=== PATIENT | female | born 1935 | race Caucasian/White ===

== ENCOUNTER 2016-06-08 06:16 | Inpatient (IN) | payer OTHER ==
[~2016-06-08] VITALS: Ht 160 cm; Wt 76.9 kg
[~2016-06-08 06:16] MED LIST: /ADVA50050; /ADVA50050 IN; /WARF25TA OR; ACET500C OR; ACET65TA OR; ADV250INH INH; ADVAIR; ADVAIR INH; ALBU17IN INH; ALBU83IN; ALBU83IN INH; ALBU83IN NEB; ALBUTERAL INH; ALBUTEROL INH; ALEVE; ALEVE PO; AMOX875T2 PO; ASTELIN INH; ASTELIN NASAL; ASTELIN NASAL SPRAY; ATRO1SOL13 NEB; AVELOX PO; BISA10SU2 RE; CALCARB WITH VIT D; CALCTAB93 PO; CARD120T6 OR; CARD180C4 PO; CARD240C5 PO; CARDIZEM CD; CARTIA XT PO; CEFD1CAP8 PO; CEFT500T PO; CELE100C OR; CETAPHIL; CICLOPIROX TOP; CLOB0.0548 TOP; CLOBETASOL; CLOBETASOL PROPIONAT; COLA100C2; DILT240C5 PO; DIOV80TA; DUONSOL IN; FERR324T5 OR; FLAG500T; GABA100C PO; HYDR10TA3; HYDR10TA3 OR; HYDR1TAB97 PO; INCR1INH IN; LASI40TA OR; LASI40TA PO; LETR2.5T PO; LEVA250T PO; LEVA500T; LEVA500T PO; METO50TA4; METO5TAB2 OR; METO5TAB2 PO; MULTTAB25 PO; NEBUMIS2 INH; OMEP20TA7 PO; OXYGEN; PANT40TA2 PO; PERC5TAB8 OR; PRAD150C PO; PRADAXA OR; PRED10TA PO; PRED10TA2 OR; PRED20TA OR; PREDPOW10 PO; PROV90AE; TIOT18INH INH; TRAM50TA2 OR; TRAM50TA2 PO; TYLE325T5 PO; VALS80CA; VIT D 2000 OR; VITA100037 PO; VITAMIN D50000 UNT OR; ZITH250T PO; [UNRECOGNIZED DRUG - CODE] OR; [UNRECOGNIZED DRUG - OTHER]; [UNRECOGNIZED DRUG - OTHER]; [UNRECOGNIZED DRUG - OTHER]; [UNRECOGNIZED DRUG - OTHER] TOP; albuterol neb INH; cartia xt PO; ipratropium bromide INH; ocean nasal spray; oxygen; vitamin D OR
[2016-06-08] MEDS ORDERED: IPRATROPIUM 0.5MG/ALBUTEROL 2.5MG INH SOL UD 3ML (DUONEB)(J7620) As Ordered ONE ×2 (06:30→07:02)
[2016-06-08] MEDS ORDERED: dexameTHASONE 4 MG/ML 1ML VIAL (J1100) As Ordered ONE (06:34)
[2016-06-08 06:42] LABS: BASO % 0.8 % (0.0-1.0); EOS # 0.3 K/mm3 (0.0-0.50); EOS % 4.5 % (0.0-3.0); LARGE UNSTAINED CELL # 0.3 K/mm3 (0.0-0.4); LARGE UNSTAINED CELL % 4.4 % (0.0-4.0); LYMPH # 0.9 K/mm3 (1.5-4.5); LYMPH % 13.6 % (24.0-44.0); MEAN CORPUSCULAR HEMOGLOBIN 24.1 pg (27.0-33.0); MEAN CORPUSCULAR HGB CONC 29.8 g/dl (32.0-36.5); MEAN CORPUSCULAR VOLUME 80.6 fl (80.0-96.0); MONO # 0.6 K/mm3 (0.0-0.8); MONO % 9.4 % (0.0-5.0); NEUTROPHILS # 4.6 K/mm3 (1.8-7.7); NEUTROPHILS % 67.3 % (36.0-66.0); PLATELET COUNT, AUTOMATED 230 k/mm3 (150-450); RED CELL DISTRIBUTION WIDTH 16.4 % (11.5-14.5); WHITE BLOOD COUNT 6.8 K/mm3 (4.0-10.0)
[2016-06-08 06:45] LABS: ADD MORPHOLOGY? YES
[2016-06-08 07:06] LABS: ANION GAP 8 MEQ/L (8-16); BLOOD UREA NITROGEN 14 MG/DL (7-18); CALCIUM LEVEL 8.9 MG/DL (8.8-10.2); CARBON DIOXIDE LEVEL 31 MEQ/L (21-32); CHLORIDE LEVEL 102 MEQ/L (98-107); CREATININE FOR GFR 0.73 MG/DL (0.55-1.02); GLOMERULAR FILTRATION RATE > 60.0 (>32); GLUCOSE, FASTING 118 MG/DL (83-110); POTASSIUM SERUM 4.3 MEQ/L (3.5-5.1); SODIUM LEVEL 141 MEQ/L (136-145)
[2016-06-08] MEDS ORDERED: FUROSEMIDE 40 MG/4 ML VIAL (J1940) As Ordered ONE (07:34)
[2016-06-08] MEDS ORDERED: METOPROLOL 5 MG/5 ML VIAL As Ordered ONE (08:14)
[2016-06-08] MEDS ORDERED: BISOPROLOL FUMARATE 5 MG TAB As Ordered ONE (08:14)
[2016-06-08 08:29] LABS: ABG BASE EXCESS 2.9 (-2.0-2.0); ABG DEVICE NASAL CANN; ABG HCO3 27.6 MEQ/L (22.0-26.0); ABG PARTIAL PRESSURE CO2 43.1 mmHg (35.0-45.0); ABG PARTIAL PRESSURE O2 63.2 mmHg (75.0-100.0); ABG STANDARD HCO3 26.9 MEQ/L (22.0-26.0); ABG pH (ARTERIAL) 7.425 UNITS (7.350-7.450)
[2016-06-08] MEDS ORDERED: DABIGATRAN ETEXILATE 75 MG CAP (PRADAXA) PO ONE (08:30)
--- NOTE | 2016-06-08 08:51 | REP ---
Portable chest x-ray: Single view. History: Shortness of breath. Comparison chest x-ray February 28, 2016. Findings: Moderate cardiomegaly is again observed. Oxygen delivery tubing and ECG monitoring electrodes are seen. No infiltrate is noted. No free pleural effusion seen. Pulmonary vasculature is not increased. Impression: Cardiomegaly. No infiltrate seen. Signed by Adair Longo MD 06/08/2016 09:17 A
[2016-06-08] MEDS ORDERED: BISO5TAB5 PO (09:00)
[2016-06-08] MEDS ORDERED: TRAZ50TA4 PO (09:00)
[2016-06-08] MEDS: ADVAIR DISKUS 250/50 INH PWD INH SCH ×2 (09:00→20:08)
[2016-06-08] MEDS: LETROZOLE 2.5 MG TAB PO SCH (09:00)
[2016-06-08] MEDS ORDERED: ACETAMINOPHEN TAB 650MG DOSE (2X325MG) PO PRN (09:45)
[2016-06-08] MEDS ORDERED: IPRATROPIUM 0.02% SOLN 0.5MG/2.5 ML NEB INH PRN (09:45)
[2016-06-08] MEDS ORDERED: CLOBETASOL PROPIONATE EMOLLIENT 0.05% CR 60 GM TOP PRN (09:45)
[2016-06-08] MEDS ORDERED: ALBUTEROL 90 MCG/ACT 8GM HFA INHALER INH PRN (09:45)
[2016-06-08] MEDS ORDERED: traZODone 50 MG TAB PO PRN (09:45)
[2016-06-08] MEDS ORDERED: LEVALBUTEROL 1.25 MG/0.5 ML CONCENTRATE NEB INH PRN (09:45)
[2016-06-08] MEDS ORDERED: ONDANSETRON 4MG/2ML VIAL (J2405) IV PRN (10:00)
[2016-06-08 10:02] LABS: RETIC HEMOGLOBIN CONTENT CHr 23.2 PG (24-36); RETICULOCYTE ABSOLUTE ADVIA212 88 x10(9)/L (17-77)
[2016-06-08 10:21] LABS: FERRITIN 10 NG/ML (8-252); PERCENT SATURATION 5.2 % (13.2-37.4); TOTAL IRON BINDING CAPACITY 524 UG/DL (250-450)
--- NOTE | 2016-06-08 11:00 | HPE ---
DATE OF ADMISSION: 06/08/2016 PRIMARY CARE PROVIDER: Dr. Escobar CHIEF COMPLAINT: Shortness of breath. HISTORY OF PRESENT ILLNESS: The patient is an 81-year-old female with a known history of fairly significant chronic obstructive pulmonary disease (COPD) on chronic 2.5 liters of oxygen continuously, as well as right sided cor pulmonale heart failure. The patient tells me that this morning at approximately 2:00 a.m. she awoke and found that her oxygen had slipped off. She was short of breath and began coughing and panicking. She was unable to recover, called to be brought to the emergency room. The patient states that in the last 2 to 3 days she had noticed progressively worsening dyspnea on exertion as well with increased cough. She denies any associated chest pressure, lightheadedness, dizziness, passing out. She denies any fevers, chills, sick contacts. She denies any weight gain, but was unable to specifically tell me what her daily weight trackings have been. At the present time in the emergency room, the patient reports that she is feeling better but not back to normal as of yet. The patient notes that she has had dark, tarry stools for the last 1 week. PAST MEDICAL HISTORY: 1. Right sided heart failure. 2. Atrial fibrillation on anticoagulation. 3. COPD with 2 liters of oxygen. 4. Right breast cancer. 5. Pulmonary hypertension. 6. Interstitial fibrosis. 7. Pulmonary nodule. 8. Chronic hypoxic respiratory failure. 9. Gastrointestinal bleed. 10. Gastritis on esophagogastroduodenoscopy (EGD) in 2013. 11. Internal hemorrhoids. 12. Diverticulosis and small polyps on colonoscopy by Dr. Lee in 2012. HOME MEDICATIONS: - albuterol nebulizers every four hours as needed for shortness of breath - Pradaxa 150 mg twice a day - Lasix 40 mg by mouth twice a day - Protonix 40 mg daily - Incruse Ellipta 62.5 mcg inhaled daily - Tylenol 650 mg every four hours as needed for pain or fever - Ventolin two puffs inhaled every four hours as needed for shortness of breath - Bisoprolol 5 mg daily - clobetasol 0.05% cream topically twice a day as needed for itching - diltiazem 240 mg daily - letrozole 2.5 mg daily - Reglan 5 mg by mouth before meals and at bedtime - Advair Diskus 250/50 one puff inhaled twice a day - trazodone 50 mg at night as needed for sleep - vitamin D 1000 units daily PAST SURGICAL HISTORY: 1. Hip arthroplasty on the right. 2. Hysterectomy. 3. Left wrist surgery. 4. Mastectomy on the right. 5. Knee surgery on the left. SOCIAL HISTORY: The patient denies active alcohol, tobacco or illicit drug use. She lives with her adult male son. ALLERGIES: LATEX. FAMILY HISTORY: Noncontributory. REVIEW OF SYSTEMS: Negative other than history of present illness. FAMILY HISTORY: Noncontributory. PHYSICAL EXAMINATION: Blood pressure 144/65, pulse is 108, respiratory rate 26, temperature 99.2, oxygen saturation 92% on 5 liters of oxygen, which is up from her normal 2.5 liters of oxygen. GENERAL: She is a frail, elderly, obese, female sitting on the edge of the bed. She is speaking in complete sentences. She does not appear to be in any acute distress. HEENT: Cranial nerves II through XII are grossly intact. She has moist mucous membranes. I do not appreciate elevation in her central venous pressure. CARDIOVASCULAR EXAM: S1, S2. Irregular. Tachycardic. RESPIRATORY EXAM: She has fairly good air movement. There is some mild expiratory wheeze and bibasilar rales. ABDOMINAL EXAM: Obese. EXTREMITIES: No clubbing, cyanosis. There is 1+ edema bilaterally. LABORATORY STUDIES: WBC 6.8, hemoglobin 9.4, hematocrit 31.6, platelet count 230. Chemistry panel: Sodium 141, potassium 4.3, chloride 102, bicarbonate 31, BUN 1 4, creatinine 0.7, BNP is elevated at 374. Arterial blood gas reveals mild hypoxia with pH of 7.4, PCO2 of 43.1 and PO2 of 53.2. Blood cultures have been drawn in the emergency room. The patient did have a chest x-ray that did not reveal any acute infiltrate, but did show cardiomegaly. ASSESSMENT AND PLAN: This is an 81-year-old female with dyspnea and atrial fibrillation with rapid ventricular response. 1. Dyspnea with acute on chronic hypoxic respiratory failure. The patient awoke without her oxygen. It may be as simple as her having some anxiety and being unable to recover; however, her symptoms of increased cough over the last several days, as well as her examination with her being fluid overloaded are concerning in the setting of right sided congestive heart failure and history of fairly significant COPD. She has improved with intravenous Lasix in the emergency room. Given that she does appear to be somewhat fluid overloaded, I will diurese her with 40 of IV Lasix twice a day, monitoring her renal status, daily weights and electrolytes closely. She does have elevated central venous pressure and peripheral edema. In regard to the patient's COPD, she may be having some decompensation. I do not have any suspicion for an infection at this time. She has a fairly low grade temperature and no shantel fever. No infiltrate on her chest x-ray. As such, I will forgo antibiotics at this time. We will treat her with intravenous Solu-Medrol and nebulizer treatments, however, and draw blood cultures. If she should spike a temperature or have a change and worsening clinical status, would start antibiotics, or if her cultures come back positive, would start antibiotics at that time. The patient is on Advair and we will titrate for oxygen saturation 88 to 92. 2. Atrial fibrillation with rapid ventricular response. The patient has a history of atrial fibrillation. She is on bisoprolol. She is having rapid ventricular response at the present time. I am unclear if this is secondary to her stress versus an uncontrolled rate. She did not receive her home medications this morning and they have now been since administered. We will monitor heart rate and admit her to progressive care unit (PCU) and monitor closely. The patient's hemoglobin and hematocrit have dropped somewhat and as such I will hold her Pradaxa. The patient is on diltiazem. 3. Acute on chronic anemia. The patient has some chronic anemia; however, her value of 9.8 is significantly lower than usual. Her presentation does not sound like symptomatic anemia and I do not think that she has any indication for a transfusion at this time. However, I will hold her Pradaxa and check an occult stool for blood, as well as iron studies. The patient does have a history of some gastritis from an EGD and internal hemorrhoids and diverticulosis with a clinical history of some dark stools for the past week or so. I will place her on a proton pump inhibitor, intravenously twice a day and monitor her hemoglobin and hematocrit daily or more frequently if she were to have any sudden bleeding. However, I suspect that she may be having occult bleeding secondary to anticoagulation that has been going on for quite some time. The patient is aware of her risks of being off of Pradaxa for possible stroke; however, at this time, I think that it is pertinent that she discontinue it, at least for the time being. 4. Insomnia. Continue trazodone. 5. History of breast cancer. Continue with letrozole. 6. Deep vein thrombosis (DVT) prophylaxis. Sequential compression device (SCD) and TEDs. We will avoid pharmacologic agents, at least for the time being. We will encourage early ambulation, out of bed with assistance. DISPOSITION: The patient is being admitted to the progressive care unit (PCU) to my service. I will continue following the patient closely. She is a DO NOT RESUSCITATE, DO NOT INTUBATE. She brought her Medical Orders for Life Sustaining Treatment (MOLST) form in from home.
[2016-06-08] MEDS ORDERED: IPRATROPIUM 0.02% SOLN 0.5MG/2.5 ML NEB As Ordered ONE (12:26)
[2016-06-08] MEDS ORDERED: LEVALBUTEROL 1.25 MG/0.5 ML CONCENTRATE NEB As Ordered ONE (12:26)
[2016-06-08] MEDS: LEVALBUTEROL 1.25 MG/0.5 ML CONCENTRATE NEB INH SCH ×2 (12:31→20:00)
[2016-06-08] MEDS: IPRATROPIUM 0.02% SOLN 0.5MG/2.5 ML NEB INH SCH ×2 (12:31→20:00)
--- NOTE | 2016-06-08 12:34 | EDDOCDS ---
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 Suicide/Homicide risk assessment- the patient denies having any suicidal and/or homicidal ideations and does not present with any other emotional, behavioral or mental health complaints. Status: Patient is not a field service technician or dependent. Transition of care: patient was not received from another setting of care. 06:18 Acuity: MILTON Level 3 js15 06:18 Method Of Arrival: Ambulance js15 12:31 Adult Sepsis Screening: The patient does not have new or worsening altered mentation. jmb Patient's respiratory rate is less than 22. Systolic blood pressure is greater than 100. Patient has a qSOFA score of 0- Negative Sepsis Screen. Triage Assessment: 06:23 General: Appears distressed, uncomfortable, Behavior is appropriate for age, js15 cooperative. Pain: Denies pain. The patient is triaged at the bedside. See Assessment in Nurses Notes section of ED record. Neurological: Level of Consciousness is awake, alert, obeys commands, Oriented to person, place, time. Cardiovascular: Capillary refill < 3 seconds Rhythm is. 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 Reports shortness of breath at rest. Derm: Skin is pink, warm & dry. Historical: - Allergies: Latex (rash all over); - Home Meds: 1. Advair Diskus 250-50 mcg/dose Inhl dsdv 1 puff 2 times per day 2. clobetasol 0.05 % Topical crea 2 times per day as needed 3. Lasix 40 mg Oral tab 1 tab 2 times per day 4. Spiriva with HandiHaler 18 mcg Inhl CpDv 1 cap once daily 5. Pradaxa 150 mg oral cap 1 cap 2 times per day 6. diltiazem HCl 240 mg Oral cp24 1 cap once daily 7. letrozole 2.5 mg oral tab 1 tab once daily 8. metoclopramide HCl 5 mg Oral tab 1 tab four times a day 9. pantoprazole 40 mg oral TbEC 1 tab once daily 10. Oxygen 2.5 liters continuous 11. Vitamin D Oral 1000 unit daily 12. albuterol sulfate 2.5 mg/0.5 mL Nebulizer nebu 0.5 mL four times a day 13. albuterol sulfate 90 mcg/actuation Inhl aepb 2 puffs every 4 hours 14. bisoprolol fumarate 5 mg oral tab 1 tab once daily 15. trazodone 25-50 mg Oral tab 1 tab nightly as needed for sleep - PMHx: Asthma; Cancer, Breast - Right; COPD; paroxysmal atrial fibrillation; Pulmonary Hypertension; interstitial fibrosis; pulmonary nodule; chronic respiratory failure with hypoxia; right sided heart failure; upper GI bleed; - PSHx: Hip Arthroplasty, Right; Hysterectomy; left wrist; Mastectomy- Right; Knee surgery- Left; - Social history: No barriers to communication noted, The patient speaks fluent Anguillan, Speaks appropriately for age, Smoking status: Patient states former smoker of tobacco. - Family history: Not pertinent. - : The pt / caregiver states he / she is on anticoagulants: Pradaxa (Dabigatran) Unable to Verify Home Med List with the patient / caregiver. - Exposure Risk Screening:: None identified. Screenin:29 Screening information is obtained from the patient. Fall risk: At risk due to age, js15 shortness of breath. The following interventions are performed due to a positive Fall Risk Screen: bed in low position, call light in reach, side rails up x2. Assistance ADL's: requires no assistance with activities of daily living. Abuse/DV Screen: The patient / caregiver reports he/she is: not in a situation that causes fear, pain or injury. Nutritional screening: No deficits noted. Advance Directives: There is an active DNR order but there is no copy available at this time. home support is adequate. 09:21 Fall risk: At risk due to age, gait disturbance, Patient uses cane for ambulation. [facility] Assessment: 06:32 General: see triage note. js15 06:32 Cardiovascular: Rhythm is atrial fibrillation Chest pain is denied. js15 07:44 General: Appears in no apparent distress, Behavior is appropriate for age, cooperative. dy Pain: Denies pain. Neurological: Level of Consciousness is awake, alert, obeys commands, Oriented to person, place, time, Pupils are PERRLA. Respiratory: Airway is patent Respiratory effort is even, labored, Breath sounds with crackles inspiratory in left posterior lower lobe and right posterior lower lobe Breath sounds are diminished bilaterally. Derm: Skin is pink, warm & dry. 08:38 General: Appears in no apparent distress, Behavior is appropriate for age, cooperative. dy Pain: Denies pain. Neurological: Level of Consciousness is awake, alert, obeys commands, Oriented to person, place, time. Respiratory: Airway is patent Respiratory effort is even, labored. Derm: Skin is pink, warm & dry. 09:11 General: Patient rang for bathroom, assistance provided to commode at bedside. Call jmb light placed within reach. Patient encouraged to ring when done. . 09:21 General: Appears in no apparent distress, Behavior is appropriate for age, cooperative, b Patient transferred from commode to bed with assist of one. Patient short of breath on exertion. Patient son at bedside. Patient alert and oriented x 3. Patient denies discomfort at this time. . Neurological: Level of Consciousness is awake, alert, obeys commands, Oriented to person, place, time, Mill Tender Washing are weak bilaterally Speech is normal, Facial symmetry appears normal, Facial symmetry: tongue is midline. Cardiovascular: Capillary refill < 3 seconds Heart tones present Pulses are all present. Rhythm is atrial fibrillation Chest pain is denied. Respiratory: Airway is patent Respiratory effort is even, unlabored, Respiratory pattern is regular, symmetrical, Breath sounds with crackles inspiratory in right posterior lower lobe. GI: Abdomen is non- distended Bowel sounds present X 4 quads. Abd is soft and non tender X 4 quads. : No deficits noted. Derm: Skin is pink, warm & dry. Musculoskeletal: Range of motion limited in all extremities. 10:05 General: Appears in no apparent distress, comfortable, Behavior is appropriate for age, jmb cooperative, Patient sitting on bedside. Admission nurse just left room, emptied 1100 ml of urine from commode. Patient asked for something to eat. Call placed to dietary for meal to be brought down. NO complaints at this time. . Neurological: Level of Consciousness is awake, alert, obeys commands, Oriented to person, place, time. Respiratory: Airway is patent Respiratory effort is even, unlabored, Respiratory pattern is regular, symmetrical. 10:36 General: Patient sitting on side of bed eating breakfast. Patient voices no complaints jmb at this time. . 10:55 General: Appears in no apparent distress, comfortable, Behavior is appropriate for age, jmb cooperative, Patient rang call light, placed on commode at request of patient. Patient finished eating breakfast, 100% eaten without difficulty. . 11:10 General: Appears in no apparent distress, comfortable, Behavior is appropriate for age, jmb cooperative, Patient placed back in bed after ringing call light. Patient appears asleep, easy to arouse. NO voiced complaints at this time. . Neurological: Level of Consciousness is awake, alert, obeys commands, Oriented to person, place, time. Respiratory: Airway is patent Respiratory effort is even, unlabored, Respiratory pattern is regular, symmetrical. 11:31 General: Appears in no apparent distress, comfortable, Behavior is appropriate for age, jmb cooperative, Patient laying on stretcher, talking on phone. Patient denies pain or shortness of breath at this time. . Neurological: Level of Consciousness is awake, alert, obeys commands, Oriented to person, place, time. Respiratory: Airway is patent Respiratory effort is even, unlabored, Respiratory pattern is regular, symmetrical. 12:12 General: SBAR faxed and tubed to PCU. jmb 12:18 General: Appears in no apparent distress, comfortable, Behavior is appropriate for age, jmb cooperative, Patient laying on stretcher watching television. Patient voices no complaints at this time. Juani on PCU reported that she received SBAR and nurse taking patient has another patient at xray but will have her call m when she returns and receives SBAR.. Neurological: Level of Consciousness is awake, alert, obeys commands, Oriented to person, place, time. Respiratory: Airway is patent Respiratory effort is even, unlabored, Respiratory pattern is regular, symmetrical. 12:29 General: Received phone call from pcu, patient can be transported at this time to unit. mayra . Vital Signs: 06:25 BP 174 / 78 RA Sitting (auto/reg); Pulse 100 MON; Resp 26 S; Temp 99.2(TE); Pulse Ox cln 94% on 5 lpm NC; Weight 78.02 kg (R); Height 5 ft. 3 in. (160.02 cm) (R); Pain 0/10; 06:43 BP 135 / 61 (auto/); js15 06:43 Pulse 104 MON; Pulse Ox 90% ; js15 06:58 BP 151 / 71 (auto/); dy 06:58 Pulse 108 MON; Pulse Ox 90% ; dy 07:13 BP 149 / 72 (auto/); dy 07:14 Pulse 116 MON; Pulse Ox 93% ; dy 07:28 BP 168 / 76 (auto/); dy 07:29 Pulse 130 MON; Pulse Ox 90% ; dy 07:43 Pulse 132 MON; Pulse Ox 94% ; dy 07:43 BP 160 / 67 (auto/); dy 08:07 Pulse 154 MON; Pulse Ox 88% ; dy 08:07 BP 145 / 82 (auto/); dy 08:29 Pulse 126 MON; Pulse Ox 91% ; dy 08:29 BP 144 / 65 (auto/); dy 09:05 Pulse 120 MON; Pulse Ox 93% ; jmb 09:08 BP 130 / 103 (auto/); jmb 09:23 BP 161 / 93 (auto/); jmb 09:23 Pulse 116 MON; Pulse Ox 89% ; jmb 09:38 BP 116 / 62 (auto/); jmb 09:38 Pulse 110 MON; Pulse Ox 94% ; jmb 09:53 BP 120 / 76 (auto/); jmb 09:54 Pulse 112 MON; Pulse Ox 97% ; jmb 10:08 BP 121 / 80 (auto/); jmb 10:09 Pulse 108 MON; Pulse Ox 94% ; jmb 10:23 BP 153 / 81 (auto/); jmb 10:23 Pulse 104 MON; Pulse Ox 97% ; jmb 10:38 BP 166 / 81 (auto/); jmb 10:38 Pulse 112 MON; jmb 11:08 BP 134 / 63 (auto/); jmb 11:08 Pulse 102 MON; Pulse Ox 95% ; jmb 11:10 Pulse 98 MON; Pulse Ox 93% ; jmb 11:11 BP 124 / 60 (auto/); jmb 11:23 BP 119 / 57 (auto/); jmb 11:24 Pulse 90 MON; Pulse Ox 91% ; jmb 11:24 Resp 22; Temp 98.5(T); Pain 0/10; jmb 11:38 BP 156 / 69 (auto/); jmb 11:38 Pulse 92 MON; Pulse Ox 92% ; jmb 11:53 BP 166 / 74 (auto/); jmb 11:53 Pulse 92 MON; Pulse Ox 92% ; jmb 12:08 BP 134 / 63 (auto/); jmb 12:08 Pulse 92 MON; Pulse Ox 92% ; jmb 12:23 BP 150 / 69 (auto/); jmb 12:24 Pulse 96 MON; Pulse Ox 92% ; jmb 06:25 Body Mass Index 30.47 (78.02 kg, 160.02 cm) cln Vitals: 06:29 Log In Time N/A - ambulance arrival. js15 ED Course: 06:17 Patient visited by Marquez Mcmullen, Label Printing Machinist. ml3 06:17 Virginia Carrion is Private Physician. ml3 06:17 Patient moved to Waiting ml3 06:18 Patient moved to 15 ml3 06:20 Renaldo Craig DO is Attending Physician. cs11 06:20 Patient visited by Renaldo Craig DO. cs11 06:20 Triage Initiated js15 06:26 Patient visited by Paola Carrion PCA. cln 06:26 Pt greeted and oriented to ED. Patient advised of names of staff involved in care, cln location of call art, wait times and NPO status. Patient has correct armband on for positive identification. Bed in low position. Call light in reach. Side rails up X 1. 06:31 Maintain field IV. Dressing intact. Good blood return noted. Site clean & dry. Gauge & js15 site: 20 G LAC. 06:43 Patient visited by Jhonny Romero PCA. kb5 06:43 EKG done. (by ED staff). Reviewed by Renaldo Craig DO. kb5 06:47 BLOOD CULTURES Sent. js15 06:47 Lactic Acid (Willard tube on ice) Sent. js15 06:47 O2 via nasal cannula \T\ 6L/min. js15 07:01 Attending Physician role handed off by Renaldo Craig DO pc 07:01 Bhupinder Higgins MD is Attending Physician. pc 07:02 Efren Peterson, RN is Primary Nurse. dy 07:08 Patient visited by Efren Peterson RN. dy 07:45 Patient visited by Efren Peterson, RN. dy 08:09 Patient visited by Marin Peck PCA. jlf 08:09 Assisted to bedside commode. jlf 08:20 -Arterial Blood Gas Sent. km6 08:23 Luis Carbajal is Hospitalizing Provider. pc 08:39 Patient visited by Efren Peterson RN. dy 08:52 Chest, 1 View Returned. EDMS 09:12 Patient visited by Rm Isaac RN. jmb 09:24 Patient visited by Rm Isaac RN. jmb 09:35 [facility] Payment Agreement was scanned into [employer] and attached to record. lg 10:06 Patient visited by Rm Isaac RN. jmb 10:36 Patient visited by Rm Isaac RN. jmb 10:43 Patient visited by Marin Peck PCA. jlf 11:00 Patient visited by Marin Peck PCA. jlf 11:00 Patient visited by Rm Isaac RN. jmb 11:00 Patient visited by Marin Peck PCA. jlf 11:00 Assisted to bedside commode. jlf 11:11 Patient visited by Rm Isaac RN. jmb 11:33 Patient visited by Rm Isaac RN. jmb 12:19 Patient visited by Rm Isaac RN. jmb 12:24 The patient / caregiver is instructed regarding the plan of care and ED course. jmb 12:24 No procedures done that require assistance. jmb Administered Medications: 06:33 Drug: Albuterol-Ipratropium 1 neb [ipratropium-albuterol 0.5 mg-3 mg(2.5 mg base)/3 mL jh6 nebulization soln (1 neb)] Route: Nebulizer; 06:39 Drug: Dexamethasone 6 mg [dexamethasone 4 mg/mL injection solution] Route: IV; Rate: js15 bolus; Site: left antecubital; 06:50 Drug: Albuterol-Ipratropium 1 neb [ipratropium-albuterol 0.5 mg-3 mg(2.5 mg base)/3 mL cs15 nebulization soln (1 neb)] Route: Nebulizer; 07:14 Drug: Albuterol-Ipratropium 1 neb [ipratropium-albuterol 0.5 mg-3 mg(2.5 mg base)/3 mL cs15 nebulization soln (1 neb)] Route: Nebulizer; 07:17 Follow up: Response: Nebulizer completed; Wheezing has decreased cs15 07:41 Drug: Furosemide 80 mg [furosemide 10 mg/mL injection solution (8 mL)] Route: IVP; dy Site: left antecubital; 08:30 Drug: Bisoprolol 5 mg [bisoprolol fumarate 5 mg tablet (1 tabs)] Route: PO; dy 08:31 Drug: Metoprolol 5 mg [metoprolol 5 mg/5 mL intravenous solution (5 mL)] Route: IVP; dy Site: left antecubital; 08:55 Drug: Dabigatran 150 mg Route: PO; dy 08:55 Drug: Cardizem CD Extended Release 24 hour Capsule 240 mg Route: PO; dy Output: 08:09 Urine: 400.00ml (Voided); Total: 400.00ml. jlf 08:56 Urine: 750.00ml (Voided); Total: 1150.00ml. dy 11:00 Urine: 400.00ml (Voided); Total: 1550.00ml. jlf RT: 06:33 Initial Med Neb Given as ordered Patient was instructed and evaluated on procedure jh6 Patient tolerated procedure well without adverse effect. Respiratory: Airway is patent Respiratory effort is even, labored, Respiratory pattern is regular tachypnea Breath sounds are diminished in right upper lobe, left upper lobe, right middle lobe, left lower lobe and right lower lobe Breath sounds with wheezes in right upper lobe, left upper lobe, right middle lobe, left lower lobe and right lower lobe at expiration. 06:47 O2 via nasal cannula \T\ 6L/min humidified. Respiratory: Airway is patent Respiratory jh6 effort is even, unlabored, Respiratory pattern is regular Breath sounds are coarse in right upper lobe, left upper lobe, right middle lobe, left lower lobe and right lower lobe Breath sounds are diminished in right upper lobe, left upper lobe, right middle lobe, left lower lobe and right lower lobe. 07:07 Subsequent Med Neb Given as ordered Patient tolerated procedure well without adverse cs15 effect. Respiratory: Breath sounds are coarse bilaterally. Breath sounds are diminished bilaterally. 08:20 ABG's drawn from left brachial artery pressure held for 5 minuntes no bleeding noted km6 specimen sent pt. tolerated well. Order Results: Lab Order: Lactic Acid (Willard tube on ice); SPEC'M 06/08/16 06:43 Test: LACTIC ACID LEVEL, LACTATE; Value: 1.3; Range: 0.4-2.0; Units: MMOL/L; Status: F Lab Order: CBC with Diff; SPEC'M 06/08/16 06:29 Test: WHITE BLOOD COUNT; Value: 6.8; Range: 4.0-10.0; Units: K/mm3; Status: F Test: RED BLOOD COUNT; Value: 3.92; Range: 4.00-5.40; Abnormal: Below low normal; Units: M/mm3; Status: F Test: HEMOGLOBIN; Value: 9.4; Range: 12.0-16.0; Abnormal: Below low normal; Units: g/dl; Status: F Test: HEMATOCRIT; Value: 31.6; Range: 36.0-47.0; Abnormal: Below low normal; Units: %; Status: F Test: MEAN CORPUSCULAR VOLUME; Value: 80.6; Range: 80.0-96.0; Units: fl; Status: F Test: MEAN CORPUSCULAR HEMOGLOBIN; Value: 24.1; Range: 27.0-33.0; Abnormal: Below low normal; Units: pg; Status: F Test: MEAN CORPUSCULAR HGB CONC; Value: 29.8; Range: 32.0-36.5; Abnormal: Below low normal; Units: g/dl; Status: F Test: RED CELL DISTRIBUTION WIDTH; Value: 16.4; Range: 11.5-14.5; Abnormal: Above high normal; Units: %; Status: F Test: PLATELET COUNT, AUTOMATED; Value: 230; Range: 150-450; Units: k/mm3; Status: F Test: NEUTROPHILS %; Value: 67.3; Range: 36.0-66.0; Abnormal: Above high normal; Units: %; Status: F Test: LYMPH %; Value: 13.6; Range: 24.0-44.0; Abnormal: Below low normal; Units: %; Status: F Test: MONO %; Value: 9.4; Range: 0.0-5.0; Abnormal: Above high normal; Units: %; Status: F Test: EOS %; Value: 4.5; Range: 0.0-3.0; Abnormal: Above high normal; Units: %; Status: F Test: BASO %; Value: 0.8; Range: 0.0-1.0; Units: %; Status: F Test: LARGE UNSTAINED CELL %; Value: 4.4; Range: 0.0-4.0; Abnormal: Above high normal; Units: %; Status: F Test: NEUTROPHILS #; Value: 4.6; Range: 1.8-7.7; Units: K/mm3; Status: F Test: LYMPH #; Value: 0.9; Range: 1.5-4.5; Abnormal: Below low normal; Units: K/mm3; Status: F Test: MONO #; Value: 0.6; Range: 0.0-0.8; Units: K/mm3; Status: F Test: EOS #; Value: 0.3; Range: 0.0-0.50; Units: K/mm3; Status: F Test: BASO #; Value: 0.0; Range: 0.0-0.2; Units: K/mm3; Status: F Test: LARGE UNSTAINED CELL #; Value: 0.3; Range: 0.0-0.4; Units: K/mm3; Status: F Lab Order: MED Profile; [facility] 06/08/16 06:29 Test: GLUCOSE, FASTING; Value: 118; Range: 83-110; Abnormal: Above high normal; Units: MG/DL; Status: F Test: BLOOD UREA NITROGEN; Value: 14; Range: 7-18; Units: MG/DL; Status: F Test: CREATININE FOR GFR; Value: 0.73; Range: 0.55-1.02; Units: MG/DL; Status: F Test: GLOMERULAR FILTRATION RATE; Value: > 60.0; Range: >32; Status: F Test: SODIUM LEVEL; Value: 141; Range: 136-145; Units: MEQ/L; Status: F Test: POTASSIUM SERUM; Value: 4.3; Range: 3.5-5.1; Units: MEQ/L; Status: F Test: CHLORIDE LEVEL; Value: 102; Range: 98-107; Units: MEQ/L; Status: F Test: CARBON DIOXIDE LEVEL; Value: 31; Range: 21-32; Units: MEQ/L; Status: F Test: ANION GAP; Value: 8; Range: 8-16; Units: MEQ/L; Status: F Test: CALCIUM LEVEL; Value: 8.9; Range: 8.8-10.2; Units: MG/DL; Status: F Test Note: ; Units are mL/min/1.73 m2 Chronic Kidney Disease Staging per NKF: Stage I & II GFR >=60 Normal to Mildly Decreased Stage III GFR 30-59 Moderately Decreased Stage IV GFR 15-29 Severely Decreased Stage V GFR <15 Very Little GFR Left ESRD GFR <15 on ELEMENTARY SUPERVISOR Lab Order: BNP; SPEC' 06/08/16 06:29 Test: BRAIN NATRIURETIC PEPTIDE; Value: 374; Range: <100; Abnormal: Above high normal; Units: PG/ML; Status: F Lab Order: Cardiac Marker Panel; [facility] 06/08/16 06:29 Test: CPK CREATINE PHOSPHOKINASE; Value: 35; Range: 26-192; Units: U/L; Status: F Test: CK-MB VALUE MASS; Value: 1.0; Range: 0.0-3.6; Units: NG/ML; Status: F Test: MB/CK RELATIVE INDEX; Value: 2.85; Range: < OR =4; Status: F Test: TROPONIN I; Value: < 0.02; Range: < 0.10; Units: NG/ML; Status: F Test Note: ; DIAGNOSIS CRITERIA MMB ng/ml Relative Index (RI) NON-AMI < or = 5 N/A WILLARD ZONE > 5 < or = 4 AMI > 5 > 4 Lab Order: RBC MORPH PROF NO CHARGE; SPEC'M 06/08/16 06:29 Test: PLATELET ESTIMATE; Range: NORMAL; Status: I Test: MACROCYTOSIS; Value: 1+; Status: F Test: PLATELET ESTIMATE; Value: NORMAL; Range: NORMAL; Status: F Lab Order: Type & Screen; [facility] 06/08/16 08:35 Test: BLOOD TYPE; Value: O POS; Status: F Test: AB SCREEN (INDIRECT CINDY)GEL; Value: NEGATIVE; Status: F Lab Order: -Arterial Blood Gas; [facility] 06/08/16 08:18 Test: ABG pH (ARTERIAL); Value: 7.425; Range: 7.350-7.450; Units: UNITS; Status: F Test: ABG PARTIAL PRESSURE CO2; Value: 43.1; Range: 35.0-45.0; Units: mmHg; Status: F Test: ABG PARTIAL PRESSURE O2; Value: 63.2; Range: 75.0-100.0; Abnormal: Below low normal; Units: mmHg; Status: F Test: ABG TOTAL CO2; Value: 29.0; Range: 23.0-31.0; Units: MEQ/L; Status: F Test: ABG HCO3; Value: 27.6; Range: 22.0-26.0; Abnormal: Above high normal; Units: MEQ/L; Status: F Test: ABG BASE EXCESS; Value: 2.9; Range: -2.0-2.0; Abnormal: Above high normal; Status: F Test: ABG STANDARD HCO3; Value: 26.9; Range: 22.0-26.0; Abnormal: Above high normal; Units: MEQ/L; Status: F Test: ABG O2 SATURATION; Value: 91.5; Range: 95.0-99.0; Abnormal: Below low normal; Units: %; Status: F Test: ABG DEVICE; Value: NASAL BRANDIN; Status: F Lab Order: RETICULOCYTE COUNT; [facility] 06/08/16 06:29 Test: RETICULOCYTE % [id number]; Value: 2.20; Range: 0.5-1.5; Abnormal: Above high normal; Units: %; Status: F Test: RETICULOCYTE ABSOLUTE [id number]; Value: 88; Range: 17-77; Abnormal: Above high normal; Units: x10(9)/L; Status: F Test: RETIC HEMOGLOBIN CONTENT CHr; Value: 23.2; Range: 24-36; Abnormal: Below low normal; Units: PG; Status: F Lab Order: TOTAL IRON BINDING CAPACIT; SPEC'M 06/08/16 06:29 Test: IRON (FE); Value: 27; Range: 50-170; Abnormal: Below low normal; Units: UG/DL; Status: F Test: TOTAL IRON BINDING CAPACITY; Value: 524; Range: 250-450; Abnormal: Above high normal; Units: UG/DL; Status: F Test: PERCENT SATURATION; Value: 5.2; Range: 13.2-37.4; Abnormal: Below low normal; Units: %; Status: F Lab Order: FERRITIN; SPEC'M 06/08/16 06:29 Test: FERRITIN; Value: 10; Range: 8-252; Units: NG/ML; Status: F Radiology Order: Chest, 1 View Test: Chest, 1 View REASON FOR EXAMINATION: Shortness of Breath; Portable chest x-ray: Single view.; ; History: Shortness of breath.; ; Comparison chest x-ray February 28, 2016.; ; Findings: Moderate cardiomegaly is again observed. Oxygen delivery tubing and; ECG monitoring electrodes are seen. No infiltrate is noted. No free pleural; effusion seen. Pulmonary vasculature is not increased.; ; Impression:; ; Cardiomegaly. No infiltrate seen.; ; ; Signed by; Adair Longo MD 06/08/2016 09:17 A; Outcome: 08:23 Decision to Hospitalize by Provider. 12:24 Discharge Assessment: Patient awake, alert and oriented x 3. No cognitive and/or jmb functional deficits noted. Patient verbalized understanding of disposition instructions. Patient awake and alert. obeys commands, Oriented to person, place and time. Patient verbalized understanding of disposition instructions. Patient has no functional deficits. patient administered narcotics - no. The following High Risk Discharge criteria are identified: None. Admitted to PCU accompanied by nurse, accompanied by tech, via stretcher, with oxygen, on monitor, with chart. Condition: stable Condition: improved. No special radiology studies were completed. Property :Personal belongings accompany Pt. 12:33 Patient left the ED. jmb Signatures: Dispatcher [employer] EDMS Bhupinder Higgins MD MD pc Ganter, LoriLee, Efren Ramírez lg, RN RN dy [place], [facility] Marquez Mcmullen, Label Printing Machinist Unit ml3 Heather, Jhonny, STONECUTTER ASSISTANT STONECUTTER ASSISTANT kb5 [place] jh6 Renaldo Craig, DO cs11 Rm Isaac,RN RN jmb Liv, Marin, STONECUTTER ASSISTANT STONECUTTER ASSISTANT jlf Shasha Mora,JAMIE RN js15 Lewis Benitez,RT RT cs15 Murali, Paola, STONECUTTER ASSISTANT STONECUTTER ASSISTANT cln MTDD
--- NOTE | 2016-06-08 12:34 | EDDOCDS ---
Physician Documentation [facility] Name: Antonina Echols Age: 81 yrs Sex: Female : 1935 Arrival Date: 06/08/2016 Time: 06:16 Bed 15 Private MD: Virginia Carrion DO Disposition: 06/08 08:14 Critical Care:. pc Disposition: 06/08/16 08:23 Hospitalization ordered by Luis Carbajal for Inpatient Admission. Preliminary diagnosis are Acute on chronic systolic (congestive) heart failure, Chronic obstructive pulmonary disease, unspecified, Chronic atrial fibrillation - with RVR, Patient's noncompliance with medical treatment and regimen, Anemia in other chronic diseases classified elsewhere. - Bed requested for PCU. - Status is Inpatient Admission. jmb - Condition is Stable. - Problem is new. - Symptoms have improved. Historical: - Allergies: Latex (rash all over); - Home Meds: 1. Advair Diskus 250-50 mcg/dose Inhl dsdv 1 puff 2 times per day 2. clobetasol 0.05 % Topical crea 2 times per day as needed 3. Lasix 40 mg Oral tab 1 tab 2 times per day 4. Spiriva with HandiHaler 18 mcg Inhl CpDv 1 cap once daily 5. Pradaxa 150 mg oral cap 1 cap 2 times per day 6. diltiazem HCl 240 mg Oral cp24 1 cap once daily 7. letrozole 2.5 mg oral tab 1 tab once daily 8. metoclopramide HCl 5 mg Oral tab 1 tab four times a day 9. pantoprazole 40 mg oral TbEC 1 tab once daily 10. Oxygen 2.5 liters continuous 11. Vitamin D Oral 1000 unit daily 12. albuterol sulfate 2.5 mg/0.5 mL Nebulizer nebu 0.5 mL four times a day 13. albuterol sulfate 90 mcg/actuation Inhl aepb 2 puffs every 4 hours 14. bisoprolol fumarate 5 mg oral tab 1 tab once daily 15. trazodone 25-50 mg Oral tab 1 tab nightly as needed for sleep - PMHx: Asthma; Cancer, Breast - Right; COPD; paroxysmal atrial fibrillation; Pulmonary Hypertension; interstitial fibrosis; pulmonary nodule; chronic respiratory failure with hypoxia; right sided heart failure; upper GI bleed; - PSHx: Hip Arthroplasty, Right; Hysterectomy; left wrist; Mastectomy- Right; Knee surgery- Left; - Social history: No barriers to communication noted, The patient speaks fluent Australian, Speaks appropriately for age, Smoking status: Patient states former smoker of tobacco. - Family history: Not pertinent. - : The pt / caregiver states he / she is on anticoagulants: Pradaxa (Dabigatran) Unable to Verify Home Med List with the patient / caregiver. - Exposure Risk Screening:: None identified. Exam: 08:15 Respiratory: Mild respiratory distress noted. Respirations/effort: tachypnea, Breath pc sounds: rales, in the left posterior lower lobe and right posterior lower lobe, wheezing, scattered. 08:15 Abdomen: Rectal exam: stool is guaiac negative, brown. Vital Signs: 06:25 BP 174 / 78 RA Sitting (auto/reg); Pulse 100 MON; Resp 26 S; Temp 99.2(TE); Pulse Ox cln 94% on 5 lpm NC; Weight 78.02 kg / 172 lbs (R); Height 5 ft. 3 in. (160.02 cm) (R); Pain 0/10; 06:43 BP 135 / 61 (auto/); js15 06:43 Pulse 104 MON; Pulse Ox 90% ; js15 06:58 BP 151 / 71 (auto/); dy 06:58 Pulse 108 MON; Pulse Ox 90% ; dy 07:13 BP 149 / 72 (auto/); dy 07:14 Pulse 116 MON; Pulse Ox 93% ; dy 07:28 BP 168 / 76 (auto/); dy 07:29 Pulse 130 MON; Pulse Ox 90% ; dy 07:43 Pulse 132 MON; Pulse Ox 94% ; dy 07:43 BP 160 / 67 (auto/); dy 08:07 Pulse 154 MON; Pulse Ox 88% ; dy 08:07 BP 145 / 82 (auto/); dy 08:29 Pulse 126 MON; Pulse Ox 91% ; dy 08:29 BP 144 / 65 (auto/); dy 09:05 Pulse 120 MON; Pulse Ox 93% ; jmb 09:08 BP 130 / 103 (auto/); jmb 09:23 BP 161 / 93 (auto/); jmb 09:23 Pulse 116 MON; Pulse Ox 89% ; jmb 09:38 BP 116 / 62 (auto/); jmb 09:38 Pulse 110 MON; Pulse Ox 94% ; jmb 09:53 BP 120 / 76 (auto/); jmb 09:54 Pulse 112 MON; Pulse Ox 97% ; jmb 10:08 BP 121 / 80 (auto/); jmb 10:09 Pulse 108 MON; Pulse Ox 94% ; jmb 10:23 BP 153 / 81 (auto/); jmb 10:23 Pulse 104 MON; Pulse Ox 97% ; jmb 10:38 BP 166 / 81 (auto/); jmb 10:38 Pulse 112 MON; jmb 11:08 BP 134 / 63 (auto/); jmb 11:08 Pulse 102 MON; Pulse Ox 95% ; jmb 11:10 Pulse 98 MON; Pulse Ox 93% ; jmb 11:11 BP 124 / 60 (auto/); jmb 11:23 BP 119 / 57 (auto/); jmb 11:24 Pulse 90 MON; Pulse Ox 91% ; jmb 11:24 Resp 22; Temp 98.5(T); Pain 0/10; jmb 11:38 BP 156 / 69 (auto/); jmb 11:38 Pulse 92 MON; Pulse Ox 92% ; jmb 11:53 BP 166 / 74 (auto/); jmb 11:53 Pulse 92 MON; Pulse Ox 92% ; jmb 12:08 BP 134 / 63 (auto/); jmb 12:08 Pulse 92 MON; Pulse Ox 92% ; jmb 12:23 BP 150 / 69 (auto/); jmb 12:24 Pulse 96 MON; Pulse Ox 92% ; jmb 06:25 Body Mass Index 30.47 (78.02 kg, 160.02 cm) cln MDM: 06:31 -Blood Culture (Adults Only), peripheral from different site, or from device/port/PICC cs11 etc. if present ordered. 06:31 Albuterol-Ipratropium 1 neb Nebulizer every 20 minutes x3 ordered. cs11 06:31 Call Respiratory ordered. cs11 06:31 Dexamethasone 6 mg IV at bolus once ordered. cs11 06:32 Call Respiratory complete. ml3 06:32 Chest, 1 View Ordered. EDMS 06:32 ECG WITH READING ER PHYS+CARDIAG ordered. EDMS 06:32 -Blood Culture Ordered. EDMS 06:32 Lactic Acid (Willard tube on ice) Ordered. EDMS 06:32 CBC with Diff Ordered. EDMS 06:32 MED Profile Ordered. EDMS 06:32 BNP Ordered. EDMS 06:33 Cardiac Marker Panel Ordered. EDMS 06:33 -Blood Culture (Adults Only), peripheral from different site, or from device/port/PICC ml3 etc. if present complete. 06:35 BLOOD CULTURES Ordered. EDMS 07:14 CBC with Diff Reviewed. pc 07:14 MED Profile Reviewed. pc 07:14 BNP Reviewed. pc 07:14 Cardiac Marker Panel Reviewed. pc 07:14 RBC MORPH PROF NO CHARGE Reviewed. pc 07:20 Type & Screen Ordered. EDMS 07:29 Furosemide 80 mg IVP once ordered. pc 07:29 Lactic Acid (Willard tube on ice) Reviewed. pc 07:30 Call Respiratory ordered. pc 07:30 -Arterial Blood Gas Ordered. EDMS 07:30 BED REQUEST+ADM ordered. EDMS 07:33 Call Respiratory complete. jlf 08:08 Bisoprolol 5 mg PO once ordered. pc 08:08 Metoprolol 5 mg IVP once; Hold for SBP < 100 or HR < 60. ordered. pc 08:12 Dabigatran 150 mg PO once; swallow whole; do not crush, chew, break, dissolve, or cut pc ordered. 08:12 Cardizem CD Extended Release 24 hour Capsule 240 mg PO once ordered. pc 08:14 Test interpretation: LAB - all labs as ordered have been reviewed, interpreted and pc considered in the overall management of the clinical presentation; X-RAY - interpreted by me, 1 view chest chronic obstructive pulmonary disease pattern, congestive heart failure. The patient has been re-examined and re-evaluated. The patient's symptoms have mildly improved after treatment. Physician consultation: Dr. Luis Carbajal was contacted at 08:15, regarding admission, and will see patient in ED, shortly. Disposition: The historical points, examination findings, and any diagnostic results supporting the provided diagnosis, were discussed with the patient or legal guardian. The need for further work-up and/or treatment in the hospital was explained. 09:35 Financial registration complete. lg 09:35 [facility] Payment Agreement was scanned into [employer] and attached to record. lg 09:50 INFLUENZA A&B RAPID ANTIGEN Ordered. EDMS 09:53 THYROID STIMULATING HORMONE Ordered. EDMS 09:53 MAGNESIUM LEVEL Ordered. EDMS 09:54 TROPONIN Ordered. EDMS 09:56 Admission / Observation Status ordered. EDMS 09:56 2 GRAM SODIUM DIET ordered. EDMS Administered Medications: 06:33 Drug: Albuterol-Ipratropium 1 neb [ipratropium-albuterol 0.5 mg-3 mg(2.5 mg base)/3 mL jh6 nebulization soln (1 neb)] Route: Nebulizer; 06:39 Drug: Dexamethasone 6 mg [dexamethasone 4 mg/mL injection solution] Route: IV; Rate: js15 bolus; Site: left antecubital; 06:50 Drug: Albuterol-Ipratropium 1 neb [ipratropium-albuterol 0.5 mg-3 mg(2.5 mg base)/3 mL cs15 nebulization soln (1 neb)] Route: Nebulizer; 07:14 Drug: Albuterol-Ipratropium 1 neb [ipratropium-albuterol 0.5 mg-3 mg(2.5 mg base)/3 mL cs15 nebulization soln (1 neb)] Route: Nebulizer; 07:17 Follow up: Response: Nebulizer completed; Wheezing has decreased cs15 07:41 Drug: Furosemide 80 mg [furosemide 10 mg/mL injection solution (8 mL)] Route: IVP; dy Site: left antecubital; 08:30 Drug: Bisoprolol 5 mg [bisoprolol fumarate 5 mg tablet (1 tabs)] Route: PO; dy 08:31 Drug: Metoprolol 5 mg [metoprolol 5 mg/5 mL intravenous solution (5 mL)] Route: IVP; dy Site: left antecubital; 08:55 Drug: Dabigatran 150 mg Route: PO; dy 08:55 Drug: Cardizem CD Extended Release 24 hour Capsule 240 mg Route: PO; dy Critical Care Time: 08:14 Critical care time: Bedside Care: 20 minutes, Consultation: 10 minutes. Total time: 30 pc minutes Signatures: Dispatcher [employer] EDMS Bhupinder Higgins MD MD pc Daly, Linda, Crane Engineer Unit lbd Daquan Watts Reg Reg lg Youngs, David RN Marquez Degroot, Crane Engineer Unit ml3 Renaldo Craig DO DO cs11 Rm Isaac RN RN Marin Marquez, AMERICAN SIGN LANGUAGE INTERPRETER AMERICAN SIGN LANGUAGE INTERPRETER jlf Shasha Mora,RN RN js15 [place] jh6 Lewis Benitez RT cs15 The chart was reviewed and I authenticate all verbal orders and agree with the evaluation and treatment provided.Corrections: (The following items were deleted from the chart) 09:56 09:53 FERRITIN ordered. EDMS EDMS 09:57 09:53 IRON (FE) ordered. EDMS EDMS :57 09:53 TOTAL IRON BINDING CAPACIT ordered. EDMS EDMS :57 09:53 RETICULOCYTE COUNT ordered. EDMS EDMS 10: 09:54 BLOOD CULTURES ordered. EDMS EDMS 10:05 09:54 BLOOD CULTURES ordered. EDMS EDMS Attachments: 09:35 [facility] Payment Agreement lg MTDD
[2016-06-08 12:55] VITALS: BP 143/67
[2016-06-08 13:07] LABS: MAGNESIUM LEVEL 2.1 MG/DL (1.8-2.4)
[2016-06-08] MEDS: METOCLOPRAMIDE 5 MG TAB PO SCH ×3 (13:34→20:55)
[2016-06-08] MEDS: VITAMIN D 1,000 INTERNATIONAL UNITS TABLET PO SCH (13:34)
[2016-06-08] MEDS: methylPREDNISolone INJ 125 MG/2 ML VIAL (J2930) IV SCH ×2 (13:34→20:55)
[2016-06-08] MEDS: PANTOPRAZOLE 40MG INJ (PROTONIX) (C9113) IV SCH ×2 (13:34→20:55)
[2016-06-08 16:00] VITALS: BP 136/64
[2016-06-08] MEDS ORDERED: FUROSEMIDE 100 MG/10 ML VIAL (J1940) IV SCH (17:00)
[2016-06-08] MEDS: FUROSEMIDE 40 MG/4 ML VIAL (J1940) IV SCH (17:46)
[2016-06-08 20:00] VITALS: BP 151/69
--- NOTE | 2016-06-08 20:34 | ECGEPIP ---
Stationary ECG Study [facility] - ED Test Date: 2016-06-08 Pat Name: VENITA RAHMAN Department: Room: - Gender: F Hematology Oncology Consultant: JEROMY : 1935 Requested By: EVER BELL Order Number: [id number] Reading MD: Danielle James Measurements Intervals Gray Rate: 106 P: IL: 0 QRS: 115 QRSD: 102 T: -1 QT: 343 QTc: 457 Interpretive Statements ATRIAL FIBRILLATION WITH RAPID VENTRICULAR RESPONSE INCOMPLETE RIGHT BUNDLE BRANCH BLOCK POSSIBLE RIGHT VENTRICULAR HYPERTROPHY ANTEROSEPTAL MYOCARDIAL INFARCTION, PROBABLY OLD INCREASED RATE 02/28/16 Electronically Signed On 06-08-2016 20:33:48 EST by Danielle James
[2016-06-08 23:59] VITALS: BP 147/67
[2016-06-09] MEDS: methylPREDNISolone INJ 125 MG/2 ML VIAL (J2930) IV SCH ×2 (03:07→08:36)
[2016-06-09 04:00] VITALS: BP 133/60
[2016-06-09 05:28] LABS: MEAN CORPUSCULAR HEMOGLOBIN 23.8 pg (27.0-33.0); MEAN CORPUSCULAR HGB CONC 29.8 g/dl (32.0-36.5); MEAN CORPUSCULAR VOLUME 79.8 fl (80.0-96.0); RED CELL DISTRIBUTION WIDTH 17.7 % (11.5-14.5)
[2016-06-09 05:40] LABS: ANION GAP 10 MEQ/L (8-16); BLOOD UREA NITROGEN 18 MG/DL (7-18); CALCIUM LEVEL 8.8 MG/DL (8.8-10.2); CARBON DIOXIDE LEVEL 33 MEQ/L (21-32); CHLORIDE LEVEL 97 MEQ/L (98-107); CREATININE FOR GFR 0.71 MG/DL (0.55-1.02); GLOMERULAR FILTRATION RATE > 60.0 (>32); GLUCOSE, FASTING 224 MG/DL (83-110); POTASSIUM SERUM 3.6 MEQ/L (3.5-5.1); SODIUM LEVEL 140 MEQ/L (136-145)
[2016-06-09] MEDS: LEVALBUTEROL 1.25 MG/0.5 ML CONCENTRATE NEB INH SCH ×4 (07:44→20:00)
[2016-06-09] MEDS: IPRATROPIUM 0.02% SOLN 0.5MG/2.5 ML NEB INH SCH ×4 (07:44→20:00)
[2016-06-09] MEDS: ADVAIR DISKUS 250/50 INH PWD INH SCH ×2 (07:44→20:41)
[2016-06-09 08:00] VITALS: BP 140/64
[2016-06-09] MEDS: VITAMIN D 1,000 INTERNATIONAL UNITS TABLET PO SCH (08:36)
[2016-06-09] MEDS: LETROZOLE 2.5 MG TAB PO SCH (08:36)
[2016-06-09] MEDS: FUROSEMIDE 40 MG/4 ML VIAL (J1940) IV SCH (08:36)
[2016-06-09] MEDS: METOCLOPRAMIDE 5 MG TAB PO SCH ×4 (08:37→20:55)
[2016-06-09] MEDS: BISOPROLOL FUMARATE 5 MG TAB PO SCH (08:37)
[2016-06-09] MEDS: PANTOPRAZOLE 40MG INJ (PROTONIX) (C9113) IV SCH (08:38)
[2016-06-09] MEDS: predniSONE 20 MG TAB PO SCH (11:57)
--- NOTE | 2016-06-09 11:57 | IPN ---
DATE: 06/09/2016 SUBJECTIVE: The patient tells me she is feeling a lot better than she did yesterday. She tells me that her shortness of breath is markedly improved. She tells me that she is still having persistent cough and some dyspnea on exertion, but it is improving very quickly. OBJECTIVE: VITAL SIGNS: Temperature is 96.9, pulse 80, respiratory rate 18, blood pressure 140/64, oxygen saturation 97% on 4 liters nasal cannula, which the patient tells me is her baseline. GENERAL: She is a frail, obese, elderly female sitting in a recliner. She does not appear to be in any acute distress. HEENT: Cranial nerves II-XII are grossly intact. She has moist mucous membranes. No elevation in central venous pressure. CARDIOVASCULAR EXAM: S1, S2 regular. RESPIRATORY EXAM: She has diffuse end-inspiratory wheeze and a prolonged expiratory phase. No obvious rales. ABDOMINAL EXAM: Obese. Bowel sounds are presents. The abdomen is soft. EXTREMITIES: No clubbing, cyanosis, or edema. LABORATORY STUDIES: WBC 13.0 up from 6.8, hemoglobin 9.4, stable, hematocrit 31.5, platelet count 250. Chemistry panel: Sodium 140, potassium 3.6, chloride 97, bicarbonate 33, BUN 18, creatinine 0.7, TSH within normal limits. A flu swab was negative. Blood cultures are negative. No new imaging. ASSESSMENT AND PLAN: This is an 81-year-old female who initially presented with dyspnea. Problems: 1.Dyspnea, felt to be secondary to decompensated chronic obstructive pulmonary disease (COPD), possibly an element of decompensated right heart failure. Regarding the patient's COPD, she has been on IV steroids for 24 hours. Respiratory status is improving. Will continue on nebulizer treatments and transition her to oral (p.o.). I do not feel as though there is any infectious etiology driving this, and as such, at this time, I have chose not to treat her with antibiotics since she is improving. There may have been a small element of decompensated right heart failure as well as she was mildly fluid overloaded at the time of her presentation, and she has been diuresed fairly well to a more euvolemic status. At this time, I will transition her back to her home Lasix dose. The patient had the onset of her symptoms while sleeping. Her nasal cannula fell off, and she woke up feeling acutely short of breath. I feel as though anxiety and her baseline compromised respiratory status place her in a very fragile state, frequent respiratory decompensations. 2. Atrial fibrillation with rapid ventricular response. The patient was in respiratory distress when she entered the hospital, and she had missed some of her home medications. These have been restarted. Her heart rate is well controlled at this time. As such, I will transfer her out of the progressive care unit and off heart monitor. 3. Acute on chronic anemia. I do not think this is symptomatic anemia and her hemoglobin and hematocrit does not warrant transfusion at this time. However, it appears to have down trended over the last little while, and she is on Pradaxa. I have ordered occult stool for blood, and for the time being, I will hold her Pradaxa. I feel that she likely is having some very slow gastrointestinal (GI) bleeding related to anticoagulation use, which should resolve with stopping it. The patient is aware of cerebrovascular accident risk while being off Pradaxa. I recommend she follow this up further with her primary care provider. 4. Insomnia. Continue with trazodone. 5. History of breast cancer. Continue with letrozole. 6. Deep vein thrombosis (DVT) prophylaxis. Sequentials and thromboembolism deterrents (TEDs). Early ambulation. DISPOSITION: The patient is a DO NOT RESUSCITATE/DO NOT INTUBATE (DNR/DNI). We will transfer to the medical-surgical floor. I am optimistic about her ability to be discharged within the next 24 hours.
[2016-06-09 12:00] VITALS: BP 133/61
[2016-06-09 16:00] VITALS: BP 133/63
[2016-06-09 19:52] VITALS: BP 145/69
[2016-06-09] MEDS: FUROSEMIDE 40 MG TAB PO SCH (20:55)
[2016-06-10 04:00] VITALS: BP 151/80
[2016-06-10 06:14] LABS: ANION GAP 8 MEQ/L (8-16); BLOOD UREA NITROGEN 27 MG/DL (7-18); CALCIUM LEVEL 8.9 MG/DL (8.8-10.2); CARBON DIOXIDE LEVEL 35 MEQ/L (21-32); CHLORIDE LEVEL 97 MEQ/L (98-107); CREATININE FOR GFR 0.81 MG/DL (0.55-1.02); GLOMERULAR FILTRATION RATE > 60.0 (>32); GLUCOSE, FASTING 141 MG/DL (83-110); POTASSIUM SERUM 3.6 MEQ/L (3.5-5.1); SODIUM LEVEL 140 MEQ/L (136-145)
[2016-06-10 06:30] LABS: MEAN CORPUSCULAR HEMOGLOBIN 23.9 pg (27.0-33.0); MEAN CORPUSCULAR HGB CONC 29.4 g/dl (32.0-36.5); MEAN CORPUSCULAR VOLUME 81.5 fl (80.0-96.0); RED CELL DISTRIBUTION WIDTH 16.4 % (11.5-14.5); WHITE BLOOD COUNT 19.8 K/mm3 (4.0-10.0)
[2016-06-10 08:00] VITALS: BP 122/57
[2016-06-10] MEDS: LEVALBUTEROL 1.25 MG/0.5 ML CONCENTRATE NEB INH SCH ×2 (08:00→11:36)
[2016-06-10] MEDS: IPRATROPIUM 0.02% SOLN 0.5MG/2.5 ML NEB INH SCH ×2 (08:00→11:36)
[2016-06-10 08:18] VITALS: BP 122/57
[2016-06-10] MEDS: METOCLOPRAMIDE 5 MG TAB PO SCH (08:18)
[2016-06-10] MEDS: FUROSEMIDE 40 MG TAB PO SCH (08:18)
[2016-06-10] MEDS: BISOPROLOL FUMARATE 5 MG TAB PO SCH (08:19)
[2016-06-10] MEDS: predniSONE 20 MG TAB PO SCH (08:19)
[2016-06-10] MEDS: VITAMIN D 1,000 INTERNATIONAL UNITS TABLET PO SCH (08:19)
[2016-06-10] MEDS: LETROZOLE 2.5 MG TAB PO SCH (08:19)
[2016-06-10] MEDS: ADVAIR DISKUS 250/50 INH PWD INH SCH (08:32)
[2016-06-10] MEDS ORDERED: PANTOPRAZOLE 40MG TAB (PROTONIX) PO SCH (09:00)
[2016-06-10] MEDS ORDERED: PRED10PA2 PO (09:21)
--- NOTE | 2016-06-10 13:34 | EDDOCDS ---
Physician Documentation [facility] Name: Antonina Echols Age: 81 yrs Sex: Female : 1935 Arrival Date: 06/08/2016 Time: 06:16 Bed 15 Private MD: Virginia Carrion DO Disposition: 06/08 08:14 Critical Care:. pc Disposition: 06/08/16 08:23 Hospitalization ordered by Luis Carbajal for Inpatient Admission. Preliminary diagnosis are Acute on chronic systolic (congestive) heart failure, Chronic obstructive pulmonary disease, unspecified, Chronic atrial fibrillation - with RVR, Patient's noncompliance with medical treatment and regimen, Anemia in other chronic diseases classified elsewhere. - Bed requested for PCU. - Status is Inpatient Admission. jmb - Condition is Stable. - Problem is new. - Symptoms have improved. Historical: - Allergies: Latex (rash all over); - Home Meds: 1. Advair Diskus 250-50 mcg/dose Inhl dsdv 1 puff 2 times per day 2. clobetasol 0.05 % Topical crea 2 times per day as needed 3. Lasix 40 mg Oral tab 1 tab 2 times per day 4. Spiriva with HandiHaler 18 mcg Inhl CpDv 1 cap once daily 5. Pradaxa 150 mg oral cap 1 cap 2 times per day 6. diltiazem HCl 240 mg Oral cp24 1 cap once daily 7. letrozole 2.5 mg oral tab 1 tab once daily 8. metoclopramide HCl 5 mg Oral tab 1 tab four times a day 9. pantoprazole 40 mg oral TbEC 1 tab once daily 10. Oxygen 2.5 liters continuous 11. Vitamin D Oral 1000 unit daily 12. albuterol sulfate 2.5 mg/0.5 mL Nebulizer nebu 0.5 mL four times a day 13. albuterol sulfate 90 mcg/actuation Inhl aepb 2 puffs every 4 hours 14. bisoprolol fumarate 5 mg oral tab 1 tab once daily 15. trazodone 25-50 mg Oral tab 1 tab nightly as needed for sleep - PMHx: Asthma; Cancer, Breast - Right; COPD; paroxysmal atrial fibrillation; Pulmonary Hypertension; interstitial fibrosis; pulmonary nodule; chronic respiratory failure with hypoxia; right sided heart failure; upper GI bleed; - PSHx: Hip Arthroplasty, Right; Hysterectomy; left wrist; Mastectomy- Right; Knee surgery- Left; - Social history: No barriers to communication noted, The patient speaks fluent American, Speaks appropriately for age, Smoking status: Patient states former smoker of tobacco. - Family history: Not pertinent. - : The pt / caregiver states he / she is on anticoagulants: Pradaxa (Dabigatran) Unable to Verify Home Med List with the patient / caregiver. - Exposure Risk Screening:: None identified. Exam: 08:15 Respiratory: Mild respiratory distress noted. Respirations/effort: tachypnea, Breath pc sounds: rales, in the left posterior lower lobe and right posterior lower lobe, wheezing, scattered. 08:15 Abdomen: Rectal exam: stool is guaiac negative, brown. Vital Signs: 06:25 BP 174 / 78 RA Sitting (auto/reg); Pulse 100 MON; Resp 26 S; Temp 99.2(TE); Pulse Ox cln 94% on 5 lpm NC; Weight 78.02 kg / 172 lbs (R); Height 5 ft. 3 in. (160.02 cm) (R); Pain 0/10; 06:43 BP 135 / 61 (auto/); js15 06:43 Pulse 104 MON; Pulse Ox 90% ; js15 06:58 BP 151 / 71 (auto/); dy 06:58 Pulse 108 MON; Pulse Ox 90% ; dy 07:13 BP 149 / 72 (auto/); dy 07:14 Pulse 116 MON; Pulse Ox 93% ; dy 07:28 BP 168 / 76 (auto/); dy 07:29 Pulse 130 MON; Pulse Ox 90% ; dy 07:43 Pulse 132 MON; Pulse Ox 94% ; dy 07:43 BP 160 / 67 (auto/); dy 08:07 Pulse 154 MON; Pulse Ox 88% ; dy 08:07 BP 145 / 82 (auto/); dy 08:29 Pulse 126 MON; Pulse Ox 91% ; dy 08:29 BP 144 / 65 (auto/); dy 09:05 Pulse 120 MON; Pulse Ox 93% ; jmb 09:08 BP 130 / 103 (auto/); jmb 09:23 BP 161 / 93 (auto/); jmb 09:23 Pulse 116 MON; Pulse Ox 89% ; jmb 09:38 BP 116 / 62 (auto/); jmb 09:38 Pulse 110 MON; Pulse Ox 94% ; jmb 09:53 BP 120 / 76 (auto/); jmb 09:54 Pulse 112 MON; Pulse Ox 97% ; jmb 10:08 BP 121 / 80 (auto/); jmb 10:09 Pulse 108 MON; Pulse Ox 94% ; jmb 10:23 BP 153 / 81 (auto/); jmb 10:23 Pulse 104 MON; Pulse Ox 97% ; jmb 10:38 BP 166 / 81 (auto/); jmb 10:38 Pulse 112 MON; jmb 11:08 BP 134 / 63 (auto/); jmb 11:08 Pulse 102 MON; Pulse Ox 95% ; jmb 11:10 Pulse 98 MON; Pulse Ox 93% ; jmb 11:11 BP 124 / 60 (auto/); jmb 11:23 BP 119 / 57 (auto/); jmb 11:24 Pulse 90 MON; Pulse Ox 91% ; jmb 11:24 Resp 22; Temp 98.5(T); Pain 0/10; jmb 11:38 BP 156 / 69 (auto/); jmb 11:38 Pulse 92 MON; Pulse Ox 92% ; jmb 11:53 BP 166 / 74 (auto/); jmb 11:53 Pulse 92 MON; Pulse Ox 92% ; jmb 12:08 BP 134 / 63 (auto/); jmb 12:08 Pulse 92 MON; Pulse Ox 92% ; jmb 12:23 BP 150 / 69 (auto/); jmb 12:24 Pulse 96 MON; Pulse Ox 92% ; jmb 06:25 Body Mass Index 30.47 (78.02 kg, 160.02 cm) cln MDM: 06:31 -Blood Culture (Adults Only), peripheral from different site, or from device/port/PICC cs11 etc. if present ordered. 06:31 Albuterol-Ipratropium 1 neb Nebulizer every 20 minutes x3 ordered. cs11 06:31 Call Respiratory ordered. cs11 06:31 Dexamethasone 6 mg IV at bolus once ordered. cs11 06:32 Call Respiratory complete. ml3 06:32 Chest, 1 View Ordered. EDMS 06:32 ECG WITH READING ER PHYS+CARDIAG ordered. EDMS 06:32 -Blood Culture Ordered. EDMS 06:32 Lactic Acid (Willard tube on ice) Ordered. EDMS 06:32 CBC with Diff Ordered. EDMS 06:32 MED Profile Ordered. EDMS 06:32 BNP Ordered. EDMS 06:33 Cardiac Marker Panel Ordered. EDMS 06:33 -Blood Culture (Adults Only), peripheral from different site, or from device/port/PICC ml3 etc. if present complete. 06:35 BLOOD CULTURES Ordered. EDMS 07:14 CBC with Diff Reviewed. pc 07:14 MED Profile Reviewed. pc 07:14 BNP Reviewed. pc 07:14 Cardiac Marker Panel Reviewed. pc 07:14 RBC MORPH PROF NO CHARGE Reviewed. pc 07:20 Type & Screen Ordered. EDMS 07:29 Furosemide 80 mg IVP once ordered. pc 07:29 Lactic Acid (Willard tube on ice) Reviewed. pc 07:30 Call Respiratory ordered. pc 07:30 -Arterial Blood Gas Ordered. EDMS 07:30 BED REQUEST+ADM ordered. EDMS 07:33 Call Respiratory complete. jlf 08:08 Bisoprolol 5 mg PO once ordered. pc 08:08 Metoprolol 5 mg IVP once; Hold for SBP < 100 or HR < 60. ordered. pc 08:12 Dabigatran 150 mg PO once; swallow whole; do not crush, chew, break, dissolve, or cut pc ordered. 08:12 Cardizem CD Extended Release 24 hour Capsule 240 mg PO once ordered. pc 08:14 Test interpretation: LAB - all labs as ordered have been reviewed, interpreted and pc considered in the overall management of the clinical presentation; X-RAY - interpreted by me, 1 view chest chronic obstructive pulmonary disease pattern, congestive heart failure. The patient has been re-examined and re-evaluated. The patient's symptoms have mildly improved after treatment. Physician consultation: Dr. Luis Carbajal was contacted at 08:15, regarding admission, and will see patient in ED, shortly. Disposition: The historical points, examination findings, and any diagnostic results supporting the provided diagnosis, were discussed with the patient or legal guardian. The need for further work-up and/or treatment in the hospital was explained. 09:35 Financial registration complete. lg 09:35 [facility] Payment Agreement was scanned into [employer] and attached to record. lg 09:50 INFLUENZA A&B RAPID ANTIGEN Ordered. EDMS 09:53 THYROID STIMULATING HORMONE Ordered. EDMS 09:53 MAGNESIUM LEVEL Ordered. EDMS 09:54 TROPONIN Ordered. EDMS 09:56 Admission / Observation Status ordered. EDMS 09:56 2 GRAM SODIUM DIET ordered. EDMS 14:01 T-Sheet-- Draft Copy was scanned into [employer] and attached to record. gb 14:01 ECG/EKG was scanned into [employer] and attached to record. gb 14:02 Other: MOLST was scanned into [email or web address] and attached to record. gb 14:02 Other: HEALTHCARE PROXY was scanned into [employer] and attached to record. gb Administered Medications: 06:33 Drug: Albuterol-Ipratropium 1 neb [ipratropium-albuterol 0.5 mg-3 mg(2.5 mg base)/3 mL jh6 nebulization soln (1 neb)] Route: Nebulizer; 06:39 Drug: Dexamethasone 6 mg [dexamethasone 4 mg/mL injection solution] Route: IV; Rate: js15 bolus; Site: left antecubital; 06:50 Drug: Albuterol-Ipratropium 1 neb [ipratropium-albuterol 0.5 mg-3 mg(2.5 mg base)/3 mL cs15 nebulization soln (1 neb)] Route: Nebulizer; 07:14 Drug: Albuterol-Ipratropium 1 neb [ipratropium-albuterol 0.5 mg-3 mg(2.5 mg base)/3 mL cs15 nebulization soln (1 neb)] Route: Nebulizer; 07:17 Follow up: Response: Nebulizer completed; Wheezing has decreased cs15 07:41 Drug: Furosemide 80 mg [furosemide 10 mg/mL injection solution (8 mL)] Route: IVP; dy Site: left antecubital; 08:30 Drug: Bisoprolol 5 mg [bisoprolol fumarate 5 mg tablet (1 tabs)] Route: PO; dy 08:31 Drug: Metoprolol 5 mg [metoprolol 5 mg/5 mL intravenous solution (5 mL)] Route: IVP; dy Site: left antecubital; 08:55 Drug: Dabigatran 150 mg Route: PO; dy 08:55 Drug: Cardizem CD Extended Release 24 hour Capsule 240 mg Route: PO; dy Critical Care Time: 08:14 Critical care time: Bedside Care: 20 minutes, Consultation: 10 minutes. Total time: 30 pc minutes Signatures: Dispatcher [employer] EDMS Bhupinder Higgins MD MD pc Daly, Linda, [employer] F[employer] Unit lbd JeseniaAmandaa, Reg Reg gb AbdiazizJen thorntonnick, Reg Reg lg Efren Peterson, RN RN latha Mcmullen StephaniaPrernaYvette, [employer] Founder Unit ml3 Renaldo Craig, DO cs11 Rm Isaac,Marin Bearden RN, MATCHER LEATHER PARTS MATCHER [employer]ATHER [employer]S jlf Shasha Mora RN RN js15 [place] jh6 Emmanuel, Lewis RT cs15 The chart was reviewed and I authenticate all verbal orders and agree with the evaluation and treatment provided.Corrections: (The following items were deleted from the chart) 09:56 09:53 FERRITIN ordered. EDMS EDMS 09:57 09:53 IRON (FE) ordered. EDMS EDMS 09:57 09:53 TOTAL IRON BINDING CAPACIT ordered. EDMS EDMS 09:57 09:53 RETICULOCYTE COUNT ordered. EDMS EDMS 10:05 09:54 BLOOD CULTURES ordered. EDMS EDMS 10:05 09:54 BLOOD CULTURES ordered. EDMS EDMS Attachments: 09:35 [facility] Payment Agreement lg 14:01 T-Sheet-- Draft Copy gb 14:01 ECG/EKG gb Chart Complete MTDD
--- NOTE | 2016-06-10 13:34 | EDDOCDS ---
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 Suicide/Homicide risk assessment- the patient denies having any suicidal and/or homicidal ideations and does not present with any other emotional, behavioral or mental health complaints. Status: Patient is not a healthcare customer service or dependent. Transition of care: patient was not received from another setting of care. 06:18 Acuity: MILTON Level 3 js15 06:18 Method Of Arrival: Ambulance js15 12:31 Adult Sepsis Screening: The patient does not have new or worsening altered mentation. jmb Patient's respiratory rate is less than 22. Systolic blood pressure is greater than 100. Patient has a qSOFA score of 0- Negative Sepsis Screen. Triage Assessment: 06:23 General: Appears distressed, uncomfortable, Behavior is appropriate for age, js15 cooperative. Pain: Denies pain. The patient is triaged at the bedside. See Assessment in Nurses Notes section of ED record. Neurological: Level of Consciousness is awake, alert, obeys commands, Oriented to person, place, time. Cardiovascular: Capillary refill < 3 seconds Rhythm is. 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 Reports shortness of breath at rest. Derm: Skin is pink, warm & dry. Historical: - Allergies: Latex (rash all over); - Home Meds: 1. Advair Diskus 250-50 mcg/dose Inhl dsdv 1 puff 2 times per day 2. clobetasol 0.05 % Topical crea 2 times per day as needed 3. Lasix 40 mg Oral tab 1 tab 2 times per day 4. Spiriva with HandiHaler 18 mcg Inhl CpDv 1 cap once daily 5. Pradaxa 150 mg oral cap 1 cap 2 times per day 6. diltiazem HCl 240 mg Oral cp24 1 cap once daily 7. letrozole 2.5 mg oral tab 1 tab once daily 8. metoclopramide HCl 5 mg Oral tab 1 tab four times a day 9. pantoprazole 40 mg oral TbEC 1 tab once daily 10. Oxygen 2.5 liters continuous 11. Vitamin D Oral 1000 unit daily 12. albuterol sulfate 2.5 mg/0.5 mL Nebulizer nebu 0.5 mL four times a day 13. albuterol sulfate 90 mcg/actuation Inhl aepb 2 puffs every 4 hours 14. bisoprolol fumarate 5 mg oral tab 1 tab once daily 15. trazodone 25-50 mg Oral tab 1 tab nightly as needed for sleep - PMHx: Asthma; Cancer, Breast - Right; COPD; paroxysmal atrial fibrillation; Pulmonary Hypertension; interstitial fibrosis; pulmonary nodule; chronic respiratory failure with hypoxia; right sided heart failure; upper GI bleed; - PSHx: Hip Arthroplasty, Right; Hysterectomy; left wrist; Mastectomy- Right; Knee surgery- Left; - Social history: No barriers to communication noted, The patient speaks fluent [place] Islander, Speaks appropriately for age, Smoking status: Patient states former smoker of tobacco. - Family history: Not pertinent. - : The pt / caregiver states he / she is on anticoagulants: Pradaxa (Dabigatran) Unable to Verify Home Med List with the patient / caregiver. - Exposure Risk Screening:: None identified. Screenin:29 Screening information is obtained from the patient. Fall risk: At risk due to age, js15 shortness of breath. The following interventions are performed due to a positive Fall Risk Screen: bed in low position, call light in reach, side rails up x2. Assistance ADL's: requires no assistance with activities of daily living. Abuse/DV Screen: The patient / caregiver reports he/she is: not in a situation that causes fear, pain or injury. Nutritional screening: No deficits noted. Advance Directives: There is an active DNR order but there is no copy available at this time. home support is adequate. 09:21 Fall risk: At risk due to age, gait disturbance, Patient uses cane for ambulation. [facility] Assessment: 06:32 General: see triage note. js15 06:32 Cardiovascular: Rhythm is atrial fibrillation Chest pain is denied. js15 07:44 General: Appears in no apparent distress, Behavior is appropriate for age, cooperative. dy Pain: Denies pain. Neurological: Level of Consciousness is awake, alert, obeys commands, Oriented to person, place, time, Pupils are PERRLA. Respiratory: Airway is patent Respiratory effort is even, labored, Breath sounds with crackles inspiratory in left posterior lower lobe and right posterior lower lobe Breath sounds are diminished bilaterally. Derm: Skin is pink, warm & dry. 08:38 General: Appears in no apparent distress, Behavior is appropriate for age, cooperative. dy Pain: Denies pain. Neurological: Level of Consciousness is awake, alert, obeys commands, Oriented to person, place, time. Respiratory: Airway is patent Respiratory effort is even, labored. Derm: Skin is pink, warm & dry. 09:11 General: Patient rang for bathroom, assistance provided to commode at bedside. Call jmb light placed within reach. Patient encouraged to ring when done. . 09:21 General: Appears in no apparent distress, Behavior is appropriate for age, cooperative, b Patient transferred from commode to bed with assist of one. Patient short of breath on exertion. Patient son at bedside. Patient alert and oriented x 3. Patient denies discomfort at this time. . Neurological: Level of Consciousness is awake, alert, obeys commands, Oriented to person, place, time, Instructor Physical are weak bilaterally Speech is normal, Facial symmetry appears normal, Facial symmetry: tongue is midline. Cardiovascular: Capillary refill < 3 seconds Heart tones present Pulses are all present. Rhythm is atrial fibrillation Chest pain is denied. Respiratory: Airway is patent Respiratory effort is even, unlabored, Respiratory pattern is regular, symmetrical, Breath sounds with crackles inspiratory in right posterior lower lobe. GI: Abdomen is non- distended Bowel sounds present X 4 quads. Abd is soft and non tender X 4 quads. : No deficits noted. Derm: Skin is pink, warm & dry. Musculoskeletal: Range of motion limited in all extremities. 10:05 General: Appears in no apparent distress, comfortable, Behavior is appropriate for age, jmb cooperative, Patient sitting on bedside. Admission nurse just left room, emptied 1100 ml of urine from commode. Patient asked for something to eat. Call placed to dietary for meal to be brought down. NO complaints at this time. . Neurological: Level of Consciousness is awake, alert, obeys commands, Oriented to person, place, time. Respiratory: Airway is patent Respiratory effort is even, unlabored, Respiratory pattern is regular, symmetrical. 10:36 General: Patient sitting on side of bed eating breakfast. Patient voices no complaints jmb at this time. . 10:55 General: Appears in no apparent distress, comfortable, Behavior is appropriate for age, jmb cooperative, Patient rang call light, placed on commode at request of patient. Patient finished eating breakfast, 100% eaten without difficulty. . 11:10 General: Appears in no apparent distress, comfortable, Behavior is appropriate for age, jmb cooperative, Patient placed back in bed after ringing call light. Patient appears asleep, easy to arouse. NO voiced complaints at this time. . Neurological: Level of Consciousness is awake, alert, obeys commands, Oriented to person, place, time. Respiratory: Airway is patent Respiratory effort is even, unlabored, Respiratory pattern is regular, symmetrical. 11:31 General: Appears in no apparent distress, comfortable, Behavior is appropriate for age, jmb cooperative, Patient laying on stretcher, talking on phone. Patient denies pain or shortness of breath at this time. . Neurological: Level of Consciousness is awake, alert, obeys commands, Oriented to person, place, time. Respiratory: Airway is patent Respiratory effort is even, unlabored, Respiratory pattern is regular, symmetrical. 12:12 General: SBAR faxed and tubed to PCU. jmb 12:18 General: Appears in no apparent distress, comfortable, Behavior is appropriate for age, jmb cooperative, Patient laying on stretcher watching television. Patient voices no complaints at this time. Juani on PCU reported that she received SBAR and nurse taking patient has another patient at xray but will have her call m when she returns and receives SBAR.. Neurological: Level of Consciousness is awake, alert, obeys commands, Oriented to person, place, time. Respiratory: Airway is patent Respiratory effort is even, unlabored, Respiratory pattern is regular, symmetrical. 12:29 General: Received phone call from pcu, patient can be transported at this time to unit. mayra . Vital Signs: 06:25 BP 174 / 78 RA Sitting (auto/reg); Pulse 100 MON; Resp 26 S; Temp 99.2(TE); Pulse Ox cln 94% on 5 lpm NC; Weight 78.02 kg (R); Height 5 ft. 3 in. (160.02 cm) (R); Pain 0/10; 06:43 BP 135 / 61 (auto/); js15 06:43 Pulse 104 MON; Pulse Ox 90% ; js15 06:58 BP 151 / 71 (auto/); dy 06:58 Pulse 108 MON; Pulse Ox 90% ; dy 07:13 BP 149 / 72 (auto/); dy 07:14 Pulse 116 MON; Pulse Ox 93% ; dy 07:28 BP 168 / 76 (auto/); dy 07:29 Pulse 130 MON; Pulse Ox 90% ; dy 07:43 Pulse 132 MON; Pulse Ox 94% ; dy 07:43 BP 160 / 67 (auto/); dy 08:07 Pulse 154 MON; Pulse Ox 88% ; dy 08:07 BP 145 / 82 (auto/); dy 08:29 Pulse 126 MON; Pulse Ox 91% ; dy 08:29 BP 144 / 65 (auto/); dy 09:05 Pulse 120 MON; Pulse Ox 93% ; jmb 09:08 BP 130 / 103 (auto/); jmb 09:23 BP 161 / 93 (auto/); jmb 09:23 Pulse 116 MON; Pulse Ox 89% ; jmb 09:38 BP 116 / 62 (auto/); jmb 09:38 Pulse 110 MON; Pulse Ox 94% ; jmb 09:53 BP 120 / 76 (auto/); jmb 09:54 Pulse 112 MON; Pulse Ox 97% ; jmb 10:08 BP 121 / 80 (auto/); jmb 10:09 Pulse 108 MON; Pulse Ox 94% ; jmb 10:23 BP 153 / 81 (auto/); jmb 10:23 Pulse 104 MON; Pulse Ox 97% ; jmb 10:38 BP 166 / 81 (auto/); jmb 10:38 Pulse 112 MON; jmb 11:08 BP 134 / 63 (auto/); jmb 11:08 Pulse 102 MON; Pulse Ox 95% ; jmb 11:10 Pulse 98 MON; Pulse Ox 93% ; jmb 11:11 BP 124 / 60 (auto/); jmb 11:23 BP 119 / 57 (auto/); jmb 11:24 Pulse 90 MON; Pulse Ox 91% ; jmb 11:24 Resp 22; Temp 98.5(T); Pain 0/10; jmb 11:38 BP 156 / 69 (auto/); jmb 11:38 Pulse 92 MON; Pulse Ox 92% ; jmb 11:53 BP 166 / 74 (auto/); jmb 11:53 Pulse 92 MON; Pulse Ox 92% ; jmb 12:08 BP 134 / 63 (auto/); jmb 12:08 Pulse 92 MON; Pulse Ox 92% ; jmb 12:23 BP 150 / 69 (auto/); jmb 12:24 Pulse 96 MON; Pulse Ox 92% ; jmb 06:25 Body Mass Index 30.47 (78.02 kg, 160.02 cm) cln Vitals: 06:29 Log In Time N/A - ambulance arrival. js15 ED Course: 06:17 Patient visited by Marquez Mcmullen, Boat Captain. ml3 06:17 Virginia Carrion is Private Physician. ml3 06:17 Patient moved to Waiting ml3 06:18 Patient moved to 15 ml3 06:20 Renaldo Craig DO is Attending Physician. cs11 06:20 Patient visited by Renaldo Craig DO. cs11 06:20 Triage Initiated js15 06:26 Patient visited by Paola Carrion PCA. cln 06:26 Pt greeted and oriented to ED. Patient advised of names of staff involved in care, cln location of call art, wait times and NPO status. Patient has correct armband on for positive identification. Bed in low position. Call light in reach. Side rails up X 1. 06:31 Maintain field IV. Dressing intact. Good blood return noted. Site clean & dry. Gauge & js15 site: 20 G LAC. 06:43 Patient visited by Jhonny Romero PCA. kb5 06:43 EKG done. (by ED staff). Reviewed by Renaldo Craig DO. kb5 06:47 BLOOD CULTURES Sent. js15 06:47 Lactic Acid (Willard tube on ice) Sent. js15 06:47 O2 via nasal cannula \T\ 6L/min. js15 07:01 Attending Physician role handed off by Renaldo Craig DO pc 07:01 Bhupinder Higgins MD is Attending Physician. pc 07:02 Efren Peterson, RN is Primary Nurse. dy 07:08 Patient visited by Efren Peterson, JAMIE. dy 07:45 Patient visited by Efren Peterson, RN. dy 08:09 Patient visited by Marin Peck PCA. jlf 08:09 Assisted to bedside commode. jlf 08:20 -Arterial Blood Gas Sent. km6 08:23 Luis Carbajal is Hospitalizing Provider. pc 08:39 Patient visited by Efren Peterson RN. dy 08:52 Chest, 1 View Returned. EDMS 09:12 Patient visited by Rm Isaac RN. jmb 09:24 Patient visited by Rm Isaac RN. jmb 09:35 [facility] Payment Agreement was scanned into [employer] and attached to record. lg 10:06 Patient visited by Rm Isaac RN. jmb 10:36 Patient visited by Rm Isaca RN. jmb 10:43 Patient visited by Marin Peck PCA. jlf 11:00 Patient visited by Marin Peck PCA. jlf 11:00 Patient visited by Rm Isaac RN. jmb 11:00 Patient visited by Marin Peck PCA. jlf 11:00 Assisted to bedside commode. jlf 11:11 Patient visited by Rm Isaac RN. jmb 11:33 Patient visited by Rm Isaac RN. jmb 12:19 Patient visited by Rm Isaac RN. jmb 12:24 The patient / caregiver is instructed regarding the plan of care and ED course. jmb 12:24 No procedures done that require assistance. jmb 14:01 T-Sheet-- Draft Copy was scanned into [employer] and attached to record. gb 14:01 ECG/EKG was scanned into [employer] and attached to record. gb 14:02 Other: MOLST was scanned into [employer] and attached to record. gb 14:02 Other: HEALTHCARE PROXY was scanned into [employer] and attached to record. gb Administered Medications: 06:33 Drug: Albuterol-Ipratropium 1 neb [ipratropium-albuterol 0.5 mg-3 mg(2.5 mg base)/3 mL jh6 nebulization soln (1 neb)] Route: Nebulizer; 06:39 Drug: Dexamethasone 6 mg [dexamethasone 4 mg/mL injection solution] Route: IV; Rate: js15 bolus; Site: left antecubital; 06:50 Drug: Albuterol-Ipratropium 1 neb [ipratropium-albuterol 0.5 mg-3 mg(2.5 mg base)/3 mL cs15 nebulization soln (1 neb)] Route: Nebulizer; 07:14 Drug: Albuterol-Ipratropium 1 neb [ipratropium-albuterol 0.5 mg-3 mg(2.5 mg base)/3 mL cs15 nebulization soln (1 neb)] Route: Nebulizer; 07:17 Follow up: Response: Nebulizer completed; Wheezing has decreased cs15 07:41 Drug: Furosemide 80 mg [furosemide 10 mg/mL injection solution (8 mL)] Route: IVP; dy Site: left antecubital; 08:30 Drug: Bisoprolol 5 mg [bisoprolol fumarate 5 mg tablet (1 tabs)] Route: PO; dy 08:31 Drug: Metoprolol 5 mg [metoprolol 5 mg/5 mL intravenous solution (5 mL)] Route: IVP; dy Site: left antecubital; 08:55 Drug: Dabigatran 150 mg Route: PO; dy 08:55 Drug: Cardizem CD Extended Release 24 hour Capsule 240 mg Route: PO; dy Output: 08:09 Urine: 400.00ml (Voided); Total: 400.00ml. jlf 08:56 Urine: 750.00ml (Voided); Total: 1150.00ml. dy 11:00 Urine: 400.00ml (Voided); Total: 1550.00ml. jlf RT: 06:33 Initial Med Neb Given as ordered Patient was instructed and evaluated on procedure jh6 Patient tolerated procedure well without adverse effect. Respiratory: Airway is patent Respiratory effort is even, labored, Respiratory pattern is regular tachypnea Breath sounds are diminished in right upper lobe, left upper lobe, right middle lobe, left lower lobe and right lower lobe Breath sounds with wheezes in right upper lobe, left upper lobe, right middle lobe, left lower lobe and right lower lobe at expiration. 06:47 O2 via nasal cannula \T\ 6L/min humidified. Respiratory: Airway is patent Respiratory jh6 effort is even, unlabored, Respiratory pattern is regular Breath sounds are coarse in right upper lobe, left upper lobe, right middle lobe, left lower lobe and right lower lobe Breath sounds are diminished in right upper lobe, left upper lobe, right middle lobe, left lower lobe and right lower lobe. 07:07 Subsequent Med Neb Given as ordered Patient tolerated procedure well without adverse cs15 effect. Respiratory: Breath sounds are coarse bilaterally. Breath sounds are diminished bilaterally. 08:20 ABG's drawn from left brachial artery pressure held for 5 minuntes no bleeding noted km6 specimen sent pt. tolerated well. Order Results: Lab Order: Lactic Acid (Willard tube on ice); SPEC'M 06/08/16 06:43 Test: LACTIC ACID LEVEL, LACTATE; Value: 1.3; Range: 0.4-2.0; Units: MMOL/L; Status: F Lab Order: CBC with Diff; SPEC'M 06/08/16 06:29 Test: WHITE BLOOD COUNT; Value: 6.8; Range: 4.0-10.0; Units: K/mm3; Status: F Test: RED BLOOD COUNT; Value: 3.92; Range: 4.00-5.40; Abnormal: Below low normal; Units: M/mm3; Status: F Test: HEMOGLOBIN; Value: 9.4; Range: 12.0-16.0; Abnormal: Below low normal; Units: g/dl; Status: F Test: HEMATOCRIT; Value: 31.6; Range: 36.0-47.0; Abnormal: Below low normal; Units: %; Status: F Test: MEAN CORPUSCULAR VOLUME; Value: 80.6; Range: 80.0-96.0; Units: fl; Status: F Test: MEAN CORPUSCULAR HEMOGLOBIN; Value: 24.1; Range: 27.0-33.0; Abnormal: Below low normal; Units: pg; Status: F Test: MEAN CORPUSCULAR HGB CONC; Value: 29.8; Range: 32.0-36.5; Abnormal: Below low normal; Units: g/dl; Status: F Test: RED CELL DISTRIBUTION WIDTH; Value: 16.4; Range: 11.5-14.5; Abnormal: Above high normal; Units: %; Status: F Test: PLATELET COUNT, AUTOMATED; Value: 230; Range: 150-450; Units: k/mm3; Status: F Test: NEUTROPHILS %; Value: 67.3; Range: 36.0-66.0; Abnormal: Above high normal; Units: %; Status: F Test: LYMPH %; Value: 13.6; Range: 24.0-44.0; Abnormal: Below low normal; Units: %; Status: F Test: MONO %; Value: 9.4; Range: 0.0-5.0; Abnormal: Above high normal; Units: %; Status: F Test: EOS %; Value: 4.5; Range: 0.0-3.0; Abnormal: Above high normal; Units: %; Status: F Test: BASO %; Value: 0.8; Range: 0.0-1.0; Units: %; Status: F Test: LARGE UNSTAINED CELL %; Value: 4.4; Range: 0.0-4.0; Abnormal: Above high normal; Units: %; Status: F Test: NEUTROPHILS #; Value: 4.6; Range: 1.8-7.7; Units: K/mm3; Status: F Test: LYMPH #; Value: 0.9; Range: 1.5-4.5; Abnormal: Below low normal; Units: K/mm3; Status: F Test: MONO #; Value: 0.6; Range: 0.0-0.8; Units: K/mm3; Status: F Test: EOS #; Value: 0.3; Range: 0.0-0.50; Units: K/mm3; Status: F Test: BASO #; Value: 0.0; Range: 0.0-0.2; Units: K/mm3; Status: F Test: LARGE UNSTAINED CELL #; Value: 0.3; Range: 0.0-0.4; Units: K/mm3; Status: F Lab Order: MED Profile; SPEC'M 06/08/16 06:29 Test: GLUCOSE, FASTING; Value: 118; Range: 83-110; Abnormal: Above high normal; Units: MG/DL; Status: F Test: BLOOD UREA NITROGEN; Value: 14; Range: 7-18; Units: MG/DL; Status: F Test: CREATININE FOR GFR; Value: 0.73; Range: 0.55-1.02; Units: MG/DL; Status: F Test: GLOMERULAR FILTRATION RATE; Value: > 60.0; Range: >32; Status: F Test: SODIUM LEVEL; Value: 141; Range: 136-145; Units: MEQ/L; Status: F Test: POTASSIUM SERUM; Value: 4.3; Range: 3.5-5.1; Units: MEQ/L; Status: F Test: CHLORIDE LEVEL; Value: 102; Range: 98-107; Units: MEQ/L; Status: F Test: CARBON DIOXIDE LEVEL; Value: 31; Range: 21-32; Units: MEQ/L; Status: F Test: ANION GAP; Value: 8; Range: 8-16; Units: MEQ/L; Status: F Test: CALCIUM LEVEL; Value: 8.9; Range: 8.8-10.2; Units: MG/DL; Status: F Test Note: ; Units are mL/min/1.73 m2 Chronic Kidney Disease Staging per NKF: Stage I & II GFR >=60 Normal to Mildly Decreased Stage III GFR 30-59 Moderately Decreased Stage IV GFR 15-29 Severely Decreased Stage V GFR <15 Very Little GFR Left ESRD GFR <15 on DIGITAL DEVELOPER Lab Order: BNP; SPEC'M 06/08/16 06:29 Test: BRAIN NATRIURETIC PEPTIDE; Value: 374; Range: <100; Abnormal: Above high normal; Units: PG/ML; Status: F Lab Order: Cardiac Marker Panel; SPEC'M 06/08/16 06:29 Test: CPK CREATINE PHOSPHOKINASE; Value: 35; Range: 26-192; Units: U/L; Status: F Test: CK-MB VALUE MASS; Value: 1.0; Range: 0.0-3.6; Units: NG/ML; Status: F Test: MB/CK RELATIVE INDEX; Value: 2.85; Range: < OR =4; Status: F Test: TROPONIN I; Value: < 0.02; Range: < 0.10; Units: NG/ML; Status: F Test Note: ; DIAGNOSIS CRITERIA MMB ng/ml Relative Index (RI) NON-AMI < or = 5 N/A WILLARD ZONE > 5 < or = 4 AMI > 5 > 4 Lab Order: RBC MORPH PROF NO CHARGE; [facility] 06/08/16 06:29 Test: PLATELET ESTIMATE; Range: NORMAL; Status: I Test: MACROCYTOSIS; Value: 1+; Status: F Test: PLATELET ESTIMATE; Value: NORMAL; Range: NORMAL; Status: F Lab Order: Type & Screen; [facility] 06/08/16 08:35 Test: BLOOD TYPE; Value: O POS; Status: F Test: AB SCREEN (INDIRECT CINDY)GEL; Value: NEGATIVE; Status: F Lab Order: -Arterial Blood Gas; [facility] 06/08/16 08:18 Test: ABG pH (ARTERIAL); Value: 7.425; Range: 7.350-7.450; Units: UNITS; Status: F Test: ABG PARTIAL PRESSURE CO2; Value: 43.1; Range: 35.0-45.0; Units: mmHg; Status: F Test: ABG PARTIAL PRESSURE O2; Value: 63.2; Range: 75.0-100.0; Abnormal: Below low normal; Units: mmHg; Status: F Test: ABG TOTAL CO2; Value: 29.0; Range: 23.0-31.0; Units: MEQ/L; Status: F Test: ABG HCO3; Value: 27.6; Range: 22.0-26.0; Abnormal: Above high normal; Units: MEQ/L; Status: F Test: ABG BASE EXCESS; Value: 2.9; Range: -2.0-2.0; Abnormal: Above high normal; Status: F Test: ABG STANDARD HCO3; Value: 26.9; Range: 22.0-26.0; Abnormal: Above high normal; Units: MEQ/L; Status: F Test: ABG O2 SATURATION; Value: 91.5; Range: 95.0-99.0; Abnormal: Below low normal; Units: %; Status: F Test: ABG DEVICE; Value: NASAL BRANDIN; Status: F Lab Order: RETICULOCYTE COUNT; [facility] 06/08/16 06:29 Test: RETICULOCYTE % [id number]; Value: 2.20; Range: 0.5-1.5; Abnormal: Above high normal; Units: %; Status: F Test: RETICULOCYTE ABSOLUTE [id number]; Value: 88; Range: 17-77; Abnormal: Above high normal; Units: x10(9)/L; Status: F Test: RETIC HEMOGLOBIN CONTENT CHr; Value: 23.2; Range: 24-36; Abnormal: Below low normal; Units: PG; Status: F Lab Order: TOTAL IRON BINDING CAPACIT; [facility] 06/08/16 06:29 Test: IRON (FE); Value: 27; Range: 50-170; Abnormal: Below low normal; Units: UG/DL; Status: F Test: TOTAL IRON BINDING CAPACITY; Value: 524; Range: 250-450; Abnormal: Above high normal; Units: UG/DL; Status: F Test: PERCENT SATURATION; Value: 5.2; Range: 13.2-37.4; Abnormal: Below low normal; Units: %; Status: F Lab Order: FERRITIN; [facility] 06/08/16 06:29 Test: FERRITIN; Value: 10; Range: 8-252; Units: NG/ML; Status: F Radiology Order: Chest, 1 View Test: Chest, 1 View REASON FOR EXAMINATION: Shortness of Breath; Portable chest x-ray: Single view.; ; History: Shortness of breath.; ; Comparison chest x-ray February 28, 2016.; ; Findings: Moderate cardiomegaly is again observed. Oxygen delivery tubing and; ECG monitoring electrodes are seen. No infiltrate is noted. No free pleural; effusion seen. Pulmonary vasculature is not increased.; ; Impression:; ; Cardiomegaly. No infiltrate seen.; ; ; Signed by; Adair Longo MD 06/08/2016 09:17 A; Outcome: 08:23 Decision to Hospitalize by Provider. 12:24 Discharge Assessment: Patient awake, alert and oriented x 3. No cognitive and/or jmb functional deficits noted. Patient verbalized understanding of disposition instructions. Patient awake and alert. obeys commands, Oriented to person, place and time. Patient verbalized understanding of disposition instructions. Patient has no functional deficits. patient administered narcotics - no. The following High Risk Discharge criteria are identified: None. Admitted to PCU accompanied by nurse, accompanied by tech, via stretcher, with oxygen, on monitor, with chart. Condition: stable Condition: improved. No special radiology studies were completed. Property :Personal belongings accompany Pt. 12:33 Patient left the ED. jmb Signatures: Dispatcher [employer] EDMS Bhupinder Higgins MD MD pc Reena Ba, Reg Reg gb AbdiazizDaquan thornton, Reg Reg lg Efren Peterson, RN RN Amada Razo km6 Kemi, Marquez, Boat Captain Unit ml3 Jhonny Romero, OPERATIONAL TRAINER OPERATIONAL TRAINER kb5 [place] jh6 Renaldo Craig, DO DO cs11 Rm Isaac,RN RN marizab Liv, Marin, OPERATIONAL TRAINER OPERATIONAL TRAINER jlf Shasha Mora,RN RN js15 Lewis Benitez,RT RT cs15 Paola Carrion, OPERATIONAL TRAINER OPERATIONAL TRAINER cln Chart Complete MTDD
--- NOTE | 2016-06-10 13:34 | EDDOCDS ---
Physician Documentation [employer] Name: Antonina Echols Age: 81 yrs Sex: Female : 1935 Arrival Date: 06/08/2016 Time: 06:16 Bed 15 Private MD: Virginia Carrion DO Disposition: 06/08 08:14 Critical Care:. pc Disposition: 06/08/16 08:23 Hospitalization ordered by Luis Carbjaal for Inpatient Admission. Preliminary diagnosis are Acute on chronic systolic (congestive) heart failure, Chronic obstructive pulmonary disease, unspecified, Chronic atrial fibrillation - with RVR, Patient's noncompliance with medical treatment and regimen, Anemia in other chronic diseases classified elsewhere. - Bed requested for PCU. - Status is Inpatient Admission. jmb - Condition is Stable. - Problem is new. - Symptoms have improved. Historical: - Allergies: Latex (rash all over); - Home Meds: 1. Advair Diskus 250-50 mcg/dose Inhl dsdv 1 puff 2 times per day 2. clobetasol 0.05 % Topical crea 2 times per day as needed 3. Lasix 40 mg Oral tab 1 tab 2 times per day 4. Spiriva with HandiHaler 18 mcg Inhl CpDv 1 cap once daily 5. Pradaxa 150 mg oral cap 1 cap 2 times per day 6. diltiazem HCl 240 mg Oral cp24 1 cap once daily 7. letrozole 2.5 mg oral tab 1 tab once daily 8. metoclopramide HCl 5 mg Oral tab 1 tab four times a day 9. pantoprazole 40 mg oral TbEC 1 tab once daily 10. Oxygen 2.5 liters continuous 11. Vitamin D Oral 1000 unit daily 12. albuterol sulfate 2.5 mg/0.5 mL Nebulizer nebu 0.5 mL four times a day 13. albuterol sulfate 90 mcg/actuation Inhl aepb 2 puffs every 4 hours 14. bisoprolol fumarate 5 mg oral tab 1 tab once daily 15. trazodone 25-50 mg Oral tab 1 tab nightly as needed for sleep - PMHx: Asthma; Cancer, Breast - Right; COPD; paroxysmal atrial fibrillation; Pulmonary Hypertension; interstitial fibrosis; pulmonary nodule; chronic respiratory failure with hypoxia; right sided heart failure; upper GI bleed; - PSHx: Hip Arthroplasty, Right; Hysterectomy; left wrist; Mastectomy- Right; Knee surgery- Left; - Social history: No barriers to communication noted, The patient speaks fluent [place], Speaks appropriately for age, Smoking status: Patient states former smoker of tobacco. - Family history: Not pertinent. - : The pt / caregiver states he / she is on anticoagulants: Pradaxa (Dabigatran) Unable to Verify Home Med List with the patient / caregiver. - Exposure Risk Screening:: None identified. Exam: 08:15 Respiratory: Mild respiratory distress noted. Respirations/effort: tachypnea, Breath pc sounds: rales, in the left posterior lower lobe and right posterior lower lobe, wheezing, scattered. 08:15 Abdomen: Rectal exam: stool is guaiac negative, brown. Vital Signs: 06:25 BP 174 / 78 RA Sitting (auto/reg); Pulse 100 MON; Resp 26 S; Temp 99.2(TE); Pulse Ox cln 94% on 5 lpm NC; Weight 78.02 kg / 172 lbs (R); Height 5 ft. 3 in. (160.02 cm) (R); Pain 0/10; 06:43 BP 135 / 61 (auto/); js15 06:43 Pulse 104 MON; Pulse Ox 90% ; js15 06:58 BP 151 / 71 (auto/); dy 06:58 Pulse 108 MON; Pulse Ox 90% ; dy 07:13 BP 149 / 72 (auto/); dy 07:14 Pulse 116 MON; Pulse Ox 93% ; dy 07:28 BP 168 / 76 (auto/); dy 07:29 Pulse 130 MON; Pulse Ox 90% ; dy 07:43 Pulse 132 MON; Pulse Ox 94% ; dy 07:43 BP 160 / 67 (auto/); dy 08:07 Pulse 154 MON; Pulse Ox 88% ; dy 08:07 BP 145 / 82 (auto/); dy 08:29 Pulse 126 MON; Pulse Ox 91% ; dy 08:29 BP 144 / 65 (auto/); dy 09:05 Pulse 120 MON; Pulse Ox 93% ; jmb 09:08 BP 130 / 103 (auto/); jmb 09:23 BP 161 / 93 (auto/); jmb 09:23 Pulse 116 MON; Pulse Ox 89% ; jmb 09:38 BP 116 / 62 (auto/); jmb 09:38 Pulse 110 MON; Pulse Ox 94% ; jmb 09:53 BP 120 / 76 (auto/); jmb 09:54 Pulse 112 MON; Pulse Ox 97% ; jmb 10:08 BP 121 / 80 (auto/); jmb 10:09 Pulse 108 MON; Pulse Ox 94% ; jmb 10:23 BP 153 / 81 (auto/); jmb 10:23 Pulse 104 MON; Pulse Ox 97% ; jmb 10:38 BP 166 / 81 (auto/); jmb 10:38 Pulse 112 MON; jmb 11:08 BP 134 / 63 (auto/); jmb 11:08 Pulse 102 MON; Pulse Ox 95% ; jmb 11:10 Pulse 98 MON; Pulse Ox 93% ; jmb 11:11 BP 124 / 60 (auto/); jmb 11:23 BP 119 / 57 (auto/); jmb 11:24 Pulse 90 MON; Pulse Ox 91% ; jmb 11:24 Resp 22; Temp 98.5(T); Pain 0/10; jmb 11:38 BP 156 / 69 (auto/); jmb 11:38 Pulse 92 MON; Pulse Ox 92% ; jmb 11:53 BP 166 / 74 (auto/); jmb 11:53 Pulse 92 MON; Pulse Ox 92% ; jmb 12:08 BP 134 / 63 (auto/); jmb 12:08 Pulse 92 MON; Pulse Ox 92% ; jmb 12:23 BP 150 / 69 (auto/); jmb 12:24 Pulse 96 MON; Pulse Ox 92% ; jmb 06:25 Body Mass Index 30.47 (78.02 kg, 160.02 cm) cln MDM: 06:31 -Blood Culture (Adults Only), peripheral from different site, or from device/port/PICC cs11 etc. if present ordered. 06:31 Albuterol-Ipratropium 1 neb Nebulizer every 20 minutes x3 ordered. cs11 06:31 Call Respiratory ordered. cs11 06:31 Dexamethasone 6 mg IV at bolus once ordered. cs11 06:32 Call Respiratory complete. ml3 06:32 Chest, 1 View Ordered. EDMS 06:32 ECG WITH READING ER PHYS+CARDIAG ordered. EDMS 06:32 -Blood Culture Ordered. EDMS 06:32 Lactic Acid (Willard tube on ice) Ordered. EDMS 06:32 CBC with Diff Ordered. EDMS 06:32 MED Profile Ordered. EDMS 06:32 BNP Ordered. EDMS 06:33 Cardiac Marker Panel Ordered. EDMS 06:33 -Blood Culture (Adults Only), peripheral from different site, or from device/port/PICC ml3 etc. if present complete. 06:35 BLOOD CULTURES Ordered. EDMS 07:14 CBC with Diff Reviewed. pc 07:14 MED Profile Reviewed. pc 07:14 BNP Reviewed. pc 07:14 Cardiac Marker Panel Reviewed. pc 07:14 RBC MORPH PROF NO CHARGE Reviewed. pc 07:20 Type & Screen Ordered. EDMS 07:29 Furosemide 80 mg IVP once ordered. pc 07:29 Lactic Acid (Willard tube on ice) Reviewed. pc 07:30 Call Respiratory ordered. pc 07:30 -Arterial Blood Gas Ordered. EDMS 07:30 BED REQUEST+ADM ordered. EDMS 07:33 Call Respiratory complete. jlf 08:08 Bisoprolol 5 mg PO once ordered. pc 08:08 Metoprolol 5 mg IVP once; Hold for SBP < 100 or HR < 60. ordered. pc 08:12 Dabigatran 150 mg PO once; swallow whole; do not crush, chew, break, dissolve, or cut pc ordered. 08:12 Cardizem CD Extended Release 24 hour Capsule 240 mg PO once ordered. pc 08:14 Test interpretation: LAB - all labs as ordered have been reviewed, interpreted and pc considered in the overall management of the clinical presentation; X-RAY - interpreted by me, 1 view chest chronic obstructive pulmonary disease pattern, congestive heart failure. The patient has been re-examined and re-evaluated. The patient's symptoms have mildly improved after treatment. Physician consultation: Dr. Luis Carbajal was contacted at 08:15, regarding admission, and will see patient in ED, shortly. Disposition: The historical points, examination findings, and any diagnostic results supporting the provided diagnosis, were discussed with the patient or legal guardian. The need for further work-up and/or treatment in the hospital was explained. 09:35 Financial registration complete. lg 09:35 [facility] Payment Agreement was scanned into [employer] and attached to record. lg 09:50 INFLUENZA A&B RAPID ANTIGEN Ordered. EDMS 09:53 THYROID STIMULATING HORMONE Ordered. EDMS 09:53 MAGNESIUM LEVEL Ordered. EDMS 09:54 TROPONIN Ordered. EDMS 09:56 Admission / Observation Status ordered. EDMS 09:56 2 GRAM SODIUM DIET ordered. EDMS 14:01 T-Sheet-- Draft Copy was scanned into [employer] and attached to record. gb 14:01 ECG/EKG was scanned into [employer] and attached to record. gb 14:02 Other: MOLST was scanned into [employer] and attached to record. gb 14:02 Other: HEALTHCARE PROXY was scanned into [employer] and attached to record. gb Administered Medications: 06:33 Drug: Albuterol-Ipratropium 1 neb [ipratropium-albuterol 0.5 mg-3 mg(2.5 mg base)/3 mL jh6 nebulization soln (1 neb)] Route: Nebulizer; 06:39 Drug: Dexamethasone 6 mg [dexamethasone 4 mg/mL injection solution] Route: IV; Rate: js15 bolus; Site: left antecubital; 06:50 Drug: Albuterol-Ipratropium 1 neb [ipratropium-albuterol 0.5 mg-3 mg(2.5 mg base)/3 mL cs15 nebulization soln (1 neb)] Route: Nebulizer; 07:14 Drug: Albuterol-Ipratropium 1 neb [ipratropium-albuterol 0.5 mg-3 mg(2.5 mg base)/3 mL cs15 nebulization soln (1 neb)] Route: Nebulizer; 07:17 Follow up: Response: Nebulizer completed; Wheezing has decreased cs15 07:41 Drug: Furosemide 80 mg [furosemide 10 mg/mL injection solution (8 mL)] Route: IVP; dy Site: left antecubital; 08:30 Drug: Bisoprolol 5 mg [bisoprolol fumarate 5 mg tablet (1 tabs)] Route: PO; dy 08:31 Drug: Metoprolol 5 mg [metoprolol 5 mg/5 mL intravenous solution (5 mL)] Route: IVP; dy Site: left antecubital; 08:55 Drug: Dabigatran 150 mg Route: PO; dy 08:55 Drug: Cardizem CD Extended Release 24 hour Capsule 240 mg Route: PO; dy Critical Care Time: 08:14 Critical care time: Bedside Care: 20 minutes, Consultation: 10 minutes. Total time: 30 pc minutes Signatures: Dispatcher [employer] EDMS Bhupinder Higgins MD MD pc Daly, Linda, Air Press Operator Unit lbd JeseniaAmandaa, Reg Reg gb AbdiazizJen thorntonnick, Reg Reg lg Efren Peterson, RN RN latha Mcmullen StephaniaPrernaYvette, Air Press Operator Unit ml3 Renaldo Craig, DO cs11 Rm Isaac,Marin Beraden RN, TRACING LATHE SET UP OPERATOR TRACING LATHE SET UP OPERATOR jlf Shasha Mora RN RN js15 [place] jh6 Emmanuel, Lewis RT cs15 The chart was reviewed and I authenticate all verbal orders and agree with the evaluation and treatment provided.Corrections: (The following items were deleted from the chart) 09:56 09:53 FERRITIN ordered. EDMS EDMS 09:57 09:53 IRON (FE) ordered. EDMS EDMS 09:57 09:53 TOTAL IRON BINDING CAPACIT ordered. EDMS EDMS 09:57 09:53 RETICULOCYTE COUNT ordered. EDMS EDMS 10:05 09:54 BLOOD CULTURES ordered. EDMS EDMS 10:05 09:54 BLOOD CULTURES ordered. EDMS EDMS Attachments: 09:35 [facility] Payment Agreement lg 14:01 T-Sheet-- Draft Copy gb 14:01 ECG/EKG gb Chart Complete MTDD
--- NOTE | 2016-06-12 06:40 | DSES ---
DATE OF ADMISSION: 06/08/2016 DATE OF DISCHARGE: 06/10/2016 DISCHARGE DIAGNOSIS: Decompensated chronic pulmonary obstructive disease (COPD). SECONDARY DIAGNOSES: 1. Cor pulmonale. 2. Atrial fibrillation. 3. Acute on chronic anemia. 4. Insomnia. 5. Breast cancer. HOSPITAL COURSE: The patient is a pleasant 80-year-old female with a history of chronic pulmonary obstructive disease (COPD) on chronic oxygen (O2) at 3 liters continuously. She had been having progressively worsening cough and shortness of breath with increased sputum production on the days prior to admission. However, on the day of admission, that morning, she awoke and her oxygen had fallen off. She was in significant distress and could not catch her breath despite prolonged efforts which prompted her to present to the emergency room where she was found to have increased O2 requirement. She has known atrial fibrillation but was in a rapid ventricular response and also has some acute on chronic anemia. She was admitted to the progressive care unit. She was ruled out for any cardiac etiologies. Her respiratory status did gradually improve with treatments of nebulizers, as well as steroids. She did not get any antibiotics. She was afebrile. Her heart rate was controlled with her home medication and improvement of her respiratory symptoms. The patient had subjectively reported some dark tarry stools as well at home in the days prior to admission. No such stools were documented while in the hospital. Occult stool for blood in the emergency room was negative; however, given that she has acute on chronic anemia a lengthy discussion was had with the patient with the thought that the patient would benefit from being off Pradaxa as there was concern for a possible slow gastrointestinal (GI) bleed related to her anticoagulation. The risks and benefits were explained to the patient at length. She understands the risk of cerebral vascular accident (CVA) associated with being off it, with the risk of bleeding and continued blood loss. SUBJECTIVE: Today the patient reports she feels back to her baseline. She states that she wants to go home. She denies any shortness of breath, fever or chills, nausea or vomiting, diarrhea. She tells me she is at her baseline. OBJECTIVE: VITAL SIGNS: Temperature 97.6, pulse 76, respiratory rate 22, blood pressure 122/57, O2 saturation 93% on 3 liters nasal cannula. GENERAL: She is a very pleasant, frail elderly female sleeping in the recliner when I enter the room but she is easily aroused. HEENT: Cranial nerves II-XII are grossly intact. No elevation of central venous pressure. CARDIOVASCULAR EXAM: S1, S2 irregular, irregular but not tachycardic. RESPIRATORY EXAM: There prolonged expiratory phase but no appreciable wheeze. ABDOMINAL EXAM: Obese. Bowel sounds are presents. The abdomen is soft. EXTREMITIES: No clubbing, cyanosis, or edema. LABORATORY STUDIES: WBC 19.8, hemoglobin 9.5, hematocrit 32.4, platelet count 254. Chemistry panel: Sodium 140, potassium 3.6, chloride 97, bicarbonate 35, BUN 27, creatinine 0.8, BNP 281 trended down from 344 the day prior. Microbiology was all negative. She had blood cultures on the , as well as influenza swab on the which were negative. IMAGING: The patient had a chest x-ray on the as well which revealed no infiltrate but cardiomegaly. ASSESSMENT AND PLAN: This is an 81-year-old female initially presenting with dyspnea thought to be secondary to decompensated chronic pulmonary obstructive disease (COPD). 1. Decompensated COPD. The patient did improve with intravenous (IV) Solu-Medrol and in hospital and she has since been transitioned to by mouth prednisone. She will continue to taper upon discharge. She also received nebulizer treatment. She will return to her home treatments at home. It was also felt that there may have been a component of right heart failure. The patient has chronic COPD and cor pulmonale related to this. She was felt to be mildly fluid overloaded at the time of admission. She did receive some gentle diuresis. At this time she does feel to be back to her baseline and feels quite well. There was also the possibility that the patient's acute respiratory distress was secondary to significant anxiety and accidental non adherence with oxygen therapy while sleeping. She will be more careful in the future. 2. Acute on chronic anemia, not symptomatic anemia. Her hemoglobin and hematocrit was acceptable and remained stable for 72 hours while in the hospital; however I suspect that her acute on chronic anemia is related to slow gastrointestinal (GI) bleed related to her anticoagulation. At this time her Pradaxa has been held. I recommend she follow closely with her primary care provider and can be considered for an outpatient colonoscopy . 3. Insomnia. The patient was continued on trazodone. 4. History of breast cancer. The patient will continue on lectrozole. 5. Deep venous thrombosis (DVT) prophylaxis. Sequentials and thromboembolism deterrents (TEDs). 6. Atrial fibrillation. The patient is rate controlled with diltiazem and bisoprolol. We are holding her anticoagulation secondary to acute on chronic anemia. 7. Vitamin D deficiency. The patient is on supplementation. DISPOSITION: The patient is being discharged home to the care of her son whom she lives with. She is at her functional baseline and respiratory baseline. She is to followup with her private care physician within seven days. Her activities and diet area as prior to admission. She is to return to the emergency room should her symptoms worsen. DISCHARGE MEDICATIONS: - prednisone 10 mg, 4 tablets for three days, then 3 tabs for three days, then 2 tabs for three days and one tablet for three days and then stop - Tylenol 650 mg every four hours as needed for mild pain or fever - Ventolin HFA 2 puffs inhaled every four hours as needed for shortness of breath - albuterol nebulizer every four hours as needed for shortness of breath - bisoprolol 5 mg daily - clobetasol topically used for itching around skin fold areas of the waist - diltiazem 240 mg daily - Lasix 40 mg twice a day - Incruse Ellipta 62.5 mcg daily - Letrozole 2.5 mg daily - Reglan 5 mg before meals and at bedtime - Protonix 40 mg daily - Advair one puff inhaled twice daily - trazodone 50 mg nightly - vitamin D 1000 units daily Greater than 30 minutes in organizing disposition.
== END 2016-06-10 12:05 | disposition home health service (06) | DRG 190 ==
LOC: M ED 06:16 → M ED INP 09:51 → M PCU 12:46
PROVIDERS: ADMIT Internal Medicine; ATTEND Internal Medicine
DX: J44.1 Chronic obstructive pulmonary disease with (acute) exacerbation (principal); J96.21 Acute and chronic respiratory failure with hypoxia; D68.32 Hemorrhagic disorder due to extrinsic circulating anticoagulants; I27.81 Cor pulmonale (chronic); I48.91 Unspecified atrial fibrillation; I27.2 Other secondary pulmonary hypertension; I50.9 Heart failure, unspecified; J84.10 Pulmonary fibrosis, unspecified; Z66 Do not resuscitate; R91.1 Solitary pulmonary nodule; E55.9 Vitamin D deficiency, unspecified; K64.8 Other hemorrhoids; E66.9 Obesity, unspecified; D64.9 Anemia, unspecified; G47.00 Insomnia, unspecified; Z68.30 Body mass index [BMI] 30.0-30.9, adult; Z99.81 Dependence on supplemental oxygen; Z85.3 Personal history of malignant neoplasm of breast; Z79.01 Long term (current) use of anticoagulants; Z96.641 Presence of right artificial hip joint; Z90.11 Acquired absence of right breast and nipple; Z79.899 Other long term (current) drug therapy

== ENCOUNTER 2016-08-19 10:53 | Inpatient (IN) | payer OTHER ==
[~2016-08-19] VITALS: Ht 160 cm; Wt 77.4 kg
[~2016-08-19 10:53] MED LIST changes: +BISO5TAB5 PO; -CEFT500T PO; +CEFT500T3 PO; +HYDR-3713 PO; -HYDR1TAB97 PO; +PRED10PA2 PO; +TRAZ50TA4 PO
[2016-08-19] MEDS ORDERED: NS 1,000 ML IV SCH (11:17)
[2016-08-19] MEDS ORDERED: methylPREDNISolone INJ 125 MG/2 ML VIAL (J2930) IV ONE (11:30)
[2016-08-19] MEDS ORDERED: HYDR10T PO (11:31)
[2016-08-19] MEDS ORDERED: ELIQ5TAB PO (11:32)
[2016-08-19] MEDS ORDERED: DULC5TAB PO (11:33)
[2016-08-19] MEDS ORDERED: ISOS20TA PO (11:33)
[2016-08-19 12:01] LABS: BASO % 1.3 % (0.0-1.0); LARGE UNSTAINED CELL # 0.2 K/mm3 (0.0-0.4); LARGE UNSTAINED CELL % 5.3 % (0.0-4.0); LYMPH # 0.6 K/mm3 (1.5-4.5); LYMPH % 14.1 % (24.0-44.0); MEAN CORPUSCULAR HEMOGLOBIN 23.2 pg (27.0-33.0); MEAN CORPUSCULAR HGB CONC 30.7 g/dl (32.0-36.5); MEAN CORPUSCULAR VOLUME 75.5 fl (80.0-96.0); MONO # 0.6 K/mm3 (0.0-0.8); MONO % 13.4 % (0.0-5.0); NEUTROPHILS # 2.7 K/mm3 (1.8-7.7); PLATELET COUNT, AUTOMATED 245 k/mm3 (150-450); RED CELL DISTRIBUTION WIDTH 16.6 % (11.5-14.5); WHITE BLOOD COUNT 4.2 K/mm3 (4.0-10.0)
[2016-08-19 12:07] LABS: INR 1.31
[2016-08-19] MEDS: IPRATROPIUM 0.5MG/ALBUTEROL 2.5MG INH SOL UD 3ML (DUONEB)(J7620) NEB PRN ×3 (12:07→12:44)
[2016-08-19 12:09] LABS: ABG BASE EXCESS 7.5 (-2.0-2.0); ABG PARTIAL PRESSURE CO2 44.6 mmHg (35.0-45.0); ABG PARTIAL PRESSURE O2 76.5 mmHg (75.0-100.0); ABG STANDARD HCO3 31.3 MEQ/L (22.0-26.0); ABG TOTAL CO2 33.3 MEQ/L (23.0-31.0); ABG pH (ARTERIAL) 7.473 UNITS (7.350-7.450)
[2016-08-19 12:24] LABS: ANION GAP 10 MEQ/L (8-16); BLOOD UREA NITROGEN 10 MG/DL (7-18); CALCIUM LEVEL 8.9 MG/DL (8.8-10.2); CARBON DIOXIDE LEVEL 34 MEQ/L (21-32); CHLORIDE LEVEL 92 MEQ/L (98-107); CREATININE FOR GFR 0.68 MG/DL (0.55-1.02); GLOMERULAR FILTRATION RATE > 60.0 (>32); GLUCOSE, FASTING 99 MG/DL (83-110); POTASSIUM SERUM 3.4 MEQ/L (3.5-5.1); SODIUM LEVEL 136 MEQ/L (136-145)
[2016-08-19 12:31] LABS: ALBUMIN 3.6 GM/DL (3.2-5.2); ALBUMIN/GLOBULIN RATIO 1.13 (1.00-1.93); BILIRUBIN,DIRECT 0.2 MG/DL (0.0-0.2); BILIRUBIN,TOTAL 0.6 MG/DL (0.2-1.0); TOTAL PROTEIN 6.8 GM/DL (6.4-8.2)
[2016-08-19] MEDS ORDERED: LORazepam 0.5 MG TAB PO STA (12:59)
[2016-08-19] MEDS ORDERED: LORazepam 1 MG TAB PO STA (13:07)
[2016-08-19] MEDS ORDERED: FURO20TA2 PO (15:00)
[2016-08-19] MEDS ORDERED: ONDANSETRON 4 MG TAB (S0181) PO PRN (15:00)
[2016-08-19] MEDS ORDERED: ONDANSETRON 4MG/2ML VIAL (J2405) IV PRN (15:00)
[2016-08-19] MEDS ORDERED: PERCOCET 5MG/325MG TAB PO PRN (15:00)
[2016-08-19] MEDS ORDERED: ACET500C PO (15:00)
[2016-08-19] MEDS ORDERED: VITAD1000T PO (15:00)
[2016-08-19] MEDS ORDERED: ISOS30TA4 PO (15:00)
[2016-08-19] MEDS ORDERED: IPRATROPIUM 0.5MG/ALBUTEROL 2.5MG INH SOL UD 3ML (DUONEB)(J7620) NEB PRN (15:00)
[2016-08-19] MEDS ORDERED: NITR0.4S14 SL (15:04)
[2016-08-19] MEDS ORDERED: POTASSIUM CHLORIDE 10 MEQ SR TABLET PO ONE (15:15)
[2016-08-19] MEDS ORDERED: LevoFLOXacin 750 MG TABLET PO ONE (15:30)
--- NOTE | 2016-08-19 15:34 | HPEPDOC ---
Medical History and Physical Date of Admission Aug 19, 2016 at 14:53 History and Physical HISTORY AND PHYSICAL Date of admission: 08/19/2016 PCP: Dr. Soheila Obando Chief complaint: I just felt sick HPI: 81-year-old female with atrial fibrillation, right-sided heart failure, COPD on home oxygen, right breast cancer, pulmonary hypertension, interstitial fibrosis and pulmonary nodule, history of GI bleed, gastritis, arthritis, hearing loss who presented to the hospital after not feeling well. She states that on , her apartment was fumigated for bedbugs, and ever since then she hasn't felt well. She states that her breathing had been getting worse, and she had been coughing and wheezing. She also notes that this morning she woke up and had an episode of emesis and diarrhea. She said she tried to eat but this didn't help anything. She also reports associated headache. Past medical history: atrial fibrillation, right-sided heart failure, COPD on home oxygen, right breast cancer, pulmonary hypertension, interstitial fibrosis and pulmonary nodule, history of GI bleed, gastritis, arthritis, hearing loss Past surgical history: Right hip arthroplasty, hysterectomy, left wrist surgery , right mastectomy, left knee surgery Family history: Patient states she is unaware of any health problems in her family Social history: Patient currently lives with her adult son. She quit smoking approximately 30-40 years ago. She reports drinking alcohol on only a very rare occasion. Allergies: Latex Review of systems: General: Positive for subjective fever and chills Eyes: Negative for vision changes and ocular discharge ENT: Positive for sore throat. Negative for nose bleed Cardiovascular: Negative for chest pain and palpitations Respiratory: Positive for cough and shortness of breath GI: Negative for nausea. Positive for vomiting and diarrhea. Musculoskeletal: Positive for neck pain. Negative for back pain Skin: Negative for rash Neuro: Positive for headache and dizziness. Negative for numbness and tingling Psych: Negative for depression and suicidal ideation Endocrine: Positive for polyuria and polydipsia : Negative for dysuria Heme: Negative for bruising and bleeding Home meds: See below Physical exam: Vital signs: Vital Sign - Last 24 Hours 08/19/16 08/19/16 08/19/16 08/19/16 11:01 11:23 11:32 11:38 Temp 98.2 Pulse 94 96 90 Resp 20 B/P 128/68 98/69 Pulse Ox 95 96 O2 Flow Rate 3 FiO2 94 08/19/16 08/19/16 08/19/16 08/19/16 11:53 12:02 12:08 12:23 Pulse 90 82 86 B/P 121/83 Pulse Ox 94 94 95 08/19/16 08/19/16 08/19/16 08/19/16 12:39 12:41 12:43 14:39 Pulse 124 B/P 135/69 Pulse Ox 94 O2 Delivery Nasal Cannula Nasal Cannula O2 Flow Rate 3 3 08/19/16 14:41 Temp 98.2 Pulse 86 Resp 20 B/P 135/69 128/68 Pulse Ox 95 O2 Delivery Nasal Cannula O2 Flow Rate 3 Gen.: awake, alert, no acute distress Eyes: Extraocular movements intact, normal sclera ENT: Moist mucous membranes Cardiovascular: RRR, no murmurs rubs or gallops Lungs: clear to auscultation bilaterally, but has already received solumedrol and 3 breathing treatments Abdomen: Soft, BS present, distended, diffuse TTP Musculoskeletal: normal range of motion Extremities: No peripheral edema Neuro: alert and oriented 3, normal speech, no focal deficits Psych: Normal mood with congruent affect Labs and radiology: See below CBC, CMP, coags are unremarkable Blood cultures are pending Chest x-ray in for screening are negative D-dimer, lactate, troponin, TSH are all unremarkable Assessment and plan: 81-year-old female with atrial fibrillation, right-sided heart failure, COPD on home oxygen, right breast cancer, pulmonary hypertension, interstitial fibrosis and pulmonary nodule, history of GI bleed, gastritis, arthritis, hearing loss who presented to the hospital after not feeling well. She is admitted with a COPD exacerbation, as well as vomiting and diarrhea. 1. COPD exacerbation: The patient is on home O2. She states that she used used to and a half liters, but on a recent admission she was bumped up to 4 L, and she thinks that this was supposed to be her new normal. She is currently requiring 4 L. We'll continue her on Solu-Medrol, Levaquin and DuoNeb's. We will check a respiratory virus panel. Continue home Advair. Patient uses incruse at home, which we do not have on formulary, so we will substitute Spiriva 2. Vomiting and diarrhea: Likely viral in etiology, as the patient is afebrile with a normal white count. We will check a GI panel, and give her gentle IV fluids, being cautious of her heart failure. Given her distention and tenderness upon exam, we will also check a CT of the abdomen and pelvis. 3. Atrial fibrillation: Continue the patient's home eliquis. She is not currently on any rate suppressing medications at home. Patient's rate was previously controlled in the ER, but after the patient took her oxygen off to eat lunch, her heart rate has noted to jump up to the 120s. I expect that as we continue to treat her respiratory distress, this will improve, but in the meantime we will monitor her in the PCU on telemetry. 4. Right-sided heart failure: The patient reports vomiting and diarrhea this morning. We will hold her home Lasix, and start her on very gentle IV fluids. 5. Right breast cancer: Continue home letrazole. 6. Hypokalemia: We will replace this. We will also check a mag. DVT prophylaxis: Home eliquis Dispo: admit as inpatient to the service of Dr. Bar CODE STATUS: DNR/DNI as per the patient's expressed wishes. The patient also tells me that her healthcare power of trial attorney is her granddaughter Abbie Broussard. Vital Signs see above Laboratory Data Labs 24H Laboratory Tests 2 08/19/16 11:41: Aspartate Amino Transf (AST/SGOT) 28, Alanine Aminotransferase (ALT/SGPT) 22, Alkaline Phosphatase 80, Total Bilirubin 0.6, Direct Bilirubin 0.2, Albumin 3.6 , Albumin/Globulin Ratio 1.13, Anion Gap 10, B-Type Natriuretic Peptide 122H, White Blood Count 4.2, Red Blood Count 4.80, Hemoglobin 11.1L, Hematocrit 36.2, Mean Corpuscular Volume 75.5L, Mean Corpuscular Hemoglobin 23.2L, Mean Corpuscular Hemoglobin Concent 30.7L, Red Cell Distribution Width 16.6H, Platelet Count 245, Neutrophils (%) (Auto) 65.0, Lymphocytes (%) (Auto) 14.1L, Monocytes (%) (Auto) 13.4H, Eosinophils (%) (Auto) 1.0, Basophils (%) (Auto) 1.3H, Neutrophils # (Auto) 2.7, Lymphocytes # (Auto) 0.6L, Monocytes # (Auto) 0.6, Eosinophils # (Auto) 0.0, Basophils # (Auto) 0.0, Blood Urea Nitrogen 10, Creatinine 0.68, Sodium Level 136, Potassium Level 3.4L, Chloride Level 92L, Carbon Dioxide Level 34H, Calcium Level 8.9, Total Creatine Kinase 57, Creatine Kinase MB 1.0, Creatine Kinase MB Relative Index 1.75, D-Dimer, Quantitative 333.1, Glomerular Filtration Rate > 60.0, Lactic Acid (Sepsis) 0.8, Large Unclassified Cells # 0.2, Large Unclassified Cells % 5.3H, Prothromb Time International Ratio 1.31, Prothrombin Time 16.4H, Thyroid Stimulating Hormone ( TSH) 1.300, Total Protein 6.8, Troponin I < 0.02 08/19/16 12:02: Arterial Blood pH 7.473H, Arterial Blood Partial Pressure CO2 44.6, Arterial Blood Partial Pressure O2 76.5, Arterial Blood Total CO2 33.3H, Arterial Blood HCO3 32.0H, Arterial Blood Base Excess 7.5H, Arterial Blood Oxygen Saturation 95.7, Blood Gas Bicarbonate Standard 31.3H CBC/BMP Laboratory Tests 08/19/16 11:41 Calcium Level 8.9, Total Creatine Kinase 57, Red Blood Count 4.80, Mean Corpuscular Volume 75.5 L, Mean Corpuscular Hemoglobin 23.2 L, Mean Corpuscular Hemoglobin Concent 30.7 L, Red Cell Distribution Width 16.6 H, Neutrophils (%) ( Auto) 65.0, Lymphocytes (%) (Auto) 14.1 L, Monocytes (%) (Auto) 13.4 H, Eosinophils (%) (Auto) 1.0, Basophils (%) (Auto) 1.3 H, Neutrophils # (Auto) 2.7 , Lymphocytes # (Auto) 0.6 L, Monocytes # (Auto) 0.6, Eosinophils # (Auto) 0.0, Basophils # (Auto) 0.0 Microbiology Microbiology 08/19/16 Blood Culture, Received Pending 08/19/16 Blood Culture, Received Pending 08/19/16 Respiratory Virus Panel (PCR) (FRANK), Received Pending 08/19/16 Influenza Virus Type A Antigen - Final, Complete 08/19/16 Influenza Virus Type B Antigen - Final, Complete Home Medications Scheduled (Incruse Ellipta) 62.5 Mcg/Inh Inh 62.5 MCG IN DAILY (Acetaminophen) 500 Mg Cap 1,000 MG PO BID Albuterol Sulfate (Albuterol Sulfate) 2.5 Mg/3 Ml Nebu 2.5 MG INH TID Apixaban Base (Eliquis) 5 Mg Tab 5 MG PO BID Furosemide (Furosemide) 20 Mg Tab 60 MG PO BID Hydroxyzine HCl (Hydroxyzine HCl) 10 Mg Tab 10 MG PO BID Isosorbide Mononitrate (Isosorbide Mononitrate ER) 30 Mg Tab 30 MG PO DAILY Letrozole (Letrozole) 2.5 Mg Tab 2.5 MG PO DAILY Metoclopramide HCl (Metoclopramide HCl) 5 Mg Tab 5 MG PO ACHS Salmeterol/Fluticasone (Advair Diskus 250-50 Mcg/Dose) 14 Puff/Inhaler Aerp 1 PUFF INH BID Vitamin D (Vitamin D3) 1,000 Units Tab 1,000 UNITS PO DAILY Scheduled PRN Albuterol Sulfate (Ventolin Hfa) 200 Puff/8 Gm Aers 2 PUFF INH Q4H PRN PRN SHORTNESS OF BREATH Bisacodyl (Dulcolax) 5 Mg Tab 5 MG PO Q2D PRN PRN CONSTIPATION Nitroglycerin (Nitroglycerin) 0.4 Mg Sub 0.4 MG SL NITRO PRN PRN CHEST PAIN Trazodone HCl (Trazodone HCl) 50 Mg Tab 50 MG PO QHS PRN PRN SLEEP Allergies Coded Allergies: Latex (Verified Allergy, Unknown, 09/09/12) NICK GALLARDO Aug 19, 2016 15:34
[2016-08-19] MEDS: methylPREDNISolone INJ 125 MG/2 ML VIAL (J2930) IV SCH ×2 (16:06→20:14)
--- NOTE | 2016-08-19 19:52 | ECGEPIP ---
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
[2016-08-19] MEDS: IPRATROPIUM 0.5MG/ALBUTEROL 2.5MG INH SOL UD 3ML (DUONEB)(J7620) NEB SCH ×2 (20:00→23:28)
[2016-08-19] MEDS: ADVAIR DISKUS 250/50 INH PWD INH SCH (21:00)
[2016-08-19 21:05] VITALS: BP 155/70
[2016-08-19] MEDS: hydrOXYzine 10 MG TAB PO SCH (22:54)
[2016-08-19] MEDS: METOCLOPRAMIDE 5 MG TAB PO SCH (22:54)
[2016-08-19] MEDS: OSELTAMIVIR PHOSPHATE 75 MG CAP (TAMIFLU) PO SCH (22:54)
[2016-08-19] MEDS: APIXABAN 5 MG TAB (ELIQUIS) PO SCH (22:54)
[2016-08-19] MEDS: NS 1,000 ML IV SCH (22:55)
[2016-08-20] VITALS: BP 140/71
[2016-08-20] MEDS: methylPREDNISolone INJ 125 MG/2 ML VIAL (J2930) IV SCH ×3 (03:52→20:30)
[2016-08-20 04:00] VITALS: BP 148/70
[2016-08-20 05:48] LABS: ANION GAP 9 MEQ/L (8-16); BLOOD UREA NITROGEN 13 MG/DL (7-18); CALCIUM LEVEL 8.8 MG/DL (8.8-10.2); CARBON DIOXIDE LEVEL 28 MEQ/L (21-32); CHLORIDE LEVEL 101 MEQ/L (98-107); CREATININE FOR GFR 0.71 MG/DL (0.55-1.02); GLOMERULAR FILTRATION RATE > 60.0 (>32); GLUCOSE, FASTING 157 MG/DL (83-110); MAGNESIUM LEVEL 2.2 MG/DL (1.8-2.4); POTASSIUM SERUM 4.1 MEQ/L (3.5-5.1); SODIUM LEVEL 138 MEQ/L (136-145)
--- NOTE | 2016-08-20 05:52 | REP ---
Dyspnea. COMPARISON: 06/08/2016. The technique utilized in obtaining the radiograph has magnified the cardiac silhouette and accentuated the interstitial markings. There is unchanged cardiomegaly. There is no change in the appearance of the lung emery. Fibrotic changes are noted status quo. No acute patchy parenchymal opacities or pleural effusions have developed. There is no change in the osseous structures. IMPRESSION: Stable chronic changes without evidence of acute cardiopulmonary disease. Signed by Terence Lowe DO 08/20/2016 12:04 P
[2016-08-20 06:07] LABS: BASO % 0.1 % (0.0-1.0); EOS % 0.6 % (0.0-3.0); LARGE UNSTAINED CELL # 0.1 K/mm3 (0.0-0.4); LARGE UNSTAINED CELL % 1.3 % (0.0-4.0); LYMPH # 0.4 K/mm3 (1.5-4.5); LYMPH % 10.8 % (24.0-44.0); MEAN CORPUSCULAR HEMOGLOBIN 23.9 pg (27.0-33.0); MEAN CORPUSCULAR HGB CONC 31.2 g/dl (32.0-36.5); MEAN CORPUSCULAR VOLUME 76.6 fl (80.0-96.0); MONO # 0.2 K/mm3 (0.0-0.8); MONO % 4.4 % (0.0-5.0); NEUTROPHILS # 2.9 K/mm3 (1.8-7.7); NEUTROPHILS % 82.7 % (36.0-66.0); PLATELET COUNT, AUTOMATED 215 k/mm3 (150-450); RED CELL DISTRIBUTION WIDTH 16.6 % (11.5-14.5); WHITE BLOOD COUNT 3.5 K/mm3 (4.0-10.0)
[2016-08-20] MEDS: IPRATROPIUM 0.5MG/ALBUTEROL 2.5MG INH SOL UD 3ML (DUONEB)(J7620) NEB SCH ×3 (06:57→20:22)
[2016-08-20] MEDS: hydrOXYzine 10 MG TAB PO SCH ×2 (07:55→20:28)
[2016-08-20] MEDS: APIXABAN 5 MG TAB (ELIQUIS) PO SCH ×2 (07:56→20:29)
[2016-08-20] MEDS: METOCLOPRAMIDE 5 MG TAB PO SCH ×4 (07:56→20:29)
[2016-08-20] MEDS: LETROZOLE 2.5 MG TAB PO SCH (07:56)
[2016-08-20] MEDS: OSELTAMIVIR PHOSPHATE 75 MG CAP (TAMIFLU) PO SCH ×2 (07:56→20:28)
[2016-08-20] MEDS: VITAMIN D 1,000 INTERNATIONAL UNITS TABLET PO SCH (07:56)
[2016-08-20] MEDS: ISOSORBIDE MON. (IMDUR) 30 MG XR TAB PO SCH (07:59)
[2016-08-20] MEDS: TIOTROPIUM INHALER/CAPSULE (SPIRIVA) INH SCH (07:59)
[2016-08-20] MEDS: ADVAIR DISKUS 250/50 INH PWD INH SCH ×2 (07:59→20:23)
[2016-08-20 08:00] VITALS: BP 130/75
--- NOTE | 2016-08-20 08:29 | REP ---
Diarrhea and abdominal distension. Comparison: 06/30/2014 which is the latest prior. The lack of intravenous contrast and the lack of oral bowel preparatory contrast significantly decreases the sensitivity of the exam. There is no significant change in the appearance of the lung bases. Dependent subsegmental atelectatic changes are suspected. There are no pleural or pericardial effusions. There is cardiomegaly. Limited evaluation of the solid intraabdominal organs show no gross abnormalities or significant changes from the prior exam. There is at least one cholelith seen in the dependent portion of the gallbladder. Limited evaluation of the pancreas, adrenal glands, and kidneys show bilateral nephroliths status quo. One nephrolith in the right kidney either abuts or is within the right renal pelvis, however, there is no hydronephrosis or hydroureter. [place] artifact arising from a right hip prosthesis obscures the distal right ureter and the right half of the inferior portion posteriorly of the urinary bladder calcifications. Limited evaluation of the abdominal aorta and paraaortic regions show no changes from the prior exam. There is no evidence of free fluid or free air in the abdomen or pelvis. Limited evaluation of the intraabdominal and intrapelvic bowel loops and their mesenteries show no gross abnormalities or significant changes from the prior exam. Diverticula are seen arising from the sigmoid colon status quo. There is no evidence of an intraabdominal or intrapelvic mass or adenopathy. Bone window technique throughout the exam shows no sign change in the appearance of the osseous structures. IMPRESSION: 1. Although difficult to evaluate by CT within the gallbladder there appears to be a tiny cholelith representing a change from the prior exam. Ultrasonography would be confirmatory. 2. Bilateral nephroliths most of which were present on the prior exam, however, one nephrolith within or abutting the right renal pelvis without evidence of hydronephrosis or hydroureter. 3. Other findings and chronic changes as described above. Signed by Terence Lowe DO 08/20/2016 12:06 P
--- NOTE | 2016-08-20 09:22 | PHACANCOPD ---
PHARMACY VANCOMYCIN DOSING Pt Demographics Demographics Patient Age:81 , Weight:74.300 , Gender: female Adjusted Body Weight Date: 08/20/16, Adjusted Body Weight: [74.3] Kg Events Past 24 Hours Events Past 24 Hours: NO: Change in CrCl, Dialysis, Diuretic Therapy, Elevation in WBC, Fever, Other, Pending Diagnostics, Pending Procedures Vancomycin Vancomycin indication: POSITIVE BLOOD CX Vancomycin Target Ranges: 15-20 mcg/ml Vancomycin Load Y/N: Yes Load Dose Date Time Vancomycin Load Dose: 1.75G Date: 08/20/16 Time: 10AM Vancomycin Dose Date: 08/20/16. Current Vancomycin Dose: [1G Q12H] Intermittent Dosing?: No Labs Labs Item Value Date Time White Blood Count 4.2 K/mm3 08/19/16 1141 White Blood Count 3.5 K/mm3 L 08/20/16 0515 Vital Signs Label Value Date Time Patient Temperature 96.3 degrees F 08/20/16 0800 Temperature Source Tympanic 08/20/16 0800 Patient Temperature 97.2 degrees F 08/19/16 2105 Temperature Source Tympanic 08/19/16 2105 Item Value Date Time Creatinine 0.71 MG/DL 08/20/16 0515 Micro Microbiology 08/19/16 Blood Culture, Received Pending 08/19/16 Blood Culture - Preliminary, Resulted 08/19/16 Respiratory Virus Panel (PCR) (FRANK) - Final, Complete Influenza A H3 08/19/16 Influenza Virus Type A Antigen - Final, Complete 08/19/16 Influenza Virus Type B Antigen - Final, Complete Creatinine Clearance Date:08/20/16. Creatinine Clearance: [54.4ML/MIN]. Assessment and Plan Maintaining Current Dose?: Yes Reason for dose change: No Dose Change Pharmacist Note Pharmacist Note Date: 08/20/16. Pharmacist note: PT is an 81 year old female with a history of treatment with vancomycin at [facility]. Her target trough is 15-20mcg/ml her prior therapy is the basis for her current treatment. She is started with a 1.75g loading dose at 10:00 followed by maintenance of 1g q 12h at 22:00. A trough is scheduled for 08/21 we will continue to monitor and adjust dose as needed. TARA BANERJEE PHARMACY Aug 20, 2016 09:22
[2016-08-20] MEDS: VANCOMYCIN HCL 1,000 MG, VIAL MATE ADAPTER 1 EACH in D5W 250 ML IV SCH ×2 (09:57→22:44)
[2016-08-20] MEDS ORDERED: VANCOMYCIN HCL 750 MG, VIAL MATE ADAPTER 1 EACH in D5W 250 ML IV ONE (11:00)
[2016-08-20 12:00] VITALS: BP 145/69
--- NOTE | 2016-08-20 14:53 | IPNPDOC ---
Text Note Date of Service The patient was seen on 08/20/16. NOTE Subjective: Pt states her dyspnea is improving. No CP/palpitations. No increased lacrimation. Some fingertip numbness which is increased from her baseline. Objective: Vitals: (see below) General: No acute distress, laying comfortably in bed. HEENT: Moist mucous membranes. Neck: No JVD or lymphadenopathy Cardiac: RRR, No murmurs Pulm: Exp wheezing b/l. Coarse crackles at the bases. No rhonchi. Abd: NT/ND + BS Ext: No edema or cyanosis Labs (see below) Images: CT abd/pelvis 08/19/16 IMPRESSION: 1. Although difficult to evaluate by CT within the gallbladder there appears to be a tiny cholelith representing a change from the prior exam. Ultrasonography would be confirmatory. 2. Bilateral nephroliths most of which were present on the prior exam, however, one nephrolith within or abutting the right renal pelvis without evidence of hydronephrosis or hydroureter. 3. Other findings and chronic changes as described above. CXR 08/19/16 IMPRESSION: Stable chronic changes without evidence of acute cardiopulmonary disease. Assessment/Plan 1. COPD exacerbation likely 2/2 Influenza. On tamiflu and droplet precautions. Nebs, levaquin. ? Fumigated apartment as initial trigger. Spoke with poison control who recommended observation as it is likely to affect her since . EKG with QTc wnl, AF, no braycardia. Cont to monitor. 2. AF- rate controlled. On Eliquis 3. H/o right sided heart failure 4. Right breast cancer on letrazole DVT prophy: Eliquis VS,Fishbone, I+O VS, Fishbone, I+O Laboratory Tests 08/20/16 05:15 Calcium Level 8.8, Red Blood Count 4.45, Mean Corpuscular Volume 76.6 L, Mean Corpuscular Hemoglobin 23.9 L, Mean Corpuscular Hemoglobin Concent 31.2 L, Red Cell Distribution Width 16.6 H, Neutrophils (%) (Auto) 82.7 H, Lymphocytes (%) ( Auto) 10.8 L, Monocytes (%) (Auto) 4.4, Eosinophils (%) (Auto) 0.6, Basophils (% ) (Auto) 0.1, Neutrophils # (Auto) 2.9, Lymphocytes # (Auto) 0.4 L, Monocytes # (Auto) 0.2, Eosinophils # (Auto) 0.0, Basophils # (Auto) 0.0 Vital Signs Date Time Temp Pulse Resp B/P Pulse Ox O2 Delivery O2 Flow Rate FiO2 08/20/16 12:00 96.9 83 20 145/69 94 Nasal Cannula 3.0 08/19/16 11:01 94 I&O- Last 24 Hours up to 6 AM 08/20/16 06:00 Intake Total 1530 ml Output Total 800 ml Balance 730 ml PETER ROBERTS MD Aug 20, 2016 14:53
[2016-08-20 16:00] VITALS: BP 135/81
[2016-08-20] MEDS: NS 1,000 ML IV SCH (17:38)
[2016-08-20] MEDS: LevoFLOXacin 750 MG TABLET PO SCH (17:38)
--- NOTE | 2016-08-20 18:13 | ECGEPIP ---
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
--- NOTE | 2016-08-20 20:16 | REP ---
Right upper quadrant sonography: History: Pain in the right upper quadrant. Findings: The patient was apparently inadvertently fed dinner just prior to scanning. The gallbladder is small and contracted in appearance. No stone is seen by ultrasound. Common bile duct is normal measuring 0.5 cm in greatest diameter. No focal hepatic lesion is seen. No pancreatic abnormality is observed. Pancreatic tail is obscured by abdominal gas. There is no evidence of ascites or right renal abnormality. The right kidney measures 10.9 x 4.7 x 6.3 cm. Impression: Small contracted appearing gallbladder. The patient was inadvertently fed dinner. No stone is visible on today's sonography. No other significant finding. Signed by Adair Longo MD 08/20/2016 08:24 P
[2016-08-20 22:01] VITALS: BP 142/75
[2016-08-21 01:13] VITALS: BP 149/82
[2016-08-21] MEDS: IPRATROPIUM 0.5MG/ALBUTEROL 2.5MG INH SOL UD 3ML (DUONEB)(J7620) NEB SCH ×4 (01:58→20:00)
[2016-08-21] MEDS: methylPREDNISolone INJ 125 MG/2 ML VIAL (J2930) IV SCH ×2 (05:00→11:42)
[2016-08-21 05:50] LABS: BASO % 0.2 % (0.0-1.0); EOS % 0.1 % (0.0-3.0); LARGE UNSTAINED CELL # 0.1 K/mm3 (0.0-0.4); LARGE UNSTAINED CELL % 0.7 % (0.0-4.0); LYMPH # 0.5 K/mm3 (1.5-4.5); LYMPH % 3.8 % (24.0-44.0); MEAN CORPUSCULAR HEMOGLOBIN 22.9 pg (27.0-33.0); MEAN CORPUSCULAR HGB CONC 29.1 g/dl (32.0-36.5); MEAN CORPUSCULAR VOLUME 78.8 fl (80.0-96.0); MONO # 0.5 K/mm3 (0.0-0.8); MONO % 3.8 % (0.0-5.0); NEUTROPHILS # 10.9 K/mm3 (1.8-7.7); NEUTROPHILS % 91.4 % (36.0-66.0); PLATELET COUNT, AUTOMATED 198 k/mm3 (150-450); WHITE BLOOD COUNT 11.9 K/mm3 (4.0-10.0)
[2016-08-21 05:51] LABS: ADD MORPHOLOGY? YES
[2016-08-21 06:02] LABS: ANION GAP 9 MEQ/L (8-16); BLOOD UREA NITROGEN 13 MG/DL (7-18); CALCIUM LEVEL 8.3 MG/DL (8.8-10.2); CARBON DIOXIDE LEVEL 28 MEQ/L (21-32); CHLORIDE LEVEL 103 MEQ/L (98-107); CREATININE FOR GFR 0.67 MG/DL (0.55-1.02); GLOMERULAR FILTRATION RATE > 60.0 (>32); GLUCOSE, FASTING 154 MG/DL (83-110); MAGNESIUM LEVEL 2.1 MG/DL (1.8-2.4); POTASSIUM SERUM 4.2 MEQ/L (3.5-5.1); SODIUM LEVEL 140 MEQ/L (136-145)
[2016-08-21 06:11] VITALS: BP 145/77
[2016-08-21] MEDS: TIOTROPIUM INHALER/CAPSULE (SPIRIVA) INH SCH (07:15)
[2016-08-21] MEDS: ADVAIR DISKUS 250/50 INH PWD INH SCH ×2 (07:15→21:27)
[2016-08-21 07:21] LABS: ANISOCYTOSIS 1+; POIKILOCYTOSIS 1+
[2016-08-21 08:00] VITALS: BP 144/76
[2016-08-21] MEDS: METOCLOPRAMIDE 5 MG TAB PO SCH ×4 (08:21→20:37)
[2016-08-21] MEDS: APIXABAN 5 MG TAB (ELIQUIS) PO SCH ×2 (08:21→20:37)
[2016-08-21] MEDS: ISOSORBIDE MON. (IMDUR) 30 MG XR TAB PO SCH (08:21)
[2016-08-21] MEDS: OSELTAMIVIR PHOSPHATE 75 MG CAP (TAMIFLU) PO SCH ×2 (08:21→20:37)
[2016-08-21] MEDS: LETROZOLE 2.5 MG TAB PO SCH (08:21)
[2016-08-21] MEDS: hydrOXYzine 10 MG TAB PO SCH ×2 (08:21→20:37)
[2016-08-21] MEDS: VITAMIN D 1,000 INTERNATIONAL UNITS TABLET PO SCH (08:23)
[2016-08-21] MEDS: VANCOMYCIN HCL 1,000 MG, VIAL MATE ADAPTER 1 EACH in D5W 250 ML IV SCH ×2 (10:01→22:29)
[2016-08-21] MEDS: NS 1,000 ML IV SCH (11:42)
[2016-08-21 11:49] VITALS: BP 158/74
--- NOTE | 2016-08-21 13:05 | IPNPDOC ---
Date Seen The patient was seen on 08/21/16. Progress Note Hospitalist Progress Note Subjective: Patient states that she is feeling better than when she arrived and breathing more easily Objective: Physical Exam: Vitals: Vital Sign - Last 24 Hours 08/20/16 08/20/16 08/20/16 08/20/16 16:00 20:00 20:26 22:01 Temp 96.7 96.7 Pulse 96 102 Resp 20 20 B/P 135/81 142/75 Pulse Ox 93 96 O2 Delivery Nasal Cannula Nasal Cannula Nasal Cannula Nasal Cannula O2 Flow Rate 3.0 3.0 3.0 3.0 08/21/16 08/21/16 08/21/16 08/21/16 01:13 01:59 06:11 08:00 Temp 96.8 96.4 96.7 Pulse 98 99 106 Resp 20 20 20 B/P 149/82 145/77 144/76 Pulse Ox 95 94 97 O2 Delivery Nasal Cannula Nasal Cannula Nasal Cannula Nasal Cannula O2 Flow Rate 3.0 3.0 3.0 3.0 08/21/16 08/21/16 08/21/16 08:00 08:21 11:49 Temp 98.2 Pulse 107 Resp 20 B/P 145/77 158/74 Pulse Ox 98 O2 Delivery Nasal Cannula Nasal Cannula O2 Flow Rate 3.0 3.0 General: Awake, alert, no acute distress HEENT: Moist mucous membranes CV: Irregularly irregular Lungs: Still with rhonchi, but moving better air than admission Abd: Soft, nontender, nondistended Extremities: No Edema Neuro: Alert and oriented 3, normal speech Psych: Normal Mood and affect Labs and Imaging: Laboratory Tests 08/21/16 05:22 Calcium Level 8.3 L, Red Blood Count 4.58, Mean Corpuscular Volume 78.8 L, Mean Corpuscular Hemoglobin 22.9 L, Mean Corpuscular Hemoglobin Concent 29.1 L, Red Cell Distribution Width 17.0 H, Neutrophils (%) (Auto) 91.4 H, Lymphocytes (%) ( Auto) 3.8 L, Monocytes (%) (Auto) 3.8, Eosinophils (%) (Auto) 0.1, Basophils (% ) (Auto) 0.2, Neutrophils # (Auto) 10.9 H, Lymphocytes # (Auto) 0.5 L, Monocytes # (Auto) 0.5, Eosinophils # (Auto) 0.0, Basophils # (Auto) 0.0 Assessment and Plan: 81-year-old female with atrial fibrillation, right-sided heart failure, COPD on home oxygen, right breast cancer, pulmonary hypertension, interstitial fibrosis and pulmonary nodule, history of GI bleed, gastritis, arthritis, hearing loss who was admitted with a COPD exacerbation and has found to be positive for influence of. 1. COPD exacerbation on chronic hypoxic respiratory failure and influenza: Likely secondary to influenza. Continue Tamiflu and droplet precautions. Also continue nebulizers and Levaquin. We will decrease her steroids today. It is possible that the female patient of her apartment was the initial trigger. Continue home Spiriva and Advair. 2. Atrial fibrillation: Rate has improved. We will continue home eliquis. 3. Bacteremia: One out of 2 sets of her first blood cultures grew GPC's in clusters. I suspect this is a contaminant. The patient is currently on vancomycin, and repeat blood cultures are pending. 4. Right-sided heart failure: Continue home imdur. 5. Right breast cancer: Continue home letrozole. DVT prophylaxis: Home eliquis Dispo: transfer to the floor VS, I&O, [facility] Vital Signs/I&O Vital Signs Date Time Temp Pulse Resp B/P Pulse Ox O2 Delivery O2 Flow Rate FiO2 08/21/16 11:49 98.2 107 20 158/74 98 Nasal Cannula 3.0 08/19/16 11:01 94 I&O- Last 24 Hours up to 6 AM 08/21/16 05:59 Intake Total 2870 ml Output Total 2200 ml Balance 670 ml Laboratory Data 24H LABS Laboratory Tests 2 08/21/16 05:22: Anion Gap 9, Anisocytosis 1+, White Blood Count 11.9H, Red Blood Count 4.58, Hemoglobin 10.5L, Hematocrit 36.1, Mean Corpuscular Volume 78.8L, Mean Corpuscular Hemoglobin 22.9L, Mean Corpuscular Hemoglobin Concent 29.1L, Red Cell Distribution Width 17.0H, Platelet Count 198, Neutrophils (%) (Auto) 91.4H , Lymphocytes (%) (Auto) 3.8L, Monocytes (%) (Auto) 3.8, Eosinophils (%) (Auto) 0.1, Basophils (%) (Auto) 0.2, Neutrophils # (Auto) 10.9H, Lymphocytes # (Auto) 0.5L, Monocytes # (Auto) 0.5, Eosinophils # (Auto) 0.0, Basophils # (Auto) 0.0, Blood Urea Nitrogen 13, Creatinine 0.67, Sodium Level 140, Potassium Level 4.2, Chloride Level 103, Carbon Dioxide Level 28, Calcium Level 8.3L, Glomerular Filtration Rate > 60.0, Large Unclassified Cells # 0.1, Large Unclassified Cells % 0.7, Magnesium Level 2.1, Platelet Estimate NORMAL, Poikilocytosis 1+ CBC/BMP Laboratory Tests 08/21/16 05:22 Calcium Level 8.3 L, Red Blood Count 4.58, Mean Corpuscular Volume 78.8 L, Mean Corpuscular Hemoglobin 22.9 L, Mean Corpuscular Hemoglobin Concent 29.1 L, Red Cell Distribution Width 17.0 H, Neutrophils (%) (Auto) 91.4 H, Lymphocytes (%) ( Auto) 3.8 L, Monocytes (%) (Auto) 3.8, Eosinophils (%) (Auto) 0.1, Basophils (% ) (Auto) 0.2, Neutrophils # (Auto) 10.9 H, Lymphocytes # (Auto) 0.5 L, Monocytes # (Auto) 0.5, Eosinophils # (Auto) 0.0, Basophils # (Auto) 0.0 Microbiology Microbiology 08/21/16 Blood Culture, Received Pending 08/21/16 Blood Culture, Received Pending 08/19/16 Blood Culture - Preliminary, Resulted No Growth after 48 hours. All Specime... 08/19/16 Blood Culture - Preliminary, Resulted 08/20/16 Gastrointestinal Tract Panel (PCR) - Final, Complete 08/20/16 MRSA Screen, Received Pending 08/19/16 Respiratory Virus Panel (PCR) (FRANK) - Final, Complete Influenza A H3 08/19/16 Influenza Virus Type A Antigen - Final, Complete 08/19/16 Influenza Virus Type B Antigen - Final, Complete NICK GALLARDO Aug 21, 2016 13:05
[2016-08-21 16:55] VITALS: BP 170/90
[2016-08-21] MEDS: LevoFLOXacin 750 MG TABLET PO SCH (20:36)
[2016-08-21] MEDS: methylPREDNISolone INJ 40 MG/1 ML VIAL (J2920) IV SCH (20:37)
[2016-08-21 22:00] VITALS: BP 159/86
--- NOTE | 2016-08-21 22:43 | PHACANCOPD ---
PHARMACY VANCOMYCIN DOSING Pt Demographics Demographics Patient Age:81 , Weight:77.400 , Gender: female Adjusted Body Weight Date: 08/20/16, Adjusted Body Weight: [74.3] Kg Events Past 24 Hours Events Past 24 Hours: YES: Elevation in WBC Vancomycin Vancomycin indication: POSITIVE BLOOD CX Vancomycin Target Ranges: 15-20 mcg/ml Vancomycin Load Y/N: Yes Load Dose Date Time Vancomycin Load Dose: 1.75G Date: 08/20/16 Time: 10AM Vancomycin Dose Date: 08/21/16. Current Vancomycin Dose: [1G Q12H] Intermittent Dosing?: No Labs Labs Item Value Date Time White Blood Count 3.5 K/mm3 L 08/20/16 0515 White Blood Count 11.9 K/mm3 H 08/21/16 05 Vancomycin Level Trough 11.9 UG/ML 08/21/162057 Creatinine 0.67 MG/DL 08/21/16 05 Vital Signs Label Value Date Time Patient Temperature 98.0 degrees F 08/21/16 2200 Micro Microbiology 08/21/16 Blood Culture, Received Pending 08/21/16 Blood Culture, Received Pending 08/19/16 Blood Culture - Preliminary, Resulted No Growth after 48 hours. All Specime... 08/19/16 Blood Culture - Preliminary, Resulted 08/20/16 Gastrointestinal Tract Panel (PCR) - Final, Complete 08/20/16 MRSA Screen, Received Pending 08/19/16 Respiratory Virus Panel (PCR) (FRANK) - Final, Complete Influenza A H3 08/19/16 Influenza Virus Type A Antigen - Final, Complete 08/19/16 Influenza Virus Type B Antigen - Final, Complete Creatinine Clearance Date:08/20/16. Creatinine Clearance: [54.4ML/MIN]. Pending Labs Trough ordered for 03- @2100 Assessment and Plan Maintaining Current Dose?: Yes Reason for dose change: No Dose Change Pharmacist Note Pharmacist Note Date: 08/21/16. Pharmacist note: Trough of 11.9 is slightly below target range. Will continue current dosing with an extra 500mg dose 03-15 @0000. Will redraw trough -15 @2100 and make dosing adjustment if necessary. Will continue to monitor and make adjustments as needed. TRAVIS LEAVITT PHARMACY Aug 21, 2016 22:43
[2016-08-21] MEDS: traZODone 50 MG TAB PO PRN (23:54)
[2016-08-22] MEDS ORDERED: VANCOMYCIN HCL 500 MG in D5W MINI-BAG PLUS 100 ML IV ONE ×2
[2016-08-22] MEDS: IPRATROPIUM 0.5MG/ALBUTEROL 2.5MG INH SOL UD 3ML (DUONEB)(J7620) NEB SCH ×5 (00:28→23:19)
[2016-08-22] MEDS: methylPREDNISolone INJ 40 MG/1 ML VIAL (J2920) IV SCH ×3 (04:23→20:15)
[2016-08-22 06:00] VITALS: BP 141/90
[2016-08-22 07:17] LABS: BASO % 0.2 % (0.0-1.0); EOS % 0.2 % (0.0-3.0); LARGE UNSTAINED CELL # 0.1 K/mm3 (0.0-0.4); LARGE UNSTAINED CELL % 0.8 % (0.0-4.0); LYMPH # 0.6 K/mm3 (1.5-4.5); LYMPH % 4.8 % (24.0-44.0); MEAN CORPUSCULAR HEMOGLOBIN 22.9 pg (27.0-33.0); MEAN CORPUSCULAR HGB CONC 29.1 g/dl (32.0-36.5); MEAN CORPUSCULAR VOLUME 78.7 fl (80.0-96.0); MONO # 0.5 K/mm3 (0.0-0.8); MONO % 3.7 % (0.0-5.0); NEUTROPHILS # 10.8 K/mm3 (1.8-7.7); NEUTROPHILS % 90.3 % (36.0-66.0); PLATELET COUNT, AUTOMATED 197 k/mm3 (150-450)
[2016-08-22 07:24] LABS: ANION GAP 6 MEQ/L (8-16); BLOOD UREA NITROGEN 16 MG/DL (7-18); CALCIUM LEVEL 8.8 MG/DL (8.8-10.2); CARBON DIOXIDE LEVEL 31 MEQ/L (21-32); CHLORIDE LEVEL 104 MEQ/L (98-107); CREATININE FOR GFR 0.68 MG/DL (0.55-1.02); GLOMERULAR FILTRATION RATE > 60.0 (>32); GLUCOSE, FASTING 128 MG/DL (83-110); MAGNESIUM LEVEL 2.3 MG/DL (1.8-2.4); POTASSIUM SERUM 4.6 MEQ/L (3.5-5.1); SODIUM LEVEL 141 MEQ/L (136-145)
[2016-08-22] MEDS: ADVAIR DISKUS 250/50 INH PWD INH SCH ×2 (09:04→20:29)
[2016-08-22] MEDS: TIOTROPIUM INHALER/CAPSULE (SPIRIVA) INH SCH (09:04)
[2016-08-22] MEDS: OSELTAMIVIR PHOSPHATE 75 MG CAP (TAMIFLU) PO SCH ×2 (09:35→20:15)
[2016-08-22] MEDS: LETROZOLE 2.5 MG TAB PO SCH (09:35)
[2016-08-22] MEDS: APIXABAN 5 MG TAB (ELIQUIS) PO SCH ×2 (09:35→20:15)
[2016-08-22] MEDS: ISOSORBIDE MON. (IMDUR) 30 MG XR TAB PO SCH (09:36)
[2016-08-22] MEDS: METOCLOPRAMIDE 5 MG TAB PO SCH ×4 (09:36→20:15)
[2016-08-22] MEDS: hydrOXYzine 10 MG TAB PO SCH ×2 (09:36→20:15)
[2016-08-22] MEDS: VITAMIN D 1,000 INTERNATIONAL UNITS TABLET PO SCH (09:36)
[2016-08-22] MEDS: VANCOMYCIN HCL 1,000 MG, VIAL MATE ADAPTER 1 EACH in D5W 250 ML IV SCH ×2 (09:46→21:50)
--- NOTE | 2016-08-22 12:00 | IPN ---
DATE: 08/22/2016 This is an 81-year-old female seen at bedside resting somewhat comfortably; however, she does continue to have some expiratory wheeze with productive sputum and cough. No chest pain. No palpitations. No nausea or vomiting. OBJECTIVE: Temperature is 97.6, pulse 90, respiratory rate is 19, blood pressure (BP) is 141/90, and SPO2 is 91% on 3 liters. General: The patient appears to be in no acute distress. She is alert, pleasant. HEENT: Unremarkable. Lungs: Diminished bilateral basal breath sounds. She does have an expiratory wheeze, occasional rhonchi and cough. Heart: Regular rate and rhythm. Abdomen: Soft. Extremities: No edema, no calf tenderness. LABS: White count 12,000, hemoglobin is 10.3 and platelets are 197,000. She does not show any significant shift in her differential. Sodium is 141, potassium 4.6, chloride 104, bicarb 31, anion gap 6, BUN 16, creatinine 0.68, glucose 128. Respiratory virus panel positive for influenza A on 08/19/2016. She did have one blood culture positive for Staphylococcus hominis on 08/19/2016. Repeat blood cultures remain negative at 24 and 48 hours. GI panel was negative. ASSESSMENT/PLAN: 1. Chronic obstructive pulmonary disease (COPD) exacerbation with chronic hypoxic respiratory failure. She is O2 dependent at home on 2 liters of oxygen. She did test positive for influenza A. Will continue on Tamiflu, drop her precautions. Continue nebulizers and Levaquin as well as Solu-Medrol. Continue Spiriva and Advair. Will anticipate tapering dose of her Solu-Medrol tomorrow. 2. Atrial fibrillation, rate controlled. Continue on Eliquis. 3. Bacteremia, currently on vancomycin for blood cultures that were positive. Will wait another 24 hours to see if we can further de-escalate. 4. Right-sided heart failure. Continue on Imdur. She appears to be compensated. 5. History of right breast cancer. Continue on latrozole. 6. Deep vein thrombosis (DVT) prophylaxis, on Eliquis. DISPOSITION: Anticipate home discharge in the next couple of days.
[2016-08-22 14:00] VITALS: BP 180/94
[2016-08-22] MEDS: LevoFLOXacin 750 MG TABLET PO SCH (17:34)
[2016-08-22 19:49] VITALS: BP 172/88
[2016-08-22] MEDS: ACETAMINOPHEN TAB 650MG DOSE (2X325MG) PO PRN (20:15)
[2016-08-22 22:00] VITALS: BP 152/86
[2016-08-23] MEDS: methylPREDNISolone INJ 40 MG/1 ML VIAL (J2920) IV SCH (04:42)
[2016-08-23 06:00] VITALS: BP 164/88
[2016-08-23 07:05] LABS: ANION GAP 9 MEQ/L (8-16); BLOOD UREA NITROGEN 17 MG/DL (7-18); CARBON DIOXIDE LEVEL 30 MEQ/L (21-32); CHLORIDE LEVEL 101 MEQ/L (98-107); CREATININE FOR GFR 0.73 MG/DL (0.55-1.02); GLOMERULAR FILTRATION RATE > 60.0 (>32); GLUCOSE, FASTING 140 MG/DL (83-110); MAGNESIUM LEVEL 2.4 MG/DL (1.8-2.4); POTASSIUM SERUM 4.6 MEQ/L (3.5-5.1); SODIUM LEVEL 140 MEQ/L (136-145)
[2016-08-23 07:07] LABS: BASO # 0.1 K/mm3 (0.0-0.2); BASO % 0.5 % (0.0-1.0); EOS % 0.1 % (0.0-3.0); LARGE UNSTAINED CELL # 0.1 K/mm3 (0.0-0.4); LARGE UNSTAINED CELL % 1.1 % (0.0-4.0); LYMPH # 0.6 K/mm3 (1.5-4.5); MEAN CORPUSCULAR HGB CONC 29.2 g/dl (32.0-36.5); MEAN CORPUSCULAR VOLUME 78.8 fl (80.0-96.0); MONO # 0.6 K/mm3 (0.0-0.8); MONO % 5.2 % (0.0-5.0); NEUTROPHILS # 9.8 K/mm3 (1.8-7.7); NEUTROPHILS % 88.1 % (36.0-66.0); PLATELET COUNT, AUTOMATED 177 k/mm3 (150-450); RED CELL DISTRIBUTION WIDTH 17.2 % (11.5-14.5); WHITE BLOOD COUNT 11.1 K/mm3 (4.0-10.0)
[2016-08-23] MEDS: IPRATROPIUM 0.5MG/ALBUTEROL 2.5MG INH SOL UD 3ML (DUONEB)(J7620) NEB SCH ×3 (08:00→19:43)
[2016-08-23] MEDS: TIOTROPIUM INHALER/CAPSULE (SPIRIVA) INH SCH (08:01)
[2016-08-23] MEDS: ADVAIR DISKUS 250/50 INH PWD INH SCH ×2 (08:02→19:42)
[2016-08-23] MEDS: OSELTAMIVIR PHOSPHATE 75 MG CAP (TAMIFLU) PO SCH ×2 (09:17→20:23)
[2016-08-23] MEDS: VITAMIN D 1,000 INTERNATIONAL UNITS TABLET PO SCH (09:17)
[2016-08-23] MEDS: APIXABAN 5 MG TAB (ELIQUIS) PO SCH ×2 (09:17→20:22)
[2016-08-23] MEDS: METOCLOPRAMIDE 5 MG TAB PO SCH ×4 (09:17→20:22)
[2016-08-23] MEDS: LETROZOLE 2.5 MG TAB PO SCH (09:17)
[2016-08-23] MEDS: hydrOXYzine 10 MG TAB PO SCH ×2 (09:17→20:23)
[2016-08-23] MEDS: ISOSORBIDE MON. (IMDUR) 30 MG XR TAB PO SCH (09:18)
[2016-08-23] MEDS: VANCOMYCIN HCL 1,000 MG, VIAL MATE ADAPTER 1 EACH in D5W 250 ML IV SCH (10:06)
[2016-08-23] MEDS: POTASSIUM CHLORIDE 10 MEQ SR TABLET PO SCH (11:30)
[2016-08-23] MEDS: predniSONE 20 MG TAB PO SCH (11:30)
[2016-08-23] MEDS: FUROSEMIDE 20 MG TAB PO SCH ×2 (11:30→18:15)
[2016-08-23] MEDS: FLUTICASONE PROP 0.05% NASAL SPRAY 16 GM (FLONASE) SCH (12:46)
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
[2016-08-23 14:00] VITALS: BP 160/87
[2016-08-23] MEDS: LevoFLOXacin 750 MG TABLET PO SCH (18:15)
[2016-08-23] MEDS: traZODone 50 MG TAB PO PRN (20:23)
[2016-08-23] MEDS: ACETAMINOPHEN TAB 650MG DOSE (2X325MG) PO PRN (20:24)
[2016-08-23 22:00] VITALS: BP 138/66
[2016-08-24] MEDS: IPRATROPIUM 0.5MG/ALBUTEROL 2.5MG INH SOL UD 3ML (DUONEB)(J7620) NEB SCH ×4 (01:23→20:00)
[2016-08-24 06:00] VITALS: BP 136/78
[2016-08-24 06:17] LABS: BASO % 0.4 % (0.0-1.0); EOS % 0.2 % (0.0-3.0); LARGE UNSTAINED CELL # 0.2 K/mm3 (0.0-0.4); LARGE UNSTAINED CELL % 1.8 % (0.0-4.0); LYMPH # 1.6 K/mm3 (1.5-4.5); LYMPH % 12.5 % (24.0-44.0); MEAN CORPUSCULAR HEMOGLOBIN 22.9 pg (27.0-33.0); MEAN CORPUSCULAR HGB CONC 29.6 g/dl (32.0-36.5); MEAN CORPUSCULAR VOLUME 77.5 fl (80.0-96.0); MONO # 1.1 K/mm3 (0.0-0.8); MONO % 9.8 % (0.0-5.0); NEUTROPHILS # 8.5 K/mm3 (1.8-7.7); NEUTROPHILS % 75.3 % (36.0-66.0); PLATELET COUNT, AUTOMATED 186 k/mm3 (150-450); RED CELL DISTRIBUTION WIDTH 17.2 % (11.5-14.5); WHITE BLOOD COUNT 11.3 K/mm3 (4.0-10.0)
[2016-08-24 06:32] LABS: ANION GAP 6 MEQ/L (8-16); BLOOD UREA NITROGEN 22 MG/DL (7-18); CALCIUM LEVEL 8.6 MG/DL (8.8-10.2); CARBON DIOXIDE LEVEL 38 MEQ/L (21-32); CHLORIDE LEVEL 97 MEQ/L (98-107); CREATININE FOR GFR 0.79 MG/DL (0.55-1.02); GLOMERULAR FILTRATION RATE > 60.0 (>32); GLUCOSE, FASTING 100 MG/DL (83-110); MAGNESIUM LEVEL 2.5 MG/DL (1.8-2.4); POTASSIUM SERUM 4.2 MEQ/L (3.5-5.1); SODIUM LEVEL 141 MEQ/L (136-145)
[2016-08-24] MEDS: TIOTROPIUM INHALER/CAPSULE (SPIRIVA) INH SCH (07:37)
[2016-08-24] MEDS: ADVAIR DISKUS 250/50 INH PWD INH SCH ×2 (07:37→20:37)
[2016-08-24] MEDS: METOCLOPRAMIDE 5 MG TAB PO SCH ×4 (08:33→20:06)
[2016-08-24] MEDS: POTASSIUM CHLORIDE 10 MEQ SR TABLET PO SCH (08:34)
[2016-08-24] MEDS: predniSONE 20 MG TAB PO SCH (08:34)
[2016-08-24] MEDS: OSELTAMIVIR PHOSPHATE 75 MG CAP (TAMIFLU) PO SCH (08:34)
[2016-08-24] MEDS: VITAMIN D 1,000 INTERNATIONAL UNITS TABLET PO SCH (08:34)
[2016-08-24] MEDS: APIXABAN 5 MG TAB (ELIQUIS) PO SCH ×2 (08:34→20:06)
[2016-08-24] MEDS: hydrOXYzine 10 MG TAB PO SCH ×2 (08:35→20:06)
[2016-08-24] MEDS: FUROSEMIDE 20 MG TAB PO SCH ×2 (08:35→17:29)
[2016-08-24] MEDS: LETROZOLE 2.5 MG TAB PO SCH (08:35)
[2016-08-24] MEDS: ISOSORBIDE MON. (IMDUR) 30 MG XR TAB PO SCH (08:36)
[2016-08-24] MEDS: FLUTICASONE PROP 0.05% NASAL SPRAY 16 GM (FLONASE) SCH (08:36)
[2016-08-24] MEDS ORDERED: PRED10TA PO (09:52)
[2016-08-24] MEDS ORDERED: LEVA500T PO (09:52)
[2016-08-24] MEDS ORDERED: FLUTISP (09:52)
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
[2016-08-24 14:00] VITALS: BP 136/91
[2016-08-24] MEDS: LevoFLOXacin 750 MG TABLET PO SCH (17:29)
[2016-08-24 22:00] VITALS: BP 140/88
[2016-08-25] MEDS: IPRATROPIUM 0.5MG/ALBUTEROL 2.5MG INH SOL UD 3ML (DUONEB)(J7620) NEB SCH ×4 (01:03→18:54)
[2016-08-25 06:00] VITALS: BP 134/70
[2016-08-25 06:49] LABS: ANION GAP 7 MEQ/L (8-16); BLOOD UREA NITROGEN 24 MG/DL (7-18); CALCIUM LEVEL 8.5 MG/DL (8.8-10.2); CARBON DIOXIDE LEVEL 39 MEQ/L (21-32); CHLORIDE LEVEL 93 MEQ/L (98-107); CREATININE FOR GFR 0.77 MG/DL (0.55-1.02); GLOMERULAR FILTRATION RATE > 60.0 (>32); GLUCOSE, FASTING 96 MG/DL (83-110); MAGNESIUM LEVEL 2.5 MG/DL (1.8-2.4); POTASSIUM SERUM 3.7 MEQ/L (3.5-5.1); SODIUM LEVEL 139 MEQ/L (136-145)
[2016-08-25 07:03] LABS: MEAN CORPUSCULAR HEMOGLOBIN 22.8 pg (27.0-33.0); MEAN CORPUSCULAR HGB CONC 29.5 g/dl (32.0-36.5); MEAN CORPUSCULAR VOLUME 77.4 fl (80.0-96.0); PLATELET COUNT, AUTOMATED 235 k/mm3 (150-450); RED CELL DISTRIBUTION WIDTH 17.2 % (11.5-14.5); WHITE BLOOD COUNT 12.8 K/mm3 (4.0-10.0)
[2016-08-25] MEDS: TIOTROPIUM INHALER/CAPSULE (SPIRIVA) INH SCH (07:39)
[2016-08-25] MEDS: ADVAIR DISKUS 250/50 INH PWD INH SCH ×2 (07:40→20:03)
[2016-08-25 07:49] LABS: HYPOCHROMASIA 2+; MICROCYTOSIS 1+
[2016-08-25] MEDS: POTASSIUM CHLORIDE 10 MEQ SR TABLET PO SCH (08:07)
[2016-08-25] MEDS: FUROSEMIDE 20 MG TAB PO SCH ×2 (08:07→17:33)
[2016-08-25] MEDS: predniSONE 20 MG TAB PO SCH (08:09)
[2016-08-25] MEDS: ISOSORBIDE MON. (IMDUR) 30 MG XR TAB PO SCH (08:09)
[2016-08-25] MEDS: APIXABAN 5 MG TAB (ELIQUIS) PO SCH ×2 (08:09→20:10)
[2016-08-25] MEDS: LETROZOLE 2.5 MG TAB PO SCH (08:09)
[2016-08-25] MEDS: VITAMIN D 1,000 INTERNATIONAL UNITS TABLET PO SCH (08:10)
[2016-08-25] MEDS: hydrOXYzine 10 MG TAB PO SCH ×2 (08:10→20:10)
[2016-08-25] MEDS: METOCLOPRAMIDE 5 MG TAB PO SCH ×4 (08:10→20:10)
[2016-08-25] MEDS: FLUTICASONE PROP 0.05% NASAL SPRAY 16 GM (FLONASE) SCH (08:10)
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
[2016-08-25 14:00] VITALS: BP 123/73
[2016-08-25] MEDS: LevoFLOXacin 750 MG TABLET PO SCH (17:33)
[2016-08-25 22:00] VITALS: BP 133/80
[2016-08-26] MEDS: IPRATROPIUM 0.5MG/ALBUTEROL 2.5MG INH SOL UD 3ML (DUONEB)(J7620) NEB SCH ×4 (02:26→19:00)
[2016-08-26 06:00] VITALS: BP 139/72
[2016-08-26 06:32] LABS: ANION GAP 7 MEQ/L (8-16); BLOOD UREA NITROGEN 22 MG/DL (7-18); CALCIUM LEVEL 8.9 MG/DL (8.8-10.2); CARBON DIOXIDE LEVEL 39 MEQ/L (21-32); CHLORIDE LEVEL 93 MEQ/L (98-107); CREATININE FOR GFR 0.77 MG/DL (0.55-1.02); GLOMERULAR FILTRATION RATE > 60.0 (>32); GLUCOSE, FASTING 93 MG/DL (83-110); MAGNESIUM LEVEL 2.6 MG/DL (1.8-2.4); POTASSIUM SERUM 3.8 MEQ/L (3.5-5.1); SODIUM LEVEL 139 MEQ/L (136-145)
[2016-08-26 06:48] LABS: MEAN CORPUSCULAR HEMOGLOBIN 22.9 pg (27.0-33.0); MEAN CORPUSCULAR VOLUME 76.4 fl (80.0-96.0); PLATELET COUNT, AUTOMATED 251 k/mm3 (150-450); RED CELL DISTRIBUTION WIDTH 17.2 % (11.5-14.5); WHITE BLOOD COUNT 12.5 K/mm3 (4.0-10.0)
[2016-08-26 07:06] LABS: ANISOCYTOSIS 1+; EOSINOPHILS 1 % (0-5); HYPOCHROMASIA 2+; MICROCYTOSIS 1+; NUCLEATED RED BLOOD CELL 2 % (0-0)
[2016-08-26] MEDS: METOCLOPRAMIDE 5 MG TAB PO SCH ×4 (07:37→20:11)
[2016-08-26] MEDS: ADVAIR DISKUS 250/50 INH PWD INH SCH ×2 (08:22→19:54)
[2016-08-26] MEDS: TIOTROPIUM INHALER/CAPSULE (SPIRIVA) INH SCH (08:22)
[2016-08-26] MEDS: ISOSORBIDE MON. (IMDUR) 30 MG XR TAB PO SCH (09:53)
[2016-08-26] MEDS: POTASSIUM CHLORIDE 10 MEQ SR TABLET PO SCH (09:54)
[2016-08-26] MEDS: hydrOXYzine 10 MG TAB PO SCH ×2 (09:54→20:11)
[2016-08-26] MEDS: LETROZOLE 2.5 MG TAB PO SCH (09:54)
[2016-08-26] MEDS: APIXABAN 5 MG TAB (ELIQUIS) PO SCH ×2 (09:54→20:11)
[2016-08-26] MEDS: predniSONE 10 MG TAB PO SCH (09:54)
[2016-08-26] MEDS: FUROSEMIDE 20 MG TAB PO SCH ×2 (09:54→16:57)
[2016-08-26] MEDS: VITAMIN D 1,000 INTERNATIONAL UNITS TABLET PO SCH (09:54)
[2016-08-26] MEDS: FLUTICASONE PROP 0.05% NASAL SPRAY 16 GM (FLONASE) SCH (09:55)
[2016-08-26] MEDS: LevoFLOXacin 500 MG TABLET PO SCH (10:01)
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
[2016-08-26 14:00] VITALS: BP 113/64
[2016-08-26 22:00] VITALS: BP 129/72
[2016-08-27] MEDS: IPRATROPIUM 0.5MG/ALBUTEROL 2.5MG INH SOL UD 3ML (DUONEB)(J7620) NEB SCH ×4 (01:17→19:23)
[2016-08-27] MEDS: LevoFLOXacin 500 MG TABLET PO SCH (05:58)
[2016-08-27 06:00] VITALS: BP 122/69
[2016-08-27] MEDS: VITAMIN D 1,000 INTERNATIONAL UNITS TABLET PO SCH (08:07)
[2016-08-27] MEDS: APIXABAN 5 MG TAB (ELIQUIS) PO SCH ×2 (08:07→21:04)
[2016-08-27] MEDS: hydrOXYzine 10 MG TAB PO SCH ×2 (08:07→21:04)
[2016-08-27] MEDS: METOCLOPRAMIDE 5 MG TAB PO SCH ×4 (08:07→21:04)
[2016-08-27] MEDS: predniSONE 10 MG TAB PO SCH (08:07)
[2016-08-27] MEDS: LETROZOLE 2.5 MG TAB PO SCH (08:07)
[2016-08-27] MEDS: ISOSORBIDE MON. (IMDUR) 30 MG XR TAB PO SCH (08:07)
[2016-08-27] MEDS: POTASSIUM CHLORIDE 10 MEQ SR TABLET PO SCH (08:08)
[2016-08-27] MEDS: FUROSEMIDE 20 MG TAB PO SCH ×2 (08:08→17:17)
[2016-08-27] MEDS: FLUTICASONE PROP 0.05% NASAL SPRAY 16 GM (FLONASE) SCH (08:09)
[2016-08-27] MEDS: TIOTROPIUM INHALER/CAPSULE (SPIRIVA) INH SCH (10:29)
[2016-08-27] MEDS: ADVAIR DISKUS 250/50 INH PWD INH SCH ×2 (10:29→19:28)
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
[2016-08-27 14:00] VITALS: BP 147/60
[2016-08-27 22:00] VITALS: BP 135/81
[2016-08-28] MEDS: IPRATROPIUM 0.5MG/ALBUTEROL 2.5MG INH SOL UD 3ML (DUONEB)(J7620) NEB SCH ×2 (02:32→08:00)
[2016-08-28] MEDS: LevoFLOXacin 500 MG TABLET PO SCH (05:20)
[2016-08-28 06:00] VITALS: BP 138/70
[2016-08-28 06:02] LABS: MEAN CORPUSCULAR HEMOGLOBIN 23.5 pg (27.0-33.0); MEAN CORPUSCULAR HGB CONC 30.1 g/dl (32.0-36.5); MEAN CORPUSCULAR VOLUME 77.9 fl (80.0-96.0); RED CELL DISTRIBUTION WIDTH 17.2 % (11.5-14.5); WHITE BLOOD COUNT 13.2 K/mm3 (4.0-10.0)
[2016-08-28 06:07] LABS: ANION GAP 6 MEQ/L (8-16); BLOOD UREA NITROGEN 22 MG/DL (7-18); CALCIUM LEVEL 8.6 MG/DL (8.8-10.2); CARBON DIOXIDE LEVEL 36 MEQ/L (21-32); CHLORIDE LEVEL 96 MEQ/L (98-107); CREATININE FOR GFR 0.78 MG/DL (0.55-1.02); GLOMERULAR FILTRATION RATE > 60.0 (>32); GLUCOSE, FASTING 94 MG/DL (83-110); POTASSIUM SERUM 3.8 MEQ/L (3.5-5.1); SODIUM LEVEL 138 MEQ/L (136-145)
[2016-08-28] MEDS: METOCLOPRAMIDE 5 MG TAB PO SCH ×2 (08:09→12:00)
[2016-08-28] MEDS: LETROZOLE 2.5 MG TAB PO SCH (08:09)
[2016-08-28] MEDS: POTASSIUM CHLORIDE 10 MEQ SR TABLET PO SCH (08:09)
[2016-08-28] MEDS: predniSONE 10 MG TAB PO SCH (08:09)
[2016-08-28 08:10] VITALS: BP 137/65
[2016-08-28] MEDS: APIXABAN 5 MG TAB (ELIQUIS) PO SCH (08:10)
[2016-08-28] MEDS: FLUTICASONE PROP 0.05% NASAL SPRAY 16 GM (FLONASE) SCH (08:10)
[2016-08-28] MEDS: FUROSEMIDE 20 MG TAB PO SCH (08:10)
[2016-08-28] MEDS: ISOSORBIDE MON. (IMDUR) 30 MG XR TAB PO SCH (08:10)
[2016-08-28] MEDS: hydrOXYzine 10 MG TAB PO SCH (08:10)
[2016-08-28] MEDS: VITAMIN D 1,000 INTERNATIONAL UNITS TABLET PO SCH (08:10)
[2016-08-28] MEDS: TIOTROPIUM INHALER/CAPSULE (SPIRIVA) INH SCH (09:07)
[2016-08-28] MEDS: ADVAIR DISKUS 250/50 INH PWD INH SCH (09:07)
[2016-08-28] MEDS ORDERED: LEVA500T PO (10:34)
[2016-08-28] MEDS ORDERED: PRED10TA PO (11:58)
--- NOTE | 2016-08-28 18:30 | DSES ---
DATE OF ADMISSION: 08/19/2016 DATE OF DISCHARGE: 08/28/2016 DISCHARGE DIAGNOSIS: Influenza A. SECONDARY DIAGNOSES: 1. Decompensated chronic obstructive pulmonary disease (COPD). 2. Bedbugs. 3. Acute hypoxic respiratory failure. 4. Right-sided heart failure. 5. Breast cancer. HOSPITAL COURSE: The patient is an 81-year-old female who is frequently admitted to the hospitalist service, who presented on 08/19/2016 with shortness of breath. The patient was diagnosed with influenza A. She did complete a course of Tamiflu. This likely did result in the decompensation of her chronic obstructive pulmonary disease (COPD). She was very slow to progress and initially required an increased oxygen requirement from her baseline which is 3-4 liters. At the present time, the patient states that she is back to her baseline. She states that this is as good as she gets. Although she is not great, she would like to go home. She denies chest pain, any worsening of her chronic shortness of breath, fevers, chills, nausea, vomiting, or diarrhea. OBJECTIVE: VITAL SIGNS: Temperature 98.6, pulse 88, respiratory rate 20, blood pressure 138/70, oxygen saturation 97% on three liters nasal cannula. GENERAL: She is a frail, elderly, female sitting on the edge of her bed. She does not appear to be in any acute distress. HEENT: Cranial nerves II-XII are grossly intact. RESPIRATORY: Examination is actually quite clear with good air movement. She has a prolonged expiratory phase. CARDIOVASCULAR: S1, S2, irregularly irregular. ABDOMEN: Benign. EXTREMITIES: No clubbing, cyanosis, or edema. LABORATORY STUDIES: WBC 13.2, hemoglobin 12.4, hematocrit 41.2, platelet count 277. Chemistry panel: Sodium 138, potassium 3.8, chloride 96, bicarbonate 36, BUN 22, creatinine 0.7. Influenza A/H3 was positive from 08/19/2016. One blood culture bottle was positive from 08/19/2016 for Staphylococcus hominis, likely a contaminant. Repeat cultures were negative. GI PCR panel was negative. IMAGING STUDIES: The patient did have a CT scan of the abdomen and pelvis which did not reveal acute findings. ASSESSMENT AND PLAN: This is an 81-year-old female with resolved influenza A and recovered decompensated chronic obstructive pulmonary disease (COPD). 1. Influenza A. She has finished a course of Tamiflu. Resolved. 2. Decompensated COPD. The patient is at her baseline respiratory status. She is continued on prednisone taper. She has been continued on her nebulizer treatments and inhalers while in the hospital. Her baseline is 3-4 liters. The patient will complete a course of levofloxacin, although our suspicion for a bacterial pneumonia is much less. 3. Right-sided heart failure. The patient appears to be euvolemic. She is continued on Imdur. The patient is on Lasix. 4. History of breast cancer. The patient is on letrozole. 5. Atrial fibrillation. The patient is rate controlled without any specific agent and is on Eliquis. 6. Vitamin D deficiency. She is continued on supplementation. 7. Deep vein thrombosis (DVT) prophylaxis. The patient has been on Eliquis. DISPOSITION: The patient is being discharged home. She is at her functional baseline. She is to followup with her primary care provider (PCP) within seven days. Her activity is as tolerated. Her diet is regular. She is to seek medical attention if her symptoms worsen or progress. MEDICATIONS AT THE TIME OF DISCHARGE: - levofloxacin 500 mg by mouth daily for three days - prednisone 10 mg two tablets by mouth daily for four days, then one tablet by mouth daily for four days and then stop - Tylenol 1 gram twice a day - Ventolin HFA two puffs every four hours as needed for shortness of breath - albuterol nebulizer 2.5 mg inhaled three times daily - Eliquis 5 mg twice a day - bisacodyl 5 mg every two days as needed for constipation - Lasix 60 mg twice a day - hydroxyzine 10 mg twice a day - Encruse Ellipta 62.5 mcg inhaled daily - isosorbide mononitrate 30 mg daily extended release - letrozole 2.5 mg daily - Reglan 5 mg before meals and at bedtime - nitroglycerine 0.4 mg sublingually every five minutes as needed for chest pain - Advair 250/50 one puff inhaled twice a day - trazodone 50 mg at bedtime as needed for insomnia - vitamin D 1000 units daily Greater than 30 minutes was spent organizing disposition.
[2016-08-29] MEDS ORDERED: predniSONE 10 MG TAB PO SCH (09:00)
[2016-09-01] MEDS ORDERED: predniSONE 10 MG TAB PO SCH (09:00)
== END 2016-08-28 12:43 | disposition home or self-care (01) | DRG 193 ==
LOC: EDBD 10:53 → M ED 13:20 → M ED INP 14:53 → M PCU 21:05 → M MSPAV 08-21 16:54
PROVIDERS: ADMIT Hospitalist; ATTEND Internal Medicine
DX: J10.1 Influenza due to other identified influenza virus with other respiratory manifestations (principal); J96.21 Acute and chronic respiratory failure with hypoxia; J44.1 Chronic obstructive pulmonary disease with (acute) exacerbation; Z66 Do not resuscitate; E55.9 Vitamin D deficiency, unspecified; E87.6 Hypokalemia; I50.9 Heart failure, unspecified; I48.91 Unspecified atrial fibrillation; Z85.3 Personal history of malignant neoplasm of breast; Z99.81 Dependence on supplemental oxygen; Z79.01 Long term (current) use of anticoagulants; Z79.899 Other long term (current) drug therapy; Z90.710 Acquired absence of both cervix and uterus; Z90.11 Acquired absence of right breast and nipple; Z87.891 Personal history of nicotine dependence; Z91.040 Latex allergy status

== ENCOUNTER 2016-09-14 10:12 | Inpatient (IN) | payer OTHER ==
[~2016-09-14] VITALS: Ht 160 cm; Wt 73.6 kg
[~2016-09-14 10:12] MED LIST changes: +ACET500C PO; -DILT240C5 PO; +DILT240C75 PO; +DULC5TAB PO; +ELIQ5TAB PO; +FLUTISP; +FURO20TA2 PO; +HYDR10T PO; +ISOS20TA PO; +ISOS30TA4 PO; +NITR0.4S14 SL; +VITAD1000T PO
--- NOTE | 2016-09-14 11:05 | REP ---
PORTABLE CHEST: AP portable view of the chest is performed and compared to prior studies most recent of which is 08/19/2016. There is mild cardiomegaly. Chronic interstitial markings are stable. There does appear to be some mild atelectasis/infiltrate in the left lung base in the retrocardiac region. The mediastinal silhouette is unchanged. IMPRESSION: Chronic changes with mild left base retrocardiac atelectasis/infiltrate. Signed by Natalio Willard MD 09/14/2016 05:36 P
[2016-09-14 11:28] LABS: BASO # 0.1 K/mm3 (0.0-0.2); BASO % 0.7 % (0.0-1.0); EOS # 0.2 K/mm3 (0.0-0.50); EOS % 2.4 % (0.0-3.0); LARGE UNSTAINED CELL # 0.3 K/mm3 (0.0-0.4); LARGE UNSTAINED CELL % 3.1 % (0.0-4.0); LYMPH # 1.1 K/mm3 (1.5-4.5); LYMPH % 10.9 % (24.0-44.0); MEAN CORPUSCULAR HEMOGLOBIN 23.9 pg (27.0-33.0); MEAN CORPUSCULAR HGB CONC 31.1 g/dl (32.0-36.5); MEAN CORPUSCULAR VOLUME 76.9 fl (80.0-96.0); MONO # 0.8 K/mm3 (0.0-0.8); MONO % 8.3 % (0.0-5.0); NEUTROPHILS # 7.2 K/mm3 (1.8-7.7); NEUTROPHILS % 74.5 % (36.0-66.0); PLATELET COUNT, AUTOMATED 270 k/mm3 (150-450); RED CELL DISTRIBUTION WIDTH 18.8 % (11.5-14.5); WHITE BLOOD COUNT 9.6 K/mm3 (4.0-10.0)
[2016-09-14 11:48] LABS: ANION GAP 7 MEQ/L (8-16); BLOOD UREA NITROGEN 14 MG/DL (7-18); CALCIUM LEVEL 8.9 MG/DL (8.8-10.2); CARBON DIOXIDE LEVEL 35 MEQ/L (21-32); CHLORIDE LEVEL 95 MEQ/L (98-107); CREATININE FOR GFR 0.75 MG/DL (0.55-1.02); GLOMERULAR FILTRATION RATE > 60.0 (>32); GLUCOSE, FASTING 114 MG/DL (83-110); POTASSIUM SERUM 3.2 MEQ/L (3.5-5.1); SODIUM LEVEL 137 MEQ/L (136-145)
[2016-09-14] MEDS ORDERED: methylPREDNISolone INJ 125 MG/2 ML VIAL (J2930) IV ONE (12:30)
[2016-09-14] MEDS ORDERED: POTASSIUM CHLORIDE 10 MEQ SR TABLET PO ONE ×2 (12:30→13:00)
[2016-09-14] MEDS ORDERED: PIPERACILLIN/TAZOBACTAM SOD 3.375 GM in D5W MINI-BAG PLUS 50 ML IV ONE (12:30)
[2016-09-14] MEDS: IPRATROPIUM 0.5MG/ALBUTEROL 2.5MG INH SOL UD 3ML (DUONEB)(J7620) NEB SCH ×5 (12:39→19:23)
[2016-09-14 13:00] LABS: ABG BASE EXCESS 10.2 (-2.0-2.0); ABG HCO3 33.8 MEQ/L (22.0-26.0); ABG PARTIAL PRESSURE CO2 41.2 mmHg (35.0-45.0); ABG PARTIAL PRESSURE O2 89.2 mmHg (75.0-100.0); ABG TOTAL CO2 35.1 MEQ/L (23.0-31.0); ABG pH (ARTERIAL) 7.532 UNITS (7.350-7.450)
[2016-09-14] MEDS ORDERED: IPRATROPIUM 0.5MG/ALBUTEROL 2.5MG INH SOL UD 3ML (DUONEB)(J7620) NEB PRN (13:00)
[2016-09-14] MEDS ORDERED: BISACODYL 5 MG TAB PO PRN (13:00)
[2016-09-14] MEDS ORDERED: ACETAMINOPHEN TAB 650MG DOSE (2X325MG) PO PRN (13:00)
[2016-09-14] MEDS ORDERED: ONDANSETRON 4MG/2ML VIAL (J2405) IV PRN (13:00)
[2016-09-14 13:15] LABS: BILIRUBIN,TOTAL 0.5 MG/DL (0.2-1.0); MAGNESIUM LEVEL 2.3 MG/DL (1.8-2.4); TOTAL PROTEIN 6.4 GM/DL (6.4-8.2)
[2016-09-14] MEDS ORDERED: traZODone 50 MG TAB PO PRN (13:30)
[2016-09-14] MEDS ORDERED: METO5TAB2 PO (13:35)
[2016-09-14] MEDS ORDERED: ACET50TAOT PO (13:35)
[2016-09-14] MEDS ORDERED: LACT10SO29 PO (13:35)
[2016-09-14] MEDS ORDERED: ADV250INH INH (13:35)
[2016-09-14 13:38] LABS: BILIRUBIN,DIRECT 0.2 MG/DL (0.0-0.2)
[2016-09-14] MEDS ORDERED: BISO5TAB5 PO (13:51)
--- NOTE | 2016-09-14 14:28 | HPEPDOC ---
Medical History and Physical Date of Admission Sep 14, 2016 at 12:53 History and Physical ATTENDING: Dr. Carbajal PCP: Dr Obando CC: extremity pain. Pt states she didn't feel well today. HPI:81yoF with a past medical history significant for COPD, discharged from [facility] 08/28/16 following treatment for COPD exacerbation who states she got up this morning and generally did not feel well. She states she felt weak, short of breath, cough productive of whitish sputum, and had left scapular discomfort which was tender with palpation. She also felt some tightness in her chest. She spoke to her public health nurse who suggested she summoned EMS and she was subsequently brought to the emergency department for evaluation. She also states she had been having constipation, her PCP described her 3 medications which she states she did not use. She states her abdomen "feels full" Denies any fevers, chills, KAPLAN, palpitations, N/V/D or changes in bladder habits. Upon presentation to the hospital the patient was found to have LLL pneumonia, thus the hospitalist team was consulted. PMHx: Chronic atrial fibrillation Right-sided CHF COPD, on home O2 2 L nasal cannula Right breast cancer Pulmonary hypertension Interstitial fibrosis and pulmonary nodule History of GI bleed Gastritis Arthritis Hearing loss PSHX: Right hip arthroplasty Hysterectomy Left wrist surgery Right mastectomy Left knee surgery SOCHX: Resides in: Lives with her adult son Tobacco use: Quit smoking 30-40 years ago ETOH: Very rare Advanced directives: MOLST DNR scanned into system. FAMHX: non contributory ROS: As noted in HPI, otherwise 11pt ROS of systems reviewed and unremarkable. PE: GEN: 81yoF, appears stated age. Receiving nebulizer treatment currently. Alert and oriented x 3. Pleasant, interactive. HEENT: Normocephalic, atraumatic. Pupils are equal, round, and reactive to light. Extraocular movements are intact. No nystagmus appreciated. Sclera are nonicteric. Conjunctiva without injection. Nose midline. Nasal turbinates without bogginess. EACs both patent BL. TMs both visualized and salomon with good cone of light, no bulging or erythema. No facial asymmetry. Moist mucous membranes. Dentition fair. Pharynx pink and moist, no cobblestoning. Neck supple , trachea midline. No lymphadenopathy or thyromegaly appreciated. CHEST: Regular rate and rhythm, +S1, +S2 LUNGS: Decreased breath sounds bilaterally, rales at bases bilaterally. No wheezes or rhonchi. Breathing appears symmetric and easy. Patient is speaking in full sentences. No accessory muscle use. ABD: Round, soft, mildly distended, nontender. +Bowel sounds throughout. No rebound or guarding. No costovertebral angle tenderness. EXT: Pulses 2+ bilaterally dorsalis pedis and radial. No lower extremity edema appreciated. SKIN: Soper, dry, warm. Capillary refill <2sec. No rashes. NEURO: Alert and oriented x 3. Cranial nerves III-XII are intact. No focal deficits appreciated. CXR: Chronic changes with mild left base retrocardiac atelectasis/infiltrate. EKG: Atrial fibrillation, LAD, incomplete right bundle branch block, ASMI indeterminate age, 94 bpm BLOOD CULTURES: 2 pending A&P: 81yoF with a past medical history significant for COPD, discharged from [facility] 08/28/16 following treatment for COPD exacerbation who states she got up this morning and generally did not feel well. She states she felt weak, short of breath, cough productive of whitish sputum, and had left scapular discomfort which was tender with palpation. She also felt some tightness in her chest. She spoke to her public health nurse who suggested she summoned EMS and she was subsequently brought to the emergency department for evaluation. The patient will be admitted to PCU for at least [address] Carbajal's service. Patient is discussed with Dr. Man. LLL Pneumonia. Blood culture, sputum culture, urine culture, influenza screen pending. IV Zosyn. Chest heaviness. CIP/troponin every 83. PCU/TM COPD. O2/nebulizer treatments/IV Solumedrol 60 mg IV Q6. Chronic atrial fibrillation. Continue Eliquis. Right-sided CHF. Oral diuretic on hold. IV Lasix 40 mg IV Q 6hr/potassium supplement. Monitor labs. Chronic anemia. Baseline 11.0 currently. Will update Fe studies B12, folate. Check stool OB. Pt states she had Dark colored stools earlier in the week. Constipation. Bowel care is ordered. DVT prophylaxis. Pt is on Eliquis. The patient is a DNR, MOLST scanned into chart. Vital Signs Vital Signs Date Time Temp Pulse Resp B/P Pulse Ox O2 Delivery O2 Flow Rate FiO2 09/14/16 10:24 97 18 116/63 92 2.5 09/14/16 10:19 98.0 Nasal Cannula Laboratory Data Labs 24H Laboratory Tests 2 09/14/16 11:13: Aspartate Amino Transf (AST/SGOT) 12L, Alanine Aminotransferase (ALT/SGPT) 15, Alkaline Phosphatase 79, Total Bilirubin 0.5, Direct Bilirubin 0.2, Albumin 3.2 , Anion Gap 7L, B-Type Natriuretic Peptide 345H, White Blood Count 9.6, Red Blood Count 4.58, Hemoglobin 11.0L, Hematocrit 35.2L, Mean Corpuscular Volume 76.9L, Mean Corpuscular Hemoglobin 23.9L, Mean Corpuscular Hemoglobin Concent 31.1L, Red Cell Distribution Width 18.8H, Platelet Count 270, Neutrophils (%) ( Auto) 74.5H, Lymphocytes (%) (Auto) 10.9L, Monocytes (%) (Auto) 8.3H, Eosinophils (%) (Auto) 2.4, Basophils (%) (Auto) 0.7, Neutrophils # (Auto) 7.2, Lymphocytes # (Auto) 1.1L, Monocytes # (Auto) 0.8, Eosinophils # (Auto) 0.2, Basophils # (Auto) 0.1, Blood Urea Nitrogen 14, Creatinine 0.75, Sodium Level 137, Potassium Level 3.2L, Chloride Level 95L, Carbon Dioxide Level 35H, Calcium Level 8.9, Total Creatine Kinase 22L, Creatine Kinase MB 1.0, Creatine Kinase MB Relative Index 4.54H, Glomerular Filtration Rate > 60.0, Large Unclassified Cells # 0.3, Large Unclassified Cells % 3.1, Magnesium Level 2.3, Thyroid Stimulating Hormone (TSH) 1.190, Total Protein 6.4, Troponin I < 0.02 09/14/16 12:39: Arterial Blood pH 7.532H, Arterial Blood Partial Pressure CO2 41.2, Arterial Blood Partial Pressure O2 89.2, Arterial Blood Total CO2 35.1H, Arterial Blood HCO3 33.8H, Arterial Blood Base Excess 10.2H, Arterial Blood Oxygen Saturation 97.1, Blood Gas Bicarbonate Standard 34.0H CBC/BMP Laboratory Tests 09/14/16 11:13 Calcium Level 8.9, Total Creatine Kinase 22 L, Red Blood Count 4.58, Mean Corpuscular Volume 76.9 L, Mean Corpuscular Hemoglobin 23.9 L, Mean Corpuscular Hemoglobin Concent 31.1 L, Red Cell Distribution Width 18.8 H, Neutrophils (%) ( Auto) 74.5 H, Lymphocytes (%) (Auto) 10.9 L, Monocytes (%) (Auto) 8.3 H, Eosinophils (%) (Auto) 2.4, Basophils (%) (Auto) 0.7, Neutrophils # (Auto) 7.2, Lymphocytes # (Auto) 1.1 L, Monocytes # (Auto) 0.8, Eosinophils # (Auto) 0.2, Basophils # (Auto) 0.1 Microbiology Microbiology 09/14/16 Blood Culture, Received Pending 09/14/16 Blood Culture, Received Pending Home Medications Scheduled Albuterol Sulfate (Albuterol Sulfate) 2.5 Mg/3 Ml Nebu 2.5 MG INH TID Apixaban Base (Eliquis) 5 Mg Tab 5 MG PO BID Bisoprolol Fumarate (Bisoprolol Fumarate) 5 Mg Tab 5 MG PO DAILY Furosemide (Furosemide) 20 Mg Tab 60 MG PO BID Hydroxyzine HCl (Hydroxyzine HCl) 10 Mg Tab 10 MG PO BID Isosorbide Mononitrate (Isosorbide Mononitrate ER) 30 Mg Tab 30 MG PO DAILY Letrozole (Letrozole) 2.5 Mg Tab 2.5 MG PO DAILY Metoclopramide HCl (Metoclopramide HCl) 5 Mg Tab 5 MG PO ACHS Salmeterol/Fluticasone (Advair Diskus 250-50 Mcg/Dose) 14 Puff/Inhaler Aerp 1 PUFF INH BID Trazodone HCl (Trazodone HCl) 50 Mg Tab 25-50 MG PO QHS SCRIPT IS FOR 1/2 TO 1 TABLET PER NIGHT PATIENT TAKES ACCORDING TO HOW SHE FEELS Vitamin D (Vitamin D3) 1,000 Units Tab 1,000 UNITS PO DAILY Scheduled PRN Acetaminophen (Acetaminophen) 500 Mg Tab 1,000 MG PO BID PRN PRN PAIN Albuterol Sulfate (Ventolin Hfa) 200 Puff/8 Gm Aers 2 PUFF INH Q4H PRN PRN SHORTNESS OF BREATH Bisacodyl (Dulcolax) 5 Mg Tab 5 MG PO Q2D PRN PRN CONSTIPATION Lactulose (Lactulose) 10 Gm/15 Ml Citlalli 15 ML PO DAILY PRN PRN CONSTIPATION NEW MED FOR PATIENT SHE PICKED UP AND HASNT STARTED YET Nitroglycerin (Nitroglycerin) 0.4 Mg Sub 0.4 MG SL NITRO PRN PRN CHEST PAIN Allergies Coded Allergies: Latex (Verified Allergy, Unknown, 09/09/12) Phoebe Hill Sep 14, 2016 14:28
--- NOTE | 2016-09-14 16:10 | REP ---
KUB, ONE VIEW: HISTORY: Constipation. Air is present in small and large intestine. There are no air fluid levels or dilated loops of intestine. There is no pneumoperitoneum. A mild amount of stool is present in the colon. Degenerative change is present in the lumbar spine. The patient is status post right total hip replacement. IMPRESSION: Nonspecific bowel gas pattern. Signed by Jorge Peoples MD 09/14/2016 04:10 P
[2016-09-14] MEDS ORDERED: SLF 3 ML SYR IV PRN (16:30)
[2016-09-14] MEDS: FUROSEMIDE 40 MG/4 ML VIAL (J1940) IV SCH ×2 (16:39→18:00)
[2016-09-14 18:22] VITALS: BP 118/68
[2016-09-14] MEDS: PIPERACILLIN/TAZOBACTAM SOD 3.375 GM in D5W MINI-BAG PLUS 50 ML IV SCH (18:40)
[2016-09-14 18:48] LABS: ANION GAP 10 MEQ/L (8-16); BLOOD UREA NITROGEN 18 MG/DL (7-18); CARBON DIOXIDE LEVEL 32 MEQ/L (21-32); CHLORIDE LEVEL 95 MEQ/L (98-107); CREATININE FOR GFR 1.07 MG/DL (0.55-1.02); GLOMERULAR FILTRATION RATE 52.3 (>32); GLUCOSE, FASTING 266 MG/DL (83-110); MAGNESIUM LEVEL 2.2 MG/DL (1.8-2.4); POTASSIUM SERUM 3.2 MEQ/L (3.5-5.1); SODIUM LEVEL 137 MEQ/L (136-145)
[2016-09-14 19:20] VITALS: O2SAT 95
[2016-09-14 20:00] VITALS: BP 126/79
[2016-09-14 20:50] LABS: ALBUMIN 3.2 GM/DL (3.2-5.2)
[2016-09-14] MEDS: APIXABAN 5 MG TAB (ELIQUIS) PO SCH (22:32)
[2016-09-14] MEDS: POTASSIUM CHLORIDE 10 MEQ SR TABLET PO SCH (22:32)
[2016-09-14] MEDS: SLF 3 ML SYR IV SCH (22:32)
[2016-09-14] MEDS: methylPREDNISolone INJ 125 MG/2 ML VIAL (J2930) IV SCH (22:32)
[2016-09-15] VITALS: BP 134/74
[2016-09-15 00:08] LABS: ANION GAP 6 MEQ/L (8-16); BLOOD UREA NITROGEN 22 MG/DL (7-18); CALCIUM LEVEL 9.4 MG/DL (8.8-10.2); CARBON DIOXIDE LEVEL 35 MEQ/L (21-32); CHLORIDE LEVEL 95 MEQ/L (98-107); CREATININE FOR GFR 0.84 MG/DL (0.55-1.02); GLOMERULAR FILTRATION RATE > 60.0 (>32); GLUCOSE, FASTING 217 MG/DL (83-110); MAGNESIUM LEVEL 2.2 MG/DL (1.8-2.4); POTASSIUM SERUM 3.1 MEQ/L (3.5-5.1); SODIUM LEVEL 136 MEQ/L (136-145)
[2016-09-15] MEDS: PIPERACILLIN/TAZOBACTAM SOD 3.375 GM in D5W MINI-BAG PLUS 50 ML IV SCH ×4 (00:21→18:07)
[2016-09-15] MEDS: IPRATROPIUM 0.5MG/ALBUTEROL 2.5MG INH SOL UD 3ML (DUONEB)(J7620) NEB SCH ×4 (01:07→19:53)
[2016-09-15 04:00] VITALS: BP 155/73
[2016-09-15] MEDS: SLF 3 ML SYR IV SCH ×3 (05:57→21:11)
[2016-09-15] MEDS: methylPREDNISolone INJ 125 MG/2 ML VIAL (J2930) IV SCH (05:57)
[2016-09-15 06:48] LABS: ADD MORPHOLOGY? YES; BASO % 0.3 % (0.0-1.0); EOS % 0.2 % (0.0-3.0); LARGE UNSTAINED CELL # 0.1 K/mm3 (0.0-0.4); LARGE UNSTAINED CELL % 0.6 % (0.0-4.0); LYMPH # 0.5 K/mm3 (1.5-4.5); LYMPH % 4.7 % (24.0-44.0); MEAN CORPUSCULAR HEMOGLOBIN 23.5 pg (27.0-33.0); MEAN CORPUSCULAR HGB CONC 28.5 g/dl (32.0-36.5); MONO # 0.2 K/mm3 (0.0-0.8); MONO % 2.5 % (0.0-5.0); NEUTROPHILS # 8.6 K/mm3 (1.8-7.7); NEUTROPHILS % 91.6 % (36.0-66.0); PLATELET COUNT, AUTOMATED 272 k/mm3 (150-450); RED CELL DISTRIBUTION WIDTH 18.6 % (11.5-14.5); WHITE BLOOD COUNT 9.4 K/mm3 (4.0-10.0)
[2016-09-15 06:49] LABS: MEAN CORPUSCULAR VOLUME 82.5 fl (80.0-96.0)
[2016-09-15 07:06] LABS: FERRITIN 27 NG/ML (8-252); TOTAL IRON BINDING CAPACITY 404 UG/DL (250-450)
[2016-09-15 07:17] LABS: ANISOCYTOSIS 2+; HYPOCHROMASIA 1+
[2016-09-15 07:19] LABS: OVALOCYTES 1+
[2016-09-15 08:00] VITALS: BP 133/69
--- NOTE | 2016-09-15 08:24 | ECGEPIP ---
Stationary ECG Study [facility] - ED Test Date: 2016-09-14 Pat Name: VENITA RAHMAN Department: Room: - Gender: F [employer] Ware[employer] Manager: sherif : 1935 Requested By: Danielle James Order Number: [id number] Reading MD: Danielle James Measurements Intervals [place] Rate: 94 P: FL: 0 QRS: 105 QRSD: 100 T: -2 QT: 353 QTc: 442 Interpretive Statements ATRIAL FIBRILLATION MARKED RIGHT AXIS DEVIATION INCOMPLETE RIGHT BUNDLE BRANCH BLOCK ANTEROSEPTAL MYOCARDIAL INFARCTION, OF INDETERMINATE AGE SIMILAR 08/20/16 Electronically Signed On 09-15-2016 8:24:28 EDT by Danielle James
[2016-09-15] MEDS: POTASSIUM CHLORIDE 10 MEQ SR TABLET PO SCH ×2 (08:45→21:11)
[2016-09-15] MEDS: APIXABAN 5 MG TAB (ELIQUIS) PO SCH ×2 (08:46→21:11)
[2016-09-15] MEDS: ISOSORBIDE MON. (IMDUR) 30 MG XR TAB PO SCH (08:46)
[2016-09-15] MEDS: VITAMIN D 1,000 INTERNATIONAL UNITS TABLET PO SCH (08:46)
[2016-09-15] MEDS ORDERED: ISOSORBIDE MON. (ISMO,MONOKET) 20 MG TAB PO SCH (09:00)
[2016-09-15] MEDS ORDERED: FUROSEMIDE 20 MG TAB PO SCH ×2 (09:00)
--- NOTE | 2016-09-15 11:11 | IPNPDOC ---
Date Seen The patient was seen on 09/15/16. Progress Note SUBJECTIVE: Patient at this time tells me that she is feeling well. The patient tells me that she feels almost completely back to normal. She denies any change in her shortness of breath from her baseline she denies any worsening cough and fevers chills nausea vomiting or diarrhea OBJECTIVE PHYSICAL EXAMINATION: VITAL SIGNS: Please see below. GENERAL: Frail elderly woman sitting up in bed watching television she does not appear to be in any acute distress HEENT: Pupils are equally round reactive to light she has moist mucous membranes no appreciable elevation in her central venous pressure CARDIOVASCULAR: S1 S2 regular no additional heart sounds appreciated. RESPIRATORY: Fairly clear to auscultation some rare end expiratory wheeze diminished breath sounds at the bases but otherwise good air movement. ABDOMINAL: Bowel sounds are present abdomen soft and nontender EXTREMITIES: No clubbing cyanosis or appreciable edema LABORATORY DATA: Please see below. MICROBIOLOGY: Please see below. IMAGING: ABX: Nonspecific bowel gas pattern CXR: Chronic changes with mild left base retrocardiac atelectasis/infiltrate. DVT prophylaxis ordered?: Arnaldo ASSESSMENT AND PLAN: This is a 81-year-old female with left hand weakness and shortness of breath. PROBLEMS: 1. Left hand weakness: Today the patient tells me a very different story than the story she provided in the ER yesterday to the multiple providers there. Today she tells me that her predominant symptom was weakness of the left hand as well as lightheadedness to the point where she felt like she was going to collapse she did not have any loss of consciousness or any shantel syncopal symptoms. The patient tells me last approximately 15 minutes and then resolved given her age and risk factors are certainly concerning for TIA versus possible CVA and as such I will check an MRI of the brain. A PT eval has been placed ON and OT eval and check neuro checks every 6 hours monitor the patient in the progressive care unit 2. Shortness of breath: Patient presented yesterday with complaints of shortness of breath fevers chills she has had numerous hospitalizations and recent memory for decompensated COPD. For the time being she has been placed on empiric Zosyn as well as IV Solu-Medrol and nebulizer treatments. At this time she appears to be at her baseline respiratory status which is 3-4 L of oxygen continuously I will wean her steroids to prednisone by mouth for now continue with antibiotics chest x-ray was concerning for retrocardiac infiltrate however she has no fever no leukocytosis if her cultures remain negative likely discontinue antibiotics. I will check a CT scan of the chest to rule out any structural abnormality to cause recurrent pneumonia 3. Hypokalemia: A she was on repletion. 4. COPD: Management as outlined above 5. Atrial fibrillation: The patient is anticoagulated with Eliquis she does not require any rate controlling agents 6. Chronic hypoxic respiratory failure: Patient has fairly advanced COPD as well as pulmonary fibrosis as well as cor pulmonale, for the time being she is on prednisone and antibiotics she appears to be close to her baseline we'll continue to monitor 7. Insomnia continue his trazodone 8. Hypertension the patient is on isosorbide mononitrate 9. Vitamin D deficiency the patient is on supplementation DISPOSITION: We'll continue continue to monitor the patient closely. VS, I&O, 24H, Fishbone Vital Signs/I&O Vital Signs Date Time Temp Pulse Resp B/P Pulse Ox O2 Delivery O2 Flow Rate FiO2 09/15/16 08:49 92 Nasal Cannula 3.0 09/15/16 08:46 133/69 09/15/16 08:00 96.0 101 19 I&O- Last 24 Hours up to 6 AM 09/15/16 06:00 Intake Total 760 ml Output Total 1050 ml Balance -290 ml Laboratory Data 24H LABS Laboratory Tests 2 09/14/16 11:13: Aspartate Amino Transf (AST/SGOT) 12L, Alanine Aminotransferase (ALT/SGPT) 15, Alkaline Phosphatase 79, Total Bilirubin 0.5, Direct Bilirubin 0.2, Albumin 3.2 , Albumin/Globulin Ratio 1.00, Anion Gap 7L, B-Type Natriuretic Peptide 345H, White Blood Count 9.6, Red Blood Count 4.58, Hemoglobin 11.0L, Hematocrit 35.2L , Mean Corpuscular Volume 76.9L, Mean Corpuscular Hemoglobin 23.9L, Mean Corpuscular Hemoglobin Concent 31.1L, Red Cell Distribution Width 18.8H, Platelet Count 270, Neutrophils (%) (Auto) 74.5H, Lymphocytes (%) (Auto) 10.9L, Monocytes (%) (Auto) 8.3H, Eosinophils (%) (Auto) 2.4, Basophils (%) (Auto) 0.7 , Neutrophils # (Auto) 7.2, Lymphocytes # (Auto) 1.1L, Monocytes # (Auto) 0.8, Eosinophils # (Auto) 0.2, Basophils # (Auto) 0.1, Blood Urea Nitrogen 14, Creatinine 0.75, Sodium Level 137, Potassium Level 3.2L, Chloride Level 95L, Carbon Dioxide Level 35H, Calcium Level 8.9, Total Creatine Kinase 22L, Creatine Kinase MB 1.0, Creatine Kinase MB Relative Index 4.54H, Glomerular Filtration Rate > 60.0, Large Unclassified Cells # 0.3, Large Unclassified Cells % 3.1, Magnesium Level 2.3, Thyroid Stimulating Hormone (TSH) 1.190, Total Protein 6.4, Troponin I < 0.02 09/14/16 12:39: Arterial Blood pH 7.532H, Arterial Blood Partial Pressure CO2 41.2, Arterial Blood Partial Pressure O2 89.2, Arterial Blood Total CO2 35.1H, Arterial Blood HCO3 33.8H, Arterial Blood Base Excess 10.2H, Arterial Blood Oxygen Saturation 97.1, Blood Gas Bicarbonate Standard 34.0H 09/14/16 14:04: Magnesium Level 2.3 09/14/16 17:56: Anion Gap 10, Blood Urea Nitrogen 18, Creatinine 1.07H, Sodium Level 137, Potassium Level 3.2L, Chloride Level 95L, Carbon Dioxide Level 32, Calcium Level 9.0, Total Creatine Kinase 22L, Creatine Kinase MB 1.0, Creatine Kinase MB Relative Index 4.54H, Glomerular Filtration Rate 52.3, Magnesium Level 2.2, Troponin I < 0.02 09/14/16 22:59: Urine Amorphous Sediment , Urine Appearance CLEAR, Urine Color YELLOW, Urine pH 5.0, Urine Specific [place] 1.011, Urine Protein NEGATIVE, Urine Glucose (UA) NEGATIVE, Urine Ketones NEGATIVE, Urine Urobilinogen 0.2, Urine Bilirubin NEGATIVE, Urine Leukocyte Esterase NEGATIVE, Urine Bacteria (Auto) NEGATIVE, Urine Blood NEGATIVE, Urine Calcium Carbonate Cryst(Auto) , Urine Calcium Oxalate Cryst (Auto) , Urine Calcium Phosphate Zoë (Auto) , Urine Cellular Casts , Urine Cystine Crystals , Urine Granular Casts (Auto) , Urine Hyaline Casts (Auto) 0, Urine Leucine Crystals , Urine Mucus (Auto) SMALL, Urine Nitrite NEGATIVE, Urine Oval Fat Bodies (Auto) , Urine RBC (Auto) 0, Urine Renal Epithelial Cells , Urine Sperm (Auto) , Urine Squamous Epithelial Cells 0 , Urine Transitional Epithelial Cells , Urine Trichomonas (Auto) , Urine Triple Phosphate Cryst (Auto) , Urine Tyrosine Crystals , Urine Uric Acid Crystals ( Auto) , Urine WBC (Auto) 0, Urine Waxy Casts (Auto) , Urine Yeast-Like Cells ( Auto) 09/14/16 23:33: Anion Gap 6L, Blood Urea Nitrogen 22H, Creatinine 0.84, Sodium Level 136, Potassium Level 3.1L, Chloride Level 95L, Carbon Dioxide Level 35H, Calcium Level 9.4, Total Creatine Kinase 20L, Creatine Kinase MB 1.0, Creatine Kinase MB Relative Index 5.00H, Glomerular Filtration Rate > 60.0, Magnesium Level 2.2 , Troponin I < 0.02 09/15/16 05:58: Total Creatine Kinase 22L, Creatine Kinase MB 1.0, Creatine Kinase MB Relative Index 4.54H, Troponin I < 0.02, Anisocytosis 2+, White Blood Count 9.4, Red Blood Count 4.38, Hemoglobin 10.3L, Hematocrit 36.1, Mean Corpuscular Volume 82.5#, Mean Corpuscular Hemoglobin 23.5L, Mean Corpuscular Hemoglobin Concent 28.5L, Red Cell Distribution Width 18.6H, Platelet Count 272, Neutrophils (%) ( Auto) 91.6H, Lymphocytes (%) (Auto) 4.7L, Monocytes (%) (Auto) 2.5, Eosinophils (%) (Auto) 0.2, Basophils (%) (Auto) 0.3, Neutrophils # (Auto) 8.6H, Lymphocytes # (Auto) 0.5L, Monocytes # (Auto) 0.2, Eosinophils # (Auto) 0.0, Basophils # (Auto) 0.0, Ferritin 27, Hypochromasia 1+, Iron Level 20L, Large Unclassified Cells # 0.1, Large Unclassified Cells % 0.6, Ovalocytes 1+, Platelet Estimate NORMAL, Total Iron Binding Capacity 404, Transferrin % Saturation 5.0L CBC/BMP Laboratory Tests 09/14/16 11:13 Calcium Level 8.9, Total Creatine Kinase 22 L, Red Blood Count 4.58, Mean Corpuscular Volume 76.9 L, Mean Corpuscular Hemoglobin 23.9 L, Mean Corpuscular Hemoglobin Concent 31.1 L, Red Cell Distribution Width 18.8 H, Neutrophils (%) ( Auto) 74.5 H, Lymphocytes (%) (Auto) 10.9 L, Monocytes (%) (Auto) 8.3 H, Eosinophils (%) (Auto) 2.4, Basophils (%) (Auto) 0.7, Neutrophils # (Auto) 7.2, Lymphocytes # (Auto) 1.1 L, Monocytes # (Auto) 0.8, Eosinophils # (Auto) 0.2, Basophils # (Auto) 0.1 09/14/16 17:56 Calcium Level 9.0, Total Creatine Kinase 22 L 09/14/16 23:33 Calcium Level 9.4, Total Creatine Kinase 20 L 09/15/16 05:58 Red Blood Count 4.38, Mean Corpuscular Volume 82.5 #, Mean Corpuscular Hemoglobin 23.5 L, Mean Corpuscular Hemoglobin Concent 28.5 L, Red Cell Distribution Width 18.6 H, Neutrophils (%) (Auto) 91.6 H, Lymphocytes (%) (Auto ) 4.7 L, Monocytes (%) (Auto) 2.5, Eosinophils (%) (Auto) 0.2, Basophils (%) ( Auto) 0.3, Neutrophils # (Auto) 8.6 H, Lymphocytes # (Auto) 0.5 L, Monocytes # ( Auto) 0.2, Eosinophils # (Auto) 0.0, Basophils # (Auto) 0.0 Microbiology Microbiology 09/14/16 Blood Culture, Received Pending 09/14/16 Blood Culture, Received Pending 09/14/16 Influenza Virus Type A Antigen - Final, Complete 09/14/16 Influenza Virus Type B Antigen - Final, Complete 09/14/16 Urine Culture, Received Pending SHAUNA AJ MD Sep 15, 2016 11:11
[2016-09-15 11:39] LABS: MEAN CORPUSCULAR HEMOGLOBIN 23.9 pg (27.0-33.0); MEAN CORPUSCULAR HGB CONC 30.4 g/dl (32.0-36.5); MEAN CORPUSCULAR VOLUME 78.8 fl (80.0-96.0); RED CELL DISTRIBUTION WIDTH 18.9 % (11.5-14.5); WHITE BLOOD COUNT 13.5 K/mm3 (4.0-10.0)
[2016-09-15 12:00] VITALS: BP 132/70
--- NOTE | 2016-09-15 12:17 | REP ---
CT CHEST WITHOUT CONTRAST: 09/15/2016. Comparison: Portable chest 09/14/2016, 08/19/2016, CT chest 01/02/2016 , CTA chest 12/20/2015. Clinical history: Dyspnea, recurrent pneumonia. Findings: Noncontrast protocol with coronal and sagittal reconstructions provided. Chronic interstitial changes suggesting interstitial pneumonitis or fibrosis with patchy atelectatic changes. In the deep sulcus of the lower lobe are consolidative atelectasis or infiltrates, more on the left than right. Appearance is chronic and similar to 01/02/2016 CT. No pleural effusion, lateral pleural thickening or pneumothorax. No pneumomediastinum. COPD and pulmonary artery hypertension again seen. Cardiomegaly with right heart enlargement particularly the right atrium with left atrial and ventricular enlargement as well. No pericardial thickening or effusion. Calcified aortic arch and descending aorta, less in the ascending aorta. Some ectasia, no gross aneurysm. There is no pathologic sized mediastinal or hilar adenopathy. No axillary or supraclavicular mass. In the upper abdomen, visualized portions of liver show enlargement of the left lobe. No gross hepatosplenomegaly, but neither organ is seen in its entirety. No hiatal hernia. Adrenal glands intact. The bone windows show sternum, manubrium, medial clavicles, glenohumeral joints, scapula, ribs and spine without acute finding. There are degenerative changes throughout the thoracic and lower cervical region without compression deformity or other acute finding. Impression: 1. Chronic airspace opacities representing consolidative atelectasis or infiltrate versus fibrosis in the deep sulci of the lower lung zones and they are essentially unchanged compared to the prior CT in December 2015. No pleural effusion. 2. COPD with pulmonary artery hypertension and underlying fibrotic changes. Some hazy atelectatic change again seen. No effusion or pneumothorax. 3. Cardiomegaly with right atrial enlargement, left atrial and ventricular enlargement. Certainly right heart failure cannot be excluded. No pericardial effusion or hiatal hernia. No pathologic adenopathy. Signed by Adilson Wade MD 09/15/2016 08:23 P
[2016-09-15] MEDS: predniSONE 20 MG TAB PO SCH (12:32)
[2016-09-15 14:33] LABS: ANION GAP 11 MEQ/L (8-16); BLOOD UREA NITROGEN 20 MG/DL (7-18); CALCIUM LEVEL 9.4 MG/DL (8.8-10.2); CARBON DIOXIDE LEVEL 29 MEQ/L (21-32); CHLORIDE LEVEL 98 MEQ/L (98-107); GLOMERULAR FILTRATION RATE > 60.0 (>32); GLUCOSE, FASTING 188 MG/DL (83-110); POTASSIUM SERUM 3.8 MEQ/L (3.5-5.1); SODIUM LEVEL 138 MEQ/L (136-145)
[2016-09-15 16:00] VITALS: BP 134/70
[2016-09-15 20:00] VITALS: BP 128/70
[2016-09-16] VITALS: BP 143/79
[2016-09-16] MEDS: PIPERACILLIN/TAZOBACTAM SOD 3.375 GM in D5W MINI-BAG PLUS 50 ML IV SCH ×2 (00:35→06:18)
[2016-09-16] MEDS: IPRATROPIUM 0.5MG/ALBUTEROL 2.5MG INH SOL UD 3ML (DUONEB)(J7620) NEB SCH ×2 (01:42→08:09)
[2016-09-16 04:00] VITALS: BP 133/70
[2016-09-16 06:01] LABS: BASO % 0.1 % (0.0-1.0); EOS % 0.1 % (0.0-3.0); LARGE UNSTAINED CELL # 0.2 K/mm3 (0.0-0.4); LARGE UNSTAINED CELL % 1.2 % (0.0-4.0); LYMPH % 5.2 % (24.0-44.0); MEAN CORPUSCULAR HEMOGLOBIN 23.6 pg (27.0-33.0); MEAN CORPUSCULAR HGB CONC 29.8 g/dl (32.0-36.5); MEAN CORPUSCULAR VOLUME 79.2 fl (80.0-96.0); MONO # 0.8 K/mm3 (0.0-0.8); MONO % 5.3 % (0.0-5.0); NEUTROPHILS # 13.6 K/mm3 (1.8-7.7); NEUTROPHILS % 88.1 % (36.0-66.0); PLATELET COUNT, AUTOMATED 306 k/mm3 (150-450); RED CELL DISTRIBUTION WIDTH 19.1 % (11.5-14.5); WHITE BLOOD COUNT 15.5 K/mm3 (4.0-10.0)
[2016-09-16 06:13] LABS: ANION GAP 6 MEQ/L (8-16); BLOOD UREA NITROGEN 20 MG/DL (7-18); CALCIUM LEVEL 9.4 MG/DL (8.8-10.2); CARBON DIOXIDE LEVEL 33 MEQ/L (21-32); CHLORIDE LEVEL 101 MEQ/L (98-107); CREATININE FOR GFR 0.85 MG/DL (0.55-1.02); GLOMERULAR FILTRATION RATE > 60.0 (>32); GLUCOSE, FASTING 141 MG/DL (83-110); POTASSIUM SERUM 4.9 MEQ/L (3.5-5.1); SODIUM LEVEL 140 MEQ/L (136-145)
[2016-09-16] MEDS: SLF 3 ML SYR IV SCH (06:18)
--- NOTE | 2016-09-16 07:43 | REP ---
MRI BRAIN WITHOUT AND WITH CONTRAST: 09/15/2016. Clinical history: CVA symptoms. Prior breast carcinoma. Technique: Axial T1, T2, FLAIR, gradient-echo diffusion weighted images and ADC mapping sequences with sagittal T1 sequence. After infusion of 7 ml of ProHance (half-dose), coronal and axial T1 sequences through the brain were provided. Comparison: CT brain 03/13/2015. Findings: Ventricles are midline, symmetric, dilated and in proportion to the diffuse cerebral atrophy. Third and fourth ventricles are also dilated in proportion. All of this stable compared to CT brain from 2014. The basal ganglia appear symmetric with a few punctate hyperintense foci suggesting dilated perivascular spaces of [place]. I see no intracranial hemorrhage. The diffusion weighted images and the ADC mapping sequences show no evidence of acute ischemia. There is periventricular and scattered deep central and subcortical white matter hyperintense T2 and FLAIR foci suggesting chronic small vessel white matter ischemic change. The cortical stripe shows atrophy but was otherwise preserved without a vascular territory infarct, mass or mass effect. No extra-axial fluid collection. Brainstem is unremarkable. Cerebellum shows mild atrophy but no mass. Seventh/eighth cranial nerve complexes are symmetric and normal. With contrast administration, the [place] of [place] and other central arteries were unremarkable. Other visualized vascular structures and sinus channels were opacified in a normal fashion. There is no enhancing mass, gyriform enhancement, abnormal meningeal enhancement or vascular lesion identified. The seventh/eighth cranial nerve complexes and mastoids are symmetric and normal. There is only minimal ethmoid sinus mucosal thickening with the visible sinuses clear for ethmoids, frontal, sphenoid and left maxillary. There is some right maxillary sinus floor mucosal thickening. Corpus callosum, optic chiasm and pituitary are intact. There is thinning of the optic chiasm. No cerebellar tonsillar ectopia is visible. Orbits and contents symmetric and grossly normal. Impression: 1. Chronic small vessel white matter ischemic changes of aging in periventricular deep central and subcortical white matter tracts. 2. No acute infarct, hemorrhage, mass or mass effect. 3. No acute ischemia on the diffusion-weighted images and ADC mapping sequences. 4. Moderate ventriculomegaly and atrophy in proportion. Stable findings compared to prior CT. 5. Some minor right maxillary sinus mucosal thickening. No sinus air fluid levels, mastoiditis or other acute finding. Signed by Adilson Wade MD 09/16/2016 08:33 A
[2016-09-16 08:00] VITALS: BP 142/93
[2016-09-16 08:47] VITALS: BP 142/93
[2016-09-16] MEDS: APIXABAN 5 MG TAB (ELIQUIS) PO SCH (08:47)
[2016-09-16] MEDS: ISOSORBIDE MON. (IMDUR) 30 MG XR TAB PO SCH (08:47)
[2016-09-16] MEDS: predniSONE 20 MG TAB PO SCH (08:48)
[2016-09-16] MEDS: VITAMIN D 1,000 INTERNATIONAL UNITS TABLET PO SCH (08:48)
[2016-09-16] MEDS: POTASSIUM CHLORIDE 10 MEQ SR TABLET PO SCH (08:49)
[2016-09-16] MEDS ORDERED: SIMV10TA2 PO (10:02)
[2016-09-16] MEDS ORDERED: PRED10TA PO (10:03)
--- NOTE | 2016-09-16 14:03 | DSES ---
DATE OF ADMISSION: 09/14/2016 DATE OF DISCHARGE: 09/16/2016 DISCHARGE DIAGNOSIS: Possible transient ischemic attack. SECONDARY DIAGNOSES: 1. Left hand weakness. 2. Shortness of breath. 3. Hypokalemia. 4. Decompensated chronic obstructive pulmonary disease (COPD). 5. Atrial fibrillation. 6. Chronic hypoxic respiratory failure. 7. Insomnia. 8. Hypertension. 9. Vitamin D deficiency. HOSPITALIZATION COURSE: The patient is an 81-year-old female with two recent hospitalizations. The first hospitalization was for decompensated COPD related to fumigation of her home for bed bugs. She was admitted for quite some time at that point and was subsequently discharged. She returned to the hospital about 1-1/2 months later. At that time, she was positive for influenza. She remained in the hospital for several days once again and once again she was discharged. At her baseline, she uses 3 to 4 liters of oxygen continuously for COPD and pulmonary fibrosis with known cor pulmonale. She presented to the hospital on the day of admission. At that time in the emergency room, she complained of weakness in the left hand, as well as shortness of breath. By the time that I saw her the next day, which was 09/15/2016, her shortness of breath had completely resolved and she was back to her baseline. There was initially some concern for potential pneumonia; however, she had no fever, no tachycardia, no leukocytosis. Her symptoms did resolve and there was no convincing infiltrate on imaging and her cultures remained negative for 24 hours. Her flu was negative. As such, all antibiotics were discontinued. She was treated with IV Solu-Medrol, which was quickly transitioned to oral prednisone. She did have good improvement of her symptoms. It was thought that her subtle shortness of breath may have been related to mild COPD exacerbation. Her left hand weakness was her presenting complaint. It lasted for 15 to 20 minutes but gradually improved. There was concern for possible transient ischemic attack. She did have a MRI of the brain, which revealed chronic small vessel white matter ischemic changes. No acute infarct, hemorrhage, mass or mass effect. SUBJECTIVE: Today, the patient reports that she feels well. She feels back to normal. She denies any complaints. OBJECTIVE: VITAL SIGNS: Temperature 97.3, pulse 98, respiratory rate 18, blood pressure 133/70, oxygen saturation 94% on 3 liters nasal cannula. GENERAL: She is a frail, elderly, female sitting in her recliner. She appears to be at her baseline. She does not appear to be in distress whatsoever. However, her baseline does appear to be quite frail. HEENT: Cranial nerves II through XII are grossly intact. She has moist mucous membranes. No elevation in central venous pressure. CARDIOVASCULAR EXAM: S1, S2 irregular. RESPIRATORY EXAM: Clear. Chronic expiratory wheeze. Diminished breath sounds at the bases with good air movement. ABDOMINAL EXAM: Obese. EXTREMITIES: No clubbing, cyanosis or edema. LABORATORY STUDIES: WBC 15.5, hemoglobin 9.9, hematocrit 33.2, platelet count 360. Chemistry panel: Sodium 140, potassium 4.9, chloride 101, bicarbonate 33, BUN 20, creatinine 0.8. She had three sets of cardiac enzymes that were negative at the time of discharge. Folate and B12 levels are pending. She had a TSH within normal limits. Microbiology: Blood culture is negative after 24 hours. Influenza swab is negative. Urine culture is negative. Imaging: As outlined above. ASSESSMENT AND PLAN: This is an 81-year-old female with left handed weakness and shortness of breath. 1. Left handed weakness, may have been transient ischemic attack; however, symptoms are quite subtle. Left hand weakness lasting for 15 to 20 minutes but with slow resolution of her symptoms. MRI was negative. She is on Eliquis for atrial fibrillation. At this time, I have added simvastatin to her regimen. She has been seen by physical therapy (PT) and cleared. I think that she would benefit from outpatient neurology referral. For the time being, she is at her functional baseline. 2. Shortness of breath. No fevers. No chills. Cultures are all negative. Low suspicion for any bacterial infection. She has been treated with nebulizer treatments and steroids. We will continue steroid taper. She has chronic hypoxic respiratory failure. We are treating her for decompensated COPD. She is to continue all of her home nebulizer treatments. She has chronic pulmonary fibrosis, as well as cor pulmonale, which are likely contributing factors to her chronic respiratory failure as well. She is at her baseline once again. 3. Hypokalemia, resolved with repletion. 4. Atrial fibrillation. Anticoagulated with Eliquis. She does not require any rate controlling agents. 5. Insomnia. The patient is on trazodone. 6. Hypertension. The patient is on isosorbide nitrate. Blood pressure is acceptable. 7. Vitamin D deficiency. She is on supplementation. DISPOSITION: I did have a lengthy discussion with the patient regarding her recent frequent hospitalizations and her home living environment. I did suggest to her that she would be better served by being at a snf facility or possibly assisted living giving her propensity to bounce back. I did tell her that I suspect that she will be returning to the hospital once again in the near future. She declined any and all interventions or to wait to meet with social workers to discuss further. She will proceed to look up assisted living facilities on her own. She is currently working on a living situation where her son can life in an apartment in the same building as her to provide her greater support. He is currently living with her right now. The patient is to followup with her primary care provider in 7 days. Her activity and diet are as prior to admission. She is to return to the emergency room if her symptoms worsen. MEDICATIONS: At the time of discharge: - prednisone 10 mg tablets two tablets for three days, then one tablet for three days, then stop - simvastatin 10 mg at night - Tylenol 1 gram twice a day as needed for pain - Ventolin HFA two puffs every 4 hours as needed for shortness of breath - albuterol sulfate 2.5 mg inhaled three times a day - Eliquis 5 mg twice a day - Dulcolax 5 mg every 2 days as needed for constipation - bisoprolol 5 mg daily - Lasix 50 mg twice a day - hydroxyzine 10 mg twice a day - isosorbide mononitrate 30 mg daily - Lactulose 15 mL daily as needed for constipation - letrozole 2.5 mg daily - metoclopramide 5 mg before meals and at bedtime - nitroglycerin 0.4 mg sublingually every 5 minutes as needed for chest pain - Advair Diskus 250/50 inhaled twice a day - trazodone 25 to 50 mg daily at bedtime as needed - vitamin D 1000 units daily Greater than 30 minutes was spent organizing disposition.
[2016-09-16] MEDS ORDERED: SIMVASTATIN 10 MG TAB PO SCH (21:00)
[2016-09-17 09:55] LABS: VITAMIN B12 LEVEL 266 PG/ML (247-911)
== END 2016-09-16 12:15 | disposition home health service (06) | DRG 69 ==
LOC: M ED 11:29 → M ED INP 12:53 → M PCU 18:00
PROVIDERS: ADMIT General Practice; ATTEND Internal Medicine
DX: G45.9 Transient cerebral ischemic attack, unspecified (principal); J96.11 Chronic respiratory failure with hypoxia; E55.9 Vitamin D deficiency, unspecified; I10 Essential (primary) hypertension; I48.91 Unspecified atrial fibrillation; Z66 Do not resuscitate; G47.00 Insomnia, unspecified; R53.1 Weakness; D64.9 Anemia, unspecified; H91.90 Unspecified hearing loss, unspecified ear; E87.6 Hypokalemia; J44.9 Chronic obstructive pulmonary disease, unspecified; K59.00 Constipation, unspecified; Z99.81 Dependence on supplemental oxygen; Z85.3 Personal history of malignant neoplasm of breast; Z87.891 Personal history of nicotine dependence; Z90.710 Acquired absence of both cervix and uterus; Z90.11 Acquired absence of right breast and nipple; Z91.040 Latex allergy status; Z79.01 Long term (current) use of anticoagulants

== ENCOUNTER 2016-09-18 10:36 | Emergency (ER) | payer OTHER ==
[~2016-09-18] VITALS: Ht 160 cm; Wt 69.9 kg
[~2016-09-18 10:36] MED LIST changes: +ACET50TAOT PO; +LACT10SO29 PO; +SIMV10TA2 PO
[2016-09-18 11:24] LABS: BASO # 0.1 K/mm3 (0.0-0.2); BASO % 0.6 % (0.0-1.0); EOS # 0.3 K/mm3 (0.0-0.50); EOS % 2.6 % (0.0-3.0); LARGE UNSTAINED CELL # 0.2 K/mm3 (0.0-0.4); LARGE UNSTAINED CELL % 1.5 % (0.0-4.0); LYMPH # 1.3 K/mm3 (1.5-4.5); LYMPH % 10.2 % (24.0-44.0); MEAN CORPUSCULAR HEMOGLOBIN 23.7 pg (27.0-33.0); MEAN CORPUSCULAR HGB CONC 30.4 g/dl (32.0-36.5); MEAN CORPUSCULAR VOLUME 78.1 fl (80.0-96.0); MONO # 0.8 K/mm3 (0.0-0.8); MONO % 7.1 % (0.0-5.0); NEUTROPHILS # 8.9 K/mm3 (1.8-7.7); NEUTROPHILS % 77.9 % (36.0-66.0); PLATELET COUNT, AUTOMATED 407 k/mm3 (150-450); RED CELL DISTRIBUTION WIDTH 18.4 % (11.5-14.5); WHITE BLOOD COUNT 11.4 K/mm3 (4.0-10.0)
[2016-09-18 11:42] LABS: ANION GAP 7 MEQ/L (8-16); BLOOD UREA NITROGEN 17 MG/DL (7-18); CALCIUM LEVEL 9.3 MG/DL (8.8-10.2); CARBON DIOXIDE LEVEL 36 MEQ/L (21-32); CHLORIDE LEVEL 96 MEQ/L (98-107); CREATININE FOR GFR 0.77 MG/DL (0.55-1.02); GLOMERULAR FILTRATION RATE > 60.0 (>32); GLUCOSE, FASTING 105 MG/DL (83-110); POTASSIUM SERUM 4.4 MEQ/L (3.5-5.1); SODIUM LEVEL 139 MEQ/L (136-145)
--- NOTE | 2016-09-18 11:42 | REP ---
PORTABLE CHEST X-RAY: Single view. HISTORY: Dyspnea and cough. Comparison study September 14, 2016. FINDINGS: EKG monitoring electrodes and oxygen tubing is seen. Moderate cardiomegaly is observed unchanged. Pulmonary vasculature is not increased. No acute infiltrate is seen. There are mild degenerative changes in the shoulders. IMPRESSION: Moderate cardiomegaly. Otherwise no acute disease. Signed by Adair Longo MD 09/18/2016 02:55 P
[2016-09-18] MEDS ORDERED: METOPROLOL 5 MG/5 ML VIAL IV STA (11:46)
[2016-09-18] MEDS ORDERED: FUROSEMIDE 40 MG TAB PO ONE (12:00)
[2016-09-18 12:19] VITALS: BP 121/70
[2016-09-18 15:28] VITALS: BP 132/86
--- NOTE | 2016-09-18 16:47 | ECGEPIP ---
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
--- NOTE | 2016-09-19 13:45 | ECGEPIP ---
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
== END 2016-09-18 18:08 | disposition home or self-care (01) ==
LOC: EDBD 10:36 → M ED 12:28
DX: R06.02 Shortness of breath (principal); I51.7 Cardiomegaly; I48.91 Unspecified atrial fibrillation; R94.31 Abnormal electrocardiogram [ECG] [EKG]; I45.10 Unspecified right bundle-branch block; J44.9 Chronic obstructive pulmonary disease, unspecified; Z87.891 Personal history of nicotine dependence

== ENCOUNTER 2016-09-19 23:11 | Emergency (ER) | payer OTHER ==
[~2016-09-19] VITALS: Ht 157.5 cm; Wt 71.2 kg
[2016-09-20 00:02] LABS: ABG HCO3 32.3 MEQ/L (22.0-26.0); ABG PARTIAL PRESSURE CO2 43.9 mmHg (35.0-45.0); ABG STANDARD HCO3 31.8 MEQ/L (22.0-26.0); ABG TOTAL CO2 33.7 MEQ/L (23.0-31.0); ABG pH (ARTERIAL) 7.485 UNITS (7.350-7.450)
[2016-09-20 01:47] VITALS: BP 110/71
== END 2016-09-20 01:47 | disposition home or self-care (01) ==
LOC: EDBD 23:11 → M ED 23:35
DX: F41.1 Generalized anxiety disorder (principal); I48.91 Unspecified atrial fibrillation; J44.9 Chronic obstructive pulmonary disease, unspecified; M19.90 Unspecified osteoarthritis, unspecified site; I27.0 Primary pulmonary hypertension; Z87.891 Personal history of nicotine dependence; Z91.040 Latex allergy status; Z79.899 Other long term (current) drug therapy; Z79.52 Long term (current) use of systemic steroids; Z79.01 Long term (current) use of anticoagulants; Z79.51 Long term (current) use of inhaled steroids

== ENCOUNTER → 2016-10-31 | Outpatient (CLI) | payer OTHER ==
--- NOTE | 2016-11-01 07:50 | RADONC ---
RADIATION ONCOLOGY FOLLOWUP NOTE: DATE: 10/31/2016 CHART NO: [id number] DIAGNOSIS: Right breast cancer. STAGE: II A, T2NXM0 ECOG PERFORMANCE STATUS: 1 Ms. Echols is a very pleasant 81-year-old white female with the diagnosis of a moderately differentiated infiltrating ductal carcinoma of the right breast who is presenting to us today for routine followup visit 2 years and 3 months post completion of external beam radiation therapy. The patient presents today reporting that she is doing quite well with no complaints at this time related to her radiation therapy or disease. She has no breast or bone pain. REVIEW OF SYSTEMS: The patient's review of systems is noncontributory. She denies nausea, vomiting, fevers, chills, night sweats, diplopia, headaches, anxiety or depression, anorexia, weight loss, visual disturbances, chest pain, urinary or bowel difficulties, bone pain, or neurological problems. PHYSICAL EXAMINATION: The patient is a well-developed, well-nourished female in no acute distress. HEENT exam is normocephalic, atraumatic. Extraocular movements are intact. There is no palpable cervical, supraclavicular, infraclavicular, axillary, or inguinal lymphadenopathy present. Lungs are clear to auscultation and percussion. Heart has a regular rate and rhythm. Abdomen is benign with no hepatosplenomegaly, masses, or tenderness. Breast examination reveals no masses or discharge bilaterally. Skeletal examination reveals no tenderness to pressure or percussion of the bony skeleton. Extremities reveal no clubbing, cyanosis, or edema. Neurologic exam is grossly intact, as is the remainder of the physical examination. ASSESSMENT: The patient is clinically BROWN at this time and will be seen by us again in 6 months for further followup. She will also continue to be followed by her other physicians as well. Her pulmonary problems and oxygen are being followed by her other physicians. cc: MD Virginia Iniguez DO
== END ==
LOC: M ONCR 15:23
PROVIDERS: ATTEND Radiology Radiation Oncology
DX: C50.811 Malignant neoplasm of overlapping sites of right female breast (principal)

== ENCOUNTER → 2017-03-27 | Outpatient (CLI) | payer OTHER ==
[~2017-03-27] MED LIST changes: +HYDR-643 PO; -HYDR10T PO; -LETR2.5T PO; +LETR2.5T2 PO; +LEVA1TAB PO; +LEVA1TAB2 PO; -LEVA250T PO; -LEVA500T PO; +PRED10TA2 PO; +TRAZ50TA11 PO; -TRAZ50TA4 PO; -VITA100037 PO; +VITA100067 PO
--- NOTE | 2017-03-27 19:41 | RADONC ---
RADIATION ONCOLOGY FOLLOWUP NOTE DATE: 03/27/2017 CHART NUMBER: [id number] DIAGNOSIS: Right breast cancer. STAGE: Clinical IIA, T2NxM0. ECOG PERFORMANCE STATUS: 0 FOLLOWUP NOTE: Ms. Echols is a very pleasant 82-year-old white female with the diagnosis of a stage IIA, T2NxM0 moderately differentiated infiltrating ductal carcinoma of the right breast who is presenting to us today for routine followup visit 2 years and 8 months post completion of external beam radiation therapy. The patient presents today reporting that she is doing quite well with no complaints at this time related to her radiation therapy or disease. She does have some sharp pains over various muscular points in her neck, chest and back. REVIEW OF SYSTEMS: The patient's review of systems is positive for shortness of breath with oxygen dependency. It is also positive for physical limitations secondary to old age. She uses a walker. She denies nausea, vomiting, fevers, chills, night sweats, diplopia, headaches, anxiety or depression, anorexia, weight loss, visual disturbances, urinary or bowel difficulties, bone pain, or neurological problems. PHYSICAL EXAMINATION: The patient is a well-developed, well-nourished white female in no acute distress. HEENT exam is normocephalic, atraumatic. Extraocular movements are intact. There is no palpable cervical, supraclavicular, infraclavicular, axillary, or inguinal lymphadenopathy present. Lungs are clear to auscultation and percussion. Heart has a regular rate and rhythm. Abdomen is benign with no hepatosplenomegaly, masses, or tenderness. Breast examination reveals no masses or discharge bilaterally. Skeletal examination does not reveal any tenderness to pressure along the bony skeleton. There is sharp tenderness over multiple muscular sites. The patient jumps off the table when being touched lightly. Extremities reveal no clubbing, cyanosis, or edema. Neurologic exam is grossly intact, as is the remainder of the physical examination. ASSESSMENT: The patient is clinically BROWN at this time. A mammogram was done earlier today and the results are pending. I have scheduled the patient to see me again in 6 months for further followup. She will also continue to be followed by her other physicians in the meantime. I do not have an explanation for her muscular tenderness at this point. cc: MD Virginia Mansfield, DO
== END ==
LOC: M ONCR 11:49
PROVIDERS: ATTEND Radiology Radiation Oncology
DX: C50.811 Malignant neoplasm of overlapping sites of right female breast (principal)

== ENCOUNTER → 2017-05-09 | Outpatient (REF) | payer OTHER | LOC: M LAB REF 18:07 | PROVIDERS: ATTEND Nurse Practitioner Adult Health | DX: D64.9 Anemia, unspecified (principal) ==

== ENCOUNTER 2017-05-10 11:58 | Outpatient (CLI) | payer OTHER ==
[~2017-05-10 11:58] MED LIST changes: +ACETAMINOPHEN TAB 650MG DOSE (2X325MG) PO SCH; +diphenhydrAMINE 25 MG CAP PO SCH
[2017-05-10] MEDS ORDERED: METOCLOPRAMIDE 5 MG TAB PO SCH (12:00)
[2017-05-10] MEDS: IPRATROPIUM 0.5MG/ALBUTEROL 2.5MG INH SOL UD 3ML (DUONEB)(J7620) NEB SCH ×2 (12:00→15:12)
[2017-05-10 12:30] VITALS: BP 117/58
== END 2017-05-10 20:40 | disposition home or self-care (01) ==
LOC: M OPCLI4PR 11:58 → M PED 12:01 → M OPCLI4PR 20:40
PROVIDERS: ATTEND Nurse Practitioner Adult Health
DX: D64.9 Anemia, unspecified (principal); Z91.040 Latex allergy status; Z79.52 Long term (current) use of systemic steroids; Z79.899 Other long term (current) drug therapy
CPT/HCPCS: 36430; 94640; P9016

== ENCOUNTER → 2017-05-22 | Outpatient (REF) | payer OTHER ==
[~2017-05-22] MED LIST changes: -ACETAMINOPHEN TAB 650MG DOSE (2X325MG) PO SCH; -diphenhydrAMINE 25 MG CAP PO SCH
[2017-05-22 19:15] LABS: EOSINOPHILS 3 % (0-5)
[2017-05-22 19:16] LABS: ANISOCYTOSIS 1+; HYPOCHROMASIA 1+; MICROCYTOSIS 1+; OVALOCYTES 1+
== END ==
LOC: M LAB REF 16:30
PROVIDERS: ATTEND Nurse Practitioner Family
DX: R53.83 Other fatigue (principal); D72.89 Other specified disorders of white blood cells

== ENCOUNTER 2017-07-21 11:27 | Emergency (ER) | payer OTHER ==
[2017-07-21] MEDS: fentaNYL 100 MCG/2 ML INJECTION (J3010) IV (12:20)
[2017-07-21] MEDS: NS 500 ML IV (12:20)
[2017-07-21 12:31] LABS: BASO # 0.1 10^3/uL (0.0-0.2); BASO % 1.1 % (0.0-1.0); EOS # 0.2 10^3/uL (0.0-0.50); EOS % 1.6 % (0.0-3.0); HEMATOCRIT 36.9 % (36.0-47.0); HEMOGLOBIN 11.4 g/dl (12.0-16.0); IMMATURE GRANULOCYTE % 0.6 % (0-3.0); LYMPH # 0.9 10^3/uL (1.5-4.5); LYMPH % 8.6 % (24.0-44.0); MEAN CORPUSCULAR HEMOGLOBIN 26.8 pg (27.0-33.0); MEAN CORPUSCULAR HGB CONC 30.9 g/dl (32.0-36.5); MEAN CORPUSCULAR VOLUME 86.6 fl (80.0-96.0); MONO # 1.1 10^3/uL (0.0-0.8); MONO % 9.8 % (0.0-5.0); NEUTROPHILS # 8.4 10^3/uL (1.8-7.7); NEUTROPHILS % 78.3 % (36.0-66.0); PLATELET COUNT, AUTOMATED 266 10^3/uL (150-450); RED BLOOD COUNT 4.26 10^6/uL (4.00-5.40); RED CELL DISTRIBUTION WIDTH 18.6 % (11.5-14.5); WHITE BLOOD COUNT 10.7 10^3/uL (4.0-10.0)
[2017-07-21] MEDS: IPRATROPIUM 0.5MG/ALBUTEROL 2.5MG INH SOL UD 3ML (DUONEB)(J7620) NEB (12:47)
[2017-07-21 12:53] LABS: ANION GAP 6 MEQ/L (8-16); BLOOD UREA NITROGEN 13 MG/DL (7-18); CALCIUM LEVEL 8.7 MG/DL (8.8-10.2); CARBON DIOXIDE LEVEL 29 MEQ/L (21-32); CHLORIDE LEVEL 103 MEQ/L (98-107); CREATININE FOR GFR 0.66 MG/DL (0.55-1.30); GLOMERULAR FILTRATION RATE > 60.0 (>32); GLUCOSE, FASTING 112 MG/DL (70-100); POTASSIUM SERUM 4.2 MEQ/L (3.5-5.1); SODIUM LEVEL 138 MEQ/L (136-145)
[2017-07-21] MEDS ORDERED: ISOVUE-370 76% 100ML VIAL (Q9967) As Ordered (13:00)
== END 2017-07-21 16:00 | disposition home or self-care (01) ==
LOC: M ED 11:27
DX: S92.351A Displaced fracture of fifth metatarsal bone, right foot, initial encounter for closed fracture (principal); W07.XXXA Fall from chair, initial encounter; Y92.89 Other specified places as the place of occurrence of the external cause; K92.1 Melena; I10 Essential (primary) hypertension; J44.9 Chronic obstructive pulmonary disease, unspecified; G47.30 Sleep apnea, unspecified; M19.90 Unspecified osteoarthritis, unspecified site; Z79.899 Other long term (current) drug therapy; Z79.51 Long term (current) use of inhaled steroids
CPT/HCPCS: Q9967

== ENCOUNTER → 2017-09-25 | Outpatient (CLI) | payer OTHER | LOC: M ONCR 09:40 | DX: C50.811 Malignant neoplasm of overlapping sites of right female breast (principal) | CPT/HCPCS: G0463 ==

== ENCOUNTER → 2017-10-23 | Outpatient (REF) | payer OTHER, MEDICAID ==
[2017-10-23 17:39] LABS: DIGOXIN LEVEL 0.7 NG/ML (0.5-2.0)
== END ==
LOC: M LAB REF 16:44
DX: I48.2 Chronic atrial fibrillation (principal); Z79.899 Other long term (current) drug therapy
CPT/HCPCS: 80162

== ENCOUNTER 2018-01-08 11:21 | Inpatient (IN) | payer OTHER, MEDICAID ==
[2018-01-08 12:27] LABS: BASO # 0.1 10^3/uL (0.0-0.2); BASO % 0.9 % (0.0-1.0); EOS # 0.2 10^3/uL (0.0-0.50); EOS % 1.3 % (0.0-3.0); HEMOGLOBIN 9.7 g/dl (12.0-15.5); IMMATURE GRANULOCYTE % 0.8 % (0-3.0); LYMPH # 1.1 10^3/uL (1.5-4.5); LYMPH % 8.9 % (24.0-44.0); MEAN CORPUSCULAR HGB CONC 28.5 g/dl (32.0-36.5); MEAN CORPUSCULAR VOLUME 77.3 fl (80.0-96.0); MONO % 8.4 % (0.0-5.0); NEUTROPHILS # 9.6 10^3/uL (1.8-7.7); NEUTROPHILS % 79.7 % (36.0-66.0); PLATELET COUNT, AUTOMATED 434 10^3/uL (150-450); RED CELL DISTRIBUTION WIDTH 16.9 % (11.5-14.5)
[2018-01-08 12:43] LABS: ANION GAP 7 MEQ/L (8-16); BLOOD UREA NITROGEN 11 MG/DL (7-18); CALCIUM LEVEL 9.1 MG/DL (8.8-10.2); CARBON DIOXIDE LEVEL 34 MEQ/L (21-32); CHLORIDE LEVEL 98 MEQ/L (98-107); CPK CREATINE PHOSPHOKINASE 64 U/L (26-192); CREATININE FOR GFR 0.79 MG/DL (0.55-1.30); GLOMERULAR FILTRATION RATE > 60.0 (>32); GLUCOSE, FASTING 103 MG/DL (70-100); SODIUM LEVEL 139 MEQ/L (136-145); TROPONIN I < 0.02 NG/ML (< 0.10)
[2018-01-08 12:44] LABS: CK-MB VALUE MASS 1.2 NG/ML (<3.6); MB/CK RELATIVE INDEX 1.87 (< OR =4); NT-PRO BNP 1906 PG/ML (<450)
[2018-01-08 15:07] LABS: LACTIC ACID SEPSIS PROTOCOL 1.5 MMOL/L (0.4-2.0)
[2018-01-08 15:20] LABS: DIGOXIN LEVEL 0.8 NG/ML (0.5-2.0)
[2018-01-08] MEDS: PIPERACILLIN/TAZOBACTAM SOD 3.375 GM in D5W MINI-BAG PLUS 50 ML IV (15:26)
[2018-01-08] MEDS ORDERED: IPRATROPIUM 0.5MG/ALBUTEROL 2.5MG INH SOL UD 3ML (DUONEB)(J7620) NEB (15:30)
[2018-01-08] MEDS ORDERED: LACTULOSE 20 GM/30 ML SYRUP UD PO (15:30)
[2018-01-08 17:07] LABS: FERRITIN 8 NG/ML (8-252); IRON (FE) 28 UG/DL (50-170); PERCENT SATURATION 5.4 % (13.2-45.0); TOTAL IRON BINDING CAPACITY 516 UG/DL (250-450)
[2018-01-08] MEDS: AZITHROMYCIN INJ 500 MG, VIAL MATE ADAPTER 1 EACH in D5W 250 ML IV (17:11)
[2018-01-08] MEDS: IPRATROPIUM 0.5MG/ALBUTEROL 2.5MG INH SOL UD 3ML (DUONEB)(J7620) NEB ×3 (17:16→23:32)
[2018-01-08 17:47] LABS: C REACTIVE PROTEIN QUANTITATIV 0.41 MG/DL (0.00-0.30)
[2018-01-08 18:09] LABS: HEMATOCRIT 33.6 % (36.0-47.0); HEMOGLOBIN 9.7 g/dl (12.0-15.5); MEAN CORPUSCULAR HEMOGLOBIN 21.8 pg (27.0-33.0); MEAN CORPUSCULAR HGB CONC 28.9 g/dl (32.0-36.5); MEAN CORPUSCULAR VOLUME 75.7 fl (80.0-96.0); PLATELET COUNT, AUTOMATED 398 10^3/uL (150-450); RED BLOOD COUNT 4.44 10^6/uL (4.00-5.40); RED CELL DISTRIBUTION WIDTH 16.9 % (11.5-14.5); WHITE BLOOD COUNT 13.4 10^3/uL (4.0-10.0)
[2018-01-08 18:36] LABS: CK-MB VALUE MASS < 1.0 NG/ML (<3.6); CPK CREATINE PHOSPHOKINASE 51 U/L (26-192); MB/CK RELATIVE INDEX 1.96 (< OR =4); TROPONIN I < 0.02 NG/ML (< 0.10)
[2018-01-08] MEDS: predniSONE 20 MG TAB PO (19:09)
[2018-01-08] MEDS: METOCLOPRAMIDE 5 MG TAB PO ×2 (19:09→20:57)
[2018-01-08] MEDS: MIRALAX *UNIT DOSE* 17GM PACKET PO ×2 (19:27→21:00)
[2018-01-08] MEDS: ADVAIR HFA 115/21MCG INHALER INH (20:34)
[2018-01-08] MEDS: SENOKOT S TAB PO (20:56)
[2018-01-08] MEDS: SIMVASTATIN 10 MG TAB PO (20:56)
[2018-01-08] MEDS: cefTRIAXone SOD 2 GM in D5W 50 ML IV (20:57)
[2018-01-08 21:37] LABS: VITAMIN B12 LEVEL 375 PG/ML (247-911)
[2018-01-08 21:38] LABS: FOLATE 11.3 NG/ML (>5.4)
[2018-01-09 00:57] LABS: HEMATOCRIT 31.6 % (36.0-47.0); HEMOGLOBIN 9.3 g/dl (12.0-15.5); MEAN CORPUSCULAR HEMOGLOBIN 22.3 pg (27.0-33.0); MEAN CORPUSCULAR HGB CONC 29.4 g/dl (32.0-36.5); MEAN CORPUSCULAR VOLUME 75.8 fl (80.0-96.0); PLATELET COUNT, AUTOMATED 382 10^3/uL (150-450); RED BLOOD COUNT 4.17 10^6/uL (4.00-5.40); RED CELL DISTRIBUTION WIDTH 16.9 % (11.5-14.5); WHITE BLOOD COUNT 13.9 10^3/uL (4.0-10.0)
[2018-01-09 01:40] LABS: CPK CREATINE PHOSPHOKINASE 46 U/L (26-192); TROPONIN I < 0.02 NG/ML (< 0.10)
[2018-01-09 01:41] LABS: CK-MB VALUE MASS < 1.0 NG/ML (<3.6); MB/CK RELATIVE INDEX 2.17 (< OR =4)
[2018-01-09] MEDS: IPRATROPIUM 0.5MG/ALBUTEROL 2.5MG INH SOL UD 3ML (DUONEB)(J7620) NEB ×6 (03:28→23:45)
[2018-01-09 05:51] LABS: HEMATOCRIT 30.2 % (36.0-47.0); HEMOGLOBIN 8.9 g/dl (12.0-15.5); MEAN CORPUSCULAR HEMOGLOBIN 21.8 pg (27.0-33.0); MEAN CORPUSCULAR HGB CONC 29.5 g/dl (32.0-36.5); MEAN CORPUSCULAR VOLUME 73.8 fl (80.0-96.0); PLATELET COUNT, AUTOMATED 386 10^3/uL (150-450); RED BLOOD COUNT 4.09 10^6/uL (4.00-5.40); RED CELL DISTRIBUTION WIDTH 16.8 % (11.5-14.5); WHITE BLOOD COUNT 11.4 10^3/uL (4.0-10.0)
[2018-01-09 06:22] LABS: ALBUMIN 3.4 GM/DL (3.2-5.2); ALKALINE PHOSPHATASE 72 U/L (45-117); ALT/SGPT 17 U/L (12-78); ANION GAP 12 MEQ/L (8-16); AST/SGOT 13 U/L (7-37); BILIRUBIN,TOTAL 0.3 MG/DL (0.2-1.0); BLOOD UREA NITROGEN 15 MG/DL (7-18); C REACTIVE PROTEIN QUANTITATIV 0.36 MG/DL (0.00-0.30); CALCIUM LEVEL 9.1 MG/DL (8.8-10.2); CARBON DIOXIDE LEVEL 28 MEQ/L (21-32); CHLORIDE LEVEL 98 MEQ/L (98-107); CREATININE FOR GFR 0.99 MG/DL (0.55-1.30); GLUCOSE, FASTING 200 MG/DL (70-100); MAGNESIUM LEVEL 2.1 MG/DL (1.8-2.4); POTASSIUM SERUM 3.5 MEQ/L (3.5-5.1); SODIUM LEVEL 138 MEQ/L (136-145); TOTAL PROTEIN 6.8 GM/DL (6.4-8.2)
[2018-01-09] MEDS: LETROZOLE 2.5 MG TAB PO (08:08)
[2018-01-09] MEDS: SENOKOT S TAB PO ×2 (08:08→20:44)
[2018-01-09] MEDS: VITAMIN D 1,000 INTERNATIONAL UNITS TABLET PO (08:09)
[2018-01-09] MEDS: FUROSEMIDE 40 MG TAB PO (08:09)
[2018-01-09] MEDS: METOCLOPRAMIDE 5 MG TAB PO ×4 (08:09→20:44)
[2018-01-09] MEDS: RIVAROXABAN 15 MG TAB (XARELTO) PO (08:09)
[2018-01-09] MEDS: predniSONE 20 MG TAB PO (08:11)
[2018-01-09] MEDS: DIGOXIN 0.125 MG TAB PO (08:11)
[2018-01-09] MEDS: MIRALAX *UNIT DOSE* 17GM PACKET PO ×2 (08:11→20:43)
[2018-01-09] MEDS: ISOSORBIDE MON. (IMDUR) 30 MG XR TAB PO (08:13)
[2018-01-09] MEDS: ADVAIR HFA 115/21MCG INHALER INH ×2 (08:29→20:32)
[2018-01-09] MEDS ORDERED: MIRALAX *UNIT DOSE* 17GM PACKET PO (09:00)
[2018-01-09 10:29] LABS: CK-MB VALUE MASS 1.3 NG/ML (<3.6); CPK CREATINE PHOSPHOKINASE 53 U/L (26-192); MB/CK RELATIVE INDEX 2.45 (< OR =4); TROPONIN I < 0.02 NG/ML (< 0.10)
[2018-01-09 12:24] LABS: HEMATOCRIT 31.4 % (36.0-47.0); HEMOGLOBIN 9.3 g/dl (12.0-15.5); MEAN CORPUSCULAR HEMOGLOBIN 22.4 pg (27.0-33.0); MEAN CORPUSCULAR HGB CONC 29.6 g/dl (32.0-36.5); MEAN CORPUSCULAR VOLUME 75.5 fl (80.0-96.0); PLATELET COUNT, AUTOMATED 377 10^3/uL (150-450); RED BLOOD COUNT 4.16 10^6/uL (4.00-5.40); RED CELL DISTRIBUTION WIDTH 16.9 % (11.5-14.5); WHITE BLOOD COUNT 11.9 10^3/uL (4.0-10.0)
[2018-01-09] MEDS: ACETAMINOPHEN TAB 650MG DOSE (2X325MG) PO (14:14)
[2018-01-09] MEDS: AZITHROMYCIN INJ 500 MG, VIAL MATE ADAPTER 1 EACH in D5W 250 ML IV (16:41)
[2018-01-09] MEDS ORDERED: BISACODYL 5 MG TAB PO (16:45)
[2018-01-09 18:16] LABS: HEMATOCRIT 32.3 % (36.0-47.0); HEMOGLOBIN 9.2 g/dl (12.0-15.5); MEAN CORPUSCULAR HEMOGLOBIN 22.2 pg (27.0-33.0); MEAN CORPUSCULAR HGB CONC 28.5 g/dl (32.0-36.5); PLATELET COUNT, AUTOMATED 403 10^3/uL (150-450); RED BLOOD COUNT 4.14 10^6/uL (4.00-5.40); WHITE BLOOD COUNT 17.3 10^3/uL (4.0-10.0)
[2018-01-09] MEDS: LACTULOSE 20 GM/30 ML SYRUP UD PO (20:44)
[2018-01-09] MEDS: SIMVASTATIN 10 MG TAB PO (20:44)
[2018-01-09] MEDS: OMEPRAZOLE 20 MG CAP PO (20:44)
[2018-01-09] MEDS: cefTRIAXone SOD 2 GM in D5W 50 ML IV (20:45)
[2018-01-09] MEDS: FERROUS GLUCONATE 324 MG TAB PO (20:45)
[2018-01-10 00:43] LABS: HEMATOCRIT 31.3 % (36.0-47.0); HEMOGLOBIN 9.2 g/dl (12.0-15.5); MEAN CORPUSCULAR HEMOGLOBIN 22.1 pg (27.0-33.0); MEAN CORPUSCULAR HGB CONC 29.4 g/dl (32.0-36.5); MEAN CORPUSCULAR VOLUME 75.2 fl (80.0-96.0); PLATELET COUNT, AUTOMATED 401 10^3/uL (150-450); RED BLOOD COUNT 4.16 10^6/uL (4.00-5.40); RED CELL DISTRIBUTION WIDTH 16.9 % (11.5-14.5); WHITE BLOOD COUNT 17.8 10^3/uL (4.0-10.0)
[2018-01-10] MEDS: IPRATROPIUM 0.5MG/ALBUTEROL 2.5MG INH SOL UD 3ML (DUONEB)(J7620) NEB ×5 (04:00→19:48)
[2018-01-10 06:26] LABS: HEMOGLOBIN 8.5 g/dl (12.0-15.5); MEAN CORPUSCULAR HEMOGLOBIN 22.1 pg (27.0-33.0); MEAN CORPUSCULAR HGB CONC 29.3 g/dl (32.0-36.5); MEAN CORPUSCULAR VOLUME 75.5 fl (80.0-96.0); PLATELET COUNT, AUTOMATED 356 10^3/uL (150-450); RED BLOOD COUNT 3.84 10^6/uL (4.00-5.40); RED CELL DISTRIBUTION WIDTH 16.9 % (11.5-14.5); WHITE BLOOD COUNT 16.7 10^3/uL (4.0-10.0)
[2018-01-10 06:45] LABS: ALBUMIN 3.1 GM/DL (3.2-5.2); ALBUMIN/GLOBULIN RATIO 1.03 (1.00-1.93); ALKALINE PHOSPHATASE 66 U/L (45-117); ALT/SGPT 17 U/L (12-78); ANION GAP 9 MEQ/L (8-16); AST/SGOT 13 U/L (7-37); BILIRUBIN,TOTAL 0.1 MG/DL (0.2-1.0); BLOOD UREA NITROGEN 15 MG/DL (7-18); C REACTIVE PROTEIN QUANTITATIV < 0.30 MG/DL (0.00-0.30); CALCIUM LEVEL 8.8 MG/DL (8.8-10.2); CARBON DIOXIDE LEVEL 31 MEQ/L (21-32); CHLORIDE LEVEL 103 MEQ/L (98-107); CREATININE FOR GFR 0.74 MG/DL (0.55-1.30); GLOMERULAR FILTRATION RATE > 60.0 (>32); GLUCOSE, FASTING 108 MG/DL (70-100); POTASSIUM SERUM 3.5 MEQ/L (3.5-5.1); SODIUM LEVEL 143 MEQ/L (136-145); TOTAL PROTEIN 6.1 GM/DL (6.4-8.2)
[2018-01-10] MEDS: ADVAIR HFA 115/21MCG INHALER INH ×2 (08:03→19:46)
[2018-01-10] MEDS: RIVAROXABAN 15 MG TAB (XARELTO) PO (08:29)
[2018-01-10] MEDS: SENOKOT S TAB PO ×2 (08:29→20:43)
[2018-01-10] MEDS: VITAMIN D 1,000 INTERNATIONAL UNITS TABLET PO (08:29)
[2018-01-10] MEDS: LETROZOLE 2.5 MG TAB PO (08:30)
[2018-01-10] MEDS: FERROUS GLUCONATE 324 MG TAB PO ×2 (08:30→20:43)
[2018-01-10] MEDS: predniSONE 50 MG TAB PO (08:30)
[2018-01-10] MEDS: FUROSEMIDE 40 MG TAB PO (08:31)
[2018-01-10] MEDS: ISOSORBIDE MON. (IMDUR) 30 MG XR TAB PO (08:31)
[2018-01-10] MEDS: DIGOXIN 0.125 MG TAB PO (08:31)
[2018-01-10] MEDS: METOCLOPRAMIDE 5 MG TAB PO ×4 (08:31→20:43)
[2018-01-10] MEDS: LACTULOSE 20 GM/30 ML SYRUP UD PO ×2 (08:32→20:43)
[2018-01-10] MEDS: MIRALAX *UNIT DOSE* 17GM PACKET PO ×2 (08:32→20:43)
[2018-01-10] MEDS: FLUCONAZOLE 100 MG TAB PO (11:54)
[2018-01-10 12:28] LABS: HEMATOCRIT 31.4 % (36.0-47.0); HEMOGLOBIN 9.2 g/dl (12.0-15.5); MEAN CORPUSCULAR HEMOGLOBIN 22.2 pg (27.0-33.0); MEAN CORPUSCULAR HGB CONC 29.3 g/dl (32.0-36.5); MEAN CORPUSCULAR VOLUME 75.8 fl (80.0-96.0); PLATELET COUNT, AUTOMATED 418 10^3/uL (150-450); RED BLOOD COUNT 4.14 10^6/uL (4.00-5.40); RED CELL DISTRIBUTION WIDTH 16.9 % (11.5-14.5); WHITE BLOOD COUNT 18.3 10^3/uL (4.0-10.0)
[2018-01-10] MEDS: AZITHROMYCIN INJ 500 MG, VIAL MATE ADAPTER 1 EACH in D5W 250 ML IV (17:15)
[2018-01-10] MEDS: SIMVASTATIN 10 MG TAB PO (20:43)
[2018-01-10] MEDS: cefTRIAXone SOD 2 GM in D5W 50 ML IV (20:43)
[2018-01-10] MEDS: OMEPRAZOLE 20 MG CAP PO (20:43)
[2018-01-11] MEDS: IPRATROPIUM 0.5MG/ALBUTEROL 2.5MG INH SOL UD 3ML (DUONEB)(J7620) NEB ×7 (00:18→23:44)
[2018-01-11 06:26] LABS: C REACTIVE PROTEIN QUANTITATIV < 0.30 MG/DL (0.00-0.30)
[2018-01-11 06:32] LABS: ALBUMIN 3.4 GM/DL (3.2-5.2); ALBUMIN/GLOBULIN RATIO 1.17 (1.00-1.93); ALKALINE PHOSPHATASE 65 U/L (45-117); ALT/SGPT 17 U/L (12-78); ANION GAP 7 MEQ/L (8-16); AST/SGOT 13 U/L (7-37); BILIRUBIN,TOTAL 0.2 MG/DL (0.2-1.0); BLOOD UREA NITROGEN 14 MG/DL (7-18); CALCIUM LEVEL 9.2 MG/DL (8.8-10.2); CARBON DIOXIDE LEVEL 32 MEQ/L (21-32); CHLORIDE LEVEL 102 MEQ/L (98-107); CREATININE FOR GFR 0.78 MG/DL (0.55-1.30); GLOMERULAR FILTRATION RATE > 60.0 (>32); GLUCOSE, FASTING 93 MG/DL (70-100); POTASSIUM SERUM 3.6 MEQ/L (3.5-5.1); SODIUM LEVEL 141 MEQ/L (136-145); TOTAL PROTEIN 6.3 GM/DL (6.4-8.2)
[2018-01-11] MEDS: ADVAIR HFA 115/21MCG INHALER INH ×2 (07:25→21:17)
[2018-01-11] MEDS: RIVAROXABAN 15 MG TAB (XARELTO) PO (08:46)
[2018-01-11] MEDS: METOCLOPRAMIDE 5 MG TAB PO ×4 (08:47→20:06)
[2018-01-11] MEDS: ISOSORBIDE MON. (IMDUR) 30 MG XR TAB PO (08:47)
[2018-01-11] MEDS: VITAMIN D 1,000 INTERNATIONAL UNITS TABLET PO (08:47)
[2018-01-11] MEDS: LETROZOLE 2.5 MG TAB PO (08:47)
[2018-01-11] MEDS: FERROUS GLUCONATE 324 MG TAB PO ×2 (08:47→20:06)
[2018-01-11] MEDS: FUROSEMIDE 40 MG TAB PO (08:47)
[2018-01-11] MEDS: FLUCONAZOLE 100 MG TAB PO (08:50)
[2018-01-11] MEDS: predniSONE 20 MG TAB PO (08:50)
[2018-01-11] MEDS: SENOKOT S TAB PO ×2 (09:00→20:06)
[2018-01-11] MEDS: LACTULOSE 20 GM/30 ML SYRUP UD PO ×2 (09:00→20:07)
[2018-01-11] MEDS: MIRALAX *UNIT DOSE* 17GM PACKET PO ×2 (09:00→20:06)
[2018-01-11] MEDS: AZITHROMYCIN INJ 500 MG, VIAL MATE ADAPTER 1 EACH in D5W 250 ML IV (17:57)
[2018-01-11] MEDS: SIMVASTATIN 10 MG TAB PO (20:06)
[2018-01-11] MEDS: cefTRIAXone SOD 2 GM in D5W 50 ML IV (20:07)
[2018-01-11] MEDS: OMEPRAZOLE 20 MG CAP PO (20:07)
[2018-01-12] MEDS: IPRATROPIUM 0.5MG/ALBUTEROL 2.5MG INH SOL UD 3ML (DUONEB)(J7620) NEB ×6 (04:00→23:14)
[2018-01-12 06:18] LABS: ALBUMIN 3.1 GM/DL (3.2-5.2); ALBUMIN/GLOBULIN RATIO 1.11 (1.00-1.93); ALKALINE PHOSPHATASE 64 U/L (45-117); ALT/SGPT 22 U/L (12-78); ANION GAP 8 MEQ/L (8-16); AST/SGOT 16 U/L (7-37); BILIRUBIN,TOTAL 0.2 MG/DL (0.2-1.0); BLOOD UREA NITROGEN 11 MG/DL (7-18); CALCIUM LEVEL 8.6 MG/DL (8.8-10.2); CARBON DIOXIDE LEVEL 32 MEQ/L (21-32); CHLORIDE LEVEL 103 MEQ/L (98-107); CREATININE FOR GFR 0.73 MG/DL (0.55-1.30); GLOMERULAR FILTRATION RATE > 60.0 (>32); GLUCOSE, FASTING 91 MG/DL (70-100); POTASSIUM SERUM 3.4 MEQ/L (3.5-5.1); SODIUM LEVEL 143 MEQ/L (136-145); TOTAL PROTEIN 5.9 GM/DL (6.4-8.2)
[2018-01-12] MEDS: METOCLOPRAMIDE 5 MG TAB PO ×4 (07:30→21:10)
[2018-01-12] MEDS: ADVAIR HFA 115/21MCG INHALER INH ×2 (08:37→22:26)
[2018-01-12] MEDS: LACTULOSE 20 GM/30 ML SYRUP UD PO ×2 (08:46→21:09)
[2018-01-12] MEDS: FLUCONAZOLE 100 MG TAB PO (08:47)
[2018-01-12] MEDS: ISOSORBIDE MON. (IMDUR) 30 MG XR TAB PO (08:47)
[2018-01-12] MEDS: predniSONE 20 MG TAB PO (08:47)
[2018-01-12] MEDS: VITAMIN D 1,000 INTERNATIONAL UNITS TABLET PO (08:47)
[2018-01-12] MEDS: LETROZOLE 2.5 MG TAB PO (08:47)
[2018-01-12] MEDS: FERROUS GLUCONATE 324 MG TAB PO ×2 (08:48→21:09)
[2018-01-12] MEDS: SENOKOT S TAB PO ×2 (08:48→21:09)
[2018-01-12] MEDS: RIVAROXABAN 15 MG TAB (XARELTO) PO (08:48)
[2018-01-12] MEDS: MIRALAX *UNIT DOSE* 17GM PACKET PO ×2 (08:56→21:10)
[2018-01-12] MEDS: POTASSIUM CHLORIDE 10 MEQ SR TABLET PO (11:51)
[2018-01-12] MEDS: FUROSEMIDE 40 MG TAB PO (11:51)
[2018-01-12] MEDS: AZITHROMYCIN 250 MG TAB PO (21:09)
[2018-01-12] MEDS: cefTRIAXone SOD 2 GM in D5W 50 ML IV (21:09)
[2018-01-12] MEDS: SIMVASTATIN 10 MG TAB PO (21:10)
[2018-01-12] MEDS: OMEPRAZOLE 20 MG CAP PO (21:10)
[2018-01-13] MEDS: IPRATROPIUM 0.5MG/ALBUTEROL 2.5MG INH SOL UD 3ML (DUONEB)(J7620) NEB ×5 (03:00→20:00)
[2018-01-13 07:07] LABS: BASO # 0.1 10^3/uL (0.0-0.2); BASO % 0.7 % (0.0-1.0); EOS # 0.2 10^3/uL (0.0-0.50); EOS % 1.1 % (0.0-3.0); HEMOGLOBIN 8.8 g/dl (12.0-15.5); IMMATURE GRANULOCYTE % 1.6 % (0-3.0); LYMPH # 1.8 10^3/uL (1.5-4.5); MEAN CORPUSCULAR HEMOGLOBIN 22.2 pg (27.0-33.0); MEAN CORPUSCULAR HGB CONC 29.3 g/dl (32.0-36.5); MEAN CORPUSCULAR VOLUME 75.6 fl (80.0-96.0); MONO # 1.1 10^3/uL (0.0-0.8); MONO % 8.3 % (0.0-5.0); NEUTROPHILS # 10.2 10^3/uL (1.8-7.7); NEUTROPHILS % 75.3 % (36.0-66.0); PLATELET COUNT, AUTOMATED 344 10^3/uL (150-450); RED BLOOD COUNT 3.97 10^6/uL (4.00-5.40); RED CELL DISTRIBUTION WIDTH 17.5 % (11.5-14.5); WHITE BLOOD COUNT 13.6 10^3/uL (4.0-10.0)
[2018-01-13] MEDS: ADVAIR HFA 115/21MCG INHALER INH ×2 (07:20→20:45)
[2018-01-13 07:21] LABS: ALBUMIN 3.4 GM/DL (3.2-5.2); ALBUMIN/GLOBULIN RATIO 1.06 (1.00-1.93); ALKALINE PHOSPHATASE 63 U/L (45-117); ALT/SGPT 27 U/L (12-78); ANION GAP 5 MEQ/L (8-16); AST/SGOT 15 U/L (7-37); BILIRUBIN,TOTAL 0.2 MG/DL (0.2-1.0); BLOOD UREA NITROGEN 9 MG/DL (7-18); CALCIUM LEVEL 9.2 MG/DL (8.8-10.2); CARBON DIOXIDE LEVEL 35 MEQ/L (21-32); CHLORIDE LEVEL 101 MEQ/L (98-107); CREATININE FOR GFR 0.81 MG/DL (0.55-1.30); GLOMERULAR FILTRATION RATE > 60.0 (>32); GLUCOSE, FASTING 92 MG/DL (70-100); POTASSIUM SERUM 4.2 MEQ/L (3.5-5.1); SODIUM LEVEL 141 MEQ/L (136-145); TOTAL PROTEIN 6.6 GM/DL (6.4-8.2)
[2018-01-13] MEDS: MIRALAX *UNIT DOSE* 17GM PACKET PO ×2 (09:00→20:19)
[2018-01-13] MEDS: SENOKOT S TAB PO ×2 (09:00→20:19)
[2018-01-13] MEDS: LACTULOSE 20 GM/30 ML SYRUP UD PO ×2 (09:24→20:19)
[2018-01-13] MEDS: POTASSIUM CHLORIDE 10 MEQ SR TABLET PO (09:25)
[2018-01-13] MEDS: VITAMIN D 1,000 INTERNATIONAL UNITS TABLET PO (09:26)
[2018-01-13] MEDS: predniSONE 20 MG TAB PO (09:26)
[2018-01-13] MEDS: RIVAROXABAN 15 MG TAB (XARELTO) PO (09:26)
[2018-01-13] MEDS: FLUCONAZOLE 100 MG TAB PO (09:26)
[2018-01-13] MEDS: METOCLOPRAMIDE 5 MG TAB PO ×4 (09:26→20:20)
[2018-01-13] MEDS: ISOSORBIDE MON. (IMDUR) 30 MG XR TAB PO (09:26)
[2018-01-13] MEDS: LETROZOLE 2.5 MG TAB PO (09:27)
[2018-01-13] MEDS: DIGOXIN 0.125 MG TAB PO (09:27)
[2018-01-13] MEDS: FERROUS GLUCONATE 324 MG TAB PO ×2 (09:27→20:20)
[2018-01-13] MEDS: FUROSEMIDE 40 MG TAB PO (09:27)
[2018-01-13] MEDS: cefTRIAXone SOD 2 GM in D5W 50 ML IV (20:18)
[2018-01-13] MEDS: AZITHROMYCIN 250 MG TAB PO (20:19)
[2018-01-13] MEDS: OMEPRAZOLE 20 MG CAP PO (20:20)
[2018-01-13] MEDS: SIMVASTATIN 10 MG TAB PO (20:20)
[2018-01-14 06:21] LABS: BASO # 0.1 10^3/uL (0.0-0.2); BASO % 0.6 % (0.0-1.0); EOS # 0.2 10^3/uL (0.0-0.50); EOS % 1.2 % (0.0-3.0); HEMATOCRIT 30.3 % (36.0-47.0); HEMOGLOBIN 8.8 g/dl (12.0-15.5); IMMATURE GRANULOCYTE % 1.7 % (0-3.0); LYMPH # 1.8 10^3/uL (1.5-4.5); LYMPH % 11.7 % (24.0-44.0); MEAN CORPUSCULAR HEMOGLOBIN 22.8 pg (27.0-33.0); MEAN CORPUSCULAR VOLUME 78.5 fl (80.0-96.0); MONO # 1.3 10^3/uL (0.0-0.8); MONO % 8.4 % (0.0-5.0); NEUTROPHILS % 76.4 % (36.0-66.0); PLATELET COUNT, AUTOMATED 328 10^3/uL (150-450); RED BLOOD COUNT 3.86 10^6/uL (4.00-5.40); RED CELL DISTRIBUTION WIDTH 18.5 % (11.5-14.5); WHITE BLOOD COUNT 15.7 10^3/uL (4.0-10.0)
[2018-01-14 06:46] LABS: ALBUMIN 3.1 GM/DL (3.2-5.2); ALBUMIN/GLOBULIN RATIO 1.03 (1.00-1.93); ALKALINE PHOSPHATASE 69 U/L (45-117); ALT/SGPT 25 U/L (12-78); ANION GAP 6 MEQ/L (8-16); AST/SGOT 14 U/L (7-37); BILIRUBIN,TOTAL 0.2 MG/DL (0.2-1.0); BLOOD UREA NITROGEN 12 MG/DL (7-18); CALCIUM LEVEL 8.7 MG/DL (8.8-10.2); CARBON DIOXIDE LEVEL 33 MEQ/L (21-32); CHLORIDE LEVEL 102 MEQ/L (98-107); CREATININE FOR GFR 0.81 MG/DL (0.55-1.30); GLOMERULAR FILTRATION RATE > 60.0 (>32); GLUCOSE, FASTING 91 MG/DL (70-100); POTASSIUM SERUM 4.4 MEQ/L (3.5-5.1); SODIUM LEVEL 141 MEQ/L (136-145); TOTAL PROTEIN 6.1 GM/DL (6.4-8.2)
[2018-01-14] MEDS: ADVAIR HFA 115/21MCG INHALER INH (07:29)
[2018-01-14] MEDS: IPRATROPIUM 0.5MG/ALBUTEROL 2.5MG INH SOL UD 3ML (DUONEB)(J7620) NEB ×2 (08:00→11:14)
[2018-01-14] MEDS: LETROZOLE 2.5 MG TAB PO (08:26)
[2018-01-14] MEDS: LACTULOSE 20 GM/30 ML SYRUP UD PO (08:26)
[2018-01-14] MEDS: POTASSIUM CHLORIDE 10 MEQ SR TABLET PO (08:27)
[2018-01-14] MEDS: VITAMIN D 1,000 INTERNATIONAL UNITS TABLET PO (08:27)
[2018-01-14] MEDS: ISOSORBIDE MON. (IMDUR) 30 MG XR TAB PO (08:27)
[2018-01-14] MEDS: predniSONE 20 MG TAB PO (08:27)
[2018-01-14] MEDS: DIGOXIN 0.125 MG TAB PO (08:28)
[2018-01-14] MEDS: FUROSEMIDE 40 MG TAB PO (08:28)
[2018-01-14] MEDS: FERROUS GLUCONATE 324 MG TAB PO (08:28)
[2018-01-14] MEDS: FLUCONAZOLE 100 MG TAB PO (08:28)
[2018-01-14] MEDS: METOCLOPRAMIDE 5 MG TAB PO ×2 (08:28→11:58)
[2018-01-14] MEDS: RIVAROXABAN 15 MG TAB (XARELTO) PO (08:28)
[2018-01-14] MEDS: MIRALAX *UNIT DOSE* 17GM PACKET PO (08:29)
[2018-01-14] MEDS: SENOKOT S TAB PO (08:36)
[2018-01-14] MEDS: cefTRIAXone SOD 2 GM in D5W 50 ML IV (10:55)
== END 2018-01-14 12:15 | disposition home health service (06) | DRG 194 ==
LOC: M MSPAV 01-09 10:42 → M ED 11:21 → M ED INP 17:23 → M PCU 18:37
DX: J18.9 Pneumonia, unspecified organism (principal); J44.0 Chronic obstructive pulmonary disease with (acute) lower respiratory infection; J96.11 Chronic respiratory failure with hypoxia; I25.10 Atherosclerotic heart disease of native coronary artery without angina pectoris; K59.00 Constipation, unspecified; I48.2 Chronic atrial fibrillation; I10 Essential (primary) hypertension; D50.9 Iron deficiency anemia, unspecified; E78.5 Hyperlipidemia, unspecified; R26.81 Unsteadiness on feet; Z66 Do not resuscitate; I27.29 Other secondary pulmonary hypertension; K80.20 Calculus of gallbladder without cholecystitis without obstruction; Z85.3 Personal history of malignant neoplasm of breast; Z96.641 Presence of right artificial hip joint; Z96.651 Presence of right artificial knee joint; Z90.710 Acquired absence of both cervix and uterus; Z99.81 Dependence on supplemental oxygen; R91.1 Solitary pulmonary nodule; Z79.01 Long term (current) use of anticoagulants; Z79.899 Other long term (current) drug therapy; Z91.040 Latex allergy status

== ENCOUNTER 2018-03-20 11:53 | Inpatient (IN) | payer OTHER ==
[2018-03-20 12:37] LABS: ABG BASE EXCESS 2.9 (-2.0-2.0); ABG HCO3 27.1 MEQ/L (22.0-26.0); ABG O2 SATURATION 98.5 % (95.0-99.0); ABG PARTIAL PRESSURE O2 109.1 mmHg (75.0-100.0); ABG STANDARD HCO3 27.1 MEQ/L (22.0-26.0); ABG TOTAL CO2 28.3 MEQ/L (23.0-31.0); ABG pH (ARTERIAL) 7.449 UNITS (7.350-7.450); BASO # 0.1 10^3/uL (0.0-0.2); BASO % 1.1 % (0.0-1.0); EOS # 0.1 10^3/uL (0.0-0.50); EOS % 1.3 % (0.0-3.0); HEMATOCRIT 30.6 % (36.0-47.0); HEMOGLOBIN 8.9 g/dl (12.0-15.5); IMMATURE GRANULOCYTE % 0.9 % (0-3.0); LYMPH # 0.7 10^3/uL (1.5-4.5); LYMPH % 7.8 % (24.0-44.0); MEAN CORPUSCULAR HEMOGLOBIN 22.9 pg (27.0-33.0); MEAN CORPUSCULAR HGB CONC 29.1 g/dl (32.0-36.5); MEAN CORPUSCULAR VOLUME 78.9 fl (80.0-96.0); MONO # 0.8 10^3/uL (0.0-0.8); NEUTROPHILS # 7.5 10^3/uL (1.8-7.7); NEUTROPHILS % 79.9 % (36.0-66.0); PLATELET COUNT, AUTOMATED 290 10^3/uL (150-450); RED BLOOD COUNT 3.88 10^6/uL (4.00-5.40); RED CELL DISTRIBUTION WIDTH 19.9 % (11.5-14.5); WHITE BLOOD COUNT 9.4 10^3/uL (4.0-10.0)
[2018-03-20 12:47] LABS: INR 1.25; PROTHROMBIN TIME 15.9 SECONDS (12.1-14.4)
[2018-03-20 12:59] LABS: LACTIC ACID SEPSIS PROTOCOL 1.8 MMOL/L (0.4-2.0)
[2018-03-20 13:06] LABS: INFLUENZA A AMPLIFICATION NEGATIVE (NEGATIVE); INFLUENZA B AMPLIFICATION NEGATIVE (NEGATIVE)
[2018-03-20 13:14] LABS: ALBUMIN 3.7 GM/DL (3.2-5.2); ALBUMIN/GLOBULIN RATIO 1.28 (1.00-1.93); ALKALINE PHOSPHATASE 69 U/L (45-117); ALT/SGPT 19 U/L (12-78); ANION GAP 7 MEQ/L (8-16); AST/SGOT 13 U/L (7-37); BILIRUBIN,DIRECT 0.2 MG/DL (0.0-0.2); BILIRUBIN,TOTAL 0.5 MG/DL (0.2-1.0); BLOOD UREA NITROGEN 17 MG/DL (7-18); CALCIUM LEVEL 9.2 MG/DL (8.8-10.2); CARBON DIOXIDE LEVEL 30 MEQ/L (21-32); CHLORIDE LEVEL 103 MEQ/L (98-107); CPK CREATINE PHOSPHOKINASE 47 U/L (26-192); CREATININE FOR GFR 0.66 MG/DL (0.55-1.30); DIGOXIN LEVEL 0.7 NG/ML (0.5-2.0); GLOMERULAR FILTRATION RATE > 60.0 (>32); GLUCOSE, FASTING 127 MG/DL (70-100); MB/CK RELATIVE INDEX 3.83 (< OR =4); NT-PRO BNP 5389 PG/ML (<450); POTASSIUM SERUM 4.5 MEQ/L (3.5-5.1); SODIUM LEVEL 140 MEQ/L (136-145); TOTAL PROTEIN 6.6 GM/DL (6.4-8.2); TROPONIN I < 0.02 NG/ML (< 0.10)
[2018-03-20] MEDS: FUROSEMIDE 40 MG/4 ML VIAL (J1940) IV (13:34)
[2018-03-20] MEDS ORDERED: traZODone 50 MG TAB PO (15:45)
[2018-03-20] MEDS: METOCLOPRAMIDE 5 MG TAB PO ×2 (18:08→20:23)
[2018-03-20 18:51] LABS: CPK CREATINE PHOSPHOKINASE 45 U/L (26-192); TROPONIN I < 0.02 NG/ML (< 0.10)
[2018-03-20] MEDS: SIMVASTATIN 10 MG TAB PO (20:23)
[2018-03-20] MEDS: IPRATROPIUM 0.5MG/ALBUTEROL 2.5MG INH SOL UD 3ML (DUONEB)(J7620) NEB (20:28)
[2018-03-21] MEDS: IPRATROPIUM 0.5MG/ALBUTEROL 2.5MG INH SOL UD 3ML (DUONEB)(J7620) NEB ×4 (02:00→20:00)
[2018-03-21 02:14] LABS: HEMATOCRIT 29.8 % (36.0-47.0); HEMOGLOBIN 8.6 g/dl (12.0-15.5); MEAN CORPUSCULAR HEMOGLOBIN 22.6 pg (27.0-33.0); MEAN CORPUSCULAR HGB CONC 28.9 g/dl (32.0-36.5); MEAN CORPUSCULAR VOLUME 78.2 fl (80.0-96.0); PLATELET COUNT, AUTOMATED 277 10^3/uL (150-450); RED BLOOD COUNT 3.81 10^6/uL (4.00-5.40); RED CELL DISTRIBUTION WIDTH 19.8 % (11.5-14.5); WHITE BLOOD COUNT 9.2 10^3/uL (4.0-10.0)
[2018-03-21 02:39] LABS: ESTIMATED AVERAGE GLUCOSE 123 MG/DL (60-110); HEMOGLOBIN A1c 5.9 %
[2018-03-21 02:46] LABS: ALBUMIN 3.3 GM/DL (3.2-5.2); ALBUMIN/GLOBULIN RATIO 1.14 (1.00-1.93); ALKALINE PHOSPHATASE 70 U/L (45-117); ALT/SGPT 16 U/L (12-78); ANION GAP 5 MEQ/L (8-16); AST/SGOT 13 U/L (7-37); BILIRUBIN,TOTAL 0.4 MG/DL (0.2-1.0); BLOOD UREA NITROGEN 16 MG/DL (7-18); CALCIUM LEVEL 8.2 MG/DL (8.8-10.2); CARBON DIOXIDE LEVEL 32 MEQ/L (21-32); CHLORIDE LEVEL 102 MEQ/L (98-107); CPK CREATINE PHOSPHOKINASE 44 U/L (26-192); CREATININE FOR GFR 0.73 MG/DL (0.55-1.30); GLOMERULAR FILTRATION RATE > 60.0 (>32); GLUCOSE, FASTING 93 MG/DL (70-100); MB/CK RELATIVE INDEX 3.86 (< OR =4); POTASSIUM SERUM 4.1 MEQ/L (3.5-5.1); SODIUM LEVEL 139 MEQ/L (136-145); TOTAL PROTEIN 6.2 GM/DL (6.4-8.2); TROPONIN I 0.02 NG/ML (< 0.10)
[2018-03-21] MEDS: METOCLOPRAMIDE 5 MG TAB PO ×4 (07:42→20:43)
[2018-03-21] MEDS: DIGOXIN 0.125 MG TAB PO (08:26)
[2018-03-21] MEDS: FUROSEMIDE 40 MG/4 ML VIAL (J1940) IV ×2 (08:26→17:06)
[2018-03-21] MEDS: ISOSORBIDE MON. (IMDUR) 30 MG XR TAB PO (08:27)
[2018-03-21] MEDS: RIVAROXABAN 15 MG TAB (XARELTO) PO (08:27)
[2018-03-21] MEDS: VITAMIN D 1,000 INTERNATIONAL UNITS TABLET PO (08:27)
[2018-03-21] MEDS: PREVNAR 13 VACCINE SYRINGE (CPT CODE:90670) IM (08:28)
[2018-03-21] MEDS ORDERED: SLF 3 ML SYR IV (10:15)
[2018-03-21 10:51] LABS: CPK CREATINE PHOSPHOKINASE 41 U/L (26-192); MB/CK RELATIVE INDEX 5.12 (< OR =4); TROPONIN I < 0.02 NG/ML (< 0.10)
[2018-03-21] MEDS: ACETAMINOPHEN TAB 650MG DOSE (2X325MG) PO (10:56)
[2018-03-21] MEDS: LETROZOLE 2.5 MG TAB PO (11:27)
[2018-03-21] MEDS: SLF 3 ML SYR IV ×2 (14:02→20:43)
[2018-03-21] MEDS ORDERED: SENOKOT S TAB PO (16:15)
[2018-03-21] MEDS: ADVAIR HFA 230/21MCG INHALER INH (20:33)
[2018-03-21] MEDS: SIMVASTATIN 10 MG TAB PO (20:43)
[2018-03-22] MEDS: ACETAMINOPHEN TAB 650MG DOSE (2X325MG) PO (00:27)
[2018-03-22] MEDS: IPRATROPIUM 0.5MG/ALBUTEROL 2.5MG INH SOL UD 3ML (DUONEB)(J7620) NEB ×4 (02:00→20:00)
[2018-03-22 05:16] LABS: HEMATOCRIT 29.4 % (36.0-47.0); HEMOGLOBIN 8.5 g/dl (12.0-15.5); MEAN CORPUSCULAR HGB CONC 28.9 g/dl (32.0-36.5); MEAN CORPUSCULAR VOLUME 79.5 fl (80.0-96.0); PLATELET COUNT, AUTOMATED 281 10^3/uL (150-450); RED CELL DISTRIBUTION WIDTH 19.5 % (11.5-14.5); WHITE BLOOD COUNT 11.9 10^3/uL (4.0-10.0)
[2018-03-22 05:50] LABS: ALBUMIN 3.2 GM/DL (3.2-5.2); ALBUMIN/GLOBULIN RATIO 1.23 (1.00-1.93); ALKALINE PHOSPHATASE 85 U/L (45-117); ALT/SGPT 19 U/L (12-78); ANION GAP 7 MEQ/L (8-16); AST/SGOT 9 U/L (7-37); BILIRUBIN,TOTAL 0.3 MG/DL (0.2-1.0); BLOOD UREA NITROGEN 15 MG/DL (7-18); CALCIUM LEVEL 8.7 MG/DL (8.8-10.2); CARBON DIOXIDE LEVEL 34 MEQ/L (21-32); CHLORIDE LEVEL 101 MEQ/L (98-107); CREATININE FOR GFR 0.68 MG/DL (0.55-1.30); GLOMERULAR FILTRATION RATE > 60.0 (>32); GLUCOSE, FASTING 99 MG/DL (70-100); MAGNESIUM LEVEL 2.1 MG/DL (1.8-2.4); POTASSIUM SERUM 3.6 MEQ/L (3.5-5.1); SODIUM LEVEL 142 MEQ/L (136-145); TOTAL PROTEIN 5.8 GM/DL (6.4-8.2)
[2018-03-22] MEDS: SLF 3 ML SYR IV ×3 (06:28→20:47)
[2018-03-22] MEDS: ADVAIR HFA 230/21MCG INHALER INH ×2 (07:47→21:40)
[2018-03-22 07:58] LABS: C REACTIVE PROTEIN QUANTITATIV 0.64 MG/DL (0.00-0.30)
[2018-03-22] MEDS: METOCLOPRAMIDE 5 MG TAB PO ×4 (08:23→20:47)
[2018-03-22] MEDS: RIVAROXABAN 15 MG TAB (XARELTO) PO (08:23)
[2018-03-22] MEDS: VITAMIN D 1,000 INTERNATIONAL UNITS TABLET PO (08:23)
[2018-03-22] MEDS: LETROZOLE 2.5 MG TAB PO (08:23)
[2018-03-22] MEDS: FUROSEMIDE 40 MG/4 ML VIAL (J1940) IV ×2 (08:25→16:36)
[2018-03-22] MEDS: ISOSORBIDE MON. (IMDUR) 30 MG XR TAB PO (08:42)
[2018-03-22 09:52] LABS: APPEARANCE, URINE CLEAR (CLEAR); BACTERIA, URINE AUTO NEGATIVE (NEGATIVE); BILIRUBIN, URINE AUTO NEGATIVE (NEGATIVE); BLOOD, URINE BLOOD NEGATIVE (NEGATIVE); COLOR, URINE YELLOW (YELLOW); GLUCOSE, URINE (UA) AUTO NEGATIVE (NEGATIVE); KETONE, URINE AUTO NEGATIVE (NEGATIVE); LEUKOCYTE ESTERASE, URINE AUTO TRACE (NEGATIVE); MUCUS, URINE SMALL (NEGATIVE); NITRITE, URINE AUTO NEGATIVE (NEGATIVE); PROTEIN, URINE AUTO NEGATIVE (NEGATIVE); RBC, URINE AUTO 2 /HPF (0-3); SQUAMOUS EPITHELIAL CELL UR AU 2 /HPF (0-6); TRANSITIONAL EPITHELIAL AUTO 1 /HPF; UROBILINOGEN, URINE AUTO 0.2 mg/dL (0.0-2.0); WBC, URINE AUTO 2 /HPF (0-3)
[2018-03-22] MEDS: SIMVASTATIN 10 MG TAB PO (20:47)
[2018-03-23] MEDS: IPRATROPIUM 0.5MG/ALBUTEROL 2.5MG INH SOL UD 3ML (DUONEB)(J7620) NEB ×4 (02:00→20:00)
[2018-03-23] MEDS: SLF 3 ML SYR IV ×3 (05:19→20:47)
[2018-03-23 05:59] LABS: HEMOGLOBIN 9.2 g/dl (12.0-15.5); MEAN CORPUSCULAR HEMOGLOBIN 22.3 pg (27.0-33.0); MEAN CORPUSCULAR HGB CONC 28.8 g/dl (32.0-36.5); MEAN CORPUSCULAR VOLUME 77.7 fl (80.0-96.0); PLATELET COUNT, AUTOMATED 330 10^3/uL (150-450); RED BLOOD COUNT 4.12 10^6/uL (4.00-5.40); RED CELL DISTRIBUTION WIDTH 19.6 % (11.5-14.5); WHITE BLOOD COUNT 11.6 10^3/uL (4.0-10.0)
[2018-03-23 06:42] LABS: ALBUMIN 3.3 GM/DL (3.2-5.2); ALBUMIN/GLOBULIN RATIO 1.27 (1.00-1.93); ALKALINE PHOSPHATASE 76 U/L (45-117); ALT/SGPT 15 U/L (12-78); ANION GAP 4 MEQ/L (8-16); AST/SGOT 13 U/L (7-37); BILIRUBIN,TOTAL 0.5 MG/DL (0.2-1.0); BLOOD UREA NITROGEN 18 MG/DL (7-18); C REACTIVE PROTEIN QUANTITATIV 0.78 MG/DL (0.00-0.30); CALCIUM LEVEL 8.3 MG/DL (8.8-10.2); CARBON DIOXIDE LEVEL 37 MEQ/L (21-32); CHLORIDE LEVEL 97 MEQ/L (98-107); CREATININE FOR GFR 0.64 MG/DL (0.55-1.30); GLOMERULAR FILTRATION RATE > 60.0 (>32); GLUCOSE, FASTING 98 MG/DL (70-100); MAGNESIUM LEVEL 2.1 MG/DL (1.8-2.4); POTASSIUM SERUM 3.8 MEQ/L (3.5-5.1); SODIUM LEVEL 138 MEQ/L (136-145); TOTAL PROTEIN 5.9 GM/DL (6.4-8.2)
[2018-03-23] MEDS: LETROZOLE 2.5 MG TAB PO (08:45)
[2018-03-23] MEDS: RIVAROXABAN 15 MG TAB (XARELTO) PO (08:46)
[2018-03-23] MEDS: FUROSEMIDE 40 MG/4 ML VIAL (J1940) IV ×2 (08:46→17:10)
[2018-03-23] MEDS: VITAMIN D 1,000 INTERNATIONAL UNITS TABLET PO (08:46)
[2018-03-23] MEDS: METOCLOPRAMIDE 5 MG TAB PO ×4 (08:46→20:47)
[2018-03-23] MEDS: ISOSORBIDE MON. (IMDUR) 30 MG XR TAB PO (08:46)
[2018-03-23] MEDS: ADVAIR HFA 230/21MCG INHALER INH ×2 (08:50→20:29)
[2018-03-23] MEDS: SIMVASTATIN 10 MG TAB PO (20:47)
[2018-03-24] MEDS: IPRATROPIUM 0.5MG/ALBUTEROL 2.5MG INH SOL UD 3ML (DUONEB)(J7620) NEB ×4 (02:00→20:00)
[2018-03-24] MEDS: SLF 3 ML SYR IV ×3 (05:10→22:00)
[2018-03-24 05:21] LABS: HEMATOCRIT 34.2 % (36.0-47.0); HEMOGLOBIN 9.8 g/dl (12.0-15.5); MEAN CORPUSCULAR HEMOGLOBIN 22.2 pg (27.0-33.0); MEAN CORPUSCULAR HGB CONC 28.7 g/dl (32.0-36.5); MEAN CORPUSCULAR VOLUME 77.4 fl (80.0-96.0); PLATELET COUNT, AUTOMATED 366 10^3/uL (150-450); RED BLOOD COUNT 4.42 10^6/uL (4.00-5.40); RED CELL DISTRIBUTION WIDTH 19.4 % (11.5-14.5); WHITE BLOOD COUNT 11.6 10^3/uL (4.0-10.0)
[2018-03-24 05:40] LABS: ALBUMIN 3.3 GM/DL (3.2-5.2); ALBUMIN/GLOBULIN RATIO 1.06 (1.00-1.93); ALKALINE PHOSPHATASE 73 U/L (45-117); ALT/SGPT 15 U/L (12-78); ANION GAP 3 MEQ/L (8-16); AST/SGOT 9 U/L (7-37); BILIRUBIN,TOTAL 0.4 MG/DL (0.2-1.0); BLOOD UREA NITROGEN 14 MG/DL (7-18); C REACTIVE PROTEIN QUANTITATIV 0.61 MG/DL (0.00-0.30); CALCIUM LEVEL 8.4 MG/DL (8.8-10.2); CARBON DIOXIDE LEVEL 38 MEQ/L (21-32); CHLORIDE LEVEL 98 MEQ/L (98-107); CREATININE FOR GFR 0.73 MG/DL (0.55-1.30); GLOMERULAR FILTRATION RATE > 60.0 (>32); GLUCOSE, FASTING 95 MG/DL (70-100); MAGNESIUM LEVEL 2.1 MG/DL (1.8-2.4); POTASSIUM SERUM 3.6 MEQ/L (3.5-5.1); SODIUM LEVEL 139 MEQ/L (136-145); TOTAL PROTEIN 6.4 GM/DL (6.4-8.2)
[2018-03-24] MEDS: ADVAIR HFA 230/21MCG INHALER INH ×2 (07:29→20:36)
[2018-03-24] MEDS: METOCLOPRAMIDE 5 MG TAB PO ×4 (07:51→20:11)
[2018-03-24] MEDS: VITAMIN D 1,000 INTERNATIONAL UNITS TABLET PO (08:22)
[2018-03-24] MEDS: FUROSEMIDE 40 MG/4 ML VIAL (J1940) IV ×2 (08:22→17:17)
[2018-03-24] MEDS: RIVAROXABAN 15 MG TAB (XARELTO) PO (08:23)
[2018-03-24] MEDS: DIGOXIN 0.125 MG TAB PO (08:23)
[2018-03-24] MEDS: LETROZOLE 2.5 MG TAB PO (08:23)
[2018-03-24] MEDS: ISOSORBIDE MON. (IMDUR) 30 MG XR TAB PO (08:23)
[2018-03-24] MEDS: SIMVASTATIN 10 MG TAB PO (20:11)
[2018-03-25] MEDS: IPRATROPIUM 0.5MG/ALBUTEROL 2.5MG INH SOL UD 3ML (DUONEB)(J7620) NEB ×4 (02:00→20:00)
[2018-03-25] MEDS: SLF 3 ML SYR IV ×3 (05:34→20:04)
[2018-03-25 06:56] LABS: HEMATOCRIT 33.5 % (36.0-47.0); HEMOGLOBIN 9.8 g/dl (12.0-15.5); MEAN CORPUSCULAR HEMOGLOBIN 22.4 pg (27.0-33.0); MEAN CORPUSCULAR HGB CONC 29.3 g/dl (32.0-36.5); MEAN CORPUSCULAR VOLUME 76.7 fl (80.0-96.0); PLATELET COUNT, AUTOMATED 363 10^3/uL (150-450); RED BLOOD COUNT 4.37 10^6/uL (4.00-5.40); RED CELL DISTRIBUTION WIDTH 19.3 % (11.5-14.5); WHITE BLOOD COUNT 12.9 10^3/uL (4.0-10.0)
[2018-03-25] MEDS: ADVAIR HFA 230/21MCG INHALER INH ×2 (07:18→20:20)
[2018-03-25 07:20] LABS: ALBUMIN 3.2 GM/DL (3.2-5.2); ALKALINE PHOSPHATASE 81 U/L (45-117); ALT/SGPT 16 U/L (12-78); ANION GAP 5 MEQ/L (8-16); AST/SGOT 11 U/L (7-37); BILIRUBIN,TOTAL 0.4 MG/DL (0.2-1.0); BLOOD UREA NITROGEN 17 MG/DL (7-18); C REACTIVE PROTEIN QUANTITATIV 0.71 MG/DL (0.00-0.30); CALCIUM LEVEL 8.4 MG/DL (8.8-10.2); CARBON DIOXIDE LEVEL 34 MEQ/L (21-32); CHLORIDE LEVEL 97 MEQ/L (98-107); CREATININE FOR GFR 0.68 MG/DL (0.55-1.30); GLOMERULAR FILTRATION RATE > 60.0 (>32); GLUCOSE, FASTING 94 MG/DL (70-100); MAGNESIUM LEVEL 2.1 MG/DL (1.8-2.4); POTASSIUM SERUM 3.7 MEQ/L (3.5-5.1); SODIUM LEVEL 136 MEQ/L (136-145); TOTAL PROTEIN 6.4 GM/DL (6.4-8.2)
[2018-03-25] MEDS: FUROSEMIDE 40 MG/4 ML VIAL (J1940) IV ×2 (08:12→17:08)
[2018-03-25] MEDS: DIGOXIN 0.125 MG TAB PO (08:13)
[2018-03-25] MEDS: METOCLOPRAMIDE 5 MG TAB PO ×4 (08:13→20:04)
[2018-03-25] MEDS: RIVAROXABAN 15 MG TAB (XARELTO) PO (08:13)
[2018-03-25] MEDS: LETROZOLE 2.5 MG TAB PO (08:13)
[2018-03-25] MEDS: ISOSORBIDE MON. (IMDUR) 30 MG XR TAB PO (08:14)
[2018-03-25] MEDS: VITAMIN D 1,000 INTERNATIONAL UNITS TABLET PO (08:14)
[2018-03-25] MEDS: SIMVASTATIN 10 MG TAB PO (20:04)
[2018-03-26] MEDS: ACETAMINOPHEN TAB 650MG DOSE (2X325MG) PO (00:38)
[2018-03-26] MEDS: IPRATROPIUM 0.5MG/ALBUTEROL 2.5MG INH SOL UD 3ML (DUONEB)(J7620) NEB ×4 (02:00→20:00)
[2018-03-26] MEDS: LIDOCAINE 5% (LIDODERM) PATCH TD (02:16)
[2018-03-26] MEDS: SLF 3 ML SYR IV ×3 (05:09→20:56)
[2018-03-26 06:10] LABS: HEMOGLOBIN 9.3 g/dl (12.0-15.5); MEAN CORPUSCULAR HEMOGLOBIN 22.2 pg (27.0-33.0); MEAN CORPUSCULAR HGB CONC 29.1 g/dl (32.0-36.5); MEAN CORPUSCULAR VOLUME 76.4 fl (80.0-96.0); PLATELET COUNT, AUTOMATED 365 10^3/uL (150-450); RED BLOOD COUNT 4.19 10^6/uL (4.00-5.40); RED CELL DISTRIBUTION WIDTH 19.4 % (11.5-14.5); WHITE BLOOD COUNT 13.6 10^3/uL (4.0-10.0)
[2018-03-26 06:35] LABS: ALBUMIN 3.2 GM/DL (3.2-5.2); ALBUMIN/GLOBULIN RATIO 1.07 (1.00-1.93); ALKALINE PHOSPHATASE 68 U/L (45-117); ALT/SGPT 13 U/L (12-78); ANION GAP 6 MEQ/L (8-16); AST/SGOT 12 U/L (7-37); BILIRUBIN,TOTAL 0.4 MG/DL (0.2-1.0); BLOOD UREA NITROGEN 15 MG/DL (7-18); C REACTIVE PROTEIN QUANTITATIV 1.97 MG/DL (0.00-0.30); CALCIUM LEVEL 8.7 MG/DL (8.8-10.2); CARBON DIOXIDE LEVEL 36 MEQ/L (21-32); CHLORIDE LEVEL 98 MEQ/L (98-107); CREATININE FOR GFR 0.66 MG/DL (0.55-1.30); GLOMERULAR FILTRATION RATE > 60.0 (>32); GLUCOSE, FASTING 103 MG/DL (70-100); MAGNESIUM LEVEL 2.2 MG/DL (1.8-2.4); POTASSIUM SERUM 3.2 MEQ/L (3.5-5.1); SODIUM LEVEL 140 MEQ/L (136-145); TOTAL PROTEIN 6.2 GM/DL (6.4-8.2)
[2018-03-26] MEDS: ADVAIR HFA 230/21MCG INHALER INH ×2 (08:34→20:07)
[2018-03-26] MEDS: METOCLOPRAMIDE 5 MG TAB PO ×4 (08:37→20:56)
[2018-03-26] MEDS: LETROZOLE 2.5 MG TAB PO (08:37)
[2018-03-26] MEDS: FUROSEMIDE 40 MG/4 ML VIAL (J1940) IV ×2 (08:37→17:20)
[2018-03-26] MEDS: RIVAROXABAN 15 MG TAB (XARELTO) PO (08:37)
[2018-03-26] MEDS: VITAMIN D 1,000 INTERNATIONAL UNITS TABLET PO (08:37)
[2018-03-26] MEDS: ISOSORBIDE MON. (IMDUR) 30 MG XR TAB PO (08:39)
[2018-03-26] MEDS: DIGOXIN 0.125 MG TAB PO (08:39)
[2018-03-26 09:46] LABS: KETONE, URINE AUTO RFX NEGATIVE (NEGATIVE); LEUKOCYTE ESTERASE UR AUTO RFX NEGATIVE (NEGATIVE); NITRITE, URINE AUTO RFX NEGATIVE (NEGATIVE); RBC, URINE AUTO RFX 0 /HPF (0-3); SPECIFIC GRAVITY UR AUTO RFX 1.009 (1.002-1.035); SQUAM EPITHELIAL CELL UR AURFX 0 /HPF (0-6); WBC, URINE AUTO RFX 0 /HPF (0-3)
[2018-03-26] MEDS: **NOTE PATIENT COMMENT** MISC XX (15:00)
[2018-03-26] MEDS: POTASSIUM CHLORIDE 10 MEQ SR TABLET PO (17:20)
[2018-03-26] MEDS: SIMVASTATIN 10 MG TAB PO (20:56)
[2018-03-27] MEDS: IPRATROPIUM 0.5MG/ALBUTEROL 2.5MG INH SOL UD 3ML (DUONEB)(J7620) NEB ×4 (02:00→20:19)
[2018-03-27] MEDS: SLF 3 ML SYR IV ×3 (05:41→20:15)
[2018-03-27 05:58] LABS: HEMATOCRIT 34.5 % (36.0-47.0); HEMOGLOBIN 9.8 g/dl (12.0-15.5); MEAN CORPUSCULAR HEMOGLOBIN 22.1 pg (27.0-33.0); MEAN CORPUSCULAR HGB CONC 28.4 g/dl (32.0-36.5); MEAN CORPUSCULAR VOLUME 77.7 fl (80.0-96.0); PLATELET COUNT, AUTOMATED 356 10^3/uL (150-450); RED BLOOD COUNT 4.44 10^6/uL (4.00-5.40); RED CELL DISTRIBUTION WIDTH 19.2 % (11.5-14.5); WHITE BLOOD COUNT 14.1 10^3/uL (4.0-10.0)
[2018-03-27 06:31] LABS: ALBUMIN 3.3 GM/DL (3.2-5.2); ALBUMIN/GLOBULIN RATIO 1.06 (1.00-1.93); ALKALINE PHOSPHATASE 72 U/L (45-117); ALT/SGPT 14 U/L (12-78); ANION GAP 5 MEQ/L (8-16); AST/SGOT 13 U/L (7-37); BILIRUBIN,TOTAL 0.4 MG/DL (0.2-1.0); BLOOD UREA NITROGEN 19 MG/DL (7-18); C REACTIVE PROTEIN QUANTITATIV 5.17 MG/DL (0.00-0.30); CALCIUM LEVEL 8.8 MG/DL (8.8-10.2); CARBON DIOXIDE LEVEL 35 MEQ/L (21-32); CHLORIDE LEVEL 98 MEQ/L (98-107); CREATININE FOR GFR 0.65 MG/DL (0.55-1.30); GLOMERULAR FILTRATION RATE > 60.0 (>32); GLUCOSE, FASTING 103 MG/DL (70-100); MAGNESIUM LEVEL 2.2 MG/DL (1.8-2.4); POTASSIUM SERUM 3.6 MEQ/L (3.5-5.1); SODIUM LEVEL 138 MEQ/L (136-145); TOTAL PROTEIN 6.4 GM/DL (6.4-8.2)
[2018-03-27] MEDS: ADVAIR HFA 230/21MCG INHALER INH ×2 (07:34→20:20)
[2018-03-27] MEDS: VITAMIN D 1,000 INTERNATIONAL UNITS TABLET PO (09:07)
[2018-03-27] MEDS: LETROZOLE 2.5 MG TAB PO (09:07)
[2018-03-27] MEDS: FUROSEMIDE 40 MG/4 ML VIAL (J1940) IV ×2 (09:07→17:39)
[2018-03-27] MEDS: METOCLOPRAMIDE 5 MG TAB PO ×4 (09:09→20:15)
[2018-03-27] MEDS: RIVAROXABAN 15 MG TAB (XARELTO) PO (09:09)
[2018-03-27] MEDS: ISOSORBIDE MON. (IMDUR) 30 MG XR TAB PO (09:09)
[2018-03-27] MEDS: DIGOXIN 0.125 MG TAB PO (09:09)
[2018-03-27] MEDS: SIMVASTATIN 10 MG TAB PO (20:15)
[2018-03-28] MEDS: IPRATROPIUM 0.5MG/ALBUTEROL 2.5MG INH SOL UD 3ML (DUONEB)(J7620) NEB ×4 (01:56→20:03)
[2018-03-28] MEDS: SLF 3 ML SYR IV ×3 (05:00→21:16)
[2018-03-28 07:21] LABS: HEMATOCRIT 31.4 % (36.0-47.0); HEMOGLOBIN 9.2 g/dl (12.0-15.5); MEAN CORPUSCULAR HEMOGLOBIN 22.5 pg (27.0-33.0); MEAN CORPUSCULAR HGB CONC 29.3 g/dl (32.0-36.5); MEAN CORPUSCULAR VOLUME 76.8 fl (80.0-96.0); PLATELET COUNT, AUTOMATED 357 10^3/uL (150-450); RED BLOOD COUNT 4.09 10^6/uL (4.00-5.40); RED CELL DISTRIBUTION WIDTH 19.1 % (11.5-14.5)
[2018-03-28 07:42] LABS: ANION GAP 7 MEQ/L (8-16); BLOOD UREA NITROGEN 14 MG/DL (7-18); C REACTIVE PROTEIN QUANTITATIV 6.59 MG/DL (0.00-0.30); CALCIUM LEVEL 8.8 MG/DL (8.8-10.2); CARBON DIOXIDE LEVEL 34 MEQ/L (21-32); CHLORIDE LEVEL 95 MEQ/L (98-107); CREATININE FOR GFR 0.63 MG/DL (0.55-1.30); GLOMERULAR FILTRATION RATE > 60.0 (>32); GLUCOSE, FASTING 105 MG/DL (70-100); POTASSIUM SERUM 3.6 MEQ/L (3.5-5.1); SODIUM LEVEL 136 MEQ/L (136-145)
[2018-03-28] MEDS: ADVAIR HFA 230/21MCG INHALER INH ×2 (08:14→20:03)
[2018-03-28 08:15] LABS: ERYTHROCYTE SEDIMENTATION RATE 30 mm/hr (0-30)
[2018-03-28] MEDS: VITAMIN D 1,000 INTERNATIONAL UNITS TABLET PO (08:55)
[2018-03-28] MEDS: METOCLOPRAMIDE 5 MG TAB PO ×4 (08:55→20:18)
[2018-03-28] MEDS: FUROSEMIDE 40 MG/4 ML VIAL (J1940) IV ×2 (08:55→16:40)
[2018-03-28] MEDS: DIGOXIN 0.125 MG TAB PO (08:55)
[2018-03-28] MEDS: RIVAROXABAN 15 MG TAB (XARELTO) PO (08:56)
[2018-03-28] MEDS: ISOSORBIDE MON. (IMDUR) 30 MG XR TAB PO (08:56)
[2018-03-28] MEDS: LETROZOLE 2.5 MG TAB PO (08:58)
[2018-03-28] MEDS: methylPREDNISolone INJ 125 MG/2 ML VIAL (J2930) IV ×2 (16:39→21:16)
[2018-03-28] MEDS: ACETAMINOPHEN TAB 650MG DOSE (2X325MG) PO (16:40)
[2018-03-28] MEDS: SIMVASTATIN 10 MG TAB PO (20:18)
[2018-03-29] MEDS: IPRATROPIUM 0.5MG/ALBUTEROL 2.5MG INH SOL UD 3ML (DUONEB)(J7620) NEB ×5 (00:13→20:00)
[2018-03-29] MEDS: methylPREDNISolone INJ 125 MG/2 ML VIAL (J2930) IV ×4 (03:33→21:03)
[2018-03-29] MEDS: SLF 3 ML SYR IV ×3 (05:52→21:03)
[2018-03-29 06:06] LABS: HEMATOCRIT 31.6 % (36.0-47.0); HEMOGLOBIN 9.3 g/dl (12.0-15.5); MEAN CORPUSCULAR HEMOGLOBIN 22.5 pg (27.0-33.0); MEAN CORPUSCULAR HGB CONC 29.4 g/dl (32.0-36.5); MEAN CORPUSCULAR VOLUME 76.5 fl (80.0-96.0); PLATELET COUNT, AUTOMATED 351 10^3/uL (150-450); RED BLOOD COUNT 4.13 10^6/uL (4.00-5.40); RED CELL DISTRIBUTION WIDTH 18.9 % (11.5-14.5)
[2018-03-29 06:33] LABS: ANION GAP 8 MEQ/L (8-16); BLOOD UREA NITROGEN 17 MG/DL (7-18); CALCIUM LEVEL 9.5 MG/DL (8.8-10.2); CARBON DIOXIDE LEVEL 34 MEQ/L (21-32); CHLORIDE LEVEL 97 MEQ/L (98-107); CREATININE FOR GFR 0.66 MG/DL (0.55-1.30); GLOMERULAR FILTRATION RATE > 60.0 (>32); GLUCOSE, FASTING 193 MG/DL (70-100); POTASSIUM SERUM 3.5 MEQ/L (3.5-5.1); SODIUM LEVEL 139 MEQ/L (136-145)
[2018-03-29] MEDS: ADVAIR HFA 230/21MCG INHALER INH ×2 (07:19→20:09)
[2018-03-29] MEDS: RIVAROXABAN 15 MG TAB (XARELTO) PO (09:22)
[2018-03-29] MEDS: FUROSEMIDE 40 MG/4 ML VIAL (J1940) IV ×2 (09:23→17:31)
[2018-03-29] MEDS: METOCLOPRAMIDE 5 MG TAB PO ×4 (09:23→21:03)
[2018-03-29] MEDS: ISOSORBIDE MON. (IMDUR) 30 MG XR TAB PO (09:23)
[2018-03-29] MEDS: VITAMIN D 1,000 INTERNATIONAL UNITS TABLET PO (09:23)
[2018-03-29] MEDS: LETROZOLE 2.5 MG TAB PO (11:16)
[2018-03-29] MEDS: SIMVASTATIN 10 MG TAB PO (21:03)
[2018-03-30] MEDS: IPRATROPIUM 0.5MG/ALBUTEROL 2.5MG INH SOL UD 3ML (DUONEB)(J7620) NEB ×3 (00:44→08:00)
[2018-03-30] MEDS: methylPREDNISolone INJ 125 MG/2 ML VIAL (J2930) IV ×2 (04:36→09:43)
[2018-03-30] MEDS: SLF 3 ML SYR IV (04:36)
[2018-03-30 05:47] LABS: HEMATOCRIT 29.6 % (36.0-47.0); HEMOGLOBIN 8.7 g/dl (12.0-15.5); MEAN CORPUSCULAR HEMOGLOBIN 22.3 pg (27.0-33.0); MEAN CORPUSCULAR HGB CONC 29.4 g/dl (32.0-36.5); MEAN CORPUSCULAR VOLUME 75.9 fl (80.0-96.0); PLATELET COUNT, AUTOMATED 365 10^3/uL (150-450); RED CELL DISTRIBUTION WIDTH 19.1 % (11.5-14.5); WHITE BLOOD COUNT 18.1 10^3/uL (4.0-10.0)
[2018-03-30 06:16] LABS: ANION GAP 6 MEQ/L (8-16); BLOOD UREA NITROGEN 27 MG/DL (7-18); CARBON DIOXIDE LEVEL 34 MEQ/L (21-32); CHLORIDE LEVEL 97 MEQ/L (98-107); CREATININE FOR GFR 0.76 MG/DL (0.55-1.30); GLOMERULAR FILTRATION RATE > 60.0 (>32); GLUCOSE, FASTING 184 MG/DL (70-100); POTASSIUM SERUM 3.7 MEQ/L (3.5-5.1); SODIUM LEVEL 137 MEQ/L (136-145)
[2018-03-30] MEDS: METOCLOPRAMIDE 5 MG TAB PO ×2 (07:30→12:31)
[2018-03-30] MEDS: FUROSEMIDE 40 MG/4 ML VIAL (J1940) IV (09:43)
[2018-03-30] MEDS: RIVAROXABAN 15 MG TAB (XARELTO) PO (09:43)
[2018-03-30] MEDS: LETROZOLE 2.5 MG TAB PO (09:43)
[2018-03-30] MEDS: VITAMIN D 1,000 INTERNATIONAL UNITS TABLET PO (09:44)
[2018-03-30] MEDS: ISOSORBIDE MON. (IMDUR) 30 MG XR TAB PO (09:44)
[2018-03-30] MEDS: ADVAIR HFA 230/21MCG INHALER INH (11:31)
== END 2018-03-30 13:46 | disposition home or self-care (01) | DRG 291 ==
LOC: M PCU 03-21 00:47 → M MSPAV 03-24 18:32 → M ED 11:53 → M ED INP 15:41 → M PCU 17:31
DX: I11.0 Hypertensive heart disease with heart failure (principal); J96.21 Acute and chronic respiratory failure with hypoxia; J98.11 Atelectasis; J44.9 Chronic obstructive pulmonary disease, unspecified; I48.2 Chronic atrial fibrillation; I25.10 Atherosclerotic heart disease of native coronary artery without angina pectoris; I50.33 Acute on chronic diastolic (congestive) heart failure; K59.09 Other constipation; E78.5 Hyperlipidemia, unspecified; Z66 Do not resuscitate; I50.811 Acute right heart failure; E55.9 Vitamin D deficiency, unspecified; G47.00 Insomnia, unspecified; R26.81 Unsteadiness on feet; D64.9 Anemia, unspecified; I27.20 Pulmonary hypertension, unspecified; Z96.641 Presence of right artificial hip joint; Z96.651 Presence of right artificial knee joint; Z85.3 Personal history of malignant neoplasm of breast; Z99.81 Dependence on supplemental oxygen; Z79.01 Long term (current) use of anticoagulants; Z79.899 Other long term (current) drug therapy; Z91.040 Latex allergy status

== ENCOUNTER 2018-05-01 03:25 | Inpatient (IN) | payer OTHER ==
[2018-05-01 04:03] LABS: BASO # 0.1 10^3/uL (0.0-0.2); BASO % 0.8 % (0.0-1.0); EOS # 0.2 10^3/uL (0.0-0.50); EOS % 1.9 % (0.0-3.0); HEMATOCRIT 24.9 % (36.0-47.0); HEMOGLOBIN 7.1 g/dl (12.0-15.5); IMMATURE GRANULOCYTE % 1.4 % (0-3.0); LYMPH # 1.2 10^3/uL (1.5-4.5); LYMPH % 9.5 % (24.0-44.0); MEAN CORPUSCULAR HEMOGLOBIN 21.5 pg (27.0-33.0); MEAN CORPUSCULAR HGB CONC 28.5 g/dl (32.0-36.5); MEAN CORPUSCULAR VOLUME 75.2 fl (80.0-96.0); MONO # 1.3 10^3/uL (0.0-0.8); MONO % 9.9 % (0.0-5.0); NEUTROPHILS # 9.7 10^3/uL (1.8-7.7); NEUTROPHILS % 76.5 % (36.0-66.0); PLATELET COUNT, AUTOMATED 375 10^3/uL (150-450); RED BLOOD COUNT 3.31 10^6/uL (4.00-5.40); RED CELL DISTRIBUTION WIDTH 18.6 % (11.5-14.5); WHITE BLOOD COUNT 12.7 10^3/uL (4.0-10.0)
[2018-05-01 04:32] LABS: ANION GAP 7 MEQ/L (8-16); BLOOD UREA NITROGEN 15 MG/DL (7-18); CALCIUM LEVEL 8.7 MG/DL (8.8-10.2); CARBON DIOXIDE LEVEL 29 MEQ/L (21-32); CHLORIDE LEVEL 103 MEQ/L (98-107); CPK CREATINE PHOSPHOKINASE 43 U/L (26-192); CREATININE FOR GFR 0.84 MG/DL (0.55-1.30); GLOMERULAR FILTRATION RATE > 60.0 (>32); GLUCOSE, FASTING 101 MG/DL (70-100); MB/CK RELATIVE INDEX 3.02 (< OR =4); NT-PRO BNP 3860 PG/ML (<450); POTASSIUM SERUM 4.5 MEQ/L (3.5-5.1); SODIUM LEVEL 139 MEQ/L (136-145); TROPONIN I 0.02 NG/ML (< 0.10)
[2018-05-01] MEDS: IPRATROPIUM 0.5MG/ALBUTEROL 2.5MG INH SOL UD 3ML (DUONEB)(J7620) NEB ×4 (05:08→20:00)
[2018-05-01] MEDS: methylPREDNISolone INJ 125 MG/2 ML VIAL (J2930) IV (05:09)
[2018-05-01] MEDS: PANTOPRAZOLE 40MG INJ (PROTONIX) (C9113) IV (05:43)
[2018-05-01] MEDS ORDERED: IPRATROPIUM 0.5MG/ALBUTEROL 2.5MG INH SOL UD 3ML (DUONEB)(J7620) NEB (06:30)
[2018-05-01] MEDS: ADVAIR HFA 115/21MCG INHALER INH ×2 (07:44→20:05)
[2018-05-01] MEDS ORDERED: ACETYLCYSTEINE 10% 30 ML VIAL INH (08:00)
[2018-05-01] MEDS ORDERED: FUROSEMIDE 40 MG/4 ML VIAL (J1940) IV (09:00)
[2018-05-01] MEDS ORDERED: PREVNAR 13 VACCINE SYRINGE (CPT CODE:90670) IM (09:15)
[2018-05-01] MEDS: DIGOXIN 0.125 MG TAB PO (09:51)
[2018-05-01] MEDS: FUROSEMIDE 40 MG/4 ML VIAL (J1940) IV ×2 (09:51→20:19)
[2018-05-01] MEDS: VITAMIN D 1,000 INTERNATIONAL UNITS TABLET PO (09:53)
[2018-05-01] MEDS: ISOSORBIDE MON. (IMDUR) 30 MG XR TAB PO (09:53)
[2018-05-01] MEDS: LETROZOLE 2.5 MG TAB PO (09:53)
[2018-05-01] MEDS: SENOKOT S TAB PO ×2 (09:53→20:18)
[2018-05-01] MEDS: SIMVASTATIN 10 MG TAB PO ×2 (09:55→20:18)
[2018-05-01 11:12] LABS: IMMEDIATE SPIN CROSSMATCH 1 2
[2018-05-01] MEDS: ACETYLCYSTEINE 20% 4 ML VIAL (200MG/ML) INH ×2 (11:15→20:00)
[2018-05-01] MEDS: FORMOTEROL FUMARATE 20 MCG/2 ML INHALATION SOLUTION (PERFOROMIST) INH ×2 (11:15→20:04)
[2018-05-01] MEDS: ACETAMINOPHEN 650MG ER TAB (TYLENOL ARTHRITIS) PO ×2 (15:17→23:31)
[2018-05-01 17:39] LABS: HEMATOCRIT 31.6 % (36.0-47.0); HEMOGLOBIN 9.2 g/dl (12.0-15.5)
[2018-05-02] MEDS: IPRATROPIUM 0.5MG/ALBUTEROL 2.5MG INH SOL UD 3ML (DUONEB)(J7620) NEB ×4 (01:04→20:00)
[2018-05-02 05:07] LABS: HEMATOCRIT 28.9 % (36.0-47.0); HEMOGLOBIN 8.6 g/dl (12.0-15.5); MEAN CORPUSCULAR HEMOGLOBIN 22.5 pg (27.0-33.0); MEAN CORPUSCULAR HGB CONC 29.8 g/dl (32.0-36.5); MEAN CORPUSCULAR VOLUME 75.7 fl (80.0-96.0); PLATELET COUNT, AUTOMATED 334 10^3/uL (150-450); RED BLOOD COUNT 3.82 10^6/uL (4.00-5.40); RED CELL DISTRIBUTION WIDTH 19.2 % (11.5-14.5); WHITE BLOOD COUNT 13.6 10^3/uL (4.0-10.0)
[2018-05-02 05:24] LABS: ANION GAP 7 MEQ/L (8-16); BLOOD UREA NITROGEN 17 MG/DL (7-18); CALCIUM LEVEL 8.2 MG/DL (8.8-10.2); CARBON DIOXIDE LEVEL 29 MEQ/L (21-32); CHLORIDE LEVEL 103 MEQ/L (98-107); CREATININE FOR GFR 0.93 MG/DL (0.55-1.30); GLOMERULAR FILTRATION RATE > 60.0 (>32); GLUCOSE, FASTING 108 MG/DL (70-100); POTASSIUM SERUM 3.9 MEQ/L (3.5-5.1); SODIUM LEVEL 139 MEQ/L (136-145)
[2018-05-02] MEDS: ADVAIR HFA 115/21MCG INHALER INH ×2 (07:42→20:26)
[2018-05-02] MEDS: ACETYLCYSTEINE 20% 4 ML VIAL (200MG/ML) INH (08:00)
[2018-05-02] MEDS: ISOSORBIDE MON. (IMDUR) 30 MG XR TAB PO (08:07)
[2018-05-02] MEDS: SENOKOT S TAB PO ×2 (08:07→20:22)
[2018-05-02] MEDS: LETROZOLE 2.5 MG TAB PO (08:08)
[2018-05-02] MEDS: ACETAMINOPHEN 650MG ER TAB (TYLENOL ARTHRITIS) PO (08:08)
[2018-05-02] MEDS: DIGOXIN 0.125 MG TAB PO (08:08)
[2018-05-02] MEDS: VITAMIN D 1,000 INTERNATIONAL UNITS TABLET PO (08:09)
[2018-05-02] MEDS: FUROSEMIDE 40 MG/4 ML VIAL (J1940) IV ×2 (08:09→20:23)
[2018-05-02] MEDS: FORMOTEROL FUMARATE 20 MCG/2 ML INHALATION SOLUTION (PERFOROMIST) INH ×2 (08:37→20:26)
[2018-05-02] MEDS: SUCRALFATE 1 GM TAB PO ×3 (12:17→20:22)
[2018-05-02] MEDS: PANTOPRAZOLE 40MG INJ (PROTONIX) (C9113) IV ×2 (12:17→20:57)
[2018-05-02 12:29] LABS: HEMATOCRIT 28.3 % (36.0-47.0); HEMOGLOBIN 8.3 g/dl (12.0-15.5)
[2018-05-02 17:19] LABS: HEMATOCRIT 29.7 % (36.0-47.0); HEMOGLOBIN 8.7 g/dl (12.0-15.5)
[2018-05-02 17:26] LABS: ANION GAP 7 MEQ/L (8-16); BLOOD UREA NITROGEN 18 MG/DL (7-18); CALCIUM LEVEL 8.4 MG/DL (8.8-10.2); CARBON DIOXIDE LEVEL 30 MEQ/L (21-32); CHLORIDE LEVEL 99 MEQ/L (98-107); CREATININE FOR GFR 0.83 MG/DL (0.55-1.30); GLOMERULAR FILTRATION RATE > 60.0 (>32); GLUCOSE, FASTING 121 MG/DL (70-100); MAGNESIUM LEVEL 1.9 MG/DL (1.8-2.4); POTASSIUM SERUM 3.6 MEQ/L (3.5-5.1); SODIUM LEVEL 136 MEQ/L (136-145)
[2018-05-02] MEDS: POTASSIUM CHLORIDE 10 MEQ SR TABLET PO (18:08)
[2018-05-02] MEDS: MAG SULF 1GM/100ML (MAG RUN) 1 GM in APPROPRIATE DILUENT 1 EA IV (18:09)
[2018-05-02] MEDS: SIMVASTATIN 10 MG TAB PO (20:22)
[2018-05-02] MEDS: traZODone 50 MG TAB PO (20:22)
[2018-05-02 20:57] LABS: KETONE, URINE AUTO RFX NEGATIVE (NEGATIVE); LEUKOCYTE ESTERASE UR AUTO RFX NEGATIVE (NEGATIVE); NITRITE, URINE AUTO RFX NEGATIVE (NEGATIVE); RBC, URINE AUTO RFX 0 /HPF (0-3); SPECIFIC GRAVITY UR AUTO RFX 1.004 (1.002-1.035); SQUAM EPITHELIAL CELL UR AURFX 0 /HPF (0-6); WBC, URINE AUTO RFX 1 /HPF (0-3)
[2018-05-03] MEDS: IPRATROPIUM 0.5MG/ALBUTEROL 2.5MG INH SOL UD 3ML (DUONEB)(J7620) NEB ×4 (02:00→20:41)
[2018-05-03 05:01] LABS: HEMATOCRIT 30.2 % (36.0-47.0); HEMOGLOBIN 8.6 g/dl (12.0-15.5); MEAN CORPUSCULAR HEMOGLOBIN 21.7 pg (27.0-33.0); MEAN CORPUSCULAR HGB CONC 28.5 g/dl (32.0-36.5); MEAN CORPUSCULAR VOLUME 76.1 fl (80.0-96.0); PLATELET COUNT, AUTOMATED 387 10^3/uL (150-450); RED BLOOD COUNT 3.97 10^6/uL (4.00-5.40); RED CELL DISTRIBUTION WIDTH 19.6 % (11.5-14.5); WHITE BLOOD COUNT 14.3 10^3/uL (4.0-10.0)
[2018-05-03 05:12] LABS: ANION GAP 7 MEQ/L (8-16); BLOOD UREA NITROGEN 23 MG/DL (7-18); CALCIUM LEVEL 8.6 MG/DL (8.8-10.2); CARBON DIOXIDE LEVEL 32 MEQ/L (21-32); CHLORIDE LEVEL 102 MEQ/L (98-107); CREATININE FOR GFR 0.81 MG/DL (0.55-1.30); GLOMERULAR FILTRATION RATE > 60.0 (>32); GLUCOSE, FASTING 92 MG/DL (70-100); MAGNESIUM LEVEL 2.3 MG/DL (1.8-2.4); POTASSIUM SERUM 3.8 MEQ/L (3.5-5.1); SODIUM LEVEL 141 MEQ/L (136-145)
[2018-05-03 07:52] LABS: REASON FOR REVIEW WBC/LEUKEMIA/BLAST; SLIDE REVIEW Report; SOURCE PERIPHERAL SMEAR
[2018-05-03] MEDS: FORMOTEROL FUMARATE 20 MCG/2 ML INHALATION SOLUTION (PERFOROMIST) INH ×2 (08:16→20:40)
[2018-05-03] MEDS: ADVAIR HFA 115/21MCG INHALER INH ×2 (08:16→20:00)
[2018-05-03] MEDS ORDERED: PROPOFOL 200 MG/20 ML VIAL As Ordered (08:43)
[2018-05-03] MEDS ORDERED: LIDOCAINE 2% INJ 100 MG/5 ML SDV (FOR ANES.) As Ordered (08:43)
[2018-05-03] MEDS ORDERED: LEVALBUTEROL 1.25 MG/0.5 ML CONCENTRATE NEB As Ordered (09:29)
[2018-05-03] MEDS: LEVALBUTEROL 1.25 MG/0.5 ML CONCENTRATE NEB INH (09:30)
[2018-05-03] MEDS: VITAMIN D 1,000 INTERNATIONAL UNITS TABLET PO (10:33)
[2018-05-03] MEDS: LETROZOLE 2.5 MG TAB PO (10:33)
[2018-05-03] MEDS: SENOKOT S TAB PO ×2 (10:33→20:15)
[2018-05-03] MEDS: ISOSORBIDE MON. (IMDUR) 30 MG XR TAB PO (10:34)
[2018-05-03] MEDS: FUROSEMIDE 40 MG/4 ML VIAL (J1940) IV ×2 (10:34→20:14)
[2018-05-03] MEDS: POTASSIUM CHLORIDE 10 MEQ SR TABLET PO (10:34)
[2018-05-03] MEDS: PANTOPRAZOLE 40MG INJ (PROTONIX) (C9113) IV ×2 (10:34→20:13)
[2018-05-03] MEDS: ACETAMINOPHEN 650MG ER TAB (TYLENOL ARTHRITIS) PO ×3 (11:09→23:32)
[2018-05-03] MEDS: SUCRALFATE 1 GM TAB PO ×3 (12:27→20:14)
[2018-05-03] MEDS: PREVNAR 13 VACCINE SYRINGE (CPT CODE:90670) IM (15:40)
[2018-05-03] MEDS: SIMVASTATIN 10 MG TAB PO (20:14)
[2018-05-03] MEDS: traZODone 50 MG TAB PO (23:32)
[2018-05-04] MEDS: IPRATROPIUM 0.5MG/ALBUTEROL 2.5MG INH SOL UD 3ML (DUONEB)(J7620) NEB ×3 (02:00→12:48)
[2018-05-04 05:11] LABS: HEMATOCRIT 32.1 % (36.0-47.0); HEMOGLOBIN 9.2 g/dl (12.0-15.5); MEAN CORPUSCULAR HEMOGLOBIN 21.9 pg (27.0-33.0); MEAN CORPUSCULAR HGB CONC 28.7 g/dl (32.0-36.5); MEAN CORPUSCULAR VOLUME 76.2 fl (80.0-96.0); PLATELET COUNT, AUTOMATED 405 10^3/uL (150-450); RED BLOOD COUNT 4.21 10^6/uL (4.00-5.40); RED CELL DISTRIBUTION WIDTH 19.8 % (11.5-14.5); WHITE BLOOD COUNT 13.1 10^3/uL (4.0-10.0)
[2018-05-04 05:29] LABS: ANION GAP 5 MEQ/L (8-16); BLOOD UREA NITROGEN 19 MG/DL (7-18); CALCIUM LEVEL 8.4 MG/DL (8.8-10.2); CARBON DIOXIDE LEVEL 34 MEQ/L (21-32); CHLORIDE LEVEL 100 MEQ/L (98-107); CREATININE FOR GFR 0.92 MG/DL (0.55-1.30); GLOMERULAR FILTRATION RATE > 60.0 (>32); GLUCOSE, FASTING 97 MG/DL (70-100); MAGNESIUM LEVEL 2.2 MG/DL (1.8-2.4); POTASSIUM SERUM 3.8 MEQ/L (3.5-5.1); SODIUM LEVEL 139 MEQ/L (136-145)
[2018-05-04] MEDS: SUCRALFATE 1 GM TAB PO ×2 (07:29→12:08)
[2018-05-04] MEDS: ADVAIR HFA 115/21MCG INHALER INH (08:45)
[2018-05-04] MEDS: FORMOTEROL FUMARATE 20 MCG/2 ML INHALATION SOLUTION (PERFOROMIST) INH (08:45)
[2018-05-04] MEDS: SENOKOT S TAB PO (09:41)
[2018-05-04] MEDS: POTASSIUM CHLORIDE 10 MEQ SR TABLET PO (09:41)
[2018-05-04] MEDS: FUROSEMIDE 40 MG/4 ML VIAL (J1940) IV (09:42)
[2018-05-04] MEDS: VITAMIN D 1,000 INTERNATIONAL UNITS TABLET PO (09:42)
[2018-05-04] MEDS: ISOSORBIDE MON. (IMDUR) 30 MG XR TAB PO (09:42)
[2018-05-04] MEDS: LETROZOLE 2.5 MG TAB PO (09:42)
[2018-05-04] MEDS: PANTOPRAZOLE 40MG INJ (PROTONIX) (C9113) IV (09:43)
[2018-05-04] MEDS ORDERED: PANTOPRAZOLE 40MG TAB (PROTONIX) PO (21:00)
[2018-05-05] MEDS ORDERED: FUROSEMIDE 20 MG TAB PO (09:00)
== END 2018-05-04 14:38 | disposition home health service (06) | DRG 377 ==
LOC: M PCU 05-03 12:51 → M ED 03:25 → M ED INP 06:19 → M ICU 08:31
PROC: 0DJ08ZZ Inspection of Upper Intestinal Tract, Via Natural or Artificial Opening Endoscopic (ICD-10-PCS; principal; 2018-05-03 08:00)
PROC: 30233N1 Transfusion of Nonautologous Red Blood Cells into Peripheral Vein, Percutaneous Approach (ICD-10-PCS; 2018-05-03 08:51)
DX: K92.2 Gastrointestinal hemorrhage, unspecified (principal); I50.33 Acute on chronic diastolic (congestive) heart failure; D62 Acute posthemorrhagic anemia; J96.11 Chronic respiratory failure with hypoxia; I48.2 Chronic atrial fibrillation; I25.10 Atherosclerotic heart disease of native coronary artery without angina pectoris; I11.0 Hypertensive heart disease with heart failure; J44.9 Chronic obstructive pulmonary disease, unspecified; K59.09 Other constipation; I27.20 Pulmonary hypertension, unspecified; Z66 Do not resuscitate; R26.81 Unsteadiness on feet; E78.5 Hyperlipidemia, unspecified; E55.9 Vitamin D deficiency, unspecified; K31.9 Disease of stomach and duodenum, unspecified; G47.00 Insomnia, unspecified; Z99.81 Dependence on supplemental oxygen; Z85.3 Personal history of malignant neoplasm of breast; Z96.641 Presence of right artificial hip joint; Z96.651 Presence of right artificial knee joint; Z87.891 Personal history of nicotine dependence; Z79.01 Long term (current) use of anticoagulants; Z79.899 Other long term (current) drug therapy; Z91.040 Latex allergy status

== ENCOUNTER 2018-05-10 00:05 | Emergency (ER) | payer OTHER ==
[2018-05-10 01:05] LABS: BASO # 0.1 10^3/uL (0.0-0.2); BASO % 0.8 % (0.0-1.0); EOS # 0.2 10^3/uL (0.0-0.50); EOS % 1.5 % (0.0-3.0); HEMATOCRIT 31.3 % (36.0-47.0); IMMATURE GRANULOCYTE % 0.8 % (0-3.0); LYMPH # 0.6 10^3/uL (1.5-4.5); LYMPH % 5.2 % (24.0-44.0); MEAN CORPUSCULAR HEMOGLOBIN 21.8 pg (27.0-33.0); MEAN CORPUSCULAR HGB CONC 28.8 g/dl (32.0-36.5); MONO # 1.1 10^3/uL (0.0-0.8); MONO % 10.5 % (0.0-5.0); NEUTROPHILS # 8.8 10^3/uL (1.8-7.7); NEUTROPHILS % 81.2 % (36.0-66.0); PLATELET COUNT, AUTOMATED 358 10^3/uL (150-450); RED BLOOD COUNT 4.12 10^6/uL (4.00-5.40); RED CELL DISTRIBUTION WIDTH 19.1 % (11.5-14.5); WHITE BLOOD COUNT 10.9 10^3/uL (4.0-10.0)
[2018-05-10 01:19] LABS: ANION GAP 5 MEQ/L (8-16); BLOOD UREA NITROGEN 20 MG/DL (7-18); CALCIUM LEVEL 8.8 MG/DL (8.8-10.2); CARBON DIOXIDE LEVEL 34 MEQ/L (21-32); CHLORIDE LEVEL 100 MEQ/L (98-107); CK-MB VALUE MASS < 1.0 NG/ML (<3.6); CPK CREATINE PHOSPHOKINASE 35 U/L (26-192); CREATININE FOR GFR 0.88 MG/DL (0.55-1.30); GLOMERULAR FILTRATION RATE > 60.0 (>32); GLUCOSE, FASTING 114 MG/DL (70-100); MB/CK RELATIVE INDEX 2.86 (< OR =4); NT-PRO BNP 2378 PG/ML (<450); SODIUM LEVEL 139 MEQ/L (136-145); TROPONIN I < 0.02 NG/ML (< 0.10)
[2018-05-10] MEDS: FUROSEMIDE 100 MG/10 ML VIAL (J1940) IV (01:24)
[2018-05-10] MEDS: dexameTHASONE 20 MG/5 ML VIAL (J1100) IV (01:24)
[2018-05-10] MEDS: NITROGLYCERIN 2% OINT 1 GM *U/D* PKT TOP (01:38)
[2018-05-10] MEDS: FUROSEMIDE 20 MG/2 ML VIAL (J1940) IV (04:13)
== END 2018-05-10 05:01 | disposition home or self-care (01) ==
LOC: M ED 00:05
DX: I50.9 Heart failure, unspecified (principal); I48.91 Unspecified atrial fibrillation; I11.0 Hypertensive heart disease with heart failure; J44.9 Chronic obstructive pulmonary disease, unspecified; D64.9 Anemia, unspecified; J84.10 Pulmonary fibrosis, unspecified; Z87.891 Personal history of nicotine dependence; Z91.040 Latex allergy status; Z79.899 Other long term (current) drug therapy; Z79.51 Long term (current) use of inhaled steroids
CPT/HCPCS: J1100

== ENCOUNTER → 2018-05-15 | Outpatient (REF) | payer OTHER ==
[2018-05-15 12:27] LABS: HEMATOCRIT 30.5 % (36.0-47.0); HEMOGLOBIN 8.5 g/dl (12.0-15.5); MEAN CORPUSCULAR HEMOGLOBIN 21.1 pg (27.0-33.0); MEAN CORPUSCULAR HGB CONC 27.9 g/dl (32.0-36.5); MEAN CORPUSCULAR VOLUME 75.9 fl (80.0-96.0); PLATELET COUNT, AUTOMATED 270 10^3/uL (150-450); RED BLOOD COUNT 4.02 10^6/uL (4.00-5.40); RED CELL DISTRIBUTION WIDTH 19.4 % (11.5-14.5); WHITE BLOOD COUNT 11.8 10^3/uL (4.0-10.0)
[2018-05-15 13:00] LABS: ANION GAP 8 MEQ/L (8-16); BLOOD UREA NITROGEN 12 MG/DL (7-18); CALCIUM LEVEL 8.3 MG/DL (8.8-10.2); CARBON DIOXIDE LEVEL 31 MEQ/L (21-32); CHLORIDE LEVEL 100 MEQ/L (98-107); CREATININE FOR GFR 0.76 MG/DL (0.55-1.30); GLOMERULAR FILTRATION RATE > 60.0 (>32); GLUCOSE, FASTING 88 MG/DL (70-100); POTASSIUM SERUM 4.3 MEQ/L (3.5-5.1); SODIUM LEVEL 139 MEQ/L (136-145)
== END ==
LOC: M LAB REF 12:07
DX: I10 Essential (primary) hypertension (principal); D64.9 Anemia, unspecified
CPT/HCPCS: 80048

== ENCOUNTER 2018-05-19 13:49 | Inpatient (IN) | payer OTHER ==
[2018-05-19 14:39] LABS: BASO # 0.1 10^3/uL (0.0-0.2); BASO % 0.7 % (0.0-1.0); EOS # 0.2 10^3/uL (0.0-0.50); EOS % 1.7 % (0.0-3.0); HEMATOCRIT 28.7 % (36.0-47.0); HEMOGLOBIN 8.2 g/dl (12.0-15.5); IMMATURE GRANULOCYTE % 1.6 % (0-3.0); LYMPH # 0.9 10^3/uL (1.5-4.5); LYMPH % 9.3 % (24.0-44.0); MEAN CORPUSCULAR HEMOGLOBIN 21.5 pg (27.0-33.0); MEAN CORPUSCULAR HGB CONC 28.6 g/dl (32.0-36.5); MEAN CORPUSCULAR VOLUME 75.3 fl (80.0-96.0); MONO # 1.2 10^3/uL (0.0-0.8); MONO % 11.8 % (0.0-5.0); NEUTROPHILS # 7.4 10^3/uL (1.8-7.7); NEUTROPHILS % 74.9 % (36.0-66.0); PLATELET COUNT, AUTOMATED 244 10^3/uL (150-450); RED BLOOD COUNT 3.81 10^6/uL (4.00-5.40); RED CELL DISTRIBUTION WIDTH 20.6 % (11.5-14.5); WHITE BLOOD COUNT 9.9 10^3/uL (4.0-10.0)
[2018-05-19] MEDS: FUROSEMIDE 100 MG/10 ML VIAL (J1940) IV (14:53)
[2018-05-19 14:54] LABS: INR 1.75; PROTHROMBIN TIME 20.8 SECONDS (12.1-14.4)
[2018-05-19 14:57] LABS: D-DIMER QUANT 320.08 ng/ml (<500)
[2018-05-19 15:13] LABS: ALBUMIN 3.7 GM/DL (3.2-5.2); ALBUMIN/GLOBULIN RATIO 1.48 (1.00-1.93); ALKALINE PHOSPHATASE 67 U/L (45-117); ALT/SGPT 16 U/L (12-78); ANION GAP 5 MEQ/L (8-16); AST/SGOT 15 U/L (7-37); BILIRUBIN,DIRECT 0.2 MG/DL (0.0-0.2); BILIRUBIN,TOTAL 0.6 MG/DL (0.2-1.0); BLOOD UREA NITROGEN 11 MG/DL (7-18); CALCIUM LEVEL 8.8 MG/DL (8.8-10.2); CARBON DIOXIDE LEVEL 33 MEQ/L (21-32); CHLORIDE LEVEL 99 MEQ/L (98-107); CK-MB VALUE MASS < 1.0 NG/ML (<3.6); CPK CREATINE PHOSPHOKINASE 36 U/L (26-192); CREATININE FOR GFR 0.76 MG/DL (0.55-1.30); FREE T4 0.88 NG/DL (0.76-1.46); GLOMERULAR FILTRATION RATE > 60.0 (>32); GLUCOSE, FASTING 118 MG/DL (70-100); LIPASE 113 U/L (73-393); MB/CK RELATIVE INDEX 2.78 (< OR =4); NT-PRO BNP 2800 PG/ML (<450); POTASSIUM SERUM 4.1 MEQ/L (3.5-5.1); SODIUM LEVEL 137 MEQ/L (136-145); TOTAL PROTEIN 6.2 GM/DL (6.4-8.2); TROPONIN I 0.02 NG/ML (< 0.10)
[2018-05-19] MEDS ORDERED: ISOVUE-370 76% 100ML VIAL (Q9967) As Ordered (15:36)
[2018-05-19 15:51] LABS: ABG BASE EXCESS 5.8 (-2.0-2.0); ABG HCO3 30.3 MEQ/L (22.0-26.0); ABG PARTIAL PRESSURE CO2 44.3 mmHg (35.0-45.0); ABG STANDARD HCO3 29.7 MEQ/L (22.0-26.0); ABG TOTAL CO2 31.7 MEQ/L (23.0-31.0); ABG pH (ARTERIAL) 7.453 UNITS (7.350-7.450)
[2018-05-19] MEDS: methylPREDNISolone INJ 125 MG/2 ML VIAL (J2930) IV (17:34)
[2018-05-19] MEDS ORDERED: GLUCOSE 4 GM CHEW TABLET PO (18:15)
[2018-05-19] MEDS ORDERED: DEXTROSE 50% 50 ML SYRINGE IV (18:15)
[2018-05-19] MEDS ORDERED: GLUCAGON FOR INJ 1 MG VIAL (J1610) SC (18:15)
[2018-05-19] MEDS ORDERED: traZODone 50 MG TAB PO (18:30)
[2018-05-19] MEDS ORDERED: LACTULOSE 20 GM/30 ML SYRUP UD PO (18:30)
[2018-05-19] MEDS ORDERED: NITROGLYCERIN 0.4 MG SUBL TABLET SL (18:30)
[2018-05-19 20:40] LABS: TROPONIN I 0.02 NG/ML (< 0.10)
[2018-05-19] MEDS: SUCRALFATE 1 GM TAB PO (21:27)
[2018-05-19] MEDS: SIMVASTATIN 10 MG TAB PO (21:27)
[2018-05-19] MEDS: PANTOPRAZOLE 40MG TAB (PROTONIX) PO (21:27)
[2018-05-19] MEDS: IPRATROPIUM 0.5MG/ALBUTEROL 2.5MG INH SOL UD 3ML (DUONEB)(J7620) NEB ×2 (21:58→23:32)
[2018-05-19] MEDS: ADVAIR HFA 115/21MCG INHALER INH (21:59)
[2018-05-20] MEDS: IPRATROPIUM 0.5MG/ALBUTEROL 2.5MG INH SOL UD 3ML (DUONEB)(J7620) NEB ×5 (03:50→20:00)
[2018-05-20] MEDS: methylPREDNISolone INJ 40 MG/1 ML VIAL (J2920) IV ×2 (05:19→17:13)
[2018-05-20 05:48] LABS: HEMATOCRIT 30.2 % (36.0-47.0); HEMOGLOBIN 8.4 g/dl (12.0-15.5); MEAN CORPUSCULAR HEMOGLOBIN 20.9 pg (27.0-33.0); MEAN CORPUSCULAR HGB CONC 27.8 g/dl (32.0-36.5); MEAN CORPUSCULAR VOLUME 75.1 fl (80.0-96.0); PLATELET COUNT, AUTOMATED 274 10^3/uL (150-450); RED BLOOD COUNT 4.02 10^6/uL (4.00-5.40); WHITE BLOOD COUNT 7.7 10^3/uL (4.0-10.0)
[2018-05-20 06:26] LABS: ANION GAP 6 MEQ/L (8-16); BLOOD UREA NITROGEN 14 MG/DL (7-18); CALCIUM LEVEL 8.7 MG/DL (8.8-10.2); CARBON DIOXIDE LEVEL 31 MEQ/L (21-32); CHLORIDE LEVEL 98 MEQ/L (98-107); CREATININE FOR GFR 0.83 MG/DL (0.55-1.30); GLOMERULAR FILTRATION RATE > 60.0 (>32); GLUCOSE, FASTING 158 MG/DL (70-100); POTASSIUM SERUM 4.5 MEQ/L (3.5-5.1); SODIUM LEVEL 135 MEQ/L (136-145)
[2018-05-20] MEDS: ADVAIR HFA 115/21MCG INHALER INH ×2 (07:19→21:05)
[2018-05-20] MEDS: SUCRALFATE 1 GM TAB PO ×4 (07:37→21:34)
[2018-05-20] MEDS: HumaLOG INSULIN (NovoLOG) PER UNIT SC ×3 (07:37→17:14)
[2018-05-20] MEDS: PANTOPRAZOLE 40MG TAB (PROTONIX) PO ×2 (08:24→21:35)
[2018-05-20] MEDS: DIGOXIN 0.125 MG TAB PO (08:24)
[2018-05-20] MEDS: FUROSEMIDE 20 MG TAB PO (08:24)
[2018-05-20] MEDS: VITAMIN D 1,000 INTERNATIONAL UNITS TABLET PO (08:24)
[2018-05-20] MEDS: ISOSORBIDE MON. (IMDUR) 30 MG XR TAB PO (08:25)
[2018-05-20] MEDS ORDERED: predniSONE 20 MG TAB PO (09:00)
[2018-05-20] MEDS ORDERED: LETROZOLE 2.5 MG TAB PO (09:00)
[2018-05-20 11:52] LABS: BEDSIDE GLUCOSE 178 MG/DL (83-110)
[2018-05-20] MEDS: LETROZOLE 2.5 MG TAB PO (13:28)
[2018-05-20] MEDS: ACETAMINOPHEN TAB 650MG DOSE (2X325MG) PO (13:29)
[2018-05-20 16:29] LABS: BEDSIDE GLUCOSE 154 MG/DL (83-110)
[2018-05-20] MEDS: RIVAROXABAN 15 MG TAB (XARELTO) PO (17:13)
[2018-05-20 19:59] LABS: BEDSIDE GLUCOSE 151 MG/DL (83-110)
[2018-05-20] MEDS: SIMVASTATIN 10 MG TAB PO (21:35)
[2018-05-21] MEDS: IPRATROPIUM 0.5MG/ALBUTEROL 2.5MG INH SOL UD 3ML (DUONEB)(J7620) NEB ×6 (00:14→22:12)
[2018-05-21] MEDS: methylPREDNISolone INJ 40 MG/1 ML VIAL (J2920) IV ×2 (05:37→17:29)
[2018-05-21 06:07] LABS: HEMATOCRIT 28.7 % (36.0-47.0); HEMOGLOBIN 8.1 g/dl (12.0-15.5); MEAN CORPUSCULAR HEMOGLOBIN 21.1 pg (27.0-33.0); MEAN CORPUSCULAR HGB CONC 28.2 g/dl (32.0-36.5); MEAN CORPUSCULAR VOLUME 74.7 fl (80.0-96.0); PLATELET COUNT, AUTOMATED 250 10^3/uL (150-450); RED BLOOD COUNT 3.84 10^6/uL (4.00-5.40); RED CELL DISTRIBUTION WIDTH 20.2 % (11.5-14.5); WHITE BLOOD COUNT 11.9 10^3/uL (4.0-10.0)
[2018-05-21 06:23] LABS: ANION GAP 6 MEQ/L (8-16); BLOOD UREA NITROGEN 19 MG/DL (7-18); CALCIUM LEVEL 8.9 MG/DL (8.8-10.2); CARBON DIOXIDE LEVEL 33 MEQ/L (21-32); CHLORIDE LEVEL 100 MEQ/L (98-107); CREATININE FOR GFR 0.73 MG/DL (0.55-1.30); GLOMERULAR FILTRATION RATE > 60.0 (>32); GLUCOSE, FASTING 134 MG/DL (70-100); MAGNESIUM LEVEL 2.3 MG/DL (1.8-2.4); POTASSIUM SERUM 4.1 MEQ/L (3.5-5.1); SODIUM LEVEL 139 MEQ/L (136-145)
[2018-05-21] MEDS: ADVAIR HFA 115/21MCG INHALER INH ×2 (07:57→22:12)
[2018-05-21] MEDS: PANTOPRAZOLE 40MG TAB (PROTONIX) PO ×2 (08:07→20:22)
[2018-05-21] MEDS: VITAMIN D 1,000 INTERNATIONAL UNITS TABLET PO (08:07)
[2018-05-21] MEDS: FUROSEMIDE 20 MG TAB PO (08:07)
[2018-05-21] MEDS: HumaLOG INSULIN (NovoLOG) PER UNIT SC ×3 (08:08→17:29)
[2018-05-21] MEDS: SUCRALFATE 1 GM TAB PO ×4 (08:08→20:22)
[2018-05-21] MEDS: ISOSORBIDE MON. (IMDUR) 30 MG XR TAB PO (08:08)
[2018-05-21] MEDS: DIGOXIN 0.125 MG TAB PO (08:09)
[2018-05-21] MEDS: LETROZOLE 2.5 MG TAB PO (08:16)
[2018-05-21 11:53] LABS: BEDSIDE GLUCOSE 165 MG/DL (83-110)
[2018-05-21 17:21] LABS: BEDSIDE GLUCOSE 158 MG/DL (83-110)
[2018-05-21] MEDS: RIVAROXABAN 15 MG TAB (XARELTO) PO (17:29)
[2018-05-21] MEDS: SIMVASTATIN 10 MG TAB PO (20:22)
[2018-05-22] MEDS: methylPREDNISolone INJ 40 MG/1 ML VIAL (J2920) IV (05:59)
[2018-05-22 06:13] LABS: HEMATOCRIT 29.9 % (36.0-47.0); HEMOGLOBIN 8.3 g/dl (12.0-15.5); MEAN CORPUSCULAR HEMOGLOBIN 20.9 pg (27.0-33.0); MEAN CORPUSCULAR HGB CONC 27.8 g/dl (32.0-36.5); MEAN CORPUSCULAR VOLUME 75.1 fl (80.0-96.0); PLATELET COUNT, AUTOMATED 284 10^3/uL (150-450); RED BLOOD COUNT 3.98 10^6/uL (4.00-5.40); RED CELL DISTRIBUTION WIDTH 19.9 % (11.5-14.5)
[2018-05-22 06:34] LABS: ANION GAP 6 MEQ/L (8-16); BLOOD UREA NITROGEN 26 MG/DL (7-18); CALCIUM LEVEL 8.8 MG/DL (8.8-10.2); CARBON DIOXIDE LEVEL 32 MEQ/L (21-32); CHLORIDE LEVEL 102 MEQ/L (98-107); CREATININE FOR GFR 0.76 MG/DL (0.55-1.30); GLOMERULAR FILTRATION RATE > 60.0 (>32); GLUCOSE, FASTING 128 MG/DL (70-100); POTASSIUM SERUM 4.2 MEQ/L (3.5-5.1); SODIUM LEVEL 140 MEQ/L (136-145)
[2018-05-22] MEDS: IPRATROPIUM 0.5MG/ALBUTEROL 2.5MG INH SOL UD 3ML (DUONEB)(J7620) NEB ×2 (08:00→20:00)
[2018-05-22] MEDS: VITAMIN D 1,000 INTERNATIONAL UNITS TABLET PO (08:06)
[2018-05-22] MEDS: predniSONE 20 MG TAB PO (08:06)
[2018-05-22] MEDS: LETROZOLE 2.5 MG TAB PO (08:07)
[2018-05-22] MEDS: ISOSORBIDE MON. (IMDUR) 30 MG XR TAB PO (08:07)
[2018-05-22] MEDS: PANTOPRAZOLE 40MG TAB (PROTONIX) PO ×2 (08:07→20:20)
[2018-05-22] MEDS: SUCRALFATE 1 GM TAB PO ×4 (08:07→20:20)
[2018-05-22] MEDS: FUROSEMIDE 20 MG TAB PO (08:07)
[2018-05-22] MEDS: DIGOXIN 0.125 MG TAB PO (08:07)
[2018-05-22] MEDS: HumaLOG INSULIN (NovoLOG) PER UNIT SC ×3 (08:08→17:36)
[2018-05-22] MEDS: ADVAIR HFA 115/21MCG INHALER INH ×2 (08:30→19:45)
[2018-05-22 11:58] LABS: BEDSIDE GLUCOSE 113 MG/DL (83-110)
[2018-05-22 17:17] LABS: BEDSIDE GLUCOSE 148 MG/DL (83-110)
[2018-05-22] MEDS: RIVAROXABAN 15 MG TAB (XARELTO) PO (17:35)
[2018-05-22] MEDS: SIMVASTATIN 10 MG TAB PO (20:20)
[2018-05-23 05:52] LABS: HEMATOCRIT 31.1 % (36.0-47.0); HEMOGLOBIN 8.6 g/dl (12.0-15.5); MEAN CORPUSCULAR HEMOGLOBIN 20.7 pg (27.0-33.0); MEAN CORPUSCULAR HGB CONC 27.7 g/dl (32.0-36.5); MEAN CORPUSCULAR VOLUME 74.8 fl (80.0-96.0); PLATELET COUNT, AUTOMATED 322 10^3/uL (150-450); RED BLOOD COUNT 4.16 10^6/uL (4.00-5.40); RED CELL DISTRIBUTION WIDTH 19.9 % (11.5-14.5); WHITE BLOOD COUNT 15.6 10^3/uL (4.0-10.0)
[2018-05-23 06:06] LABS: BEDSIDE GLUCOSE 114 MG/DL (83-110)
[2018-05-23 06:17] LABS: ANION GAP 5 MEQ/L (8-16); BLOOD UREA NITROGEN 27 MG/DL (7-18); CALCIUM LEVEL 9.1 MG/DL (8.8-10.2); CARBON DIOXIDE LEVEL 33 MEQ/L (21-32); CHLORIDE LEVEL 100 MEQ/L (98-107); CREATININE FOR GFR 0.92 MG/DL (0.55-1.30); GLOMERULAR FILTRATION RATE > 60.0 (>32); GLUCOSE, FASTING 112 MG/DL (70-100); POTASSIUM SERUM 4.2 MEQ/L (3.5-5.1); SODIUM LEVEL 138 MEQ/L (136-145)
[2018-05-23] MEDS: ADVAIR HFA 115/21MCG INHALER INH ×2 (07:18→21:27)
[2018-05-23] MEDS: IPRATROPIUM 0.5MG/ALBUTEROL 2.5MG INH SOL UD 3ML (DUONEB)(J7620) NEB ×4 (07:19→20:00)
[2018-05-23] MEDS: SUCRALFATE 1 GM TAB PO ×4 (07:49→21:04)
[2018-05-23] MEDS: HumaLOG INSULIN (NovoLOG) PER UNIT SC ×3 (07:50→17:00)
[2018-05-23] MEDS: ISOSORBIDE MON. (IMDUR) 30 MG XR TAB PO (07:52)
[2018-05-23] MEDS: predniSONE 20 MG TAB PO (07:53)
[2018-05-23] MEDS: LETROZOLE 2.5 MG TAB PO (07:53)
[2018-05-23] MEDS: DIGOXIN 0.125 MG TAB PO (07:53)
[2018-05-23] MEDS: VITAMIN D 1,000 INTERNATIONAL UNITS TABLET PO (07:54)
[2018-05-23] MEDS: FUROSEMIDE 20 MG TAB PO (07:54)
[2018-05-23] MEDS: PANTOPRAZOLE 40MG TAB (PROTONIX) PO ×2 (07:54→21:04)
[2018-05-23] MEDS: RIVAROXABAN 15 MG TAB (XARELTO) PO (16:59)
[2018-05-23] MEDS: SIMVASTATIN 10 MG TAB PO (21:04)
[2018-05-24] MEDS: IPRATROPIUM 0.5MG/ALBUTEROL 2.5MG INH SOL UD 3ML (DUONEB)(J7620) NEB ×4 (00:43→11:16)
[2018-05-24 06:49] LABS: HEMATOCRIT 29.6 % (36.0-47.0); HEMOGLOBIN 8.3 g/dl (12.0-15.5); MEAN CORPUSCULAR HEMOGLOBIN 20.8 pg (27.0-33.0); MEAN CORPUSCULAR VOLUME 74.2 fl (80.0-96.0); PLATELET COUNT, AUTOMATED 351 10^3/uL (150-450); RED BLOOD COUNT 3.99 10^6/uL (4.00-5.40); RED CELL DISTRIBUTION WIDTH 19.9 % (11.5-14.5); WHITE BLOOD COUNT 12.5 10^3/uL (4.0-10.0)
[2018-05-24 07:09] LABS: ANION GAP 8 MEQ/L (8-16); BLOOD UREA NITROGEN 22 MG/DL (7-18); CALCIUM LEVEL 8.4 MG/DL (8.8-10.2); CARBON DIOXIDE LEVEL 30 MEQ/L (21-32); CHLORIDE LEVEL 103 MEQ/L (98-107); CREATININE FOR GFR 0.82 MG/DL (0.55-1.30); GLOMERULAR FILTRATION RATE > 60.0 (>32); GLUCOSE, FASTING 92 MG/DL (70-100); POTASSIUM SERUM 3.7 MEQ/L (3.5-5.1); SODIUM LEVEL 141 MEQ/L (136-145)
[2018-05-24] MEDS: HumaLOG INSULIN (NovoLOG) PER UNIT SC ×2 (07:22→12:00)
[2018-05-24] MEDS: SUCRALFATE 1 GM TAB PO ×2 (07:30→12:00)
[2018-05-24] MEDS: ADVAIR HFA 115/21MCG INHALER INH (07:36)
[2018-05-24] MEDS: predniSONE 20 MG TAB PO (08:03)
[2018-05-24] MEDS: ISOSORBIDE MON. (IMDUR) 30 MG XR TAB PO (08:04)
[2018-05-24] MEDS: PANTOPRAZOLE 40MG TAB (PROTONIX) PO (08:04)
[2018-05-24] MEDS: FUROSEMIDE 20 MG TAB PO (08:04)
[2018-05-24] MEDS: LETROZOLE 2.5 MG TAB PO (08:04)
[2018-05-24] MEDS: VITAMIN D 1,000 INTERNATIONAL UNITS TABLET PO (08:05)
[2018-05-26 21:43] LABS: BEDSIDE GLUCOSE 160 MG/DL (83-110)
[2018-05-26 21:43] LABS: BEDSIDE GLUCOSE 141 MG/DL (83-110)
[2018-05-26 21:43] LABS: BEDSIDE GLUCOSE 164 MG/DL (83-110)
[2018-05-26 21:44] LABS: BEDSIDE GLUCOSE 134 MG/DL (83-110)
== END 2018-05-24 14:21 | disposition home health service (06) | DRG 189 ==
LOC: M MSPAV 05-20 14:06 → M ED 13:49 → M ED INP 17:45 → M PCU 20:40
DX: J96.21 Acute and chronic respiratory failure with hypoxia (principal); J44.1 Chronic obstructive pulmonary disease with (acute) exacerbation; I50.32 Chronic diastolic (congestive) heart failure; I27.20 Pulmonary hypertension, unspecified; I48.91 Unspecified atrial fibrillation; I25.10 Atherosclerotic heart disease of native coronary artery without angina pectoris; I11.0 Hypertensive heart disease with heart failure; E86.0 Dehydration; D64.9 Anemia, unspecified; Z66 Do not resuscitate; G47.00 Insomnia, unspecified; E78.5 Hyperlipidemia, unspecified; Z79.899 Other long term (current) drug therapy; Z87.891 Personal history of nicotine dependence; Z79.01 Long term (current) use of anticoagulants; Z99.81 Dependence on supplemental oxygen

== ENCOUNTER 2018-06-04 13:52 | Inpatient (IN) | payer MEDICARE, OTHER, MEDICAID ==
[~2018-06-04] VITALS: Ht 160 cm; Wt 73.9 kg
[~2018-06-04 13:52] MED LIST changes: -/ADVA50050; -/ADVA50050 IN; -/WARF25TA OR; +ACE65ERTAB PO; +ACET500T15 PO; -ACET50TAOT PO; +ADVA1AER2; +ADVA1AER2 IN; +COUM1TAB18 OR; +DIGO0.12 PO; -DILT240C75 PO; +DILT240C82 PO; +FURO40TA2 PO; +KETO2AER2 TOP; -LASI40TA PO; +LASI40TA9 PO; -LEVA1TAB PO; +LEVA250T13 PO; +PANT-23 PO; -PANT40TA2 PO; +PANT40TA3 PO; +PERF20NE2 INH; +PRAD150C6 PO; +PRED-351 PO; -PRED10TA PO; +PROT1TAB2 PO; +SUCR1TA PO; +SUCR1TAB56 PO; +TRAZ-160 PO; -TRAZ50TA11 PO; +VENTAER INH; +XARE15TA PO
[2018-06-04] MEDS ORDERED: IPRATROPIUM 0.5MG/ALBUTEROL 2.5MG INH SOL UD 3ML (DUONEB)(J7620) NEB ONE (14:15)
[2018-06-04] MEDS ORDERED: ALBUTEROL SULFATE 2.5 MG/0.5 ML INH NEB SOLN INH ONE (14:15)
[2018-06-04] MEDS ORDERED: dexameTHASONE 20 MG/5 ML VIAL (J1100) IV ONE (14:15)
[2018-06-04 14:45] LABS: VENOUS BASE EXCESS 6.7 (-2.0-2.0); VENOUS HCO3 32.9 MEQ/L (23.0-27.0); VENOUS O2 SATURATION 75.4 % (60.0-80.0); VENOUS PARTIAL PRESSURE CO2 56.7 mmHg (38.0-50.0); VENOUS PARTIAL PRESSURE O2 43.9 mmHg (30.0-50.0); VENOUS PH 7.382 UNITS (7.330-7.430); VENOUS STANDARD HCO3 30.2 MEQ/L; VENOUS TOTAL CO2 34.7 MEQ/L (24.0-28.0)
[2018-06-04 14:50] LABS: BASO # 0.1 10^3/uL (0.0-0.2); BASO % 0.8 % (0.0-1.0); EOS # 0.3 10^3/uL (0.0-0.50); EOS % 1.9 % (0.0-3.0); HEMATOCRIT 30.2 % (36.0-47.0); HEMOGLOBIN 8.5 g/dl (12.0-15.5); LYMPH % 7.4 % (24.0-44.0); MEAN CORPUSCULAR HEMOGLOBIN 19.9 pg (27.0-33.0); MEAN CORPUSCULAR HGB CONC 28.1 g/dl (32.0-36.5); MEAN CORPUSCULAR VOLUME 70.7 fl (80.0-96.0); MONO # 1.3 10^3/uL (0.0-0.8); MONO % 9.3 % (0.0-5.0); NEUTROPHILS # 10.9 10^3/uL (1.8-7.7); NEUTROPHILS % 79.6 % (36.0-66.0); PLATELET COUNT, AUTOMATED 358 10^3/uL (150-450); RED BLOOD COUNT 4.27 10^6/uL (4.00-5.40); WHITE BLOOD COUNT 13.7 10^3/uL (4.0-10.0)
--- NOTE | 2018-06-04 14:50 | REP ---
PORTABLE CHEST: AP portable view of the chest is performed and compared to a prior study of 05/19/2018. There is cardiomegaly again noted with calcification and some tortuosity of the thoracic aorta. The mediastinal silhouette is unchanged. There is diffuse interstitial fibrosis, which is unchanged. No definite acute superimposed infiltrate is seen. IMPRESSION: Cardiomegaly and chronic fibrotic change without definite acute infiltrate. Electronically Signed by Natalio Willard MD 06/04/2018 05:09 P
[2018-06-04 15:04] LABS: INR 2.08; PROTHROMBIN TIME 23.7 SECONDS (12.1-14.4)
[2018-06-04 15:22] LABS: ALBUMIN 3.7 GM/DL (3.2-5.2); ALT/SGPT 18 U/L (12-78); BILIRUBIN,DIRECT 0.2 MG/DL (0.0-0.2); BILIRUBIN,TOTAL 0.4 MG/DL (0.2-1.0); BLOOD UREA NITROGEN 12 MG/DL (7-18); CALCIUM LEVEL 8.8 MG/DL (8.8-10.2); CARBON DIOXIDE LEVEL 31 MEQ/L (21-32); CHLORIDE LEVEL 101 MEQ/L (98-107); CPK CREATINE PHOSPHOKINASE 44 U/L (26-192); GLOMERULAR FILTRATION RATE > 60.0 (>32); GLUCOSE, FASTING 97 MG/DL (70-100); MB/CK RELATIVE INDEX 3.64 (< OR =4); NT-PRO BNP 5153 PG/ML (<450); POTASSIUM SERUM 4.2 MEQ/L (3.5-5.1); SODIUM LEVEL 139 MEQ/L (136-145); TOTAL PROTEIN 6.1 GM/DL (6.4-8.2); TROPONIN I 0.02 NG/ML (< 0.10)
[2018-06-04] MEDS ORDERED: FUROSEMIDE 40 MG/4 ML VIAL (J1940) IV ONE (16:30)
[2018-06-04] MEDS ORDERED: PRED10TA2 PO (16:41)
[2018-06-04] MEDS: METOCLOPRAMIDE 5 MG TAB PO SCH ×2 (17:30→21:10)
[2018-06-04] MEDS ORDERED: LACTULOSE 20 GM/30 ML SYRUP UD PO PRN (17:30)
[2018-06-04] MEDS: SUCRALFATE 1 GM TAB PO SCH ×2 (17:30→21:10)
[2018-06-04] MEDS ORDERED: NITROGLYCERIN 0.4 MG SUBL TABLET SL PRN (17:30)
[2018-06-04] MEDS ORDERED: traZODone 50 MG TAB PO PRN (17:30)
[2018-06-04] MEDS: methylPREDNISolone INJ 125 MG/2 ML VIAL (J2930) IV SCH (18:39)
--- NOTE | 2018-06-04 18:40 | HPE ---
DATE OF ADMISSION: 06/04/2018 HISTORY OF PRESENT ILLNESS: 83-year-old female with oxygen dependent chronic obstructive pulmonary disease (COPD) requiring 5 liters nasal cannula, history of atrial fibrillation on anticoagulation, history of pulmonary hypertension, chronic diastolic heart failure presents to the emergency room with increasing shortness of breath that began 24 hours ago unrelieved by increasing her oxygen to the maximum of 5 liters and her nebulizer treatments so she came to the ER for evaluation. She has denied any upper respiratory symptoms, no cough, no subjective feeling of fever or chills. She has been taking her medications as prescribed. She was given Solu-Medrol and two DuoNebs with relief, but she is still short of breath. She will be admitted for COPD exacerbation management. PAST MEDICAL HISTORY: Chronic diastolic heart failure. Pulmonary hypertension. Oxygen dependence COPD requiring 2 to 5 liters nasal cannula. History of hypertension. Hyperlipidemia. Coronary artery disease. ALLERGIES: No known drug allergies. FAMILY HISTORY: Noncontributory. SOCIAL HISTORY: Patient was a chronic heavy smoker, quit about 40 years ago. Denies alcohol or illicit drugs. MEDICATIONS: She takes at home are as follows: - Tylenol 650 by mouth every 8 as needed - albuterol inhaler twice a day as needed - digoxin 0.125 mcg orally five times a week - Lasix 20 mg orally daily - isosorbide mononitrate 30 mg orally daily - lactulose as needed - letrozole 2.5 mg orally daily - metoclopramide 5 mg orally before meals and at bedtime - nitroglycerin sublingual as needed - pantoprazole 40 mg orally twice daily - prednisone 10 mg orally twice daily - rivaroxaban 50 mg orally daily - Advair 250/51 puff inhaled twice daily - simvastatin 10 mg orally at bedtime - sucralfate 1 gram orally before food and at bedtime - trazodone 50 mg orally at bedtime as needed - vitamin D 1000 units orally daily REVIEW OF SYSTEMS: Negative in all 10 major systems except for as mentioned in HPI. VITAL SIGNS: Blood pressure 145/65, heart rate is 94 and regular. Respiratory rate 20, temperature is 98.4, oxygen saturation is 91% on 6 liters nasal cannula. Head: Atraumatic. Normocephalic. Neck: No jugular venous distention (JVD)/ Lungs: Diminished breath sounds bilaterally. S1 is audible. No murmurs appreciated. Abdomen: Soft, positive bowel sounds. No pedal edema. Skin: Intact. Neurological examination: Patient awake and alert times three. LABS: WBC 13.7, hemoglobin is 8.5, hematocrit 30.2. Platelets are 358,000. INR is 2.08. Sodium 139, potassium 4.2, chloride 101, CO2 31, BUN 12, creatinine 0.8. TSH 1.89. Troponin 0.02. IMPRESSION: COPD exacerbation. PLAN: Patient will be admitted to the med-surg floor. I will continue the patient's preadmission medications and I am going to add Solu-Medrol 40 IV every 8 plus DuoNebs every 4 as needed. Patient is already doing much better and hopefully in the next 24 to 48 hours the exacerbation will subside. She is a DO NOT INTUBATE and DO NOT RESUSCITATE patient.
[2018-06-04] MEDS: IPRATROPIUM 0.5MG/ALBUTEROL 2.5MG INH SOL UD 3ML (DUONEB)(J7620) NEB SCH (19:28)
[2018-06-04 20:00] VITALS: BP 150/81
[2018-06-04] MEDS: SIMVASTATIN 10 MG TAB PO SCH (21:10)
[2018-06-04] MEDS: PANTOPRAZOLE 40MG TAB (PROTONIX) PO SCH (21:10)
[2018-06-05] MEDS: IPRATROPIUM 0.5MG/ALBUTEROL 2.5MG INH SOL UD 3ML (DUONEB)(J7620) NEB SCH ×7 (00:59→23:55)
[2018-06-05] MEDS: methylPREDNISolone INJ 125 MG/2 ML VIAL (J2930) IV SCH ×3 (02:16→17:49)
--- NOTE | 2018-06-05 04:50 | ECGEPIP ---
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
[2018-06-05 06:00] VITALS: BP 115/67
[2018-06-05 06:52] LABS: BASO % 0.1 % (0.0-1.0); HEMATOCRIT 29.8 % (36.0-47.0); HEMOGLOBIN 8.2 g/dl (12.0-15.5); LYMPH # 0.3 10^3/uL (1.5-4.5); LYMPH % 3.2 % (24.0-44.0); MEAN CORPUSCULAR HEMOGLOBIN 19.4 pg (27.0-33.0); MEAN CORPUSCULAR HGB CONC 27.5 g/dl (32.0-36.5); MEAN CORPUSCULAR VOLUME 70.4 fl (80.0-96.0); MONO # 0.2 10^3/uL (0.0-0.8); MONO % 1.9 % (0.0-5.0); NEUTROPHILS # 7.7 10^3/uL (1.8-7.7); NEUTROPHILS % 93.6 % (36.0-66.0); PLATELET COUNT, AUTOMATED 303 10^3/uL (150-450); RED BLOOD COUNT 4.23 10^6/uL (4.00-5.40); WHITE BLOOD COUNT 8.2 10^3/uL (4.0-10.0)
[2018-06-05 07:16] LABS: BLOOD UREA NITROGEN 15 MG/DL (7-18); CALCIUM LEVEL 8.9 MG/DL (8.8-10.2); CARBON DIOXIDE LEVEL 32 MEQ/L (21-32); CHLORIDE LEVEL 100 MEQ/L (98-107); CREATININE FOR GFR 0.69 MG/DL (0.55-1.30); GLOMERULAR FILTRATION RATE > 60.0 (>32); GLUCOSE, FASTING 147 MG/DL (70-100); POTASSIUM SERUM 3.8 MEQ/L (3.5-5.1); SODIUM LEVEL 138 MEQ/L (136-145)
[2018-06-05] MEDS: RIVAROXABAN 15 MG TAB (XARELTO) PO SCH (08:26)
[2018-06-05] MEDS: DIGOXIN 0.125 MG TAB PO SCH (08:27)
[2018-06-05] MEDS: FUROSEMIDE 20 MG TAB PO SCH (08:27)
[2018-06-05] MEDS: PANTOPRAZOLE 40MG TAB (PROTONIX) PO SCH ×2 (08:27→21:59)
[2018-06-05] MEDS: VITAMIN D 1,000 INTERNATIONAL UNITS TABLET PO SCH (08:27)
[2018-06-05] MEDS: SUCRALFATE 1 GM TAB PO SCH ×4 (08:28→21:59)
[2018-06-05] MEDS: METOCLOPRAMIDE 5 MG TAB PO SCH ×4 (08:28→22:00)
[2018-06-05] MEDS: ISOSORBIDE MON. (IMDUR) 30 MG XR TAB PO SCH (08:29)
[2018-06-05] MEDS: LETROZOLE 2.5 MG TAB PO SCH (08:29)
--- NOTE | 2018-06-05 13:46 | IPNPDOC ---
Date Seen The patient was seen on 06/05/18. Progress Note SUBJECTIVE: Patient tells me she is feeling somewhat better today she is breathing more easily she denies any worsening shortness of breath nausea vomiting or chest pressure today OBJECTIVE PHYSICAL EXAMINATION: VITAL SIGNS: Please see below. GENERAL: Frail elderly female sitting up in bed eating a donut she is coming by her granddaughter the patient does not appear to be in acute distress HEENT: Nerves II through XII appear grossly intact she speaks complete sentences without accessory muscle use CARDIOVASCULAR: S1-S2 irregularly irregular she is not tachycardic at the time o f my exam. RESPIRATORY: Prolonged expiratory phase but no audible wheeze at this time. ABDOMINAL: Sounds present abdomen soft EXTREMITIES: No clubbing cyanosis or edema LABORATORY DATA, IMAGING STUDIES, MICROBIOLOGY: Please see below. DVT prophylaxis ordered?: Xarelto ASSESSMENT AND PLAN: This is a 83-year-old female with shortness of breath PROBLEMS: 1. Shortness of breath: Chronic hypoxic respiratory failure she has had 5 admissions in the last 6 months she has an appointment scheduled with pulmonary early next month the time being she is markedly improved with IV Solu-Medrol and nebulizer treatments. I had a lengthy discussion with the patient and her granddaughter the given her recurrent hospitalizations poor functional status that her returning home alone is not a good plan in that she is likely to bounce back for a 6 time as well. Both the patient and family are in agreement in [place] explored assisted living versus usp placement. PT and OT have been ordered and PFS been made aware. I suspect that she has advanced obstructive lung disease and extensive secondhand tobacco exposure as well as its degree of anxiety associated with it was prompted her acute presentation which has resolved rather quickly. She is continued on nebulizers no need for antibiotics at this time 2. History of breast cancer:. On letrozole. 3. Atrial fibrillation: Rate controlled with digoxin and she is on Xarelto. 4. Insomnia: She is on trazodone 5. Gastroesophageal reflux disease: She is on Carafate and Protonix 6. Coronary artery disease: She is not on an aspirin and she is on Xarelto she is on a statin she is not on a beta anish likely related to her advanced lung disease, she is on Imdur 7. Vitamin D deficiency: Continue supplementation 8. Congestive heart failure: Has a history of cor pulmonale and diastolic dysfunction continue with Lasix her volume status appears to be well compensated at this time DISPOSITION: Likely placement of my guess would be assisted living. VS, I&O, 24H, [place] Vital Signs/I&O Vital Signs Date Time Temp Pulse Resp B/P (MAP) Pulse Ox O2 Delivery O2 Flow Rate FiO2 06/05/18 09:00 3.0 06/05/18 08:29 158/74 06/05/18 08:27 83 06/05/18 06:00 96.8 18 95 Nasal Cannula I&O- Last 24 Hours up to 6 AM 06/05/18 06:00 Intake Total 600 ml Balance 600 ml Laboratory Data 24H LABS Laboratory Tests 2 06/04/18 14:33: Immature Granulocyte % (Auto) 1.0, White Blood Count 13.7H, Red Blood Count 4.27, Hemoglobin 8.5L, Hematocrit 30.2L, Mean Corpuscular Volume 70.7L, Mean Corpuscular Hemoglobin 19.9L, Mean Corpuscular Hemoglobin Concent 28.1L, Red Cell Distribution Width 19.6H, Platelet Count 358, Neutrophils (%) (Auto) 79.6H, Lymphocytes (%) (Auto) 7.4L, Monocytes (%) (Auto) 9.3H, Eosinophils (%) (Auto) 1.9, Basophils (%) (Auto) 0.8, Neutrophils # (Auto) 10.9H, Lymphocytes # (Auto) 1.0L, Monocytes # (Auto) 1.3H, Eosinophils # (Auto) 0.3, Basophils # (Auto) 0.1, Nucleated Red Blood Cells % (auto) 0.1H, Prothrombin Time 23.7H, Prothromb Time International Ratio 2.08, Blood Gas Bicarbonate Standard 30.2, Venous Blood pH 7.382, Venous Blood Partial Pressure CO2 56.7H, Venous Blood Partial Pressure O2 43.9, Venous Blood Total Carbon Dioxide 34.7H, Venous Blood HCO3 32.9H, Venous Blood Oxygen Saturation 75.4, Venous Blood Base Excess 6.7H, Anion Gap 7L, Glomerular Filtration Rate > 60.0, Calcium Level 8.8, Aspartate Amino Transf (AST/SGOT) 14, Alanine Aminotransferase (ALT/SGPT) 18, Alkaline Phosphatase 64, Total Bilirubin 0.4, Direct Bilirubin 0.2, Total Creatine Kinase 44, Creatine Kinase MB 2.0, Creatine Kinase MB Relative Index 3.64, Troponin I 0.02, ES-Xwp-I-Type Natriuretic Peptide 5153H, Total Protein 6.1L, Albumin 3.7, Albumin/Globulin Ratio 1.54, Thyroid Stimulating Hormone (TSH) 1.890 06/05/18 06:03: Immature Granulocyte % (Auto) 1.2, White Blood Count 8.2, Red Blood Count 4.23, Hemoglobin 8.2L, Hematocrit 29.8L, Mean Corpuscular Volume 70.4L, Mean Corpuscular Hemoglobin 19.4L, Mean Corpuscular Hemoglobin Concent 27.5L, Red Cell Distribution Width 19.0H, Platelet Count 303, Neutrophils (%) (Auto) 93.6H, Lymphocytes (%) (Auto) 3.2L, Monocytes (%) (Auto) 1.9, Eosinophils (%) (Auto) 0.0, Basophils (%) (Auto) 0.1, Neutrophils # (Auto) 7.7, Lymphocytes # (Auto) 0.3L, Monocytes # (Auto) 0.2, Eosinophils # (Auto) 0.0, Basophils # (Auto) 0.0, Nucleated Red Blood Cells % (auto) 0.0, Anion Gap 6L, Glomerular Filtration Rate > 60.0, Calcium Level 8.9, Blood Urea Nitrogen 15, Creatinine 0.69, Sodium Level 138, Potassium Level 3.8, Chloride Level 100, Carbon Dioxide Level 32 CBC/BMP Laboratory Tests 06/04/18 14:33 Red Blood Count 4.27, Mean Corpuscular Volume 70.7 L, Mean Corpuscular Hemoglobin 19.9 L, Mean Corpuscular Hemoglobin Concent 28.1 L, Red Cell Distribution Width 19.6 H, Neutrophils (%) (Auto) 79.6 H, Lymphocytes (%) (Auto) 7.4 L, Monocytes (%) (Auto) 9.3 H, Eosinophils (%) (Auto) 1.9, Basophils (%) (Auto) 0.8, Neutrophils # (Auto) 10.9 H, Lymphocytes # (Auto) 1.0 L, Monocytes # (Auto) 1.3 H, Eosinophils # (Auto) 0.3, Basophils # (Auto) 0.1 06/05/18 06:03 Red Blood Count 4.23, Mean Corpuscular Volume 70.4 L, Mean Corpuscular Hemogl obin 19.4 L, Mean Corpuscular Hemoglobin Concent 27.5 L, Red Cell Distribution Width 19.0 H, Neutrophils (%) (Auto) 93.6 H, Lymphocytes (%) (Auto) 3.2 L, Monocytes (%) (Auto) 1.9, Eosinophils (%) (Auto) 0.0, Basophils (%) (Auto) 0.1, Neutrophils # (Auto) 7.7, Lymphocytes # (Auto) 0.3 L, Monocytes # (Auto) 0.2, Eosinophils # (Auto) 0.0, Basophils # (Auto) 0.0, Calcium Level 8.9 Microbiology Microbiology 06/04/18 Blood Culture, Received Pending 06/04/18 Blood Culture, Received Pending 06/04/18 Respiratory Virus Panel (PCR) (FRANK) - Final, Complete SHAUNA AJ MD Jun 05, 2018 13:46
[2018-06-05 14:00] VITALS: BP 137/62
[2018-06-05] MEDS: SIMVASTATIN 10 MG TAB PO SCH (21:59)
[2018-06-05 22:00] VITALS: BP 155/69
[2018-06-06] MEDS: methylPREDNISolone INJ 125 MG/2 ML VIAL (J2930) IV SCH ×2 (02:10→09:31)
[2018-06-06] MEDS: IPRATROPIUM 0.5MG/ALBUTEROL 2.5MG INH SOL UD 3ML (DUONEB)(J7620) NEB SCH ×6 (04:17→23:23)
[2018-06-06 06:00] VITALS: BP 130/59
[2018-06-06 07:48] LABS: HEMATOCRIT 29.8 % (36.0-47.0); HEMOGLOBIN 8.2 g/dl (12.0-15.5); MEAN CORPUSCULAR HGB CONC 27.5 g/dl (32.0-36.5); MEAN CORPUSCULAR VOLUME 72.5 fl (80.0-96.0); PLATELET COUNT, AUTOMATED 291 10^3/uL (150-450); RED BLOOD COUNT 4.11 10^6/uL (4.00-5.40)
[2018-06-06 08:17] LABS: BLOOD UREA NITROGEN 23 MG/DL (7-18); CALCIUM LEVEL 9.1 MG/DL (8.8-10.2); CARBON DIOXIDE LEVEL 32 MEQ/L (21-32); CHLORIDE LEVEL 102 MEQ/L (98-107); CREATININE FOR GFR 0.76 MG/DL (0.55-1.30); GLOMERULAR FILTRATION RATE > 60.0 (>32); GLUCOSE, FASTING 160 MG/DL (70-100); POTASSIUM SERUM 4.3 MEQ/L (3.5-5.1); SODIUM LEVEL 139 MEQ/L (136-145)
[2018-06-06] MEDS: RIVAROXABAN 15 MG TAB (XARELTO) PO SCH (09:25)
[2018-06-06] MEDS: FUROSEMIDE 20 MG TAB PO SCH (09:25)
[2018-06-06] MEDS: SUCRALFATE 1 GM TAB PO SCH ×4 (09:26→20:18)
[2018-06-06] MEDS: ISOSORBIDE MON. (IMDUR) 30 MG XR TAB PO SCH (09:27)
[2018-06-06] MEDS: PANTOPRAZOLE 40MG TAB (PROTONIX) PO SCH ×2 (09:28→20:18)
[2018-06-06] MEDS: METOCLOPRAMIDE 5 MG TAB PO SCH ×4 (09:30→20:18)
[2018-06-06] MEDS: DIGOXIN 0.125 MG TAB PO SCH (09:30)
[2018-06-06] MEDS: LETROZOLE 2.5 MG TAB PO SCH (09:30)
[2018-06-06] MEDS: VITAMIN D 1,000 INTERNATIONAL UNITS TABLET PO SCH (09:30)
[2018-06-06 14:00] VITALS: BP 152/58
[2018-06-06] MEDS ORDERED: TUBERCULIN PPD 5 UNITS/0.1 ML ID ONE (16:00)
--- NOTE | 2018-06-06 17:17 | IPNPDOC ---
Date Seen The patient was seen on 06/06/18. Progress Note SUBJECTIVE: Patient tells me she is feeling good and that she is basically back to her normal OBJECTIVE PHYSICAL EXAMINATION: VITAL SIGNS: Please see below. GENERAL: Frail elderly female sleeping comfortably in bed easily arousable to verbal stimuli HEENT: Nerves II through XII appear grossly intact she speaks complete sentences without accessory muscle use CARDIOVASCULAR: S1-S2 regular she is not tachycardic at the time of my exam. RESPIRATORY: Prolonged expiratory phase but no audible wheeze at this time. ABDOMINAL: Sounds present abdomen soft EXTREMITIES: No clubbing cyanosis or edema LABORATORY DATA, IMAGING STUDIES, MICROBIOLOGY: Please see below. DVT prophylaxis ordered?: Xarelto ASSESSMENT AND PLAN: This is a 83-year-old female with shortness of breath PROBLEMS: 1. Shortness of breath: Chronic hypoxic respiratory failure she has had 5 admissions in the last 6 months she has an appointment scheduled with pulmonary early next month, at this time she is improved her baseline with IV Solu-Medrol and nebulizer treatments. I had a lengthy discussion with the patient and her granddaughter the given her recurrent hospitalizations poor functional status that her returning home alone is not a good plan in that she is likely to bounce back for a 6 time as well. Both the patient and family are in agreement and interested in exploring assisted living versus fci placement. PT and OT have been ordered and PFS been made aware. I suspect that she has advanced obstructive lung disease and extensive secondhand tobacco exposure as well as its degree of anxiety associated with it was prompted her acute presentation which has resolved rather quickly. She is continued on nebulizers no need for antibiotics at this time. I will begin to taper her steroids 2. History of breast cancer: On letrozole. 3. Atrial fibrillation: Rate controlled with digoxin and she is on Xarelto. 4. Insomnia: She is on trazodone 5. Gastroesophageal reflux disease: She is on Carafate and Protonix 6. Coronary artery disease: She is not on an aspirin and she is on Xarelto she is on a statin she is not on a beta anish likely related to her advanced lung disease, she is on Imdur 7. Vitamin D deficiency: Continue supplementation 8. Congestive heart failure: Has a history of cor pulmonale and diastolic dysfunction continue with Lasix her volume status appears to be well compensated at this time DISPOSITION: Likely placement of my guess would be assisted living. She can likely be altered level care will she waits VS, I&O, 24H, Fishbone Vital Signs/I&O Vital Signs Date Time Temp Pulse Resp B/P (MAP) Pulse Ox O2 Delivery O2 Flow Rate FiO2 06/06/18 14:00 98.6 117 19 152/58 (89) 90 Nasal Cannula 5.0 I&O- Last 24 Hours up to 6 AM 06/06/18 06:00 Intake Total 2150 ml Balance 2150 ml Laboratory Data 24H LABS Laboratory Tests 2 06/05/18 20:27: Bedside Glucose (Misc Panel) 189H 06/06/18 07:20: Nucleated Red Blood Cells % (auto) 0.2H, Anion Gap 5L, Glomerular Filtration Rate > 60.0, Blood Urea Nitrogen 23#H, Creatinine 0.76, Sodium Level 139, Potassium Level 4.3, Chloride Level 102, Carbon Dioxide Level 32, Calcium Level 9.1 CBC/BMP Laboratory Tests 06/06/18 07:20 Red Blood Count 4.11, Mean Corpuscular Volume 72.5 L, Mean Corpuscular Hemoglobin 20.0 L, Mean Corpuscular Hemoglobin Concent 27.5 L, Red Cell Distribution Width 19.1 H, Calcium Level 9.1 Microbiology Microbiology 06/04/18 Blood Culture - Preliminary, Resulted No Growth after 48 hours. All Specime... 06/04/18 Blood Culture - Preliminary, Resulted No Growth after 48 hours. All Specime... 06/04/18 Respiratory Virus Panel (PCR) ([facility]) - Final, Complete SHAUNA AJ MD Jun 06, 2018 17:17
[2018-06-06] MEDS: SERTRALINE HCL 25 MG TABLET PO SCH (18:35)
[2018-06-06] MEDS: SIMVASTATIN 10 MG TAB PO SCH (20:18)
[2018-06-06 22:00] VITALS: BP 146/75
[2018-06-06] MEDS ORDERED: ACETAMINOPHEN 500 MG TAB PO ONE (22:15)
--- NOTE | 2018-06-06 23:25 | REPVR ---
EXAM: XR Left Shoulder Complete, 2 or More Views EXAM DATE/TIME: 06/06/2018 10:50 PM CLINICAL HISTORY: 83 years old, female; Pain; Shoulder; Left; Additional info: L-shoulder, proximal humerus pain, no fall TECHNIQUE: XR Left shoulder complete 2 or more views. COMPARISON: CR Shoulder, complete 03/13/2015 12:10 PM FINDINGS: Bones/joints: Normal. Soft tissues: Normal. IMPRESSION: No acute findings. Electronically signed by: Oleg Davila On 06/06/2018 23:25:21 PM
--- NOTE | 2018-06-06 23:26 | REPVR ---
EXAM: XR Chest, 1 View EXAM DATE/TIME: 06/06/2018 10:50 PM CLINICAL HISTORY: 83 years old, female; Pain; Chest pain; Left-sided chest pain; Additional info: L-shoulder, l-lateral chest wall pain TECHNIQUE: XR of the chest, 1 view. COMPARISON: CR PORTABLE CHEST X-RAY 06/04/2018 2:19 PM FINDINGS: Lungs: Unremarkable. No consolidation. Pleural space: Unremarkable. No pleural effusion. No pneumothorax. Heart/Mediastinum: Cardiomegaly. Uncoiled thoracic aorta. Bones/joints: Unremarkable. IMPRESSION: No acute findings. Electronically signed by: Oleg Davila On 06/06/2018 23:26:10 PM
[2018-06-07 01:38] VITALS: BP 132/72
[2018-06-07] MEDS: IPRATROPIUM 0.5MG/ALBUTEROL 2.5MG INH SOL UD 3ML (DUONEB)(J7620) NEB SCH ×5 (04:00→19:45)
[2018-06-07 06:00] VITALS: BP 145/72
[2018-06-07] MEDS: SERTRALINE HCL 25 MG TABLET PO SCH (08:24)
[2018-06-07] MEDS: SUCRALFATE 1 GM TAB PO SCH ×4 (08:24→20:55)
[2018-06-07] MEDS: METOCLOPRAMIDE 5 MG TAB PO SCH ×4 (08:25→20:55)
[2018-06-07] MEDS: LETROZOLE 2.5 MG TAB PO SCH (08:25)
[2018-06-07] MEDS: FUROSEMIDE 20 MG TAB PO SCH (08:25)
[2018-06-07] MEDS: RIVAROXABAN 15 MG TAB (XARELTO) PO SCH (08:25)
[2018-06-07] MEDS: PANTOPRAZOLE 40MG TAB (PROTONIX) PO SCH ×2 (08:25→20:55)
[2018-06-07] MEDS: VITAMIN D 1,000 INTERNATIONAL UNITS TABLET PO SCH (08:25)
[2018-06-07] MEDS: predniSONE 20 MG TAB PO SCH (08:25)
[2018-06-07] MEDS: ISOSORBIDE MON. (IMDUR) 30 MG XR TAB PO SCH (08:28)
--- NOTE | 2018-06-07 09:07 | IPNPDOC ---
Date Seen The patient was seen on 06/07/18. Progress Note Overnight events: The patient complained of some left shoulder pain while changing her clothes she pursue chest x-ray shoulder x-ray SUBJECTIVE: Patient tells me she is feeling good at this time and she has minimal shoulder. She doesn't normally developed at work with physical therapy and doing exercising at the present time she doesn't appear to be close to her normal until she is almost back to her normal OBJECTIVE PHYSICAL EXAMINATION: VITAL SIGNS: Please see below. GENERAL: Frail elderly female sitting in a chair watching television she is in no acute distress HEENT: Nerves II through XII appear grossly intact she speaks complete sentences without accessory muscle use she is hard of hearing CARDIOVASCULAR: S1-S2 regular she is not tachycardic at the time of my exam. RESPIRATORY: Prolonged expiratory phase but no audible wheeze at this time. ABDOMINAL: Sounds present abdomen soft EXTREMITIES: No clubbing cyanosis or edema LABORATORY DATA, IMAGING STUDIES, MICROBIOLOGY: Please see below. DVT prophylaxis ordered?: Xarelto ASSESSMENT AND PLAN: This is a 83-year-old female with shortness of breath PROBLEMS: 1. Shortness of breath: Chronic hypoxic respiratory failure she has had 5 admissions in the last 6 months she has an appointment scheduled with pulmonary early next month, at this time she is improved her baseline I have transitioned her to prednisone by mouth taper. I had a lengthy discussion with the patient and her granddaughter previously given her recurrent hospitalizations poor functional status that her returning home alone is not a good plan in that she is likely to bounce back for a 6 time as well. Both the patient and family are i n agreement and interested in exploring assisted living versus care home placement. PT and OT have been ordered and PFS been made aware. I suspect that she has advanced obstructive lung disease and extensive secondhand tobacco exposure as well as its degree of anxiety associated with it was prompted her acute presentation which has resolved rather quickly. She is continued on nebulizers no need for antibiotics at this time. I have started her on sertraline to help with her anxiety I would avoid benzodiazepines in this patient given the significant degree to her chronic hypoxic respiratory failure 2. History of breast cancer: On letrozole. 3. Atrial fibrillation: Rate controlled with digoxin and she is on Xarelto. 4. Insomnia: She is on trazodone 5. Gastroesophageal reflux disease: She is on Carafate and Protonix 6. Coronary artery disease: She is not on an aspirin and she is on Xarelto she is on a statin she is not on a beta anish likely related to her advanced lung disease, she is on Imdur 7. Vitamin D deficiency: Continue supplementation 8. Congestive heart failure: Has a history of cor pulmonale and diastolic dysfunction continue with Lasix her volume status appears to be well compensated at this time DISPOSITION: Likely placement of my guess would be assisted living. She can likely be altered level care will she waits VS, I&O, 24H, Fishbone Vital Signs/I&O Vital Signs Date Time Temp Pulse Resp B/P (MAP) Pulse Ox O2 Delivery O2 Flow Rate FiO2 06/07/18 08:28 149/74 06/07/18 06:00 98.4 67 22 91 Nasal Cannula 4.0 I&O- Last 24 Hours up to 6 AM 06/07/18 06:00 Intake Total 1920 ml Output Total 1100 ml Balance 820 ml Laboratory Data Microbiology Microbiology 06/04/18 Blood Culture - Preliminary, Resulted No Growth after 48 hours. All Specime... 06/04/18 Blood Culture - Preliminary, Resulted No Growth after 48 hours. All Specime... 06/04/18 Respiratory Virus Panel (PCR) ([facility]) - Final, Complete SHAUNA AJ MD Jun 07, 2018 09:07
[2018-06-07 14:00] VITALS: BP 150/74
[2018-06-07] MEDS: SIMVASTATIN 10 MG TAB PO SCH (20:55)
[2018-06-07 22:00] VITALS: BP 156/67
[2018-06-08] MEDS: IPRATROPIUM 0.5MG/ALBUTEROL 2.5MG INH SOL UD 3ML (DUONEB)(J7620) NEB SCH ×7 (02:15→23:46)
[2018-06-08 06:00] VITALS: BP 160/88
[2018-06-08] MEDS: predniSONE 20 MG TAB PO SCH (07:55)
[2018-06-08] MEDS: RIVAROXABAN 15 MG TAB (XARELTO) PO SCH (07:55)
[2018-06-08] MEDS: METOCLOPRAMIDE 5 MG TAB PO SCH ×4 (07:55→20:13)
[2018-06-08] MEDS: ISOSORBIDE MON. (IMDUR) 30 MG XR TAB PO SCH (07:55)
[2018-06-08] MEDS: PANTOPRAZOLE 40MG TAB (PROTONIX) PO SCH ×2 (07:55→20:13)
[2018-06-08] MEDS: VITAMIN D 1,000 INTERNATIONAL UNITS TABLET PO SCH (07:55)
[2018-06-08] MEDS: LETROZOLE 2.5 MG TAB PO SCH (07:55)
[2018-06-08] MEDS: SERTRALINE HCL 25 MG TABLET PO SCH (07:56)
[2018-06-08] MEDS: FUROSEMIDE 20 MG TAB PO SCH (07:56)
[2018-06-08] MEDS: SUCRALFATE 1 GM TAB PO SCH ×4 (07:56→20:13)
[2018-06-08] MEDS: ACETAMINOPHEN 650MG ER TAB (TYLENOL ARTHRITIS) PO PRN (07:56)
[2018-06-08 14:00] VITALS: BP 154/70
[2018-06-08] MEDS ORDERED: PPD DOCUMENTATION ENTRY MISC XX ONE (16:00)
[2018-06-08] MEDS: SIMVASTATIN 10 MG TAB PO SCH (20:13)
[2018-06-09] MEDS: IPRATROPIUM 0.5MG/ALBUTEROL 2.5MG INH SOL UD 3ML (DUONEB)(J7620) NEB SCH ×5 (03:22→20:00)
[2018-06-09 06:00] VITALS: BP 164/80
[2018-06-09] MEDS: DIGOXIN 0.125 MG TAB PO SCH (07:54)
[2018-06-09] MEDS: METOCLOPRAMIDE 5 MG TAB PO SCH ×4 (07:54→20:48)
[2018-06-09] MEDS: SERTRALINE HCL 25 MG TABLET PO SCH (07:54)
[2018-06-09] MEDS: SUCRALFATE 1 GM TAB PO SCH ×4 (07:54→20:48)
[2018-06-09] MEDS: FUROSEMIDE 20 MG TAB PO SCH (07:54)
[2018-06-09] MEDS: RIVAROXABAN 15 MG TAB (XARELTO) PO SCH (07:54)
[2018-06-09] MEDS: predniSONE 20 MG TAB PO SCH (07:55)
[2018-06-09] MEDS: PANTOPRAZOLE 40MG TAB (PROTONIX) PO SCH ×2 (07:55→20:48)
[2018-06-09] MEDS: ISOSORBIDE MON. (IMDUR) 30 MG XR TAB PO SCH (07:55)
[2018-06-09] MEDS: LETROZOLE 2.5 MG TAB PO SCH (07:55)
[2018-06-09] MEDS: VITAMIN D 1,000 INTERNATIONAL UNITS TABLET PO SCH (07:56)
[2018-06-09] MEDS: SIMVASTATIN 10 MG TAB PO SCH (20:48)
[2018-06-10] MEDS: IPRATROPIUM 0.5MG/ALBUTEROL 2.5MG INH SOL UD 3ML (DUONEB)(J7620) NEB SCH ×6 (00:19→20:48)
[2018-06-10 06:00] VITALS: BP 154/72
[2018-06-10] MEDS: SERTRALINE HCL 25 MG TABLET PO SCH (07:48)
[2018-06-10] MEDS: SUCRALFATE 1 GM TAB PO SCH ×4 (07:48→20:32)
[2018-06-10] MEDS: PANTOPRAZOLE 40MG TAB (PROTONIX) PO SCH ×2 (07:48→20:32)
[2018-06-10] MEDS: LETROZOLE 2.5 MG TAB PO SCH (07:48)
[2018-06-10] MEDS: METOCLOPRAMIDE 5 MG TAB PO SCH ×4 (07:49→20:32)
[2018-06-10] MEDS: predniSONE 20 MG TAB PO SCH (07:49)
[2018-06-10] MEDS: FUROSEMIDE 20 MG TAB PO SCH (07:49)
[2018-06-10] MEDS: RIVAROXABAN 15 MG TAB (XARELTO) PO SCH (07:52)
[2018-06-10] MEDS: DIGOXIN 0.125 MG TAB PO SCH (07:52)
[2018-06-10] MEDS: VITAMIN D 1,000 INTERNATIONAL UNITS TABLET PO SCH (07:53)
[2018-06-10] MEDS: ISOSORBIDE MON. (IMDUR) 30 MG XR TAB PO SCH (07:53)
[2018-06-10] MEDS: SIMVASTATIN 10 MG TAB PO SCH (20:32)
[2018-06-11] MEDS: IPRATROPIUM 0.5MG/ALBUTEROL 2.5MG INH SOL UD 3ML (DUONEB)(J7620) NEB SCH ×6 (00:04→23:39)
[2018-06-11 05:50] LABS: BASO % 0.2 % (0.0-1.0); EOS # 0.2 10^3/uL (0.0-0.50); EOS % 1.6 % (0.0-3.0); HEMOGLOBIN 8.1 g/dl (12.0-15.5); LYMPH # 1.2 10^3/uL (1.5-4.5); LYMPH % 7.8 % (24.0-44.0); MEAN CORPUSCULAR HEMOGLOBIN 19.7 pg (27.0-33.0); MEAN CORPUSCULAR HGB CONC 27.9 g/dl (32.0-36.5); MEAN CORPUSCULAR VOLUME 70.6 fl (80.0-96.0); MONO # 1.4 10^3/uL (0.0-0.8); MONO % 9.1 % (0.0-5.0); NEUTROPHILS # 12.2 10^3/uL (1.8-7.7); NEUTROPHILS % 80.4 % (36.0-66.0); PLATELET COUNT, AUTOMATED 261 10^3/uL (150-450); RED BLOOD COUNT 4.11 10^6/uL (4.00-5.40); WHITE BLOOD COUNT 15.1 10^3/uL (4.0-10.0)
[2018-06-11 06:00] VITALS: BP 157/76
[2018-06-11 06:20] LABS: BLOOD UREA NITROGEN 16 MG/DL (7-18); CALCIUM LEVEL 8.4 MG/DL (8.8-10.2); CARBON DIOXIDE LEVEL 36 MEQ/L (21-32); CHLORIDE LEVEL 97 MEQ/L (98-107); CREATININE FOR GFR 0.67 MG/DL (0.55-1.30); GLOMERULAR FILTRATION RATE > 60.0 (>32); GLUCOSE, FASTING 97 MG/DL (70-100); MAGNESIUM LEVEL 2.2 MG/DL (1.8-2.4); POTASSIUM SERUM 3.6 MEQ/L (3.5-5.1); SODIUM LEVEL 138 MEQ/L (136-145)
[2018-06-11] MEDS: METOCLOPRAMIDE 5 MG TAB PO SCH ×4 (07:47→20:22)
[2018-06-11] MEDS: RIVAROXABAN 15 MG TAB (XARELTO) PO SCH (07:47)
[2018-06-11] MEDS: SUCRALFATE 1 GM TAB PO SCH ×4 (07:47→20:22)
[2018-06-11] MEDS: predniSONE 20 MG TAB PO SCH (08:46)
[2018-06-11] MEDS: VITAMIN D 1,000 INTERNATIONAL UNITS TABLET PO SCH (08:46)
[2018-06-11] MEDS: ISOSORBIDE MON. (IMDUR) 30 MG XR TAB PO SCH (08:46)
[2018-06-11] MEDS: FUROSEMIDE 20 MG TAB PO SCH (08:46)
[2018-06-11] MEDS: LETROZOLE 2.5 MG TAB PO SCH (08:46)
[2018-06-11] MEDS: DIGOXIN 0.125 MG TAB PO SCH (08:47)
[2018-06-11] MEDS: PANTOPRAZOLE 40MG TAB (PROTONIX) PO SCH ×2 (08:47→20:22)
[2018-06-11] MEDS: SERTRALINE HCL 25 MG TABLET PO SCH (08:47)
[2018-06-11] MEDS: SIMVASTATIN 10 MG TAB PO SCH (20:22)
[2018-06-12] MEDS: IPRATROPIUM 0.5MG/ALBUTEROL 2.5MG INH SOL UD 3ML (DUONEB)(J7620) NEB SCH ×5 (04:00→19:32)
[2018-06-12 05:50] LABS: BASO % 0.1 % (0.0-1.0); EOS # 0.2 10^3/uL (0.0-0.50); EOS % 1.1 % (0.0-3.0); HEMATOCRIT 29.4 % (36.0-47.0); HEMOGLOBIN 8.1 g/dl (12.0-15.5); LYMPH # 1.2 10^3/uL (1.5-4.5); LYMPH % 7.9 % (24.0-44.0); MEAN CORPUSCULAR HEMOGLOBIN 19.3 pg (27.0-33.0); MEAN CORPUSCULAR HGB CONC 27.6 g/dl (32.0-36.5); MEAN CORPUSCULAR VOLUME 70.2 fl (80.0-96.0); MONO # 1.3 10^3/uL (0.0-0.8); MONO % 8.8 % (0.0-5.0); NEUTROPHILS # 12.2 10^3/uL (1.8-7.7); NEUTROPHILS % 81.2 % (36.0-66.0); PLATELET COUNT, AUTOMATED 283 10^3/uL (150-450); RED BLOOD COUNT 4.19 10^6/uL (4.00-5.40)
[2018-06-12 06:00] VITALS: BP 157/77
[2018-06-12 06:11] LABS: BLOOD UREA NITROGEN 14 MG/DL (7-18); CALCIUM LEVEL 8.9 MG/DL (8.8-10.2); CARBON DIOXIDE LEVEL 37 MEQ/L (21-32); CHLORIDE LEVEL 95 MEQ/L (98-107); CREATININE FOR GFR 0.65 MG/DL (0.55-1.30); GLOMERULAR FILTRATION RATE > 60.0 (>32); GLUCOSE, FASTING 94 MG/DL (70-100); MAGNESIUM LEVEL 2.2 MG/DL (1.8-2.4); POTASSIUM SERUM 3.7 MEQ/L (3.5-5.1); SODIUM LEVEL 137 MEQ/L (136-145)
[2018-06-12] MEDS: predniSONE 20 MG TAB PO SCH (08:25)
[2018-06-12] MEDS: LETROZOLE 2.5 MG TAB PO SCH (08:25)
[2018-06-12] MEDS: DIGOXIN 0.125 MG TAB PO SCH (08:26)
[2018-06-12] MEDS: METOCLOPRAMIDE 5 MG TAB PO SCH ×4 (08:26→20:26)
[2018-06-12] MEDS: SERTRALINE HCL 25 MG TABLET PO SCH (08:26)
[2018-06-12] MEDS: RIVAROXABAN 15 MG TAB (XARELTO) PO SCH (08:26)
[2018-06-12] MEDS: PANTOPRAZOLE 40MG TAB (PROTONIX) PO SCH ×2 (08:26→20:26)
[2018-06-12] MEDS: ISOSORBIDE MON. (IMDUR) 30 MG XR TAB PO SCH (08:26)
[2018-06-12] MEDS: VITAMIN D 1,000 INTERNATIONAL UNITS TABLET PO SCH (08:26)
[2018-06-12] MEDS: SUCRALFATE 1 GM TAB PO SCH ×4 (08:26→20:26)
[2018-06-12] MEDS: FUROSEMIDE 20 MG TAB PO SCH (08:38)
--- NOTE | 2018-06-12 10:12 | IPNPDOC ---
Text Note Date of Service The patient was seen on 06/12/18. NOTE Subjective: Patient was seen and examined at the bedside. Patient has no complaints of shortness of breath, cough or palpitations. Denies chest pain. Has not experi enced any nausea, vomiting, abdominal pain, constipation, diarrhea. Objective: Vitals (See below) General: Lying in bed, no acute distress, comfortable, AAOx3, sitting up having breakfast HEENT: NC, AT CVS: RRR, +S1S2 Lungs: Fair air entry b/l, there is no appreciable wheezing, rales or rhonchi Abdomen: Soft, ND, NT Extremities: - Edema, - Calf tenderness Assessment and plan: Shortness of breath / Chronic hypoxic respiratory failure - Multiple admissions for COPD exacerbation (5 admission in 6 months) - Currently breathing has improved; appears to be at baseline - Physical without any significant abnormalities - CXR 06/06: No acute findings. - c/w Inhaled therapy as ordered - PFS / PT / OT on board; considering placement to assisted living to provide better transition to an outpatient setting; in order to provide better control of medical conditions A. fib - Rate controlled with digoxin - Anticoagulated with Xarelto CAD - c/w Imdur, Digoxin, Simvastatin and Xarelto - Not on ASA - Will have outpatient f/u with Cardiology Compensated Diastolic CHF - No signs of exacerbation - c/w Furosemide Hx of Breast CA - c/w Letrozole Anxiety - c/w Sertraline Insomnia - c/w Trazodone PRN Vitamin D deficiency - c/w supplementation GERD - c/w Protonix and Carafate Disposition: - Looking into placement options VS,Fishbone, I+O VS, Fishbone, I+O Laboratory Tests 06/12/18 05:26 Red Blood Count 4.19, Mean Corpuscular Volume 70.2 L, Mean Corpuscular Hemoglobin 19.3 L, Mean Corpuscular Hemoglobin Concent 27.6 L, Red Cell Distribution Width 19.0 H, Neutrophils (%) (Auto) 81.2 H, Lymphocytes (%) (Auto) 7.9 L, Monocytes (%) (Auto) 8.8 H, Eosinophils (%) (Auto) 1.1, Basophils (%) (Auto) 0.1, Neutrophils # (Auto) 12.2 H, Lymphocytes # (Auto) 1.2 L, Monocytes # (Auto) 1.3 H, Eosinophils # (Auto) 0.2, Basophils # (Auto) 0.0, Calcium Level 8.9 Vital Signs Date Time Temp Pulse Resp B/P (MAP) Pulse Ox O2 Delivery O2 Flow Rate FiO2 06/12/18 08:26 92 06/12/18 08:26 180/82 06/12/18 06:00 97.4 20 93 06/11/18 22:00 4.0 06/11/18 06:00 Nasal Cannula I&O- Last 24 Hours up to 6 AM 06/12/18 06:00 Intake Total 2040 ml Output Total 1950 ml Balance 90 ml MARJAN JOHNSON MD Jun 12, 2018 10:12
[2018-06-12] MEDS: SIMVASTATIN 10 MG TAB PO SCH (20:26)
[2018-06-13] MEDS: IPRATROPIUM 0.5MG/ALBUTEROL 2.5MG INH SOL UD 3ML (DUONEB)(J7620) NEB SCH ×8 (04:00→23:53)
[2018-06-13 06:00] VITALS: BP 162/80
[2018-06-13 06:04] LABS: BASO % 0.1 % (0.0-1.0); EOS # 0.2 10^3/uL (0.0-0.50); EOS % 0.9 % (0.0-3.0); HEMATOCRIT 29.7 % (36.0-47.0); HEMOGLOBIN 8.2 g/dl (12.0-15.5); LYMPH # 1.3 10^3/uL (1.5-4.5); LYMPH % 7.8 % (24.0-44.0); MEAN CORPUSCULAR HEMOGLOBIN 19.3 pg (27.0-33.0); MEAN CORPUSCULAR HGB CONC 27.6 g/dl (32.0-36.5); MEAN CORPUSCULAR VOLUME 69.9 fl (80.0-96.0); MONO # 1.6 10^3/uL (0.0-0.8); MONO % 9.7 % (0.0-5.0); NEUTROPHILS # 13.2 10^3/uL (1.8-7.7); NEUTROPHILS % 80.2 % (36.0-66.0); PLATELET COUNT, AUTOMATED 294 10^3/uL (150-450); RED BLOOD COUNT 4.25 10^6/uL (4.00-5.40); WHITE BLOOD COUNT 16.4 10^3/uL (4.0-10.0)
[2018-06-13 06:25] LABS: BLOOD UREA NITROGEN 13 MG/DL (7-18); CARBON DIOXIDE LEVEL 35 MEQ/L (21-32); CHLORIDE LEVEL 97 MEQ/L (98-107); CREATININE FOR GFR 0.62 MG/DL (0.55-1.30); GLOMERULAR FILTRATION RATE > 60.0 (>32); GLUCOSE, FASTING 87 MG/DL (70-100); MAGNESIUM LEVEL 2.1 MG/DL (1.8-2.4); POTASSIUM SERUM 3.8 MEQ/L (3.5-5.1); SODIUM LEVEL 138 MEQ/L (136-145)
[2018-06-13] MEDS: RIVAROXABAN 15 MG TAB (XARELTO) PO SCH (08:15)
[2018-06-13] MEDS: PANTOPRAZOLE 40MG TAB (PROTONIX) PO SCH ×2 (08:15→20:19)
[2018-06-13] MEDS: VITAMIN D 1,000 INTERNATIONAL UNITS TABLET PO SCH (08:15)
[2018-06-13] MEDS: LETROZOLE 2.5 MG TAB PO SCH (08:15)
[2018-06-13] MEDS: SUCRALFATE 1 GM TAB PO SCH ×4 (08:15→20:18)
[2018-06-13] MEDS: DIGOXIN 0.125 MG TAB PO SCH (08:15)
[2018-06-13] MEDS: METOCLOPRAMIDE 5 MG TAB PO SCH ×4 (08:16→20:19)
[2018-06-13] MEDS: FUROSEMIDE 20 MG TAB PO SCH (08:16)
[2018-06-13] MEDS: predniSONE 20 MG TAB PO SCH (08:16)
[2018-06-13] MEDS: ISOSORBIDE MON. (IMDUR) 30 MG XR TAB PO SCH (08:16)
[2018-06-13] MEDS: SERTRALINE HCL 25 MG TABLET PO SCH (08:16)
[2018-06-13 08:45] VITALS: BP 132/58
[2018-06-13] MEDS: SIMVASTATIN 10 MG TAB PO SCH (20:19)
[2018-06-14] MEDS: IPRATROPIUM 0.5MG/ALBUTEROL 2.5MG INH SOL UD 3ML (DUONEB)(J7620) NEB SCH ×5 (04:46→20:00)
[2018-06-14 05:55] LABS: BASO % 0.3 % (0.0-1.0); EOS # 0.1 10^3/uL (0.0-0.50); EOS % 0.9 % (0.0-3.0); HEMATOCRIT 27.9 % (36.0-47.0); HEMOGLOBIN 7.7 g/dl (12.0-15.5); LYMPH # 1.3 10^3/uL (1.5-4.5); LYMPH % 9.1 % (24.0-44.0); MEAN CORPUSCULAR HGB CONC 27.6 g/dl (32.0-36.5); MEAN CORPUSCULAR VOLUME 68.7 fl (80.0-96.0); MONO # 1.5 10^3/uL (0.0-0.8); MONO % 10.3 % (0.0-5.0); NEUTROPHILS # 10.9 10^3/uL (1.8-7.7); NEUTROPHILS % 77.3 % (36.0-66.0); PLATELET COUNT, AUTOMATED 284 10^3/uL (150-450); RED BLOOD COUNT 4.06 10^6/uL (4.00-5.40); WHITE BLOOD COUNT 14.1 10^3/uL (4.0-10.0)
[2018-06-14 06:00] VITALS: BP 152/84
[2018-06-14 06:23] LABS: BLOOD UREA NITROGEN 15 MG/DL (7-18); CALCIUM LEVEL 8.7 MG/DL (8.8-10.2); CARBON DIOXIDE LEVEL 36 MEQ/L (21-32); CHLORIDE LEVEL 95 MEQ/L (98-107); CREATININE FOR GFR 0.66 MG/DL (0.55-1.30); GLOMERULAR FILTRATION RATE > 60.0 (>32); GLUCOSE, FASTING 100 MG/DL (70-100); MAGNESIUM LEVEL 2.1 MG/DL (1.8-2.4); POTASSIUM SERUM 3.9 MEQ/L (3.5-5.1); SODIUM LEVEL 137 MEQ/L (136-145)
[2018-06-14] MEDS: ISOSORBIDE MON. (IMDUR) 30 MG XR TAB PO SCH (10:37)
[2018-06-14] MEDS: predniSONE 20 MG TAB PO SCH (10:37)
[2018-06-14] MEDS: PANTOPRAZOLE 40MG TAB (PROTONIX) PO SCH ×2 (10:37→20:25)
[2018-06-14] MEDS: SERTRALINE HCL 25 MG TABLET PO SCH (10:37)
[2018-06-14] MEDS: RIVAROXABAN 15 MG TAB (XARELTO) PO SCH (10:38)
[2018-06-14] MEDS: VITAMIN D 1,000 INTERNATIONAL UNITS TABLET PO SCH (10:38)
[2018-06-14] MEDS: METOCLOPRAMIDE 5 MG TAB PO SCH ×4 (10:38→20:25)
[2018-06-14] MEDS: LETROZOLE 2.5 MG TAB PO SCH (10:38)
[2018-06-14] MEDS: FUROSEMIDE 20 MG TAB PO SCH (10:38)
[2018-06-14] MEDS: SUCRALFATE 1 GM TAB PO SCH ×4 (10:38→20:25)
--- NOTE | 2018-06-14 15:08 | REP ---
Chest one-view HISTORY: Fever Comparison: 06/06/2018 A diffuse increase in interstitial markings is present in the lungs consistent with chronic interstitial fibrosis. Small bilateral pleural effusions are present. The cardiac silhouette is enlarged. The pulmonary vasculature is normal in appearance. Impression: 1. Chronic interstitial fibrosis. 2. Small bilateral pleural effusions. 3. Cardiomegaly. Electronically Signed by Jorge Peoples MD 06/14/2018 02:59 P
[2018-06-14] MEDS ORDERED: EUCERIN 120GM CREAM TOP PRN (19:38)
[2018-06-14] MEDS: SIMVASTATIN 10 MG TAB PO SCH (20:25)
[2018-06-15] MEDS: IPRATROPIUM 0.5MG/ALBUTEROL 2.5MG INH SOL UD 3ML (DUONEB)(J7620) NEB SCH ×7 (00:44→23:05)
[2018-06-15 06:00] VITALS: BP 160/78
[2018-06-15 06:17] LABS: BASO % 0.2 % (0.0-1.0); EOS # 0.1 10^3/uL (0.0-0.50); HEMATOCRIT 28.3 % (36.0-47.0); LYMPH # 1.3 10^3/uL (1.5-4.5); LYMPH % 9.7 % (24.0-44.0); MEAN CORPUSCULAR HEMOGLOBIN 19.4 pg (27.0-33.0); MEAN CORPUSCULAR HGB CONC 28.3 g/dl (32.0-36.5); MEAN CORPUSCULAR VOLUME 68.5 fl (80.0-96.0); MONO # 1.4 10^3/uL (0.0-0.8); MONO % 10.6 % (0.0-5.0); NEUTROPHILS # 10.2 10^3/uL (1.8-7.7); NEUTROPHILS % 76.3 % (36.0-66.0); PLATELET COUNT, AUTOMATED 283 10^3/uL (150-450); RED BLOOD COUNT 4.13 10^6/uL (4.00-5.40); WHITE BLOOD COUNT 13.3 10^3/uL (4.0-10.0)
[2018-06-15 06:34] LABS: BLOOD UREA NITROGEN 13 MG/DL (7-18); C REACTIVE PROTEIN QUANTITATIV 2.84 MG/DL (0.00-0.30); CALCIUM LEVEL 8.6 MG/DL (8.8-10.2); CARBON DIOXIDE LEVEL 34 MEQ/L (21-32); CHLORIDE LEVEL 97 MEQ/L (98-107); CREATININE FOR GFR 0.64 MG/DL (0.55-1.30); GLOMERULAR FILTRATION RATE > 60.0 (>32); GLUCOSE, FASTING 83 MG/DL (70-100); MAGNESIUM LEVEL 2.3 MG/DL (1.8-2.4); POTASSIUM SERUM 3.8 MEQ/L (3.5-5.1); SODIUM LEVEL 137 MEQ/L (136-145)
--- NOTE | 2018-06-15 10:05 | REPVR ---
EXAM: CT Chest Without Contrast EXAM DATE/TIME: 06/14/2018 9:20 PM CLINICAL HISTORY: 83 years old, female; Signs and symptoms; Cough; Additional info: Productive cough TECHNIQUE: Axial computed tomography images of the chest without intravenous contrast. All CT scans at this facility use at least one of these dose optimization techniques: automated exposure control; mA and/or kV adjustment per patient size (includes targeted exams where dose is matched to clinical indication); or iterative reconstruction. Coronal and sagittal reformatted images were created and reviewed. MIP reconstructed images were created and reviewed. COMPARISON: CT Chest without contrast 02/09/2018 3:59 PM FINDINGS: Limitations: Evaluation is somewhat limited by lack of IV contrast. Lungs: The lungs demonstrate minor dependent atelectasis. There is a similar 8mm pleural based nodule along the right major fissure (image 202:[id number]). The lungs are otherwise clear. Pleural space: Normal. No pneumothorax. No pleural effusion. Heart: Normal. No cardiomegaly. No pericardial effusion. Aorta: The thoracic aorta is nonaneurysmal. Atherosclerotic vascular calcifications are noted. Lymph nodes: No gross pathologic lymphadenopathy. Bones/joints: Degenerative changes involve the spine and shoulders. Soft tissues: Unremarkable. Upper abdomen: The visualized abdominal structures appear grossly unremarkable. Other findings: There is also mild motion limitation. IMPRESSION: 1. 8mm right lung nodule, similar to 02/09/18. For patients at low risk (minimal or absent history of smoking and of other known risk factors), recommend CT at 6-12 months, then consider CT at 18-24 months. For patients at high risk (history of smoking or of other known risk factors), recommend CT at 6-12 months, then CT at 18-24 months. (Otoniel et al., Fleischner Society, 2017). 2. No new gross disease on this unenhanced, motion limited exam. Electronically signed by: Alonso Mcnamara On 06/15/2018 10:04:38 AM
[2018-06-15] MEDS: SUCRALFATE 1 GM TAB PO SCH ×4 (10:08→20:17)
[2018-06-15] MEDS: PANTOPRAZOLE 40MG TAB (PROTONIX) PO SCH ×2 (10:08→20:17)
[2018-06-15] MEDS: SERTRALINE HCL 25 MG TABLET PO SCH (10:09)
[2018-06-15] MEDS: predniSONE 20 MG TAB PO SCH (10:09)
[2018-06-15] MEDS: VITAMIN D 1,000 INTERNATIONAL UNITS TABLET PO SCH (10:09)
[2018-06-15] MEDS: ISOSORBIDE MON. (IMDUR) 30 MG XR TAB PO SCH (10:10)
[2018-06-15] MEDS: METOCLOPRAMIDE 5 MG TAB PO SCH ×4 (10:10→20:17)
[2018-06-15] MEDS: RIVAROXABAN 15 MG TAB (XARELTO) PO SCH (10:11)
[2018-06-15] MEDS: FUROSEMIDE 20 MG TAB PO SCH (10:11)
[2018-06-15] MEDS: LETROZOLE 2.5 MG TAB PO SCH (11:14)
[2018-06-15] MEDS: SIMVASTATIN 10 MG TAB PO SCH (20:17)
[2018-06-16] MEDS: IPRATROPIUM 0.5MG/ALBUTEROL 2.5MG INH SOL UD 3ML (DUONEB)(J7620) NEB SCH ×5 (03:31→20:17)
[2018-06-16] MEDS ORDERED: IPRATROPIUM 0.02% SOLN 0.5MG/2.5 ML NEB NEB STA (05:44)
[2018-06-16 06:00] VITALS: BP 140/80
[2018-06-16] MEDS ORDERED: FUROSEMIDE 20 MG/2 ML VIAL (J1940) IV ONE ×2 (06:00→16:00)
[2018-06-16 06:08] LABS: BASO % 0.3 % (0.0-1.0); EOS # 0.1 10^3/uL (0.0-0.50); EOS % 0.8 % (0.0-3.0); HEMATOCRIT 26.8 % (36.0-47.0); HEMOGLOBIN 7.7 g/dl (12.0-15.5); LYMPH # 1.3 10^3/uL (1.5-4.5); LYMPH % 8.6 % (24.0-44.0); MEAN CORPUSCULAR HEMOGLOBIN 19.5 pg (27.0-33.0); MEAN CORPUSCULAR HGB CONC 28.7 g/dl (32.0-36.5); MEAN CORPUSCULAR VOLUME 67.8 fl (80.0-96.0); MONO # 1.4 10^3/uL (0.0-0.8); MONO % 9.2 % (0.0-5.0); NEUTROPHILS # 11.6 10^3/uL (1.8-7.7); NEUTROPHILS % 77.9 % (36.0-66.0); PLATELET COUNT, AUTOMATED 312 10^3/uL (150-450); RED BLOOD COUNT 3.95 10^6/uL (4.00-5.40); WHITE BLOOD COUNT 14.8 10^3/uL (4.0-10.0)
[2018-06-16 06:23] LABS: BLOOD UREA NITROGEN 12 MG/DL (7-18); CALCIUM LEVEL 8.6 MG/DL (8.8-10.2); CARBON DIOXIDE LEVEL 36 MEQ/L (21-32); CHLORIDE LEVEL 95 MEQ/L (98-107); CREATININE FOR GFR 0.67 MG/DL (0.55-1.30); GLOMERULAR FILTRATION RATE > 60.0 (>32); GLUCOSE, FASTING 96 MG/DL (70-100); MAGNESIUM LEVEL 2.3 MG/DL (1.8-2.4); POTASSIUM SERUM 3.9 MEQ/L (3.5-5.1); SODIUM LEVEL 137 MEQ/L (136-145)
[2018-06-16] MEDS: PANTOPRAZOLE 40MG TAB (PROTONIX) PO SCH ×2 (07:42→20:22)
[2018-06-16] MEDS: SERTRALINE HCL 25 MG TABLET PO SCH (07:42)
[2018-06-16] MEDS: RIVAROXABAN 15 MG TAB (XARELTO) PO SCH (07:42)
[2018-06-16] MEDS: DIGOXIN 0.125 MG TAB PO SCH (07:42)
[2018-06-16] MEDS: SUCRALFATE 1 GM TAB PO SCH ×4 (07:42→20:22)
[2018-06-16] MEDS: LETROZOLE 2.5 MG TAB PO SCH (07:42)
[2018-06-16] MEDS: ISOSORBIDE MON. (IMDUR) 30 MG XR TAB PO SCH (07:43)
[2018-06-16] MEDS: FUROSEMIDE 20 MG TAB PO SCH (07:43)
[2018-06-16] MEDS: VITAMIN D 1,000 INTERNATIONAL UNITS TABLET PO SCH (07:43)
[2018-06-16] MEDS: predniSONE 20 MG TAB PO SCH (07:43)
[2018-06-16] MEDS: METOCLOPRAMIDE 5 MG TAB PO SCH ×4 (07:43→20:22)
--- NOTE | 2018-06-16 07:44 | REPVR ---
EXAM: US Left Duplex Lower Extremity Veins, Limited EXAM DATE/TIME: 06/16/2018 6:40 AM CLINICAL HISTORY: 83 years old, female; Pain; Hand; Left; Additional info: Left lower leg pain TECHNIQUE: Real-time Duplex ultrasound of the Left Lower Extremity with 2-D salomon scale, color Doppler flow and spectral waveform analysis. Limited exam focused on the left lower extremity veins. COMPARISON: No relevant prior studies available. FINDINGS: Left deep veins: Unremarkable. The common femoral, femoral and popliteal veins are patent without thrombus. Normal compressibility, augmentation response and Doppler waveforms. Left superficial veins: Unremarkable. Saphenofemoral junction is patent without thrombus. Soft tissues: Unremarkable. IMPRESSION: Negative left lower extremity venous duplex exam without evidence of deep venous thrombosis. Electronically signed by: Дмитрий Meyer On 06/16/2018 07:43:54 AM
[2018-06-16 07:56] LABS: DIGOXIN LEVEL 0.4 NG/ML (0.5-2.0)
[2018-06-16 10:58] LABS: NT-PRO BNP 4423 PG/ML (<450)
[2018-06-16] MEDS ORDERED: DIGOXIN 0.25 MG TAB PO ONE (11:00)
--- NOTE | 2018-06-16 11:30 | REP ---
PORTABLE CHEST X-RAY: Single view. HISTORY: Shortness of breath. COMPARISON CHEST X-RAY: June 14, 2018. FINDINGS: Moderate cardiac enlargement is observed. Pulmonary vasculature is cephalized and indistinct. There is a diffuse moderate pattern of interstitial edema. No pleural effusion is seen. The aorta is calcific and tortuous. IMPRESSION: CHF pattern with diffuse moderate interstitial edema and vascular congestion. Cardiomegaly. No pleural effusion or focal infiltrate seen. Electronically Signed by Adair Longo MD 06/16/2018 07:21 P
[2018-06-16 13:08] LABS: HEMATOCRIT 29.7 % (36.0-47.0); HEMOGLOBIN 8.2 g/dl (12.0-15.5)
--- NOTE | 2018-06-16 14:45 | IPNPDOC ---
Text Note Date of Service The patient was seen on 06/16/18. NOTE Subjective: On the early a.m. of 06/16/2018 patient began to experience palpitations and was found to be in A. fib with RVR. Imaging was taken, which is consistent with fluid overload. Patient was given a dose of Furosemide 20 IV 1. Patient was seen and examined at the bedside. Patient is still noting some difficulty breathing. Denies chest pain or palpitations. She notes a productive cough. Denies any abdominal pain, diarrhea or discomfort with urination. He does note that her lower extremities are a little bit swollen. Objective: Vitals (See below) General: Lying in bed, no acute distress, comfortable, AAOx3, sitting up having breakfast HEENT: NC, AT CVS: RRR, +S1S2 Lungs: Fair air entry b/l, auscultation is not reveal any wheezing, rhonchi, mild rales b/l Abdomen: Soft, ND, NT Extremities: Trace edema bilaterally, - Calf tenderness Assessment and plan: Shortness of breath / Chronic hypoxic respiratory failure - possibly 2/2 COPD, possibly 22/ decompensated diastolic CHF - Multiple admissions for COPD exacerbation (5 admission in 6 months) - Currently breathing has improved; appears to be at baseline - Physical without any significant abnormalities - CXR 06/06: No acute findings. - CT chest 06/16: 1. 8mm right lung nodule, similar to 02/09/18. For patients at low risk (minimal or absent history of smoking and of other known risk factors), recommend CT at 6-12 months, then consider CT at 18-24 months. For patients at high risk (history of smoking or of other known risk factors), recommend CT at 6-12 months, then CT at 18-24 months. (Otoniel et al., Fleischner Society, 2017). 2. No new gross disease on this unenhanced, motion limited exam. - CXR 06/16: CHF pattern with diffuse moderate interstitial edema and vascular congestion. Cardiomegaly. No pleural effusion or focal infiltrate seen. - Venous US L leg 06/16: Negative left lower extremity venous duplex exam without evidence of deep venous thrombosis. - c/w Inhaled therapy as ordered - Patient has received furosemide 20 mg IV at 6 AM we'll provide additional dose at 4 PM today - Will resume strict input and output, daily weights, and head of bed elevation at 30 - Will increase standing dose of furosemide to 40 mg daily - PFS / PT / OT on board A. fib with RVR - Initially, patient had rate control with digoxin, however, this morning there has been an elevation in her rate - Digoxin level noted to be subtherapeutic - Adjusted digoxin to daily dosing and will provide additional dose of digoxin today at 125mcg - Will start remote telemetry - Anticoagulated with Xarelto CAD - c/w Imdur, Digoxin, Simvastatin and Xarelto - Not on ASA - Will have outpatient f/u with Cardiology Hx of Breast CA - c/w Letrozole Anxiety - c/w Sertraline Insomnia - c/w Trazodone PRN Vitamin D deficiency - c/w supplementation GERD - c/w Protonix and Carafate Disposition: - Awaiting clinical improvement - Looking into placement options VS,Fishbone, I+O VS, Fishbone, I+O Laboratory Tests 06/16/18 05:46 Red Blood Count 3.95 L, Mean Corpuscular Volume 67.8 L, Mean Corpuscular Hemoglobin 19.5 L, Mean Corpuscular Hemoglobin Concent 28.7 L, Red Cell Distribution Width 18.9 H, Neutrophils (%) (Auto) 77.9 H, Lymphocytes (%) (Auto) 8.6 L, Monocytes (%) (Auto) 9.2 H, Eosinophils (%) (Auto) 0.8, Basophils (%) (Auto) 0.3, Neutrophils # (Auto) 11.6 H, Lymphocytes # (Auto) 1.3 L, Monocytes # (Auto) 1.4 H, Eosinophils # (Auto) 0.1, Basophils # (Auto) 0.0, Calcium Level 8.6 L 06/16/18 11:59 Vital Signs Date Time Temp Pulse Resp B/P (MAP) Pulse Ox O2 Delivery O2 Flow Rate FiO2 06/16/18 11:05 101 06/16/18 07:43 157/71 06/16/18 07:30 3.0 06/16/18 06:15 92 Nasal Cannula 06/16/18 06:00 97.3 24 I&O- Last 24 Hours up to 6 AM 06/16/18 06:00 Intake Total 900 ml Output Total 2500 ml Balance -1600 ml MARJAN JOHNSON MD Jun 16, 2018 14:45
[2018-06-16] MEDS: SIMVASTATIN 10 MG TAB PO SCH (20:22)
--- NOTE | 2018-06-16 20:33 | ECGEPIP ---
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
[2018-06-17] MEDS: IPRATROPIUM 0.5MG/ALBUTEROL 2.5MG INH SOL UD 3ML (DUONEB)(J7620) NEB SCH ×6 (04:00→23:36)
[2018-06-17 06:00] VITALS: BP 143/75
[2018-06-17 06:07] LABS: BASO # 0.1 10^3/uL (0.0-0.2); BASO % 0.4 % (0.0-1.0); EOS # 0.1 10^3/uL (0.0-0.50); EOS % 0.8 % (0.0-3.0); HEMATOCRIT 29.1 % (36.0-47.0); LYMPH # 1.3 10^3/uL (1.5-4.5); LYMPH % 9.5 % (24.0-44.0); MEAN CORPUSCULAR HEMOGLOBIN 19.1 pg (27.0-33.0); MEAN CORPUSCULAR HGB CONC 27.5 g/dl (32.0-36.5); MEAN CORPUSCULAR VOLUME 69.5 fl (80.0-96.0); MONO # 1.3 10^3/uL (0.0-0.8); MONO % 8.8 % (0.0-5.0); NEUTROPHILS # 10.9 10^3/uL (1.8-7.7); NEUTROPHILS % 77.1 % (36.0-66.0); PLATELET COUNT, AUTOMATED 328 10^3/uL (150-450); RED BLOOD COUNT 4.19 10^6/uL (4.00-5.40); WHITE BLOOD COUNT 14.2 10^3/uL (4.0-10.0)
[2018-06-17 06:29] LABS: BLOOD UREA NITROGEN 12 MG/DL (7-18); C REACTIVE PROTEIN QUANTITATIV 1.33 MG/DL (0.00-0.30); CALCIUM LEVEL 8.6 MG/DL (8.8-10.2); CARBON DIOXIDE LEVEL 38 MEQ/L (21-32); CHLORIDE LEVEL 94 MEQ/L (98-107); CREATININE FOR GFR 0.68 MG/DL (0.55-1.30); GLOMERULAR FILTRATION RATE > 60.0 (>32); GLUCOSE, FASTING 93 MG/DL (70-100); MAGNESIUM LEVEL 2.3 MG/DL (1.8-2.4); SODIUM LEVEL 138 MEQ/L (136-145)
[2018-06-17] MEDS: VITAMIN D 1,000 INTERNATIONAL UNITS TABLET PO SCH (08:45)
[2018-06-17] MEDS: DIGOXIN 0.125 MG TAB PO SCH (08:46)
[2018-06-17] MEDS: predniSONE 20 MG TAB PO SCH (08:46)
[2018-06-17] MEDS: LETROZOLE 2.5 MG TAB PO SCH (08:46)
[2018-06-17] MEDS: ISOSORBIDE MON. (IMDUR) 30 MG XR TAB PO SCH (08:46)
[2018-06-17] MEDS: FUROSEMIDE 20 MG TAB PO SCH (08:47)
[2018-06-17] MEDS: SERTRALINE HCL 25 MG TABLET PO SCH (08:47)
[2018-06-17] MEDS: RIVAROXABAN 15 MG TAB (XARELTO) PO SCH (08:47)
[2018-06-17] MEDS: SUCRALFATE 1 GM TAB PO SCH ×4 (08:47→20:49)
[2018-06-17] MEDS: PANTOPRAZOLE 40MG TAB (PROTONIX) PO SCH ×2 (08:47→20:49)
[2018-06-17] MEDS: METOCLOPRAMIDE 5 MG TAB PO SCH ×4 (08:47→20:49)
--- NOTE | 2018-06-17 13:10 | IPNPDOC ---
Date Seen The patient was seen on 06/17/18. Progress Note SUBJECTIVE: Patient tells me she is feels well today, she has no specific complaints, she denies palpitations any worse from her chronic shortness of breath nausea vomiting fevers chills chest pain OBJECTIVE PHYSICAL EXAMINATION: VITAL SIGNS: Please see below. GENERAL: Frail elderly female sleeping in a chair easily arousable to verbal stimuli she is in no acute distress HEENT: Nerves II through XII appear grossly intact she speaks complete sentences without accessory muscle use she is hard of hearing CARDIOVASCULAR: S1-S2 regular she is not tachycardic at the time of my exam. RESPIRATORY: Prolonged expiratory phase but no audible wheeze at this time. ABDOMINAL: Sounds present abdomen soft EXTREMITIES: No clubbing cyanosis or edema LABORATORY DATA, IMAGING STUDIES, MICROBIOLOGY: Please see below. DVT prophylaxis ordered?: Xarelto ASSESSMENT AND PLAN: This is a 83-year-old female with shortness of breath PROBLEMS: 1. Shortness of breath: Chronic hypoxic respiratory failure, , she appears to back to her baseline of some concern she may have some pulmonary edema and she did receive some additional diuresis yesterday her Lasix regular dosing is been titrated up we'll continue monitor closely appears be doing well at this time. Multiple consultations for COPD I will taper her prednisone to 20 mg daily which is closer which was doing at home that was 10 twice a day. currently working PFS and the patient's granddaughter on potential placement. Also likely significant anxiety she is started on sertraline during this hospitalization. She has a lung nodule recommend repeat CT in 6-12 months continue working with PT and OT and PFS 2. History of breast cancer: On letrozole. 3. Atrial fibrillation: Yesterday she was uncontrolled should receive additional digoxin and her doses been titrated up at this time she now appears be fairly well rate-controlled I will recheck a digoxin level tomorrow morning is on Xarelto for anticoagulation. 4. Insomnia: She is on trazodone 5. Gastroesophageal reflux disease: She is on Carafate and Protonix 6. Coronary artery disease: She is not on an aspirin and she is on Xarelto she is on a statin she is not on a beta anish likely related to her advanced lung disease, she is on Imdur 7. Vitamin D deficiency: Continue supplementation 8. Congestive heart failure: Has a history of cor pulmonale and diastolic dysfunction as outlined above DISPOSITION: Likely placement of my guess would be assisted living. She can like ly be altered level care will she waits VS, I&O, 24H, Jono Vital Signs/I&O Vital Signs Date Time Temp Pulse Resp B/P (MAP) Pulse Ox O2 Delivery O2 Flow Rate FiO2 06/17/18 11:17 3.0 06/17/18 08:46 102 06/17/18 08:46 137/71 06/17/18 06:00 97.5 18 97 Nasal Cannula I&O- Last 24 Hours up to 6 AM 06/17/18 05:59 Intake Total 2380 ml Output Total 2760 ml Balance -380 ml Laboratory Data 24H LABS Laboratory Tests 2 06/17/18 05:39: Immature Granulocyte % (Auto) 3.4H, White Blood Count 14.2H, Red Blood Count 4.19, Hemoglobin 8.0L, Hematocrit 29.1L, Mean Corpuscular Volume 69.5L, Mean Corpuscular Hemoglobin 19.1L, Mean Corpuscular Hemoglobin Concent 27.5L, Red Cell Distribution Width 19.0H, Platelet Count 328, Neutrophils (%) (Auto) 77.1H, Lymphocytes (%) (Auto) 9.5L, Monocytes (%) (Auto) 8.8H, Eosinophils (%) (Auto) 0.8, Basophils (%) (Auto) 0.4, Neutrophils # (Auto) 10.9H, Lymphocytes # (Auto) 1.3L, Monocytes # (Auto) 1.3H, Eosinophils # (Auto) 0.1, Basophils # (Auto) 0.1, Nucleated Red Blood Cells % (auto) 0.1H, Anion Gap 6L, Glomerular Filtration Rate > 60.0, Blood Urea Nitrogen 12, Creatinine 0.68, Sodium Level 138, Potassium Level 4.0, Chloride Level 94L, Carbon Dioxide Level 38H, Calcium Level 8.6L, Magnesium Level 2.3, C-Reactive Protein, Quantitative 1.33H CBC/BMP Laboratory Tests 06/17/18 05:39 Red Blood Count 4.19, Mean Corpuscular Volume 69.5 L, Mean Corpuscular Hemoglobin 19.1 L, Mean Corpuscular Hemoglobin Concent 27.5 L, Red Cell Distribution Width 19.0 H, Neutrophils (%) (Auto) 77.1 H, Lymphocytes (%) (Auto) 9.5 L, Monocytes (%) (Auto) 8.8 H, Eosinophils (%) (Auto) 0.8, Basophils (%) (Auto) 0.4, Neutrophils # (Auto) 10.9 H, Lymphocytes # (Auto) 1.3 L, Monocytes # (Auto) 1.3 H, Eosinophils # (Auto) 0.1, Basophils # (Auto) 0.1, Calcium Level 8.6 L Microbiology Microbiology 06/14/18 Gram Stain - Final, Complete 06/14/18 Sputum Culture - Final, Complete SHAUNA AJ MD Jun 17, 2018 13:10
[2018-06-17 20:44] LABS: INFLUENZA A AMPLIFICATION NEGATIVE (NEGATIVE); INFLUENZA B AMPLIFICATION NEGATIVE (NEGATIVE)
[2018-06-17] MEDS: SIMVASTATIN 10 MG TAB PO SCH (20:49)
[2018-06-18] MEDS: IPRATROPIUM 0.5MG/ALBUTEROL 2.5MG INH SOL UD 3ML (DUONEB)(J7620) NEB SCH ×6 (04:30→23:22)
[2018-06-18 06:00] VITALS: BP 148/64
[2018-06-18 07:08] LABS: C REACTIVE PROTEIN QUANTITATIV 0.86 MG/DL (0.00-0.30)
[2018-06-18] MEDS: LETROZOLE 2.5 MG TAB PO SCH (08:05)
[2018-06-18] MEDS: ISOSORBIDE MON. (IMDUR) 30 MG XR TAB PO SCH (08:05)
[2018-06-18] MEDS: RIVAROXABAN 15 MG TAB (XARELTO) PO SCH (08:05)
[2018-06-18] MEDS: SUCRALFATE 1 GM TAB PO SCH ×4 (08:05→20:29)
[2018-06-18] MEDS: SERTRALINE HCL 25 MG TABLET PO SCH (08:05)
[2018-06-18] MEDS: VITAMIN D 1,000 INTERNATIONAL UNITS TABLET PO SCH (08:05)
[2018-06-18] MEDS: METOCLOPRAMIDE 5 MG TAB PO SCH ×4 (08:09→20:29)
[2018-06-18] MEDS: FUROSEMIDE 20 MG TAB PO SCH (08:09)
[2018-06-18] MEDS: predniSONE 20 MG TAB PO SCH (08:09)
[2018-06-18] MEDS: DIGOXIN 0.125 MG TAB PO SCH (08:11)
[2018-06-18] MEDS: PANTOPRAZOLE 40MG TAB (PROTONIX) PO SCH ×2 (08:11→20:29)
[2018-06-18 09:22] LABS: BLOOD UREA NITROGEN 13 MG/DL (7-18); CALCIUM LEVEL 8.8 MG/DL (8.8-10.2); CARBON DIOXIDE LEVEL 37 MEQ/L (21-32); CHLORIDE LEVEL 93 MEQ/L (98-107); CREATININE FOR GFR 0.71 MG/DL (0.55-1.30); GLOMERULAR FILTRATION RATE > 60.0 (>32); GLUCOSE, FASTING 93 MG/DL (70-100); HEMATOCRIT 28.8 % (36.0-47.0); MEAN CORPUSCULAR HGB CONC 27.8 g/dl (32.0-36.5); MEAN CORPUSCULAR VOLUME 68.6 fl (80.0-96.0); PLATELET COUNT, AUTOMATED 354 10^3/uL (150-450); POTASSIUM SERUM 3.8 MEQ/L (3.5-5.1); SODIUM LEVEL 136 MEQ/L (136-145); WHITE BLOOD COUNT 13.6 10^3/uL (4.0-10.0)
[2018-06-18] MEDS ORDERED: FUROSEMIDE 40 MG/4 ML VIAL (J1940) IV ONE (11:00)
--- NOTE | 2018-06-18 12:10 | IPNPDOC ---
Date Seen The patient was seen on 06/18/18. Progress Note SUBJECTIVE: Patient tells me she is feels well, she slept well, has no specific complaints, she denies palpitations any worse from her chronic shortness of breath nausea vomiting fevers chills chest pain OBJECTIVE PHYSICAL EXAMINATION: VITAL SIGNS: Please see below. GENERAL: Frail elderly female sitting in a chair she is in no acute distress HEENT: Nerves II through XII appear grossly intact she speaks complete sentences without accessory muscle use she is hard of hearing CARDIOVASCULAR: S1-S2 regular she is not tachycardic at the time of my exam. RESPIRATORY: Prolonged expiratory phase but no audible wheeze at this time. ABDOMINAL: Sounds present abdomen soft EXTREMITIES: No clubbing cyanosis trace edema bilaterally LABORATORY DATA, IMAGING STUDIES, MICROBIOLOGY: Please see below. DVT prophylaxis ordered?: Xarelto ASSESSMENT AND PLAN: This is a 83-year-old female with shortness of breath PROBLEMS: 1. Shortness of breath: Chronic hypoxic respiratory failure, she appears to back to her baseline there was some concern she may have had some pulmonary edema and she did receive some additional diuresis yesterday and providing additional Lasix today as well we'll continue monitor closely appears be doing well at this time. Multiple hospitalizations for COPD I have tapered her prednisone to 20 mg daily which is closer which was doing at home that was 10 twice a day. currently working PFS and the patient's granddaughter on potential placement. Also likely significant anxiety she is started on sertraline during this hospitalization. She has a lung nodule recommend repeat CT in 6-12 months continue working with PT and OT and PFS 2. History of breast cancer: On letrozole. 3. Atrial fibrillation: Rate controlled on digoxin her doses have been titrated up at this time she now appears be fairly well rate-controlled I will recheck a digoxin level next week she is on Xarelto for anticoagulation. 4. Insomnia: She is on trazodone 5. Gastroesophageal reflux disease: She is on Carafate and Protonix 6. Coronary artery disease: She is not on an aspirin and she is on Xarelto she is on a statin she is not on a beta anish likely related to her advanced lung disease, she is on Imdur 7. Vitamin D deficiency: Continue supplementation 8. Congestive heart failure: Has a history of cor pulmonale and diastolic dysfunction as outlined above DISPOSITION: Likely placement of my guess would be assisted living. She has very fragile health given she was ALC and had decompensation or heart failure while in the hospitalized setting prognosis is poor VS, I&O, 24H, Fishbone Vital Signs/I&O Vital Signs Date Time Temp Pulse Resp B/P (MAP) Pulse Ox O2 Delivery O2 Flow Rate FiO2 06/18/18 08:11 84 06/18/18 08:05 148/64 06/18/18 07:11 Nasal Cannula 3.0 06/18/18 06:00 97.7 18 93 I&O- Last 24 Hours up to 6 AM 06/18/18 06:00 Intake Total 1300 ml Output Total 2150 ml Balance -850 ml Laboratory Data 24H LABS Laboratory Tests 2 06/17/18 19:58: Influenza Type A (RT-PCR) NEGATIVE, Influenza Type B (RT-PCR) NEGATIVE, Respiratory Syncytial Virus (RT-PCR NEGATIVE 06/18/18 06:05: Digoxin Level 0.8 06/18/18 06:09: Nucleated Red Blood Cells % (auto) 0.1H, Anion Gap 6L, Glomerular Filtration Rate > 60.0, Blood Urea Nitrogen 13, Creatinine 0.71, Sodium Level 136, Potassium Level 3.8, Chloride Level 93L, Carbon Dioxide Level 37H, Calcium Level 8.8, C-Reactive Protein, Quantitative 0.86H CBC/BMP Laboratory Tests 06/18/18 06:09 Red Blood Count 4.20, Mean Corpuscular Volume 68.6 L, Mean Corpuscular Hemoglobin 19.0 L, Mean Corpuscular Hemoglobin Concent 27.8 L, Red Cell Distribution Width 19.3 H, Calcium Level 8.8 Microbiology Microbiology 06/14/18 Gram Stain - Final, Complete 06/14/18 Sputum Culture - Final, Complete SHAUNA AJ MD Jun 18, 2018 12:10
[2018-06-18 14:00] VITALS: BP 119/59
[2018-06-18] MEDS: SIMVASTATIN 10 MG TAB PO SCH (20:29)
[2018-06-18 22:00] VITALS: BP 158/69
[2018-06-19] MEDS: IPRATROPIUM 0.5MG/ALBUTEROL 2.5MG INH SOL UD 3ML (DUONEB)(J7620) NEB SCH ×5 (03:19→21:23)
[2018-06-19 06:00] VITALS: BP 153/85
[2018-06-19 06:36] LABS: HEMATOCRIT 30.9 % (36.0-47.0); HEMOGLOBIN 8.5 g/dl (12.0-15.5); MEAN CORPUSCULAR HEMOGLOBIN 18.7 pg (27.0-33.0); MEAN CORPUSCULAR HGB CONC 27.5 g/dl (32.0-36.5); MEAN CORPUSCULAR VOLUME 68.1 fl (80.0-96.0); PLATELET COUNT, AUTOMATED 397 10^3/uL (150-450); RED BLOOD COUNT 4.54 10^6/uL (4.00-5.40); WHITE BLOOD COUNT 13.4 10^3/uL (4.0-10.0)
[2018-06-19 07:02] LABS: BLOOD UREA NITROGEN 16 MG/DL (7-18); C REACTIVE PROTEIN QUANTITATIV 0.63 MG/DL (0.00-0.30); CALCIUM LEVEL 8.8 MG/DL (8.8-10.2); CARBON DIOXIDE LEVEL 39 MEQ/L (21-32); CHLORIDE LEVEL 93 MEQ/L (98-107); CREATININE FOR GFR 0.91 MG/DL (0.55-1.30); GLOMERULAR FILTRATION RATE > 60.0 (>32); GLUCOSE, FASTING 90 MG/DL (70-100); SODIUM LEVEL 137 MEQ/L (136-145)
[2018-06-19] MEDS: LETROZOLE 2.5 MG TAB PO SCH (08:27)
[2018-06-19] MEDS: SERTRALINE HCL 25 MG TABLET PO SCH (08:27)
[2018-06-19] MEDS: RIVAROXABAN 15 MG TAB (XARELTO) PO SCH (08:27)
[2018-06-19] MEDS: VITAMIN D 1,000 INTERNATIONAL UNITS TABLET PO SCH (08:27)
[2018-06-19] MEDS: predniSONE 20 MG TAB PO SCH (08:27)
[2018-06-19] MEDS: METOCLOPRAMIDE 5 MG TAB PO SCH ×4 (08:27→20:23)
[2018-06-19] MEDS: PANTOPRAZOLE 40MG TAB (PROTONIX) PO SCH ×2 (08:28→20:22)
[2018-06-19] MEDS: FUROSEMIDE 20 MG TAB PO SCH (08:28)
[2018-06-19] MEDS: SUCRALFATE 1 GM TAB PO SCH ×4 (08:28→20:22)
[2018-06-19] MEDS: ISOSORBIDE MON. (IMDUR) 30 MG XR TAB PO SCH (08:31)
[2018-06-19] MEDS: DIGOXIN 0.125 MG TAB PO SCH (08:31)
--- NOTE | 2018-06-19 11:46 | IPNPDOC ---
Date Seen The patient was seen on 06/19/18. Progress Note SUBJECTIVE: Patient complains of some pain in her left leg in foot for the past 2 days now. It is mild but something new. Otherwise she denies palpitations any worse from her chronic shortness of breath nausea vomiting fevers chills chest pain OBJECTIVE PHYSICAL EXAMINATION: VITAL SIGNS: Please see below. GENERAL: Frail elderly female sitting in a chair she is in no acute distress HEENT: Cranial Nerves II through XII appear grossly intact she speaks complete sentences without accessory muscle, she is hard of hearing CARDIOVASCULAR: S1-S2 regular she is not tachycardic at the time of my exam. RESPIRATORY: Prolonged expiratory phase but no audible wheeze at this time. ABDOMINAL: Sounds present abdomen soft EXTREMITIES: No clubbing cyanosis trace edema bilaterally LABORATORY DATA, IMAGING STUDIES, MICROBIOLOGY: Please see below. DVT prophylaxis ordered?: Xarelto ASSESSMENT AND PLAN: This is a 83-year-old female with shortness of breath PROBLEMS: 1. Shortness of breath: Chronic hypoxic respiratory failure, she appears to back to her baseline there was some concern she may have had some pulmonary edema and she did receive some additional diuresis appears be doing well at this time and quite euvolemic. Multiple hospitalizations for COPD I have tapered her prednisone to 20 mg daily which is closer which was doing at home that was 10 twice a day. currently working PFS and the patient's granddaughter on potential placement. Also likely significant anxiety she is started on sertraline during this hospitalization. She has a lung nodule recommend repeat CT in 6-12 months continue working with PT and OT and PFS 2. History of breast cancer: On letrozole. 3. Atrial fibrillation: Rate controlled on digoxin her doses have been titrated up at this time she now appears be fairly well rate-controlled I will recheck a digoxin level next week she is on Xarelto for anticoagulation. 4. Insomnia: She is on trazodone 5. Gastroesophageal reflux disease: She is on Carafate and Protonix 6. Coronary artery disease: She is not on an aspirin and she is on Xarelto she is on a statin she is not on a beta anish likely related to her advanced lung disease, she is on Imdur 7. Vitamin D deficiency: Continue supplementation 8. Congestive heart failure: Has a history of cor pulmonale and diastolic dysfunction as outlined above 9. Left leg and foot pain: We'll check a duplex as well as plain films, appears to be mild, my suspicion for DVT or any acute fracture is low DISPOSITION: Likely placement of my guess would be assisted living. She has very fragile health given she was ALC and had decompensation or heart failure while in the hospitalized setting prognosis is poor VS, I&O, 24H, Fishbone Vital Signs/I&O Vital Signs Date Time Temp Pulse Resp B/P (MAP) Pulse Ox O2 Delivery O2 Flow Rate FiO2 06/19/18 08:36 3.0 06/19/18 08:31 108 06/19/18 08:31 139/74 06/19/18 06:00 96.9 18 99 Nasal Cannula I&O- Last 24 Hours up to 6 AM 06/19/18 06:00 Intake Total 1660 ml Output Total 2550 ml Balance -890 ml Laboratory Data 24H LABS Laboratory Tests 2 06/19/18 06:21: Nucleated Red Blood Cells % (auto) 0.0, Anion Gap 5L, Glomerular Filtration Rate > 60.0, Blood Urea Nitrogen 16, Creatinine 0.91, Sodium Level 137, Potassium Level 4.0, Chloride Level 93L, Carbon Dioxide Level 39H, Calcium Level 8.8, C- Reactive Protein, Quantitative 0.63H CBC/BMP Laboratory Tests 06/19/18 06:21 Red Blood Count 4.54, Mean Corpuscular Volume 68.1 L, Mean Corpuscular Hemoglobin 18.7 L, Mean Corpuscular Hemoglobin Concent 27.5 L, Red Cell Distribution Width 19.4 H, Calcium Level 8.8 Microbiology Microbiology 06/14/18 Gram Stain - Final, Complete 06/14/18 Sputum Culture - Final, Complete SHAUNA AJ MD Jun 19, 2018 11:46
--- NOTE | 2018-06-19 13:58 | REP ---
Duplex extremity venous ultrasound: Left lower extremity. History: Left leg pain Findings: The deep veins are anechoic and fully compressible from the groin to the popliteal fossa in the left lower extremity. Color flow imaging is homogeneous. Spectral Doppler interrogation demonstrates intact respiratory variation in flow and normal manual augmentation of flow. There is no evidence of deep vein thrombosis. Impression: Negative left lower extremity duplex venous ultrasound. No evidence of deep vein thrombosis. Electronically Signed by Adair Longo MD 06/19/2018 01:50 P
[2018-06-19 14:00] VITALS: BP 138/74
--- NOTE | 2018-06-19 15:03 | REP ---
Left foot series: Four views. History: No history provided. 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 There is also tibiotalar spurring. Plantar calcaneal spurring is noted. There is diffuse osteopenia. No acute bony abnormality is appreciated. Electronically Signed by Adair Longo MD 06/19/2018 04:26 P
[2018-06-19] MEDS: SIMVASTATIN 10 MG TAB PO SCH (20:23)
[2018-06-19 22:00] VITALS: BP 122/58
[2018-06-20] MEDS: IPRATROPIUM 0.5MG/ALBUTEROL 2.5MG INH SOL UD 3ML (DUONEB)(J7620) NEB SCH ×6 (01:13→19:09)
[2018-06-20 06:00] VITALS: BP 156/70
[2018-06-20 06:14] LABS: HEMATOCRIT 30.6 % (36.0-47.0); HEMOGLOBIN 8.4 g/dl (12.0-15.5); MEAN CORPUSCULAR HGB CONC 27.5 g/dl (32.0-36.5); MEAN CORPUSCULAR VOLUME 69.2 fl (80.0-96.0); PLATELET COUNT, AUTOMATED 426 10^3/uL (150-450); RED BLOOD COUNT 4.42 10^6/uL (4.00-5.40); WHITE BLOOD COUNT 12.5 10^3/uL (4.0-10.0)
[2018-06-20 06:40] LABS: BLOOD UREA NITROGEN 14 MG/DL (7-18); CALCIUM LEVEL 8.7 MG/DL (8.8-10.2); CARBON DIOXIDE LEVEL 37 MEQ/L (21-32); CHLORIDE LEVEL 94 MEQ/L (98-107); CREATININE FOR GFR 0.78 MG/DL (0.55-1.30); GLOMERULAR FILTRATION RATE > 60.0 (>32); GLUCOSE, FASTING 88 MG/DL (70-100); POTASSIUM SERUM 3.4 MEQ/L (3.5-5.1); SODIUM LEVEL 136 MEQ/L (136-145)
[2018-06-20] MEDS: RIVAROXABAN 15 MG TAB (XARELTO) PO SCH (07:50)
[2018-06-20] MEDS: FUROSEMIDE 20 MG TAB PO SCH (07:50)
[2018-06-20] MEDS: METOCLOPRAMIDE 5 MG TAB PO SCH ×4 (07:50→20:27)
[2018-06-20] MEDS: SUCRALFATE 1 GM TAB PO SCH ×4 (07:50→20:27)
[2018-06-20] MEDS: VITAMIN D 1,000 INTERNATIONAL UNITS TABLET PO SCH (07:50)
[2018-06-20] MEDS: LETROZOLE 2.5 MG TAB PO SCH (07:50)
[2018-06-20] MEDS: PANTOPRAZOLE 40MG TAB (PROTONIX) PO SCH ×2 (07:51→20:27)
[2018-06-20] MEDS: predniSONE 20 MG TAB PO SCH (07:51)
[2018-06-20] MEDS: ISOSORBIDE MON. (IMDUR) 30 MG XR TAB PO SCH (07:51)
[2018-06-20] MEDS: SERTRALINE HCL 25 MG TABLET PO SCH (07:51)
[2018-06-20] MEDS: DIGOXIN 0.125 MG TAB PO SCH (08:01)
[2018-06-20 14:00] VITALS: BP 120/60
[2018-06-20] MEDS: SIMVASTATIN 10 MG TAB PO SCH (20:27)
[2018-06-20 22:00] VITALS: BP 118/61
[2018-06-21] MEDS: IPRATROPIUM 0.5MG/ALBUTEROL 2.5MG INH SOL UD 3ML (DUONEB)(J7620) NEB SCH ×7 (04:00→23:47)
[2018-06-21 06:00] VITALS: BP 136/58
[2018-06-21 06:03] LABS: HEMATOCRIT 29.5 % (36.0-47.0); HEMOGLOBIN 8.1 g/dl (12.0-15.5); MEAN CORPUSCULAR HEMOGLOBIN 18.6 pg (27.0-33.0); MEAN CORPUSCULAR HGB CONC 27.5 g/dl (32.0-36.5); MEAN CORPUSCULAR VOLUME 67.7 fl (80.0-96.0); PLATELET COUNT, AUTOMATED 436 10^3/uL (150-450); RED BLOOD COUNT 4.36 10^6/uL (4.00-5.40); WHITE BLOOD COUNT 13.5 10^3/uL (4.0-10.0)
[2018-06-21 06:27] LABS: BLOOD UREA NITROGEN 14 MG/DL (7-18); CALCIUM LEVEL 8.6 MG/DL (8.8-10.2); CARBON DIOXIDE LEVEL 36 MEQ/L (21-32); CHLORIDE LEVEL 95 MEQ/L (98-107); CREATININE FOR GFR 0.69 MG/DL (0.55-1.30); GLOMERULAR FILTRATION RATE > 60.0 (>32); GLUCOSE, FASTING 82 MG/DL (70-100); POTASSIUM SERUM 3.6 MEQ/L (3.5-5.1); SODIUM LEVEL 138 MEQ/L (136-145)
[2018-06-21] MEDS: SERTRALINE HCL 25 MG TABLET PO SCH (08:22)
[2018-06-21] MEDS: DIGOXIN 0.125 MG TAB PO SCH (08:23)
[2018-06-21] MEDS: PANTOPRAZOLE 40MG TAB (PROTONIX) PO SCH ×2 (08:23→20:13)
[2018-06-21] MEDS: predniSONE 20 MG TAB PO SCH (08:23)
[2018-06-21] MEDS: FUROSEMIDE 20 MG TAB PO SCH (08:23)
[2018-06-21] MEDS: LETROZOLE 2.5 MG TAB PO SCH (08:23)
[2018-06-21] MEDS: VITAMIN D 1,000 INTERNATIONAL UNITS TABLET PO SCH (08:23)
[2018-06-21] MEDS: RIVAROXABAN 15 MG TAB (XARELTO) PO SCH (08:23)
[2018-06-21] MEDS: METOCLOPRAMIDE 5 MG TAB PO SCH ×4 (08:23→20:13)
[2018-06-21] MEDS: SUCRALFATE 1 GM TAB PO SCH ×4 (08:23→20:13)
[2018-06-21] MEDS: ISOSORBIDE MON. (IMDUR) 30 MG XR TAB PO SCH (08:24)
[2018-06-21] MEDS: SIMVASTATIN 10 MG TAB PO SCH (20:13)
[2018-06-22] MEDS: IPRATROPIUM 0.5MG/ALBUTEROL 2.5MG INH SOL UD 3ML (DUONEB)(J7620) NEB SCH ×5 (02:12→21:19)
[2018-06-22 05:59] LABS: HEMATOCRIT 29.6 % (36.0-47.0); HEMOGLOBIN 8.2 g/dl (12.0-15.5); MEAN CORPUSCULAR HEMOGLOBIN 18.8 pg (27.0-33.0); MEAN CORPUSCULAR HGB CONC 27.7 g/dl (32.0-36.5); MEAN CORPUSCULAR VOLUME 67.7 fl (80.0-96.0); PLATELET COUNT, AUTOMATED 436 10^3/uL (150-450); RED BLOOD COUNT 4.37 10^6/uL (4.00-5.40); WHITE BLOOD COUNT 12.9 10^3/uL (4.0-10.0)
[2018-06-22 06:00] VITALS: BP 124/60
[2018-06-22 06:20] LABS: BLOOD UREA NITROGEN 15 MG/DL (7-18); CALCIUM LEVEL 8.3 MG/DL (8.8-10.2); CARBON DIOXIDE LEVEL 37 MEQ/L (21-32); CHLORIDE LEVEL 96 MEQ/L (98-107); CREATININE FOR GFR 0.74 MG/DL (0.55-1.30); GLOMERULAR FILTRATION RATE > 60.0 (>32); GLUCOSE, FASTING 93 MG/DL (70-100); POTASSIUM SERUM 3.6 MEQ/L (3.5-5.1); SODIUM LEVEL 139 MEQ/L (136-145)
[2018-06-22] MEDS: SUCRALFATE 1 GM TAB PO SCH ×4 (07:59→21:07)
[2018-06-22] MEDS: SERTRALINE HCL 25 MG TABLET PO SCH (08:00)
[2018-06-22] MEDS: PANTOPRAZOLE 40MG TAB (PROTONIX) PO SCH ×2 (08:00→21:07)
[2018-06-22] MEDS: FUROSEMIDE 20 MG TAB PO SCH (08:00)
[2018-06-22] MEDS: VITAMIN D 1,000 INTERNATIONAL UNITS TABLET PO SCH (08:00)
[2018-06-22] MEDS: predniSONE 20 MG TAB PO SCH (08:00)
[2018-06-22] MEDS: RIVAROXABAN 15 MG TAB (XARELTO) PO SCH (08:00)
[2018-06-22] MEDS: METOCLOPRAMIDE 5 MG TAB PO SCH ×4 (08:00→21:07)
[2018-06-22] MEDS: ISOSORBIDE MON. (IMDUR) 30 MG XR TAB PO SCH (08:00)
[2018-06-22] MEDS: DIGOXIN 0.125 MG TAB PO SCH (08:01)
[2018-06-22 08:08] LABS: DIGOXIN LEVEL 0.9 NG/ML (0.5-2.0)
[2018-06-22] MEDS: LETROZOLE 2.5 MG TAB PO SCH (08:45)
[2018-06-22] MEDS: ACETAMINOPHEN 650MG ER TAB (TYLENOL ARTHRITIS) PO PRN (08:48)
[2018-06-22] MEDS: SIMVASTATIN 10 MG TAB PO SCH (21:07)
[2018-06-23] MEDS: IPRATROPIUM 0.5MG/ALBUTEROL 2.5MG INH SOL UD 3ML (DUONEB)(J7620) NEB SCH ×7 (04:00→23:31)
[2018-06-23 06:00] VITALS: BP 146/70
[2018-06-23 06:23] LABS: HEMATOCRIT 29.2 % (36.0-47.0); HEMOGLOBIN 8.1 g/dl (12.0-15.5); MEAN CORPUSCULAR HEMOGLOBIN 18.9 pg (27.0-33.0); MEAN CORPUSCULAR HGB CONC 27.7 g/dl (32.0-36.5); MEAN CORPUSCULAR VOLUME 68.2 fl (80.0-96.0); PLATELET COUNT, AUTOMATED 452 10^3/uL (150-450); RED BLOOD COUNT 4.28 10^6/uL (4.00-5.40); WHITE BLOOD COUNT 12.3 10^3/uL (4.0-10.0)
[2018-06-23 06:45] LABS: BLOOD UREA NITROGEN 16 MG/DL (7-18); CALCIUM LEVEL 8.4 MG/DL (8.8-10.2); CARBON DIOXIDE LEVEL 35 MEQ/L (21-32); CHLORIDE LEVEL 97 MEQ/L (98-107); GLOMERULAR FILTRATION RATE > 60.0 (>32); GLUCOSE, FASTING 91 MG/DL (70-100); POTASSIUM SERUM 3.6 MEQ/L (3.5-5.1); SODIUM LEVEL 139 MEQ/L (136-145)
[2018-06-23] MEDS: SUCRALFATE 1 GM TAB PO SCH ×4 (07:55→21:30)
[2018-06-23] MEDS: LETROZOLE 2.5 MG TAB PO SCH (07:55)
[2018-06-23] MEDS: FUROSEMIDE 20 MG TAB PO SCH (07:55)
[2018-06-23] MEDS: METOCLOPRAMIDE 5 MG TAB PO SCH ×4 (07:56→21:30)
[2018-06-23] MEDS: DIGOXIN 0.125 MG TAB PO SCH (07:56)
[2018-06-23] MEDS: RIVAROXABAN 15 MG TAB (XARELTO) PO SCH (07:56)
[2018-06-23] MEDS: VITAMIN D 1,000 INTERNATIONAL UNITS TABLET PO SCH (07:56)
[2018-06-23] MEDS: predniSONE 20 MG TAB PO SCH (07:56)
[2018-06-23] MEDS: ISOSORBIDE MON. (IMDUR) 30 MG XR TAB PO SCH (07:56)
[2018-06-23] MEDS: PANTOPRAZOLE 40MG TAB (PROTONIX) PO SCH ×2 (07:56→21:30)
[2018-06-23] MEDS: SERTRALINE HCL 25 MG TABLET PO SCH (07:56)
[2018-06-23] MEDS: SIMVASTATIN 10 MG TAB PO SCH (21:29)
[2018-06-24] MEDS: IPRATROPIUM 0.5MG/ALBUTEROL 2.5MG INH SOL UD 3ML (DUONEB)(J7620) NEB SCH ×6 (03:12→23:16)
[2018-06-24 06:00] VITALS: BP 145/82
[2018-06-24 06:17] LABS: HEMATOCRIT 31.3 % (36.0-47.0); HEMOGLOBIN 8.6 g/dl (12.0-15.5); MEAN CORPUSCULAR HEMOGLOBIN 18.6 pg (27.0-33.0); MEAN CORPUSCULAR HGB CONC 27.5 g/dl (32.0-36.5); MEAN CORPUSCULAR VOLUME 67.7 fl (80.0-96.0); PLATELET COUNT, AUTOMATED 490 10^3/uL (150-450); RED BLOOD COUNT 4.62 10^6/uL (4.00-5.40)
[2018-06-24 06:40] LABS: BLOOD UREA NITROGEN 16 MG/DL (7-18); CALCIUM LEVEL 8.9 MG/DL (8.8-10.2); CARBON DIOXIDE LEVEL 35 MEQ/L (21-32); CHLORIDE LEVEL 95 MEQ/L (98-107); GLOMERULAR FILTRATION RATE > 60.0 (>32); GLUCOSE, FASTING 98 MG/DL (70-100); SODIUM LEVEL 138 MEQ/L (136-145)
[2018-06-24] MEDS: predniSONE 20 MG TAB PO SCH (08:23)
[2018-06-24] MEDS: SUCRALFATE 1 GM TAB PO SCH ×4 (08:23→20:16)
[2018-06-24] MEDS: ISOSORBIDE MON. (IMDUR) 30 MG XR TAB PO SCH (08:23)
[2018-06-24] MEDS: LETROZOLE 2.5 MG TAB PO SCH (08:23)
[2018-06-24] MEDS: VITAMIN D 1,000 INTERNATIONAL UNITS TABLET PO SCH (08:23)
[2018-06-24] MEDS: DIGOXIN 0.125 MG TAB PO SCH (08:23)
[2018-06-24] MEDS: PANTOPRAZOLE 40MG TAB (PROTONIX) PO SCH ×2 (08:23→20:16)
[2018-06-24] MEDS: FUROSEMIDE 20 MG TAB PO SCH (08:24)
[2018-06-24] MEDS: METOCLOPRAMIDE 5 MG TAB PO SCH ×4 (08:24→20:16)
[2018-06-24] MEDS: RIVAROXABAN 15 MG TAB (XARELTO) PO SCH (08:24)
[2018-06-24] MEDS: SERTRALINE HCL 25 MG TABLET PO SCH (08:24)
[2018-06-24] MEDS ORDERED: SERT25TA85 PO (17:21)
[2018-06-24] MEDS ORDERED: FURO40TA2 PO (17:21)
[2018-06-24] MEDS ORDERED: DIGO0.12 PO (17:21)
[2018-06-24] MEDS: SIMVASTATIN 10 MG TAB PO SCH (20:15)
[2018-06-25] MEDS: IPRATROPIUM 0.5MG/ALBUTEROL 2.5MG INH SOL UD 3ML (DUONEB)(J7620) NEB SCH ×3 (04:00→11:08)
[2018-06-25 06:00] VITALS: BP 142/71
[2018-06-25 06:18] LABS: HEMATOCRIT 30.6 % (36.0-47.0); HEMOGLOBIN 8.3 g/dl (12.0-15.5); MEAN CORPUSCULAR HEMOGLOBIN 18.8 pg (27.0-33.0); MEAN CORPUSCULAR HGB CONC 27.1 g/dl (32.0-36.5); MEAN CORPUSCULAR VOLUME 69.2 fl (80.0-96.0); PLATELET COUNT, AUTOMATED 504 10^3/uL (150-450); RED BLOOD COUNT 4.42 10^6/uL (4.00-5.40); WHITE BLOOD COUNT 12.3 10^3/uL (4.0-10.0)
[2018-06-25 06:39] LABS: BLOOD UREA NITROGEN 18 MG/DL (7-18); CALCIUM LEVEL 8.8 MG/DL (8.8-10.2); CARBON DIOXIDE LEVEL 37 MEQ/L (21-32); CHLORIDE LEVEL 98 MEQ/L (98-107); CREATININE FOR GFR 0.77 MG/DL (0.55-1.30); GLOMERULAR FILTRATION RATE > 60.0 (>32); GLUCOSE, FASTING 97 MG/DL (70-100); POTASSIUM SERUM 3.7 MEQ/L (3.5-5.1); SODIUM LEVEL 138 MEQ/L (136-145)
[2018-06-25] MEDS: SUCRALFATE 1 GM TAB PO SCH ×2 (08:46→12:09)
[2018-06-25] MEDS: VITAMIN D 1,000 INTERNATIONAL UNITS TABLET PO SCH (08:46)
[2018-06-25] MEDS: METOCLOPRAMIDE 5 MG TAB PO SCH ×2 (08:46→12:09)
[2018-06-25] MEDS: RIVAROXABAN 15 MG TAB (XARELTO) PO SCH (08:46)
[2018-06-25] MEDS: LETROZOLE 2.5 MG TAB PO SCH (08:46)
[2018-06-25] MEDS: PANTOPRAZOLE 40MG TAB (PROTONIX) PO SCH (08:47)
[2018-06-25] MEDS: SERTRALINE HCL 25 MG TABLET PO SCH (08:47)
[2018-06-25] MEDS: FUROSEMIDE 20 MG TAB PO SCH (08:47)
[2018-06-25] MEDS: predniSONE 20 MG TAB PO SCH (08:47)
[2018-06-25] MEDS: DIGOXIN 0.125 MG TAB PO SCH (08:48)
[2018-06-25 08:49] VITALS: BP 131/84
[2018-06-25] MEDS: ISOSORBIDE MON. (IMDUR) 30 MG XR TAB PO SCH (08:49)
--- NOTE | 2018-06-25 13:32 | DS.PDOC ---
Discharge Summary General Date of Admission Jun 04, 2018 at 17:20 Date of Discharge 06/25/2018 Discharge Summary PROCEDURES PERFORMED DURING STAY: [None]. ADMITTING DIAGNOSES / DISCHARGE DIAGNOSES: Shortness of breath / Chronic hypoxic respiratory failure - possibly 2/2 COPD, possibly 22/ decompensated diastolic CHF A. fib with RVR CAD Hx of Breast CA Anxiety Insomnia Vitamin D deficiency GERD DVT prophylaxis COMPLICATIONS/CHIEF COMPLAINT: Shortness of breath HISTORY OF PRESENT ILLNESS: Patient is an 83-year-old female with a PMHx of COPD on 2-5 L of O2, Pulmonary HTN, Diastolic CHF, HTN, A. fib on Eliquis, CAD, and DLP who presented to the ER with complaints of SOB. Patient was admitted to the hospitalist service for possible COPD exacerbation. HOSPITAL COURSE: Shortness of breath / Chronic hypoxic respiratory failure - possibly 2/2 COPD, possibly 22/ decompensated diastolic CHF - Remains a improvement in her symptoms, physical without any adventitious lung sounds - CXR 06/06: No acute findings. - CT chest 06/16: 1. 8mm right lung nodule, similar to 02/09/18. For patients at low risk (minimal or absent history of smoking and of other known risk factors), recommend CT at 6-12 months, then consider CT at 18-24 months. For patients at high risk (history of smoking or of other known risk factors), recommend CT at 6-12 months, then CT at 18-24 months. (Otoniel et al., Fleischner Society, 2017). 2. No new gross disease on this unenhanced, motion limited exam. - CXR 06/16: CHF pattern with diffuse moderate interstitial edema and vascular congestion. Cardiomegaly. No pleural effusion or focal infiltrate seen. - Venous US L leg 06/16: Negative left lower extremity venous duplex exam without evidence of deep venous thrombosis. - c/w Inhaled therapy as ordered - c/w Prednisone and Furosemide at adjust dose - Placement to subacute rehabilitation A. fib with RVR - c/w rate control with Digoxin - Anticoagulated with Xarelto CAD - c/w Imdur, Digoxin, Simvastatin and Xarelto - Not on ASA - Will have outpatient f/u with Cardiology Hx of Breast CA - c/w Letrozole Anxiety - c/w Sertraline Insomnia - c/w Trazodone PRN Vitamin D deficiency - c/w supplementation GERD - c/w Protonix and Carafate DVT prophylaxis - c/w Full anticoagulation with Xarelto DISCHARGE MEDICATIONS: Please see below. ALLERGIES: Please see below. PHYSICAL EXAMINATION ON DISCHARGE: Vitals (See below) General: Lying in bed, no acute distress, comfortable, AAOx3, HEENT: NC, AT CVS: RRR, +S1S2 Lungs: Fair air entry b/l, no evidence of wheezing, rhonchi, rales Abdomen: Soft, nondistended, without tenderness Extremities: No evidence of extremity edema, - Calf tenderness LABORATORY DATA: Please see below. ACTIVITY: [As tolerated]. DISCHARGE PLAN: Follow up with Dr. Sahra Hogan and Cardiology within 7 days Remain compliant with treatment plan and medications Return to the ER if you experience any problems. DISPOSITION: [facility] DISCHARGE CONDITION: [Stable]. TIME SPENT ON DISCHARGE: Greater than [35] minutes. Vital Signs/I&Os Vital Signs Date Time Temp Pulse Resp B/P (MAP) Pulse Ox O2 Delivery O2 Flow Rate FiO2 06/25/18 10:17 3.0 06/25/18 08:49 131/84 06/25/18 08:48 87 06/25/18 06:00 97.4 19 94 Nasal Cannula I&O- Last 24 Hours up to 6 AM 06/25/18 05:59 Intake Total 980 ml Output Total 900 ml Balance 80 ml Laboratory Data Labs 24H Laboratory Tests 2 06/25/18 05:47: Nucleated Red Blood Cells % (auto) 0.0, Anion Gap 3L, Glomerular Filtration Rate > 60.0, Blood Urea Nitrogen 18, Creatinine 0.77, Sodium Level 138, Potassium Level 3.7, Chloride Level 98, Carbon Dioxide Level 37H, Calcium Level 8.8 CBC/BMP Laboratory Tests 06/25/18 05:47 Red Blood Count 4.42, Mean Corpuscular Volume 69.2 L, Mean Corpuscular Hemoglobin 18.8 L, Mean Corpuscular Hemoglobin Concent 27.1 L, Red Cell Distribution Width 19.6 H, Calcium Level 8.8 Discharge Medications Scheduled (Digoxin) 125 Mcg Tab, 125 MCG PO DAILY Albuterol Sulfate (Albuterol Sulfate) 2.5 Mg/3 Ml Nebu, 2.5 MG INH BID, (Reported) Furosemide (Furosemide) 40 Mg Tab, 1 TAB PO DAILY Isosorbide Mononitrate (Isosorbide Mononitrate ER) 30 Mg Tab, 30 MG PO DAILY, (Reported) Letrozole (Letrozole) 2.5 Mg Tab, 2.5 MG PO DAILY, (Reported) Metoclopramide HCl (Metoclopramide HCl) 5 Mg Tab, 5 MG PO ACHS, (Reported) Pantoprazole Sodium Sesquihydr (Pantoprazole Sodium Dr) 40 Mg Tab, 40 MG PO BID, (Reported) Prednisone (Prednisone) 10 Mg Tab, 10 MG PO BID, (Reported) Rivaroxaban (Xarelto) 15 Mg Tab, 15 MG PO DAILY, (Reported) Salmeterol/Fluticasone (Advair Diskus 250-50 Mcg/Dose) 14 Puff/Inhaler Aerp, 1 PUFF INH BID, (Reported) Sertraline Hcl (Sertraline HCl) 25 Mg Tab, 25 MG PO DAILY Simvastatin (Simvastatin) 10 Mg Tab, 10 MG PO QHS, (Reported) Sucralfate (Sucralfate) 1 Gm Tab, 1 GM PO ACHS, (Reported) Vitamin D (Vitamin D3) 1,000 Units Tab, 1,000 UNITS PO DAILY, (Reported) Scheduled PRN Acetaminophen (Acetaminophen ER) 650 Mg Tab, 650 MG PO Q8H PRN for PAIN, (Reported) Albuterol Sulfate (Ventolin Hfa) 108 Mcg/Act Aer, 2 PUFFS INH Q4H PRN for SHORTNESS OF BREATH, (Reported) Lactulose (Lactulose) 10 Gm/15 Ml Citlalli, 15 ML PO DAILY PRN for CONSTIPATION, (Reported) Nitroglycerin (Nitroglycerin) 0.4 Mg Sub, 0.4 MG SL NITRO PRN for CHEST PAIN, (Reported) Trazodone HCl (Trazodone HCl) 50 Mg Tab, 50 MG PO QHS PRN for SLEEP, (Reported) Allergies Coded Allergies: Latex (Verified Allergy, Unknown, 06/04/18) MARJAN JOHNSON MD Jun 25, 2018 13:32
[2018-08-07] MEDS ORDERED: SERT-141 PO (19:21)
== END 2018-06-25 13:30 | DRG 189 ==
LOC: M ED 13:52 → M ED INP 17:20 → M MSPAV 20:00
PROVIDERS: ADMIT Internal Medicine; ATTEND Internal Medicine
DX: J96.11 Chronic respiratory failure with hypoxia (principal); I50.33 Acute on chronic diastolic (congestive) heart failure; I27.29 Other secondary pulmonary hypertension; Z99.81 Dependence on supplemental oxygen; I48.91 Unspecified atrial fibrillation; E55.9 Vitamin D deficiency, unspecified; I11.0 Hypertensive heart disease with heart failure; J44.9 Chronic obstructive pulmonary disease, unspecified; E78.5 Hyperlipidemia, unspecified; I25.10 Atherosclerotic heart disease of native coronary artery without angina pectoris; G47.00 Insomnia, unspecified; Z66 Do not resuscitate; M79.672 Pain in left foot; M79.662 Pain in left lower leg; F41.9 Anxiety disorder, unspecified; K21.9 Gastro-esophageal reflux disease without esophagitis; Z87.891 Personal history of nicotine dependence; Z79.01 Long term (current) use of anticoagulants; Z79.52 Long term (current) use of systemic steroids; Z79.899 Other long term (current) drug therapy; Z85.3 Personal history of malignant neoplasm of breast

== ENCOUNTER 2018-08-07 16:59 | Inpatient (IN) | payer MEDICARE, OTHER ==
[~2018-08-07] VITALS: Ht 160 cm; Wt 65.3 kg
[~2018-08-07 16:59] MED LIST changes: +/ADVA50050; +/ADVA50050 IN; +/WARF25TA OR; -ADVA1AER2; -ADVA1AER2 IN; -COUM1TAB18 OR; +DILT240C14 PO; -DILT240C82 PO; -PRAD150C6 PO; -PRED-351 PO; +PRED10TA PO; +SERT25TA PO
[2018-08-07] MEDS ORDERED: ACETAMINOPHEN TAB 650MG DOSE (2X325MG) PO ONE (17:30)
[2018-08-07 17:31] LABS: ABG BASE EXCESS 6.8 (-2.0-2.0); ABG HCO3 30.9 MEQ/L (22.0-26.0); ABG O2 SATURATION 90.3 % (95.0-99.0); ABG PARTIAL PRESSURE CO2 42.1 mmHg (35.0-45.0); ABG PARTIAL PRESSURE O2 59.7 mmHg (75.0-100.0); ABG STANDARD HCO3 30.5 MEQ/L (22.0-26.0); ABG TOTAL CO2 32.2 MEQ/L (23.0-31.0); ABG pH (ARTERIAL) 7.484 UNITS (7.350-7.450)
[2018-08-07 17:35] LABS: HEMOGLOBIN 11.9 g/dl (12.0-15.5); MEAN CORPUSCULAR HEMOGLOBIN 22.9 pg (27.0-33.0); MEAN CORPUSCULAR VOLUME 78.1 fl (80.0-96.0); PLATELET COUNT, AUTOMATED 231 10^3/uL (150-450); WHITE BLOOD COUNT 13.6 10^3/uL (4.0-10.0)
--- NOTE | 2018-08-07 17:49 | REP ---
Clinical: Cough and dyspnea. Comparison: 06/16/2018. Findings: Cardiomegaly is appreciated and findings to suggest pulmonary vascular congestion/interstitial edema noted. No focal consolidation. No obvious effusion. No pneumothorax. Skeletal structures intact. Impression: Cardiomegaly and findings to suggest pulmonary vascular congestion/interstitial edema. Electronically Signed by Zan Cabral MD 08/07/2018 05:40 P
[2018-08-07 17:55] LABS: INR 1.3; PROTHROMBIN TIME 16.4 SECONDS (12.1-14.4)
[2018-08-07 18:27] LABS: ALBUMIN 3.8 GM/DL (3.2-5.2); ALT/SGPT 85 U/L (12-78); BILIRUBIN,DIRECT 0.5 MG/DL (0.0-0.2); BILIRUBIN,TOTAL 0.9 MG/DL (0.2-1.0); BLOOD UREA NITROGEN 16 MG/DL (7-18); CALCIUM LEVEL 8.8 MG/DL (8.8-10.2); CARBON DIOXIDE LEVEL 31 MEQ/L (21-32); CHLORIDE LEVEL 95 MEQ/L (98-107); CPK CREATINE PHOSPHOKINASE 43 U/L (26-192); CREATININE FOR GFR 0.85 MG/DL (0.55-1.30); DIGOXIN LEVEL 1.3 NG/ML (0.5-2.0); GLOMERULAR FILTRATION RATE > 60.0 (>32); GLUCOSE, FASTING 169 MG/DL (70-100); MB/CK RELATIVE INDEX 6.74 (< OR =4); NT-PRO BNP 42600 PG/ML (<450); POTASSIUM SERUM 3.9 MEQ/L (3.5-5.1); SODIUM LEVEL 134 MEQ/L (136-145); THYROID STIMULATING HORMONE 0.951 uIU/ML (0.358-3.740); TOTAL PROTEIN 6.4 GM/DL (6.4-8.2); TROPONIN I 0.45 NG/ML (< 0.10)
[2018-08-07 18:38] LABS: HEMATOCRIT 40.6 % (36.0-47.0)
[2018-08-07 18:39] LABS: MEAN CORPUSCULAR HGB CONC 29.3 g/dl (32.0-36.5)
[2018-08-07 18:41] LABS: BASOPHILS 1 % (0-4); LYMPHOCYTES 1 % (16-52); MONOCYTES 3 % (0-8); NEUTROPHILS 93 % (35-75)
[2018-08-07 18:42] LABS: PLATELET ESTIMATE NORMAL (NORMAL)
[2018-08-07 18:43] LABS: ANISOCYTOSIS 3+; HYPOCHROMASIA 2+; MICROCYTOSIS 2+; OVALOCYTES 1+
[2018-08-07 18:45] LABS: POIKILOCYTOSIS 3+; POLYCHROMASIA 2+; SCHISTOCYTES 1+; TEAR DROP CELLS 1+
[2018-08-07] MEDS ORDERED: IPRA0.00 INH (19:21)
[2018-08-07] MEDS ORDERED: XARE15TA PO (19:21)
[2018-08-07] MEDS ORDERED: SERT50TA PO (19:21)
[2018-08-07] MEDS ORDERED: DIGO0.12 PO (19:21)
[2018-08-07] MEDS ORDERED: FERR1TAB8 PO (19:21)
[2018-08-07] MEDS ORDERED: ACET1TAB55 PO (19:21)
[2018-08-07] MEDS ORDERED: ENEM1ENE4 PR (19:26)
[2018-08-07] MEDS ORDERED: MILKSUS5 PO (19:26)
[2018-08-07] MEDS ORDERED: BISA10SU4 PR (19:26)
[2018-08-07] MEDS ORDERED: NITROGLYCERIN 0.3 MG SUBL TAB SL PRN (20:00)
[2018-08-07] MEDS ORDERED: LACTULOSE 20 GM/30 ML SYRUP UD PO PRN (20:00)
[2018-08-07] MEDS ORDERED: HEPARIN SOD (PORCINE) 5000 UNITS/ML VIAL IV PRN (20:00)
[2018-08-07 20:21] LABS: PARTIAL THROMBOPLASTIN TIME 30.3 SECONDS (25.4-37.6)
--- NOTE | 2018-08-07 20:31 | HPE ---
DATE OF ADMISSION: 08/07/2018 83-year-old female with a past medical history of atrial fibrillation, chronic diastolic heart failure, oxygen dependent chronic obstructive pulmonary disease (COPD) requiring between 2 and 5 liters of nasal cannula, hypertension, who presented to the emergency room in [place] from her assisted living facility secondary to hypoxemia. Apparently, her oxygen saturations were in the low 80s. When the patient came to the emergency room, they raised her oxygen to 5 liters to no avail and they started her on 50% Ventimask after giving her 125 of Solu-Medrol and two nebulizer treatments. They did a CT angio of the chest, which revealed left lobe pneumonia, as well as bilateral pulmonary embolisms and interstitial edema. The patient was given 40 of IV Lasix and started on IV Zosyn. When the patient came to our emergency room, we started the patient on IV heparin as well. By the time she came to the emergency room, she had almost 2 liters of output and she feels much better at this time. She denies any chest pain, shortness of breath, abdominal pain, nausea, vomiting, vertigo, headaches. She does still require 50% Ventimask to maintain her saturations at 50%. She will be admitted to our intensive care unit (ICU) for further management. PAST MEDICAL HISTORY: Again, past medical history of: 1. Chronic diastolic heart failure. 2. Pulmonary hypertension. 3. Chronic oxygen dependent chronic obstructive pulmonary disease (COPD) requiring 2 to 5 liters of nasal cannula. 4. History of hypertension. 5. Hyperlipidemia. 6. Coronary artery disease. 7. Atrial fibrillation. ALLERGIES: She has no known drug allergies. FAMILY HISTORY: Noncontributory. SOCIAL HISTORY: The patient was a chronic heavy smoker and quit about 40 years ago. Denies alcohol or illicit drugs. MEDICATIONS: She takes at home: - Tylenol 650 mg by mouth every 8 hours as needed - albuterol inhaler as needed - digoxin 125 mcg by mouth daily - ferrous sulfate 325 by mouth daily - isosorbide mononitrate 30 mg by mouth daily - letrozole 2.5 mg by mouth daily - Lactulose as needed - metoclopramide 5 mg by mouth before food and nightly - nitroglycerin 0.4 mg sublingually as needed - pantoprazole 40 mg by mouth twice a day - prednisone 10 mg by mouth twice a day - rivaroxaban 50 mg by mouth at bedtime - salmeterol fluticasone 250/50 one puff inhaled twice a day - sertraline 50 mg by mouth at bedtime - simvastatin 10 mg by mouth at bedtime - trazodone 50 mg by mouth at bedtime - vitamin D 1000 units by mouth daily REVIEW OF SYSTEMS: Negative for all ten major systems except what is mentioned in the history of present illness. PHYSICAL EXAMINATION: VITAL SIGNS: Blood pressure 129/63, heart rate is 99 and irregular, respiratory rate is 28, temperature rectally is 102.3, oxygen saturation is 90% on 50% Ventimask. Head is atraumatic, normocephalic. Neck is supple with no jugular venous distention (JVD). Lungs bilateral rhonchi. S1, S2 audible. No murmurs appreciated. Abdomen is soft. Positive bowel sounds. No pedal edema. Skin is intact. Neurologic examination, the patient is awake, alert and oriented times three. LABORATORIES: WBC 13.6, hemoglobin 11.9, hematocrit 40.6, platelets 231,000. Sodium 134, potassium 3.9, chloride 95, CO2 of 31, BUN 16, creatinine 0.85, fasting glucose 169, lactic acid 1.7. AST 58, ALT 85, troponin is 0.45. BNP is 42,600. Albumin 3.8, TSH is 0.951. Blood gas showed a pH of 7.484, PCO2 is 42.1, PO2 is 57.7. IMPRESSION: 1. Acute diastolic heart failure. 2. Bilateral pulmonary embolus. 3. Pneumonia. 4. Hypoxemic respiratory failure. PLAN: The patient is to be admitted to the intensive care unit (ICU). We will continue her on 50% Ventimask and attempt to wean her off if possible, maintain saturations greater than 90%. I am going to start her on IV Zosyn 3.375 IV every 6 hours for her pneumonia and we will start her on a heparin drip for her pulmonary embolus and hold the Xarelto. I will give her Lasix 40 mg IV daily for her heart failure. I will repeat a chest x-ray in the morning to see if there is improvement in her failure. We will continue her other preadmission medications and continue her care in the intensive care unit (ICU). Total critical care time was 40 minutes.
[2018-08-07 23:11] VITALS: BP 116/68
[2018-08-07 23:30] VITALS: BP 117/61
[2018-08-07 23:33] VITALS: BP 115/57
[2018-08-07] MEDS: PANTOPRAZOLE 40MG TAB (PROTONIX) PO SCH (23:42)
[2018-08-07] MEDS: predniSONE 10 MG TAB PO SCH (23:43)
[2018-08-07] MEDS: METOCLOPRAMIDE 5 MG TAB PO SCH (23:43)
[2018-08-07] MEDS: SIMVASTATIN 10 MG TAB PO SCH (23:43)
[2018-08-07] MEDS: SERTRALINE HCL 50 MG TAB PO SCH (23:43)
[2018-08-07] MEDS: PIPERACILLIN/TAZOBACTAM SOD 3.375 GM in D5W MINI-BAG PLUS 50 ML IV SCH (23:44)
[2018-08-07] MEDS: HEPARIN DRIP 25,000 UNITS in APPROPRIATE DILUENT 1 EA IV SCH (23:45)
[2018-08-07 23:48] VITALS: BP 110/56
[2018-08-08] VITALS (10 sets, daily range): BP systolic 98–141; BP diastolic 51–79
[2018-08-08] MEDS: ADVAIR HFA 115/21MCG INHALER INH SCH ×3 (00:11→20:28)
[2018-08-08] MEDS: PIPERACILLIN/TAZOBACTAM SOD 3.375 GM in D5W MINI-BAG PLUS 50 ML IV SCH ×4 (03:36→21:29)
[2018-08-08] MEDS ORDERED: ALBUTEROL 90 MCG/ACT 8GM HFA INHALER INH PRN (04:00)
[2018-08-08] MEDS ORDERED: BISACODYL 10 MG SUPP PR PRN (04:00)
[2018-08-08 05:47] LABS: BASO % 0.1 % (0.0-1.0); HEMATOCRIT 37.6 % (36.0-47.0); HEMOGLOBIN 11.1 g/dl (12.0-15.5); LYMPH # 0.4 10^3/uL (1.5-4.5); LYMPH % 2.6 % (24.0-44.0); MEAN CORPUSCULAR HEMOGLOBIN 23.2 pg (27.0-33.0); MEAN CORPUSCULAR HGB CONC 29.5 g/dl (32.0-36.5); MEAN CORPUSCULAR VOLUME 78.5 fl (80.0-96.0); MONO # 0.6 10^3/uL (0.0-0.8); MONO % 4.4 % (0.0-5.0); NEUTROPHILS # 13.2 10^3/uL (1.8-7.7); NEUTROPHILS % 91.9 % (36.0-66.0); PLATELET COUNT, AUTOMATED 183 10^3/uL (150-450); RED BLOOD COUNT 4.79 10^6/uL (4.00-5.40); WHITE BLOOD COUNT 14.4 10^3/uL (4.0-10.0)
[2018-08-08 06:13] LABS: ALBUMIN 3.2 GM/DL (3.2-5.2); ALT/SGPT 67 U/L (12-78); BILIRUBIN,TOTAL 0.7 MG/DL (0.2-1.0); BLOOD UREA NITROGEN 14 MG/DL (7-18); CALCIUM LEVEL 8.5 MG/DL (8.8-10.2); CARBON DIOXIDE LEVEL 33 MEQ/L (21-32); CHLORIDE LEVEL 97 MEQ/L (98-107); CREATININE FOR GFR 0.81 MG/DL (0.55-1.30); GLOMERULAR FILTRATION RATE > 60.0 (>32); GLUCOSE, FASTING 141 MG/DL (70-100); POTASSIUM SERUM 3.8 MEQ/L (3.5-5.1); SODIUM LEVEL 138 MEQ/L (136-145); TOTAL PROTEIN 5.5 GM/DL (6.4-8.2)
--- NOTE | 2018-08-08 08:12 | REP ---
Portable chest x-ray: Semi-erect AP view. History: Follow up CHF. Comparison study: August 07, 2018. Findings: EKG monitoring electrodes overlie the chest. Oxygen delivery tubing is seen. Moderate cardiomegaly is again observed. Pulmonary vasculature is cephalized and somewhat congested. There is no evidence of free pleural effusion or focal infiltrate. No definite pulmonary edema. Findings are essentially unchanged. Electronically Signed by Adair Longo MD 08/08/2018 08:30 A
[2018-08-08] MEDS: DIGOXIN 0.125 MG TAB PO SCH (08:24)
[2018-08-08] MEDS: METOCLOPRAMIDE 5 MG TAB PO SCH ×4 (08:24→21:30)
[2018-08-08] MEDS: predniSONE 10 MG TAB PO SCH ×2 (08:24→21:30)
[2018-08-08] MEDS: VITAMIN D 1,000 INTERNATIONAL UNITS TABLET PO SCH (08:24)
[2018-08-08] MEDS: FERROUS SULFATE 325MG TAB PO SCH (08:24)
[2018-08-08] MEDS: LETROZOLE 2.5 MG TAB PO SCH (08:24)
[2018-08-08] MEDS: ISOSORBIDE MON. (IMDUR) 30 MG XR TAB PO SCH (08:28)
[2018-08-08] MEDS: PANTOPRAZOLE 40MG TAB (PROTONIX) PO SCH ×2 (08:29→21:30)
[2018-08-08] MEDS: FUROSEMIDE 40 MG/4 ML VIAL (J1940) IV SCH (08:30)
[2018-08-08] MEDS: ALBUTEROL SULFATE 2.5 MG/0.5 ML INH NEB SOLN INH SCH ×2 (08:58→20:00)
--- NOTE | 2018-08-08 14:17 | ECGEPIP ---
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 INCOMPLETE RIGHT BUNDLE BRANCH BLOCK POSSIBLE RIGHT VENTRICULAR HYPERTROPHY Poor R wave progression, possible ANTEROSEPTAL MYOCARDIAL INFARCTION, OF INDETERMINATE AGE MODERATE T-WAVE ABNORMALITY, CONSIDER LATERAL ISCHEMIA Electronically Signed On 08-08-2018 14:17:10 EST by Efren Fernández
[2018-08-08 15:06] LABS: MB/CK RELATIVE INDEX 7.42 (< OR =4); TROPONIN I 0.37 NG/ML (< 0.10)
[2018-08-08] MEDS: ACETAMINOPHEN TAB 650MG DOSE (2X325MG) PO PRN (18:09)
--- NOTE | 2018-08-08 18:54 | ECHO ---
DATE OF : 1935 AGE: 83 REFERRING PROVIDER: Dr. Carpio PATIENT LOCATION: Room 3225 REASON FOR THE ECHOCARDIOGRAM: Shortness of breath. 2D MEASUREMENTS: IVS: 1.3 cm LV: 2.9 cm LVPW: 1.3 cm LA: 4.5 cm Aorta: 3.1 cm IVC: 2.4 cm DOPPLER MEASUREMENTS: Peak velocity across the aortic valve: 1.2 m/s Peak velocity across the LVOT: 0.76 m/s Mitral E: 1.1 Maximum tricuspid valve velocity: 3.3 m/s 2D COMMENTS: 1. Mildly increased left ventricular wall thickness with normal left ventricular size and a low normal global left ventricular systolic function. The estimated left ventricular systolic ejection fraction is 55-60%. 2. Mildly enlarged left atrium. The right atrium and the right ventricle appear to be mildly enlarged. The right ventricular free wall seemed to be karen. 3. Normal aortic root. 4. No pericardial effusion seen. 5. Mildly calcified aortic valve with normal leaflet excursion. Mildly calcified mitral annulus with normal anterior mitral valve leaflet motion. Normal tricuspid valve. The pulmonic valve and proximal pulmonary artery branches were not well visualized. 6. The inferior vena cava was mildly dilated at 2.4 cm, central venous pressure might be elevated. DOPPLER: It detects mild aortic regurgitation, mild mitral regurgitation, and moderate to severe tricuspid regurgitation. The calculated pulmonary artery systolic pressure varied between 40-50 mmHg. Assessment of the left ventricular diastolic function was limited, patient was in atrial fibrillation during the test. IMPRESSION: 1. Low normal global left ventricular systolic function. 2. Aortic valve sclerosis with mild aortic regurgitation but no aortic stenosis. 3. Mitral annulus calcification with mildly enlarged left atrium and mild mitral regurgitation. 4. Moderate to severe tricuspid regurgitation with moderate pulmonary hypertension and dilated right heart chambers. 5. There were findings consistent with elevated central venous pressure, the inferior vena cava (IVC) was mildly enlarged. 6. This was compared with most recent echocardiogram on 02/15/2018 and no remarkable changes but left ventricular ejection fraction (LVEF) then seemed to be higher.
[2018-08-08] MEDS: HEPARIN DRIP 25,000 UNITS in APPROPRIATE DILUENT 1 EA IV SCH (19:13)
--- NOTE | 2018-08-08 20:41 | IPN ---
DATE: 08/08/2018 SUBJECTIVE: The patient is seen and examined in the room today. Patient is not fully oriented during the encounter. Patient could not recall the details. Patient stated she had chest discomfort prior to admission, however, patient could not specify the exact location, quality and the radiation of the chest pain. Patient could only recall the chest discomfort lasted approximately a few minutes. At baseline, patient using 2 liters oxygen at rest, 5 liters oxygen during exertion. Patient could not recall what kind of medication she is taking at the baseline. Patient could not recall how long she has been on the Xarelto. I had a chance to talk to patient's granddaughter Abbie Broussard. According to Abbie, patient has been having increased confusion gradually in the past few months. OBJECTIVE: VITAL SIGNS: Temperature is 99.3, pulse is 81, respirations 20, blood pressure 141/78, pulse ox 91% on 5 liters nasal cannula. GENERAL: Patient is alert, awake. Patient is not fully oriented. HEENT: Normocephalic, atraumatic. Extraocular grossly intact. CARDIOVASCULAR: Positive S1, S2, irregularly irregular. LUNGS: Positive crackles. No wheezes. ABDOMEN: Soft, nontender, bowel sounds present. EXTREMITIES: No edema. LABORATORY DATA: WBC 14.4, hemoglobin 11.1, hematocrit 37.6, platelet count 183. Sodium is 138, potassium 3.8, chloride 97, carbon dioxide 33, BUN is 14, creatinine is 0.81. GFR greater than 60, fasting glucose 141. Calcium 8.5, total bilirubin is 0.7. AST is 39, ALT is 67, alkaline phosphatase is 55. Troponins I is 0.33. Total protein 5.5. Albumin 3.2. ASSESSMENT AND PLAN: 1. Bilateral pulmonary embolism. The patient does not remember how long she has been on Xarelto for. According to the granddaughter it seems the patient has been on Xarelto for some time. The Xarelto will be discontinued. Patient placed on heparin drip. Imaging study was performed at [facility]. Report reviewed. 2. Left lower lobe pneumonia. On empiric antibiotics. Followup sputum cultures. 3. Human metapneumovirus. Continue conservative medical management. 4. Chest pain with troponin elevation. EKG show moderate T wave abnormalities. Poor R wave progression. Supervisor Heading consulted. 5. Diastolic congestive heart failure exacerbation. Patient demonstrates sign of fluid overload. Patient is currently on Lasix. Continue following intake and output. 6. COPD. At baseline patient using 2 liters oxygen at rest, 5 liters during exertion. Currently patient is being treated for lung infection with PE. Continue nebulizer treatment as needed. 7. Pulmonary hypertension, on diuretics. 8. Coronary artery disease, on aspirin, statin. 9. Atrial fibrillation (a-fib). On digoxin, heparin drip. 10. DVT prophylaxis. Patient on heparin drip.
[2018-08-08] MEDS ORDERED: RIVAROXABAN 15 MG TAB (XARELTO) PO SCH (21:00)
[2018-08-08] MEDS: ASPIRIN 81 MG ENTERIC TAB PO SCH (21:30)
[2018-08-08] MEDS: traZODone 50 MG TAB PO PRN (21:30)
[2018-08-08] MEDS: RAMIPRIL 1.25 MG CAP PO SCH (21:30)
[2018-08-08] MEDS: SIMVASTATIN 10 MG TAB PO SCH (21:30)
[2018-08-08] MEDS: SERTRALINE HCL 50 MG TAB PO SCH (21:30)
[2018-08-09] VITALS (7 sets, daily range): BP systolic 108–153; BP diastolic 54–80
[2018-08-09] MEDS: PIPERACILLIN/TAZOBACTAM SOD 3.375 GM in D5W MINI-BAG PLUS 50 ML IV SCH ×4 (04:24→21:59)
[2018-08-09 05:53] LABS: HEMATOCRIT 38.7 % (36.0-47.0); HEMOGLOBIN 11.1 g/dl (12.0-15.5); MEAN CORPUSCULAR HEMOGLOBIN 22.8 pg (27.0-33.0); MEAN CORPUSCULAR HGB CONC 28.7 g/dl (32.0-36.5); MEAN CORPUSCULAR VOLUME 79.5 fl (80.0-96.0); PLATELET COUNT, AUTOMATED 199 10^3/uL (150-450); RED BLOOD COUNT 4.87 10^6/uL (4.00-5.40); WHITE BLOOD COUNT 10.8 10^3/uL (4.0-10.0)
[2018-08-09 06:28] LABS: BLOOD UREA NITROGEN 19 MG/DL (7-18); CALCIUM LEVEL 8.4 MG/DL (8.8-10.2); CARBON DIOXIDE LEVEL 33 MEQ/L (21-32); CHLORIDE LEVEL 97 MEQ/L (98-107); CHOLESTEROL LEVEL 102 MG/DL (<200); CHOLESTEROL RISK RATIO 2.487 (<5); CREATININE FOR GFR 0.76 MG/DL (0.55-1.30); GLOMERULAR FILTRATION RATE > 60.0 (>32); GLUCOSE, FASTING 118 MG/DL (70-100); HDL CHOLESTEROL 41 MG/DL (>40); LDL CHOLESTEROL 40 MG/DL (<100); MAGNESIUM LEVEL 2.3 MG/DL (1.8-2.4); NON-HDL-C 61 MG/DL; POTASSIUM SERUM 3.3 MEQ/L (3.5-5.1); SODIUM LEVEL 138 MEQ/L (136-145); TRIGLYCERIDES LEVEL 106 MG/DL (<150)
[2018-08-09] MEDS: ALBUTEROL SULFATE 2.5 MG/0.5 ML INH NEB SOLN INH SCH ×2 (07:44→20:45)
[2018-08-09] MEDS: ADVAIR HFA 115/21MCG INHALER INH SCH ×2 (07:56→20:45)
[2018-08-09] MEDS ORDERED: POTASSIUM CHLORIDE 10 MEQ SR TABLET PO ONE (08:15)
[2018-08-09] MEDS: LETROZOLE 2.5 MG TAB PO SCH (09:37)
[2018-08-09] MEDS: VITAMIN D 1,000 INTERNATIONAL UNITS TABLET PO SCH (09:38)
[2018-08-09] MEDS: DIGOXIN 0.125 MG TAB PO SCH (09:38)
[2018-08-09] MEDS: ISOSORBIDE MON. (IMDUR) 30 MG XR TAB PO SCH (09:38)
[2018-08-09] MEDS: PANTOPRAZOLE 40MG TAB (PROTONIX) PO SCH ×2 (09:38→21:59)
[2018-08-09] MEDS: ASPIRIN 81 MG ENTERIC TAB PO SCH (09:39)
[2018-08-09] MEDS: RAMIPRIL 1.25 MG CAP PO SCH (09:39)
[2018-08-09] MEDS: METOCLOPRAMIDE 5 MG TAB PO SCH ×4 (09:39→21:59)
[2018-08-09] MEDS: FUROSEMIDE 40 MG/4 ML VIAL (J1940) IV SCH (09:39)
[2018-08-09] MEDS: FERROUS SULFATE 325MG TAB PO SCH (09:39)
[2018-08-09] MEDS: predniSONE 10 MG TAB PO SCH ×2 (09:40→21:59)
--- NOTE | 2018-08-09 10:10 | ECGEPIP ---
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
--- NOTE | 2018-08-09 14:43 | IPN ---
DATE OF SERVICE: 08/09/2018 Mrs. Antonina Echols was seen yesterday, she was laying supine in bed in no acute distress at rest. She was originally seen because of chest pain and abdominal EKG and also abnormal serum troponin. Serum troponin remained flat and in view of her cardiac history, she was started on small dose of LEON inhibitor with ramipril and aspirin. She is seen again today, she was sitting in the chair in no acute distress. Patient does not talk much and is confused due to underlying dementia and current event and aggravated by current event. There is no report of bleeding. There is no orthopnea or paroxysmal nocturnal dyspnea (PND). There are no palpitations. There is no focal manifestation. Case was discussed with her nurse. On physical examination, the patient seems to be alert and awake, in no acute distress at rest, her eyes watery. Her blood pressure earlier today was 148/69 with a pulse of 83, respiration 18, the maximum temperature was 97.1 degrees Fahrenheit with an oxygen saturation of 94% on 5 liter nasal cannula. Examination of the head: Atraumatic. Neck is supple with extended jugular. The lungs revealed minimal wheezing and crackles bilaterally. The heart examination revealed an irregular heart sound without gallops. The point of maximum impulse (PMI) is slightly displaced inferiorly. There is no rub. Abdomen is soft and nontender. Extremities revealed no pedal edema. Neurologic examination was limited, but no focal deficit noted in the upper extremities. LABORATORY: BMP done today revealed a sodium of 138, potassium 3.3, chloride 97, CO2 33, BUN 19, creatinine 0.76, GFR more than 60, fasting glucose 1.18, and calcium 8.4. Lipid profile revealed a total cholesterol of 102, LDL 40, HDL 61, and triglycerides 106 with a total cholesterol saturation of 41. CBC revealed a WBC of 10.8, hemoglobin 11.1, hematocrit 38.7, and platelets 199,000. APTT earlier today was 156. Chest x-ray on 08/08/2018 revealed cardiomegaly and increased vascular markings. No pleural effusion. No definitive pulmonary edema. Telemetry was reviewed and revealed atrial fibrillation. IMPRESSION: 1. Chest pain, atypical and her serum troponin remained flat. There is no report of chest pain. Her cardiac medications were reviewed and I will continue the same, currently on statin as well as antiplatelet therapy and she was started yesterday on LEON inhibitor with ramipril. We will need to monitor closely her BUN, creatinine, and serum potassium. She is on IV heparin for bilateral pulmonary embolism diagnosed prior to coming to the hospital. They say at that time, she was on Xarelto and has been on Xarelto, but we are not sure whether it was stopped at one point or not. 2. Bilateral pulmonary embolism and this being addressed. Her chest pain and the abdominal troponin may be related to that. 3. Left lower lobe pneumonia, on IV antibiotics. 4. History of chronic obstructive pulmonary artery disease (COPD). 5. History of hypertension and is being addressed. 6. Hyperlipidemia, on a statin. 7. Atrial fibrillation, under control with digoxin. She is on IV heparin and prior to coming to the hospital, she was on Xarelto. 8. Dementia. It was a pleasure to participate in the care of Mrs. Antonina Echols for her underlying cardiac condition. I will continue to monitor along with you while in the hospital. At this time she appears to be stable. Case was discussed earlier today with hospitalist.
[2018-08-09] MEDS: ACETAMINOPHEN TAB 650MG DOSE (2X325MG) PO PRN (16:32)
--- NOTE | 2018-08-09 19:07 | IPNPDOC ---
Text Note Date of Service The patient was seen on 08/09/18. NOTE SUBJECTIVE: The patient is seen and examined in the room today. Patient is not fully oriented during the encounter. Patient denies chest pain. Denies worsening of breathing. Denies fever or chill. OBJECTIVE: VITAL SIGNS: Listed below. GENERAL: Patient is alert, awake. Patient is not fully oriented. HEENT: Normocephalic, atraumatic. Extraocular grossly intact. CARDIOVASCULAR: Positive S1, S2, irregularly irregular. LUNGS: Positive crackles. No wheezes. ABDOMEN: Soft, nontender, bowel sounds present. EXTREMITIES: No edema. LABORATORY DATA: Listed below. ASSESSMENT AND PLAN: #. Bilateral pulmonary embolism. - Was on xarelto previously for atrial fibrillation. - On heparin drip. #. Left lower lobe pneumonia. - On empiric antibiotics. Followup sputum cultures. #. Human metapneumovirus. Continue conservative medical management. #. Chest pain with troponin elevation. - EKG show moderate T wave abnormalities. Poor R wave progression. Wood Fuel Pelletizer consulted. #. Diastolic congestive heart failure exacerbation. -- Patient still demonstrates sign of fluid overload. On Lasix. Continue following intake and output. #. COPD. - At baseline patient using 2 liters oxygen at rest, 5 liters during exertion. Currently patient is being treated for lung infection with PE. Continue nebulizer treatment as needed. #. Pulmonary hypertension, on diuretic. #. Coronary artery disease - On aspirin, statin. #. Atrial fibrillation (a-fib). On digoxin, heparin drip. #. DVT prophylaxis. Patient on heparin drip. VS,Fishbone, I+O VS, Fishbone, I+O Laboratory Tests 08/09/18 05:36 Red Blood Count 4.87, Mean Corpuscular Volume 79.5 L, Mean Corpuscular Hemoglobin 22.8 L, Mean Corpuscular Hemoglobin Concent 28.7 L, Red Cell Distribution Width Vital Signs Date Time Temp Pulse Resp B/P (MAP) Pulse Ox O2 Delivery O2 Flow Rate FiO2 08/09/18 16:00 5.0 08/09/18 16:00 98.3 82 18 127/55 (79) 90 08/07/18 23:11 50 08/07/18 17:24 Venturi Mask I&O- Last 24 Hours up to 6 AM 08/09/18 06:00 Intake Total 562 ml Output Total 1150 ml Balance -588 ml CARLI VORA DO Aug 09, 2018 19:07
[2018-08-09] MEDS: traZODone 50 MG TAB PO PRN (21:59)
[2018-08-09] MEDS: SERTRALINE HCL 50 MG TAB PO SCH (21:59)
[2018-08-09] MEDS: SIMVASTATIN 10 MG TAB PO SCH (21:59)
[2018-08-09] MEDS: HEPARIN DRIP 25,000 UNITS in APPROPRIATE DILUENT 1 EA IV SCH (23:16)
[2018-08-10] VITALS (7 sets, daily range): BP systolic 122–167; BP diastolic 60–71; O2SAT 92–94
[2018-08-10] MEDS: IPRATROPIUM 0.5MG/ALBUTEROL 2.5MG INH SOL UD 3ML (DUONEB)(J7620) INH PRN (00:01)
[2018-08-10] MEDS ORDERED: FUROSEMIDE 40 MG/4 ML VIAL (J1940) IV ONE (01:15)
[2018-08-10] MEDS: PIPERACILLIN/TAZOBACTAM SOD 3.375 GM in D5W MINI-BAG PLUS 50 ML IV SCH ×4 (03:56→21:49)
[2018-08-10 06:10] LABS: HEMATOCRIT 40.8 % (36.0-47.0); RED BLOOD COUNT 5.23 10^6/uL (4.00-5.40); WHITE BLOOD COUNT 10.8 10^3/uL (4.0-10.0)
[2018-08-10 06:11] LABS: MEAN CORPUSCULAR HEMOGLOBIN 22.9 pg (27.0-33.0); MEAN CORPUSCULAR HGB CONC 29.4 g/dl (32.0-36.5); PLATELET COUNT, AUTOMATED 218 10^3/uL (150-450)
[2018-08-10 06:36] LABS: BLOOD UREA NITROGEN 19 MG/DL (7-18); CALCIUM LEVEL 8.5 MG/DL (8.8-10.2); CARBON DIOXIDE LEVEL 39 MEQ/L (21-32); CHLORIDE LEVEL 94 MEQ/L (98-107); CREATININE FOR GFR 0.78 MG/DL (0.55-1.30); GLOMERULAR FILTRATION RATE > 60.0 (>32); GLUCOSE, FASTING 140 MG/DL (70-100); MAGNESIUM LEVEL 2.1 MG/DL (1.8-2.4); POTASSIUM SERUM 3.5 MEQ/L (3.5-5.1); SODIUM LEVEL 138 MEQ/L (136-145)
[2018-08-10] MEDS: FUROSEMIDE 40 MG/4 ML VIAL (J1940) IV SCH (07:54)
[2018-08-10] MEDS: VITAMIN D 1,000 INTERNATIONAL UNITS TABLET PO SCH (07:55)
[2018-08-10] MEDS: LETROZOLE 2.5 MG TAB PO SCH (07:55)
[2018-08-10] MEDS: METOCLOPRAMIDE 5 MG TAB PO SCH ×4 (07:55→21:00)
[2018-08-10] MEDS: ISOSORBIDE MON. (IMDUR) 30 MG XR TAB PO SCH (07:55)
[2018-08-10] MEDS: PANTOPRAZOLE 40MG TAB (PROTONIX) PO SCH ×2 (07:55→21:00)
[2018-08-10] MEDS: RAMIPRIL 1.25 MG CAP PO SCH (07:55)
[2018-08-10] MEDS: DIGOXIN 0.125 MG TAB PO SCH (07:56)
[2018-08-10] MEDS: predniSONE 10 MG TAB PO SCH ×2 (07:56→21:00)
[2018-08-10] MEDS: FERROUS SULFATE 325MG TAB PO SCH (07:56)
[2018-08-10] MEDS: ASPIRIN 81 MG ENTERIC TAB PO SCH (07:56)
[2018-08-10] MEDS: ADVAIR HFA 115/21MCG INHALER INH SCH ×2 (08:13→20:00)
[2018-08-10] MEDS: ALBUTEROL SULFATE 2.5 MG/0.5 ML INH NEB SOLN INH SCH ×2 (08:13→20:00)
[2018-08-10] MEDS ORDERED: ISOVUE-370 76% 100ML VIAL (Q9967) As Ordered ONE (08:43)
--- NOTE | 2018-08-10 10:03 | REP ---
Clinical: Acute on chronic respiratory failure. Technique: Axial contrast enhanced images from the thoracic inlet to the upper abdomen with coronal and sagittal re-formations using 100 ml Isovue 370 intravenous contrast material. Comparison: 06/14/2018. Findings: Cardiomegaly with evidence for pulmonary vascular congestion is appreciated along with a mild bibasilar atelectasis (left greater than right). No effusion. No pneumothorax. Mediastinal and hilar adenopathy likely reactive and unchanged. Tracheobronchial tree is patent. Previously identified 8 mm right lower lobe nodule is not identified and may be surrounded by the mild adjacent atelectasis. Osseous structures are intact. Limited upper abdomen is grossly unremarkable. Impression: Cardiomegaly with pulmonary vascular congestion and mild bibasilar atelectasis. Electronically Signed by Zan Cabral MD 08/10/2018 09:55 A
[2018-08-10 10:09] LABS: NT-PRO BNP 4710 PG/ML (<450)
--- NOTE | 2018-08-10 13:52 | IPN ---
DATE: 08/10/2018 Mrs. Antonina Echols was seen this morning. She was in a chair in her room in no acute distress at rest. She appears to be more alert and awake. The case was discussed with the nursing staff. The patient has an underlying dementia. It seems that last night she desaturated and developed increased shortness of breath and also with increased crackles on physical examination. She was given IV Lasix and at the end of the 24 hour period she was in a negative fluid balance of about 2 liters. So far today, she is in a negative fluid balance of 1.7 liters. There was no report of nausea, vomiting or diarrhea. There is no report of bleeding. There is no focal manifestation. On physical examination, the patient is alert and awake in no acute distress at rest. Her most recent vital signs reveal a blood pressure of 122/60 with a pulse of 72, respirations 18, and a maximum temperature of 97.7 degrees Fahrenheit with an oxygen saturation of 97% on 6 liter nasal cannula. Examination of the Head: Atraumatic. Neck is supple with extended jugular. Could not appreciate any carotid bruits. The lungs revealed minimal crackles, but no wheezing. The heart examination revealed an irregular heart sound without gallops. The point of maximum impulse (PMI) is not displaced. There is no rub. I could not appreciate any murmurs. Abdomen is unremarkable. Extremities revealed no pedal edema. Neurologic examination grossly is negative for focal deficit. LABORATORIES: CBC done today revealed a WBC of 10.8, hemoglobin 12.0, hematocrit 40.8 and platelets 218,000. BMP revealed a sodium of 138, potassium 3.5, chloride 94, CO2 39, BUN 19, creatinine 0.78, GFR more than 60, fasting glucose 140, calcium 8.5. Serum magnesium is 2.1. Serum pro-BNP this morning is 4,710 and on admission it was 42,600. PTT done earlier this morning was 87.8. Chest CT done this morning, 08/10/2018, with contrast revealed cardiomegaly and pulmonary vascular congestion with mild bibasilar atelectasis. There is no report of pulmonary embolism. IMPRESSION: 1. Chest pain, asymptomatic since the episode and her serum troponin was flat, nondiagnostic for acute coronary syndrome. Will continue current medications, on anticoagulation therapy as well as antiplatelet therapy, LEON inhibitor, as well as, a statin. I, however, will hold the Ramipril, 8:00 a.m. on 08/11/2018, pending her BMP. She has received IV dye yesterday for her chest CT. Will need monitor first her BUN and creatinine before restarting it. In view of her age and the diabetes, there is a chance that she might develop some renal insufficiency. 2. Bilateral pulmonary embolism versus congestive heart failure. I do believe the patient most likely has underlying congestive heart failure, but no pulmonary embolism. Will continue cardiac medications, but will need to monitor closely her BUN, creatinine and potassium in view of the Lasix and the LEON inhibitor. The patient just received IV dye during the night. 3. Left lower lobe pneumonia, on IV antibiotics. 4. History of chronic obstructive pulmonary disease (COPD), being addressed. 5. Hypertension, under control. 6. Atrial fibrillation, under control with the digoxin. She is on IV heparin and I think we probably can start her back on the Xarelto or Eliquis. 7. Hyperlipidemia, on a statin. 8. Dementia, long standing history. It was a pleasure to participate in the care of Mrs. Antonina Echols for her underlying cardiac condition. I will continue to monitor her along with you while in the hospital. Please do not hesitate to call if any questions.
--- NOTE | 2018-08-10 20:14 | IPNPDOC ---
Text Note Date of Service The patient was seen on 08/10/18. NOTE SUBJECTIVE: The patient is seen and examined in the room today. Patient is not fully oriented. Patient denies chest pain. Patient still has difficulty breathing. Denies fever or chill. OBJECTIVE: VITAL SIGNS: Listed below. GENERAL: Patient is alert, awake. Patient is not fully oriented. HEENT: Normocephalic, atraumatic. Extraocular grossly intact. CARDIOVASCULAR: Positive S1, S2, irregularly irregular. LUNGS: Positive crackles. No wheezes. ABDOMEN: Soft, nontender, bowel sounds present. EXTREMITIES: No edema. LABORATORY DATA: Listed below. ASSESSMENT AND PLAN: #. Bilateral pulmonary embolism. - Diagnostic imaging was performed in [facility]. - Was on xarelto previously for atrial fibrillation. - On heparin drip. #. Left lower lobe pneumonia. - On empiric antibiotics. Followup sputum cultures. #. Human metapneumovirus. Continue conservative medical management. #. Chest pain with troponin elevation. - EKG show moderate T wave abnormalities. Poor R wave progression. Stockbroking Dealer consulted. #. Diastolic congestive heart failure exacerbation. -- Patient still demonstrates sign of fluid overload. On Lasix. Patient has had negative fluid balance. Continue following intake and output. #. COPD. - At baseline patient using 2 liters oxygen at rest, 5 liters during exertion. Currently patient is being treated for lung infection with PE. Continue nebulizer treatment as needed. #. Pulmonary hypertension, on diuretic. #. Coronary artery disease - On aspirin, statin. #. Atrial fibrillation (a-fib). On digoxin, heparin drip. #. DVT prophylaxis. Patient on heparin drip. VS,Fishbone, I+O VS, Fishbone, I+O Laboratory Tests 08/10/18 05:59 Red Blood Count 5.23, Mean Corpuscular Volume 78.0 L, Mean Corpuscular Hemoglobin 22.9 L, Mean Corpuscular Hemoglobin Concent 29.4 L, Red Cell Distribution Width , Calcium Level 8.5 L Vital Signs Date Time Temp Pulse Resp B/P (MAP) Pulse Ox O2 Delivery O2 Flow Rate FiO2 08/10/18 16:00 6.0 08/10/18 15:43 97.3 72 18 139/65 (89) 93 08/10/18 08:13 Nasal Cannula 08/07/18 23:11 50 I&O- Last 24 Hours up to 6 AM 08/10/18 06:00 Intake Total 619 ml Output Total 3450 ml Balance -2831 ml CARLI VORA DO Aug 10, 2018 20:14
[2018-08-10] MEDS: SERTRALINE HCL 50 MG TAB PO SCH (21:00)
[2018-08-10] MEDS: SIMVASTATIN 10 MG TAB PO SCH (21:00)
[2018-08-10] MEDS: traZODone 50 MG TAB PO PRN (21:50)
[2018-08-10] MEDS: HEPARIN DRIP 25,000 UNITS in APPROPRIATE DILUENT 1 EA IV SCH (23:57)
[2018-08-11] VITALS (7 sets, daily range): BP systolic 127–159; BP diastolic 66–83
[2018-08-11] MEDS: PIPERACILLIN/TAZOBACTAM SOD 3.375 GM in D5W MINI-BAG PLUS 50 ML IV SCH ×4 (04:00→21:25)
[2018-08-11 05:32] LABS: HEMATOCRIT 43.1 % (36.0-47.0); HEMOGLOBIN 12.5 g/dl (12.0-15.5); MEAN CORPUSCULAR VOLUME 79.4 fl (80.0-96.0); PLATELET COUNT, AUTOMATED 215 10^3/uL (150-450); RED BLOOD COUNT 5.43 10^6/uL (4.00-5.40); WHITE BLOOD COUNT 8.7 10^3/uL (4.0-10.0)
[2018-08-11 05:51] LABS: BLOOD UREA NITROGEN 16 MG/DL (7-18); CALCIUM LEVEL 8.7 MG/DL (8.8-10.2); CARBON DIOXIDE LEVEL 37 MEQ/L (21-32); CHLORIDE LEVEL 93 MEQ/L (98-107); CREATININE FOR GFR 0.71 MG/DL (0.55-1.30); GLOMERULAR FILTRATION RATE > 60.0 (>32); GLUCOSE, FASTING 137 MG/DL (70-100); MAGNESIUM LEVEL 2.3 MG/DL (1.8-2.4); POTASSIUM SERUM 3.5 MEQ/L (3.5-5.1); SODIUM LEVEL 137 MEQ/L (136-145)
--- NOTE | 2018-08-11 07:03 | CR ---
DATE OF CONSULTATION: 08/08/2018 CARDIOLOGY CONSULTATION: REFERRING PHYSICIAN: Dr. Mariam Prasad REASON FOR CONSULT: Chest pain. HISTORY OF PRESENT ILLNESS: 83-year-old woman who has been in an assisted living facility in [facility] developed increasing shortness of breath and was brought to an outside hospital where she was evaluated. She was markedly hypoxemic and had a chest CT done that revealed bilateral pulmonary embolism, interstitial edema, and left lower lobe pneumonia. Patient was started on IV Lasix and IV antibiotics with furosemide and Zosyn prior to coming to the hospital. She was then transferred here for further evaluation and monitoring. By the time she reached our emergency room, she has passed about 2 liters of urine. She was still on Ventimask with a FiO2 of 50%. She was admitted for further management and monitoring on 08/07/2018. On 08/08/2018, she developed chest pain and her serum troponin was minimally abnormal. Cardiology consult was called. Mrs. Antonina Echols has a long history of dementia and when I saw her on 08/08/2018 in the evening, she was supine in bed with shortness of breath but in no acute distress. She did not respond appropriately to questions, and most information was taken from the chart and the nursing staff. Since that episode of chest pain, she has been asymptomatic but does have some shortness of breath. There is no report of orthopnea, paroxysmal nocturnal dyspnea (PND), rapid heart rate. There is no report of nausea, vomiting, diarrhea, melena, or hematemesis. She does cough. She has a past medical history positive for atrial fibrillation that has been chronic and persistent, diastolic heart failure, chronic obstructive pulmonary disease (COPD) for which she has been on oxygen supplement and required at times between 2 and 5 liters of nasal cannula, hypertension, hyperlipidemia, pulmonary hypertension, dementia. She does have a history of anxiety/depression. There is no known history of obstructive coronary artery disease, myocardial infarction, cerebrovascular accident (CVA)/transient ischemic attack (TIA), diabetes mellitus, kidney disease. MEDICATIONS AT HOME: - albuterol as needed - digoxin 125 mcg by mouth daily - ferrous sulfate 325 mg by mouth daily - isosorbide mononitrate 30 mg by mouth daily - letrozole 2.5 mg by mouth daily - lactulose as needed for constipation - metoclopramide 5 mg by mouth before meals and at hour sleep - nitroglycerin sublingual 0.5 mg as needed for chest pain - pantoprazole 40 mg by mouth twice a day - prednisone 10 mg by mouth twice a day - rivaroxaban/Xarelto 20 mg by mouth daily - formoterol/fluticasone 250/50 one puff twice a day via inhalation - sertraline 50 mg by mouth daily at hour sleep - simvastatin 10 mg by mouth at hour sleep - trazodone 50 mg by mouth at hour sleep - Tylenol 650 mg every 8 hours as needed - vitamin D 1000 units by mouth daily FAMILY HISTORY: Noncontributory. SOCIAL HISTORY: Patient lives currently in an assisted living facility in [facility]. She has family living in the area and very supportive. She does have a history of smoking and she was a heavy smoker but quit a long time ago. There is no report of illicit drugs. ALLERGIES: She has allergies to LATEX. PHYSICAL EXAMINATION: Patient is alert and awake with mild shortness of breath at rest but in no acute distress at rest. Her vital signs when I saw her revealed a blood pressure of 140/79 with a pulse of 79, respirations 19, and her maximum temperature was 98.4 degrees Fahrenheit with an oxygen saturation of 90% on 5 liters nasal cannula. She had a negative fluid balance reported to be 2.3 liters, but at that time no intake was documented. Examination of the head: Atraumatic. Neck is supple without extended jugular. I could not appreciate any carotid bruits. The lungs revealed bilateral crackles with minimal wheezing. The heart examination revealed an irregular heart sound without gallops. The point of maximal impulse (PMI) is slightly displaced inferiorly. There is no rub. I could not appreciate any murmurs. Abdomen is soft and nontender. Extremities revealed trace ankle edema. Neurological examination grossly was negative for focal deficit but limited. LABS: CBC on 08/08/2018 revealed a WBC of 14.4, hemoglobin 11.1, hematocrit 37.6, and platelets 183,000. BMP revealed a sodium of 138, potassium 3.8, chloride 97, CO2 of 33, BUN 14, creatinine 0.8, and GFR more than 60. Fasting glucose 141, calcium 8.5. Liver enzymes revealed a total bilirubin of 0.7, AST 39, ALT 67, alkaline phosphatase 55, and total protein 5.5, albumin 3.2. Serum proBNP on admission, 08/07/2018, was 42,600. PTT was 101.2 and on admission, PTT was 30.3 with a PT of 16.4 and an INR of 1.3. Serum digoxin on 08/07/2018 was 1.3. ABG on admission revealed a pH of 7.48, pCO2 of 42.1, and pO2 of 59.7. Electrocardiogram on 08/08/2018 revealed normal sinus rhythm, right axis deviation versus lead misplacement between leads I and aVR, mild intraventricular conduction delay (IVCD), isolated premature atrial contractions (PACs) and premature ventricular contractions (PVCs), poor R wave progression versus prior anteroseptal infarct, and ST-T abnormalities noted anteriorly. Chest x-ray on 08/07/2018 revealed cardiomegaly and findings suggestive of pulmonary vascular congestion versus interstitial edema. Chest x-ray on 08/08/2018 revealed no remarkable changes. IMPRESSION: 1. Atypical chest pain with underlying abnormal EKG and patient with multiple risk factors for coronary artery disease (CAD), but her serum troponin is basically nondiagnostic. She has been asymptomatic since then. I do not believe she has an acute coronary syndrome at this present time. This serum troponin pattern may be related to underlying heart failure versus pulmonary embolism. She is currently on IV heparin. I will review the echocardiogram; then further recommendations will be given. In the meantime, I have added a small dose of an angiotensin-converting enzyme (LEON) inhibitor with ramipril. She will continue with her antiplatelet therapy as well as statin. We will stay away from beta-anish at this present time in view of history of severe COPD. She is also on long-acting nitrate. 2. Atrial fibrillation, under control with the digoxin. She probably has some underlying sick sinus syndrome. She will need to be monitored. As mentioned above, we will stay away from beta-anish at the present time and there is no need for calcium channel anish to control her heart rate, particularly in view of the heart failure. 3. Pulmonary embolism, being addressed, on IV Heparin. It seems that prior to that episode, she was on Xarelto. I really doubt she has a pulmonary embolism but could not be entirely ruled out. 4. History of severe chronic obstructive pulmonary disease, for which she has been on oxygen between 2 and 5 liters per minute. Probably underlying pneumonia, on IV antibiotics. 5. History of hyperlipidemia, on a statin. 6. History of dementia. It was a pleasure to participate in the care of Mrs. Antonina Echols for her underlying cardiac condition. I will continue to monitor her along with you while in the hospital. Case was discussed earlier in the day with her hospitalist.
[2018-08-11] MEDS: ADVAIR HFA 115/21MCG INHALER INH SCH ×2 (07:22→20:27)
[2018-08-11] MEDS: ALBUTEROL SULFATE 2.5 MG/0.5 ML INH NEB SOLN INH SCH ×2 (07:22→20:00)
[2018-08-11] MEDS: METOCLOPRAMIDE 5 MG TAB PO SCH ×4 (07:39→20:39)
[2018-08-11] MEDS: PANTOPRAZOLE 40MG TAB (PROTONIX) PO SCH ×2 (09:13→20:39)
[2018-08-11] MEDS: FUROSEMIDE 40 MG/4 ML VIAL (J1940) IV SCH (09:13)
[2018-08-11] MEDS: LETROZOLE 2.5 MG TAB PO SCH (09:13)
[2018-08-11] MEDS: ISOSORBIDE MON. (IMDUR) 30 MG XR TAB PO SCH (09:14)
[2018-08-11] MEDS: FERROUS SULFATE 325MG TAB PO SCH (09:14)
[2018-08-11] MEDS: DIGOXIN 0.125 MG TAB PO SCH (09:14)
[2018-08-11] MEDS: ASPIRIN 81 MG ENTERIC TAB PO SCH (09:14)
[2018-08-11] MEDS: VITAMIN D 1,000 INTERNATIONAL UNITS TABLET PO SCH (09:52)
[2018-08-11] MEDS: RAMIPRIL 1.25 MG CAP PO SCH (09:52)
[2018-08-11] MEDS: predniSONE 10 MG TAB PO SCH ×2 (09:52→20:39)
[2018-08-11] MEDS: WARFARIN SOD 5 MG TAB PO SCH (18:07)
--- NOTE | 2018-08-11 19:03 | IPNPDOC ---
Text Note Date of Service The patient was seen on 08/11/18. NOTE SUBJECTIVE: The patient is seen and examined in the room today. Patient complains about shortness of breathing. Denies recurrence of chest pain. Denies fever or chill. OBJECTIVE: VITAL SIGNS: Listed below. GENERAL: Patient is alert, awake. Not fully oriented. HEENT: Normocephalic, atraumatic. Extraocular grossly intact. CARDIOVASCULAR: Positive S1, S2, irregularly irregular. LUNGS: Positive crackles. No wheezes. ABDOMEN: Soft, nontender, bowel sounds present. EXTREMITIES: No edema. LABORATORY DATA: Listed below. ASSESSMENT AND PLAN: #. Bilateral pulmonary embolism. - Diagnostic imaging was performed in [facility]. - Was on xarelto previously for atrial fibrillation. - On heparin drip. On Warfarin #. Diastolic congestive heart failure exacerbation. - Signs of fluid overload. On Lasix. Patient has had negative fluid balance. Continue following intake and output. #. Human metapneumovirus. Continue conservative medical management. #. Left lower lobe pneumonia. - On empiric antibiotics. Followup sputum cultures. #. Chest pain with troponin elevation. - EKG show moderate T wave abnormalities. Poor R wave progression. [employer] Supervisor consulted. #. COPD. - At baseline patient using 2 liters oxygen at rest, 5 liters during exertion. Currently patient is being treated for lung infection with PE. Continue nebulizer treatment as needed. #. Pulmonary hypertension, on diuretic. #. Coronary artery disease - On aspirin, statin. #. Atrial fibrillation (a-fib). On digoxin, heparin drip. On warfarin #. DVT prophylaxis. Patient on heparin drip. On Warfarin VS,Fishbone, I+O VS, Fishbone, I+O Laboratory Tests 08/11/18 05:11 Red Blood Count 5.43 H, Mean Corpuscular Volume 79.4 L, Mean Corpuscular Hemog lobin 23.0 L, Mean Corpuscular Hemoglobin Concent 29.0 L, Red Cell Distribution Width , Calcium Level 8.7 L Vital Signs Date Time Temp Pulse Resp B/P (MAP) Pulse Ox O2 Delivery O2 Flow Rate FiO2 08/11/18 16:00 97.8 69 18 156/79 (104) 92 6.0 08/10/18 08:13 Nasal Cannula 08/07/18 23:11 50 I&O- Last 24 Hours up to 6 AM 08/11/18 06:00 Intake Total 1556 ml Output Total 2100 ml Balance -544 ml CARLI VORA DO Aug 11, 2018 19:03
[2018-08-11] MEDS: SERTRALINE HCL 50 MG TAB PO SCH (20:39)
[2018-08-11] MEDS: SIMVASTATIN 10 MG TAB PO SCH (20:39)
[2018-08-12] MEDS: HEPARIN DRIP 25,000 UNITS in APPROPRIATE DILUENT 1 EA IV SCH (00:35)
[2018-08-12] MEDS: PIPERACILLIN/TAZOBACTAM SOD 3.375 GM in D5W MINI-BAG PLUS 50 ML IV SCH ×2 (03:58→09:16)
[2018-08-12 04:45] VITALS: BP 128/62
[2018-08-12 04:59] LABS: HEMATOCRIT 45.1 % (36.0-47.0); HEMOGLOBIN 13.1 g/dl (12.0-15.5); MEAN CORPUSCULAR HEMOGLOBIN 22.8 pg (27.0-33.0); MEAN CORPUSCULAR VOLUME 78.4 fl (80.0-96.0); PLATELET COUNT, AUTOMATED 251 10^3/uL (150-450); RED BLOOD COUNT 5.75 10^6/uL (4.00-5.40); WHITE BLOOD COUNT 10.4 10^3/uL (4.0-10.0)
[2018-08-12 05:07] LABS: INR 1.13; PROTHROMBIN TIME 14.7 SECONDS (12.1-14.4)
[2018-08-12 05:09] LABS: PARTIAL THROMBOPLASTIN TIME 65.8 SECONDS (25.4-37.6)
[2018-08-12 05:17] LABS: BLOOD UREA NITROGEN 16 MG/DL (7-18); CALCIUM LEVEL 8.9 MG/DL (8.8-10.2); CARBON DIOXIDE LEVEL 39 MEQ/L (21-32); CHLORIDE LEVEL 90 MEQ/L (98-107); CPK CREATINE PHOSPHOKINASE 20 U/L (26-192); CREATININE FOR GFR 0.65 MG/DL (0.55-1.30); GLOMERULAR FILTRATION RATE > 60.0 (>32); GLUCOSE, FASTING 126 MG/DL (70-100); MAGNESIUM LEVEL 2.1 MG/DL (1.8-2.4); POTASSIUM SERUM 3.1 MEQ/L (3.5-5.1); SODIUM LEVEL 135 MEQ/L (136-145); TROPONIN I 0.08 NG/ML (< 0.10)
[2018-08-12] MEDS: ADVAIR HFA 115/21MCG INHALER INH SCH ×2 (07:25→20:17)
[2018-08-12] MEDS: ALBUTEROL SULFATE 2.5 MG/0.5 ML INH NEB SOLN INH SCH ×2 (07:25→20:00)
[2018-08-12] MEDS: METOCLOPRAMIDE 5 MG TAB PO SCH ×4 (07:55→20:04)
[2018-08-12] MEDS: FUROSEMIDE 40 MG/4 ML VIAL (J1940) IV SCH (09:16)
[2018-08-12] MEDS: LETROZOLE 2.5 MG TAB PO SCH (09:17)
[2018-08-12] MEDS: ASPIRIN 81 MG ENTERIC TAB PO SCH (09:17)
[2018-08-12] MEDS: RAMIPRIL 1.25 MG CAP PO SCH (09:18)
[2018-08-12] MEDS: VITAMIN D 1,000 INTERNATIONAL UNITS TABLET PO SCH (09:18)
[2018-08-12] MEDS: PANTOPRAZOLE 40MG TAB (PROTONIX) PO SCH ×2 (09:18→20:04)
[2018-08-12] MEDS: predniSONE 10 MG TAB PO SCH ×2 (09:18→20:04)
[2018-08-12] MEDS: DIGOXIN 0.125 MG TAB PO SCH (09:18)
[2018-08-12] MEDS: FERROUS SULFATE 325MG TAB PO SCH (09:18)
[2018-08-12] MEDS: ISOSORBIDE MON. (IMDUR) 30 MG XR TAB PO SCH (09:19)
[2018-08-12 12:00] VITALS: BP 154/74
--- NOTE | 2018-08-12 15:10 | IPNPDOC ---
Subjective Date Seen The patient was seen on 08/12/18. Subjective Chief Complaint/HPI Patient seen and examined at the bedside. No acute overnight events noted. Physical therapy ordered for functional optimization. Objective Physical Examination General Exam: Positive: Alert, Cooperative, No Acute Distress ENT Exam: Positive: Atraumatic, Mucous membr. moist/pink Chest Exam: Positive: Rales (bibasilar crackles noted auscultation.), Diminis hed Heart Exam: Positive: Rate Normal, Normal S1, Normal S2 Abdomen Exam: Positive: Soft; Negative: Tenderness Extremity Exam: Negative: Tenderness Psych Exam: Positive: Oriented x 3 Assessment /Plan Plan/VTE VTE Prophylaxis Ordered?: Yes Plan SOB 2/2 Multifactorial Etiology; Bilateral pulmonary embolism. Diagnostic imaging performed in [facility] revealed B/L PE Previously on Xarelto for Atrial fibrillation. We have started the patient on a Heparin drip bridge to [place] due to failure NOAC Decompensated Diastolic Congestive Heart Failure 2D ECHO from 08/08/2018 notable for severe tricuspid regurgitation, moderate pulm htn, and dilated right heart chambers--likely 2/2 underlying PE, Hx of COPD, and possible CHARLIE Daily Weights Monitor I/O's Fluid Restriction Cont Lasix--and maintain negative balance Respiratory Panel + Human Metapneumovirus Continue supportive management. Left lower lobe pneumonia s/p completion Zosyn for 7 days Elevated Troponin Markers likely 2/2 All Above, Hx of CAD EKG with no acute ST changes, Peak Troponin 0.45, and has normalized Denies any chest pain, palpitations Cardiology input noted--no need for acute intervention, as this is likely 2/2 demand ischemia Cont ASA, Statin, Ramipril, Imdur (Not on BB 2/2 Hx of Severe COPD) Hx of Severe COPD. At baseline patient using 2 liters oxygen at rest, 5 liters during exertion. Cont chronic PO Prednisone Continue nebulizer treatment as needed. Hx of Atrial fibrillation Cont on digoxin, heparin drip bridge to warfarin for failure of NOAC (B/L PE) Dyslipidemia Cont Statin Insomnia Cont Trazodone prn HTN Cont current regimen GERD Cont PPI Anxiety/Depression Cont Zoloft DVT prophylaxis Patient on heparin drip. On Warfarin VS, I&O, 24H, Fishbone Vital Signs/I&O Vital Signs Date Time Temp Pulse Resp B/P (MAP) Pulse Ox O2 Delivery O2 Flow Rate FiO2 08/12/18 12:00 5.0 08/12/18 12:00 97.6 76 18 154/74 (100) 90 08/11/18 20:28 Nasal Cannula 08/07/18 23:11 50 I&O- Last 24 Hours up to 6 AM 08/12/18 05:59 Intake Total 1217.0 ml Output Total 1500 ml Balance -283.0 ml Laboratory Data 24H LABS Laboratory Tests 2 08/12/18 04:19: Nucleated Red Blood Cells % (auto) 0.0, Prothrombin Time 14.7H, Prothromb Time International Ratio 1.13, Activated Partial Thromboplast Time 65.8H, Anion Gap 6L, Glomerular Filtration Rate > 60.0, Blood Urea Nitrogen 16, Creatinine 0.65, Sodium Level 135L, Potassium Level 3.1L, Chloride Level 90L, Carbon Dioxide Level 39H, Calcium Level 8.9, Total Creatine Kinase 20L, Magnesium Level 2.1, Creatine Kinase MB 2.0, Creatine Kinase MB Relative Index 11.50H, Troponin I 0.08 CBC/BMP Laboratory Tests 08/12/18 04:19 Red Blood Count 5.75 H, Mean Corpuscular Volume 78.4 L, Mean Corpuscular Hemoglobin 22.8 L, Mean Corpuscular Hemoglobin Concent 29.0 L, Red Cell Distribution Width , Calcium Level 8.9, Total Creatine Kinase 20 L Microbiology Microbiology 08/07/18 Blood Culture - Preliminary, Resulted No Growth after 72 hours. All specime... 08/07/18 Blood Culture - Preliminary, Resulted No Growth after 72 hours. All specime... 08/07/18 Respiratory Virus Panel (PCR) ([facility]) - Final, Complete Human Metapneumovirus JN RIDER MD Aug 12, 2018 15:10
[2018-08-12 16:00] VITALS: BP 154/80
[2018-08-12] MEDS: WARFARIN SOD 5 MG TAB PO SCH (17:15)
[2018-08-12] MEDS ORDERED: POTASSIUM CHLORIDE 10 MEQ SR TABLET PO ONE (18:15)
[2018-08-12 20:00] VITALS: BP 150/72
[2018-08-12] MEDS: SIMVASTATIN 10 MG TAB PO SCH (20:04)
[2018-08-12] MEDS: SERTRALINE HCL 50 MG TAB PO SCH (20:04)
[2018-08-12] MEDS: traZODone 50 MG TAB PO PRN (21:55)
[2018-08-12] MEDS: ACETAMINOPHEN TAB 650MG DOSE (2X325MG) PO PRN (21:56)
[2018-08-13] VITALS: BP 137/72
[2018-08-13] MEDS: HEPARIN DRIP 25,000 UNITS in APPROPRIATE DILUENT 1 EA IV SCH (01:35)
[2018-08-13 04:00] VITALS: BP 150/67
[2018-08-13 05:08] LABS: HEMATOCRIT 44.9 % (36.0-47.0); HEMOGLOBIN 13.4 g/dl (12.0-15.5); MEAN CORPUSCULAR HEMOGLOBIN 23.1 pg (27.0-33.0); MEAN CORPUSCULAR HGB CONC 29.8 g/dl (32.0-36.5); MEAN CORPUSCULAR VOLUME 77.4 fl (80.0-96.0); PLATELET COUNT, AUTOMATED 297 10^3/uL (150-450); WHITE BLOOD COUNT 15.4 10^3/uL (4.0-10.0)
[2018-08-13 05:20] LABS: INR 3.13; PROTHROMBIN TIME 32.9 SECONDS (12.1-14.4)
[2018-08-13 05:21] LABS: PARTIAL THROMBOPLASTIN TIME 73.2 SECONDS (25.4-37.6)
[2018-08-13 05:40] LABS: BLOOD UREA NITROGEN 26 MG/DL (7-18); CARBON DIOXIDE LEVEL 34 MEQ/L (21-32); CHLORIDE LEVEL 90 MEQ/L (98-107); CREATININE FOR GFR 0.75 MG/DL (0.55-1.30); GLOMERULAR FILTRATION RATE > 60.0 (>32); GLUCOSE, FASTING 126 MG/DL (70-100); POTASSIUM SERUM 3.2 MEQ/L (3.5-5.1); SODIUM LEVEL 133 MEQ/L (136-145)
[2018-08-13] MEDS: ALBUTEROL SULFATE 2.5 MG/0.5 ML INH NEB SOLN INH SCH ×2 (07:22→20:00)
[2018-08-13] MEDS: ADVAIR HFA 115/21MCG INHALER INH SCH ×2 (07:22→21:49)
[2018-08-13 08:00] VITALS: BP 161/67
[2018-08-13] MEDS ORDERED: POTASSIUM CHLORIDE 10 MEQ SR TABLET PO ONE ×2 (08:00→18:00)
[2018-08-13] MEDS: VITAMIN D 1,000 INTERNATIONAL UNITS TABLET PO SCH (08:36)
[2018-08-13] MEDS: RAMIPRIL 1.25 MG CAP PO SCH (08:36)
[2018-08-13] MEDS: predniSONE 10 MG TAB PO SCH ×2 (08:37→20:47)
[2018-08-13] MEDS: PANTOPRAZOLE 40MG TAB (PROTONIX) PO SCH ×2 (08:37→20:47)
[2018-08-13] MEDS: ASPIRIN 81 MG ENTERIC TAB PO SCH (08:37)
[2018-08-13] MEDS: LETROZOLE 2.5 MG TAB PO SCH (08:37)
[2018-08-13] MEDS: ISOSORBIDE MON. (IMDUR) 30 MG XR TAB PO SCH (08:37)
[2018-08-13] MEDS: DIGOXIN 0.125 MG TAB PO SCH (08:38)
[2018-08-13] MEDS: METOCLOPRAMIDE 5 MG TAB PO SCH ×4 (08:38→20:47)
[2018-08-13] MEDS: FERROUS SULFATE 325MG TAB PO SCH (08:38)
[2018-08-13 12:00] VITALS: BP 130/62
--- NOTE | 2018-08-13 14:47 | IPNPDOC ---
Subjective Date Seen The patient was seen on 08/13/18. Subjective Chief Complaint/HPI Patient seen and examined at the bedside. Reports that her respiratory status is slowly improving. Objective Physical Examination General Exam: Positive: Alert, Cooperative, No Acute Distress ENT Exam: Positive: Atraumatic, Mucous membr. moist/pink Chest Exam: Positive: Diminished Heart Exam: Positive: Rate Normal, Normal S1, Normal S2 Abdomen Exam: Positive: Soft; Negative: Tenderness Extremity Exam: Negative: Tenderness Psych Exam: Positive: Oriented x 3 Assessment /Plan Plan/VTE VTE Prophylaxis Ordered?: Yes Plan SOB 2/2 Multifactorial Etiology; Bilateral pulmonary embolism. Diagnostic imaging performed in [facility] revealed B/L PE Previously on Xarelto for Atrial fibrillation. We have started the patient on a Heparin drip bridge to [place] due to failure of NOAC Decompensated Diastolic Congestive Heart Failure 2D ECHO from 08/08/2018 notable for severe tricuspid regurgitation, moderate pulm htn, and dilated right heart chambers--likely 2/2 underlying PE, Hx of COPD, and possible CHARLIE Daily Weights Monitor I/O's Fluid Restriction We will cont to maintain negative fluid balances Respiratory Panel + Human Metapneumovirus Continue supportive management. Left lower lobe pneumonia s/p completion Zosyn for 7 days Elevated Troponin Markers likely 2/2 All Above, Hx of CAD EKG with no acute ST changes, Peak Troponin 0.45, and has normalized Denies any chest pain, palpitations Cardiology input noted--no need for acute intervention, as this is likely 2/2 demand ischemia Cont ASA, Statin, Ramipril, Imdur (Not on BB 2/2 Hx of Severe COPD) Hx of Severe COPD. At baseline patient using 2 liters oxygen at rest, 5 liters during exertion. Cont chronic PO Prednisone Continue nebulizer treatment as needed. Hx of Atrial fibrillation Cont on digoxin, heparin drip bridge to warfarin for failure of NOAC (B/L PE) Dyslipidemia Cont Statin Insomnia Cont Trazodone prn HTN Cont current regimen GERD Cont PPI Anxiety/Depression Cont Zoloft DVT prophylaxis Patient on heparin drip. On Warfarin. Disposition--pending continued clinical improvement. Anticipate D/C in 24-48hrs VS, I&O, 24H, Fishbone Vital Signs/I&O Vital Signs Date Time Temp Pulse Resp B/P (MAP) Pulse Ox O2 Delivery O2 Flow Rate FiO2 08/13/18 12:00 97.7 66 20 130/62 (84) 92 6.0 08/11/18 20:28 Nasal Cannula 08/07/18 23:11 50 I&O- Last 24 Hours up to 6 AM 08/13/18 06:00 Intake Total 998 ml Output Total 1350 ml Balance -352 ml Laboratory Data 24H LABS Laboratory Tests 2 08/13/18 04:27: Nucleated Red Blood Cells % (auto) 0.0, Prothrombin Time 32.9H, Prothromb Time International Ratio 3.13, Activated Partial Thromboplast Time 73.2H, Anion Gap 9, Glomerular Filtration Rate > 60.0, Blood Urea Nitrogen 26#H, Creatinine 0.75, Sodium Level 133L, Potassium Level 3.2L, Chloride Level 90L, Carbon Dioxide Level 34H, Calcium Level 9.0, Magnesium Level 2.0 CBC/BMP Laboratory Tests 08/13/18 04:27 Red Blood Count 5.80 H, Mean Corpuscular Volume 77.4 L, Mean Corpuscular Hemoglobin 23.1 L, Mean Corpuscular Hemoglobin Concent 29.8 L, Red Cell Distribution Width 28.7 H, Calcium Level 9.0 Microbiology Microbiology 08/07/18 Blood Culture - Final, Complete NO GROWTH AFTER 5 DAYS 08/07/18 Blood Culture - Final, Complete NO GROWTH AFTER 5 DAYS 08/07/18 Respiratory Virus Panel (PCR) ([facility]) - Final, Complete Human Metapneumovirus JN RIDER MD Aug 13, 2018 14:47
[2018-08-13 16:00] VITALS: BP 129/69
[2018-08-13 20:00] VITALS: BP 137/71
[2018-08-13] MEDS: SIMVASTATIN 10 MG TAB PO SCH (20:46)
[2018-08-13] MEDS: traZODone 50 MG TAB PO PRN (20:47)
[2018-08-13] MEDS: SERTRALINE HCL 50 MG TAB PO SCH (20:47)
--- NOTE | 2018-08-13 23:06 | IPN ---
DATE: 08/13/2018 Mrs. Antonina Echols was seen this evening, she was supine in bed in no acute distress. Her condition seems to have improved since I have seen her the last time on 08/10/2018. She was initially seen on 08/08/2018 because of chest pain. She only had one episode and her serum troponin remained flat and is now back to normal. There is no report of palpitations, there is no orthopnea or paroxysmal nocturnal dyspnea (PND). Her pedal edema has improved significantly. There is no report of bleeding. She was initially transferred from [facility] where she was initially seen with questionable bilateral pulmonary embolism, consistent with heart failure, and pneumonia as well as exacerbation of chronic obstructive pulmonary disease (COPD). She had an echocardiogram done here at the hospital and it revealed a low normal global left ventricular systolic function with probably moderate pulmonary hypertension. The inferior vena cava was mildly enlarged at 2.4 cm. PHYSICAL EXAMINATION: The patient is alert and awake, in no acute distress. Her vital signs this evening reveal a blood pressure of 129/69 with a pulse of 77, respirations 20 and a maximum temperature is 97.7 degrees Fahrenheit with an oxygen saturation of 95% on 6 liters nasal cannula. Head: Atraumatic. Neck: Revealed increased external jugular but no carotid bruits heard. Lungs: The lungs did not reveal any crackles, but minimal bilateral expiratory wheezing. Heart: Revealed irregular heart sounds without gallops. Point of maximal impulse (PMI) is not distressed. There is no rub. A systolic murmur, grade 2/6 at the lower left sternal border without any significant radiation. Abdomen: Soft. Extremities: Reveal no pedal edema. Neurological examination: Negative for focal deficit. LABS: BMP done today revealed a sodium of 133, potassium 3.2, chloride 90, CO2 34, BUN 26, creatinine 0.70. Fasting glucose 126, with a calcium of 9.0. Serum magnesium is 2.0. CBC revealed a WBC of 15.4, hemoglobin 13.4, hematocrit 44.9, and platelets 297,000. IMPRESSION: 1. Chest pain, atypical. History of coronary artery disease (CAD). She has been asymptomatic and her serum troponin has back to normal. Will continue current medications and recent modification for secondary hypertension. She is currently on angiotensin-converting enzyme (LEON) inhibitor as well as antiplatelet therapy, and long-acting nitrate. She is also on a statin and anticoagulation therapy. Echocardiogram as mentioned during this consultation revealed a low normal global left ventricular systolic function. 2. Bilateral pneumonia and it seemed that at that time was on Xarelto. This is being addressed. It seems that the immediate plan is to discharge her on Coumadin. 3. Status post congestive heart failure secondary to left ventricular diastolic dysfunction. She appears to be now well compensated. I will keep her on a small dose of furosemide. She is hypokalemic and this is being addressed. 4. Pneumonia and exacerbation of COPD, being addressed. Minimal wheezing noted on physical examination. She is currently on prednisone. 5. History of hyperlipidemia, on a statin. 6. History of hypertension, under control. 7. Dementia. 8. History of COPD and chronic hypoxemia. Not required high level of oxygen. It was a pleasure to participate in the care of Mrs. Antonina Echols for her underlying cardiac condition. I will continue to monitor her along with you as needed while in the hospital. At this time, she appears to be stable and her condition has improved since the weekend.
[2018-08-14] MEDS ORDERED: RAMELTEON 8 MG TAB (ROZEREM) PO ONE (00:30)
[2018-08-14 02:00] VITALS: BP 142/67
[2018-08-14 06:12] LABS: HEMATOCRIT 43.9 % (36.0-47.0); HEMOGLOBIN 13.1 g/dl (12.0-15.5); MEAN CORPUSCULAR HEMOGLOBIN 23.5 pg (27.0-33.0); MEAN CORPUSCULAR HGB CONC 29.8 g/dl (32.0-36.5); MEAN CORPUSCULAR VOLUME 78.8 fl (80.0-96.0); PLATELET COUNT, AUTOMATED 238 10^3/uL (150-450); RED BLOOD COUNT 5.57 10^6/uL (4.00-5.40); WHITE BLOOD COUNT 9.7 10^3/uL (4.0-10.0)
[2018-08-14 06:26] LABS: PROTHROMBIN TIME 51.7 SECONDS (12.1-14.4)
[2018-08-14 06:33] LABS: INR 5.53
[2018-08-14 06:34] LABS: BLOOD UREA NITROGEN 18 MG/DL (7-18); CARBON DIOXIDE LEVEL 34 MEQ/L (21-32); CHLORIDE LEVEL 96 MEQ/L (98-107); CREATININE FOR GFR 0.55 MG/DL (0.55-1.30); GLOMERULAR FILTRATION RATE > 60.0 (>32); GLUCOSE, FASTING 112 MG/DL (70-100); PARTIAL THROMBOPLASTIN TIME 136.6 SECONDS (25.4-37.6); POTASSIUM SERUM 4.4 MEQ/L (3.5-5.1); SODIUM LEVEL 134 MEQ/L (136-145)
[2018-08-14] MEDS: METOCLOPRAMIDE 5 MG TAB PO SCH ×4 (07:30→20:09)
[2018-08-14 08:00] VITALS: BP 159/75
[2018-08-14] MEDS: ALBUTEROL SULFATE 2.5 MG/0.5 ML INH NEB SOLN INH SCH ×2 (08:00→20:00)
[2018-08-14] MEDS: ADVAIR HFA 115/21MCG INHALER INH SCH ×2 (09:00→21:00)
[2018-08-14] MEDS: VITAMIN D 1,000 INTERNATIONAL UNITS TABLET PO SCH (11:07)
[2018-08-14] MEDS: PANTOPRAZOLE 40MG TAB (PROTONIX) PO SCH ×2 (11:07→20:09)
[2018-08-14] MEDS: ISOSORBIDE MON. (IMDUR) 30 MG XR TAB PO SCH (11:09)
[2018-08-14] MEDS: RAMIPRIL 1.25 MG CAP PO SCH (11:09)
[2018-08-14] MEDS: LETROZOLE 2.5 MG TAB PO SCH (11:09)
[2018-08-14] MEDS: FERROUS SULFATE 325MG TAB PO SCH (11:10)
[2018-08-14] MEDS: FUROSEMIDE 20 MG TAB PO SCH (11:10)
[2018-08-14] MEDS: predniSONE 10 MG TAB PO SCH ×2 (11:10→20:09)
[2018-08-14] MEDS: ASPIRIN 81 MG ENTERIC TAB PO SCH (11:10)
[2018-08-14] MEDS: DIGOXIN 0.125 MG TAB PO SCH (11:13)
[2018-08-14 12:00] VITALS: BP 145/60
--- NOTE | 2018-08-14 14:25 | IPNPDOC ---
Subjective Date Seen The patient was seen on 08/14/18. Subjective Chief Complaint/HPI Patient seen and examined at the bedside. The patient did have a controlled fall on her buttocks yesterday afternoon. She did not sustain any visible contusions, and did not complain of any pain. A sitter was ordered. This morning, the patient denies any acute complaints. Objective Physical Examination General Exam: Positive: Alert, Cooperative, No Acute Distress ENT Exam: Positive: Atraumatic, Mucous membr. moist/pink Chest Exam: Positive: Diminished Heart Exam: Positive: Rate Normal, Normal S1, Normal S2 Abdomen Exam: Positive: Soft; Negative: Tenderness Extremity Exam: Negative: Tenderness Psych Exam: Positive: Oriented x 3 Assessment /Plan Plan/VTE VTE Prophylaxis Ordered?: Yes Plan SOB 2/2 Multifactorial Etiology; Bilateral pulmonary embolism. Diagnostic imaging performed in [facility] revealed B/L PE Previously on Xarelto for Atrial fibrillation. Transitioned to Coumadin due to failure of NOAC--We will cont to adjust dosing based on INR Decompensated Diastolic Congestive Heart Failure 2D ECHO from 08/08/2018 notable for severe tricuspid regurgitation, moderate pulm htn, and dilated right heart chambers--likely 2/2 underlying PE, Hx of COPD, and possible CHARLIE Daily Weights Monitor I/O's Fluid Restriction We will cont to maintain negative fluid balances We will cont PO Lasix 20mg daily Respiratory Panel + Human Metapneumovirus Continue supportive management. Left lower lobe pneumonia s/p completion Zosyn for 7 days Elevated Troponin Markers likely 2/2 All Above, Hx of CAD EKG with no acute ST changes, Peak Troponin 0.45, and has normalized Denies any chest pain, palpitations Cardiology input noted--no need for acute intervention, as this is likely 2/2 demand ischemia Cont ASA, Statin, Ramipril, Imdur (Not on BB 2/2 Hx of Severe COPD) Hx of Severe COPD. At baseline patient using 2 liters oxygen at rest, 5 liters during exertion. Cont chronic PO Prednisone Continue nebulizer treatment as needed. Hx of Atrial fibrillation Cont on digoxin, heparin drip bridge to warfarin for failure of NOAC (B/L PE) Dyslipidemia Cont Statin Insomnia Cont Trazodone prn HTN Cont current regimen GERD Cont PPI Anxiety/Depression Cont Zoloft DVT prophylaxis On Warfarin. Disposition--pending continued clinical improvement. Stabilization of INR. Anticipate D/C in 24-48hrs VS, I&O, 24H, Fishbone Vital Signs/I&O Vital Signs Date Time Temp Pulse Resp B/P (MAP) Pulse Ox O2 Delivery O2 Flow Rate FiO2 08/14/18 12:00 96.9 63 18 145/60 (88) 95 6.0 08/11/18 20:28 Nasal Cannula I&O- Last 24 Hours up to 6 AM 08/14/18 06:00 Intake Total 480 ml Output Total 650 ml Balance -170 ml Laboratory Data 24H LABS Laboratory Tests 2 08/14/18 05:37: Nucleated Red Blood Cells % (auto) 0.0, Prothrombin Time 51.7H, Prothromb Time International Ratio 5.53*H, Activated Partial Thromboplast Time 136.6*H, Anion Gap 4L, Glomerular Filtration Rate > 60.0, Blood Urea Nitrogen 18, Creatinine 0.55, Sodium Level 134L, Potassium Level 4.4#, Chloride Level 96L, Carbon Dioxide Level 34H, Calcium Level 9.0, Magnesium Level 2.0 CBC/BMP Laboratory Tests 08/14/18 05:37 Red Blood Count 5.57 H, Mean Corpuscular Volume 78.8 L, Mean Corpuscular Hemoglobin 23.5 L, Mean Corpuscular Hemoglobin Concent 29.8 L, Red Cell Distribution Width , Calcium Level 9.0 Microbiology Microbiology 08/07/18 Blood Culture - Final, Complete NO GROWTH AFTER 5 DAYS 08/07/18 Blood Culture - Final, Complete NO GROWTH AFTER 5 DAYS 08/07/18 Respiratory Virus Panel (PCR) ([facility]) - Final, Complete Human Metapneumovirus JN RIDER MD Aug 14, 2018 14:25
[2018-08-14 16:00] VITALS: BP 118/61
[2018-08-14 19:24] VITALS: BP 135/61
[2018-08-14] MEDS: SIMVASTATIN 10 MG TAB PO SCH (20:09)
[2018-08-14] MEDS: SERTRALINE HCL 50 MG TAB PO SCH (20:09)
[2018-08-14] MEDS: traZODone 50 MG TAB PO PRN (20:09)
[2018-08-14] MEDS: RAMELTEON 8 MG TAB (ROZEREM) PO SCH (21:07)
[2018-08-15 04:00] VITALS: BP 146/70
[2018-08-15 05:49] LABS: HEMATOCRIT 43.2 % (36.0-47.0); HEMOGLOBIN 12.6 g/dl (12.0-15.5); MEAN CORPUSCULAR HEMOGLOBIN 23.2 pg (27.0-33.0); MEAN CORPUSCULAR HGB CONC 29.2 g/dl (32.0-36.5); MEAN CORPUSCULAR VOLUME 79.7 fl (80.0-96.0); PLATELET COUNT, AUTOMATED 262 10^3/uL (150-450); RED BLOOD COUNT 5.42 10^6/uL (4.00-5.40); WHITE BLOOD COUNT 11.7 10^3/uL (4.0-10.0)
[2018-08-15 06:02] LABS: BLOOD UREA NITROGEN 19 MG/DL (7-18); CALCIUM LEVEL 9.1 MG/DL (8.8-10.2); CARBON DIOXIDE LEVEL 33 MEQ/L (21-32); CHLORIDE LEVEL 97 MEQ/L (98-107); CREATININE FOR GFR 0.52 MG/DL (0.55-1.30); GLOMERULAR FILTRATION RATE > 60.0 (>32); GLUCOSE, FASTING 113 MG/DL (70-100); MAGNESIUM LEVEL 2.1 MG/DL (1.8-2.4); POTASSIUM SERUM 4.3 MEQ/L (3.5-5.1); SODIUM LEVEL 136 MEQ/L (136-145)
[2018-08-15 06:07] LABS: PROTHROMBIN TIME 61.3 SECONDS (12.1-14.4)
[2018-08-15 06:09] LABS: INR 6.86
[2018-08-15 08:00] VITALS: BP 174/81
[2018-08-15] MEDS: ALBUTEROL SULFATE 2.5 MG/0.5 ML INH NEB SOLN INH SCH ×2 (08:00→20:00)
[2018-08-15] MEDS: VITAMIN D 1,000 INTERNATIONAL UNITS TABLET PO SCH (08:39)
[2018-08-15] MEDS: RAMIPRIL 1.25 MG CAP PO SCH (08:39)
[2018-08-15] MEDS: FUROSEMIDE 20 MG TAB PO SCH (08:40)
[2018-08-15] MEDS: PANTOPRAZOLE 40MG TAB (PROTONIX) PO SCH ×2 (08:40→19:59)
[2018-08-15] MEDS: LETROZOLE 2.5 MG TAB PO SCH (08:40)
[2018-08-15] MEDS: METOCLOPRAMIDE 5 MG TAB PO SCH ×4 (08:40→19:59)
[2018-08-15] MEDS: FERROUS SULFATE 325MG TAB PO SCH (08:40)
[2018-08-15] MEDS: ISOSORBIDE MON. (IMDUR) 30 MG XR TAB PO SCH (08:40)
[2018-08-15] MEDS: ASPIRIN 81 MG ENTERIC TAB PO SCH (08:40)
[2018-08-15] MEDS: predniSONE 10 MG TAB PO SCH ×2 (08:40→19:59)
[2018-08-15] MEDS: DIGOXIN 0.125 MG TAB PO SCH (08:41)
[2018-08-15] MEDS: ADVAIR HFA 115/21MCG INHALER INH SCH ×2 (09:00→21:00)
[2018-08-15] MEDS: ACETAMINOPHEN TAB 650MG DOSE (2X325MG) PO PRN (12:13)
--- NOTE | 2018-08-15 14:57 | IPNPDOC ---
Subjective Date Seen The patient was seen on 08/15/18. Subjective Chief Complaint/HPI Patient seen and examined at the bedside. No acute overnight events noted. However, the patient's INR has been noted to be trending upward. No acute bleeding episodes noted. We will continue to monitor the INR level. Objective Physical Examination General Exam: Positive: Alert, Cooperative, No Acute Distress ENT Exam: Positive: Atraumatic, Mucous membr. moist/pink Chest Exam: Positive: Diminished Heart Exam: Positive: Rate Normal, Normal S1, Normal S2 Abdomen Exam: Positive: Soft; Negative: Tenderness Extremity Exam: Negative: Tenderness Psych Exam: Positive: Oriented x 3 Assessment /Plan Plan/VTE VTE Prophylaxis Ordered?: Yes Plan SOB 2/2 Multifactorial Etiology; Bilateral pulmonary embolism. Diagnostic imaging performed in [facility] revealed B/L PE Previously on Xarelto for Atrial fibrillation. Transitioned to Coumadin due to failure of NOAC--We will cont to adjust dosing based on INR Decompensated Diastolic Congestive Heart Failure 2D ECHO from 08/08/2018 notable for severe tricuspid regurgitation, moderate pulm htn, and dilated right heart chambers--likely 2/2 underlying PE, Hx of COPD, and possible CHARLIE Daily Weights Monitor I/O's Fluid Restriction We will cont to maintain negative fluid balances We will cont PO Lasix 20mg daily Respiratory Panel + Human Metapneumovirus Continue supportive management. Left lower lobe pneumonia s/p completion Zosyn for 7 days Elevated Troponin Markers likely 2/2 All Above, Hx of CAD EKG with no acute ST changes, Peak Troponin 0.45, and has normalized Denies any chest pain, palpitations Cardiology input noted--no need for acute intervention, as this is likely 2/2 demand ischemia Cont ASA, Statin, Ramipril, Imdur (Not on BB 2/2 Hx of Severe COPD) Hx of Severe COPD. At baseline patient using 2 liters oxygen at rest, 5 liters during exertion. Cont chronic PO Prednisone Continue nebulizer treatment as needed. Hx of Atrial fibrillation Cont on digoxin, heparin drip bridge to warfarin for failure of NOAC (B/L PE) Dyslipidemia Cont Statin Insomnia Cont Trazodone prn HTN Cont current regimen GERD Cont PPI Anxiety/Depression Cont Zoloft DVT prophylaxis On Warfarin. Disposition--pending continued clinical improvement. Stabilization of INR. VS, I&O, 24H, Fishbone Vital Signs/I&O Vital Signs Date Time Temp Pulse Resp B/P (MAP) Pulse Ox O2 Delivery O2 Flow Rate FiO2 08/15/18 08:41 68 08/15/18 08:40 174/81 08/15/18 08:00 97.2 18 94 4.0 08/11/18 20:28 Nasal Cannula I&O- Last 24 Hours up to 6 AM 08/15/18 06:00 Intake Total 480 ml Balance 480 ml Laboratory Data 24H LABS Laboratory Tests 2 08/15/18 05:31: Nucleated Red Blood Cells % (auto) 0.0, Prothrombin Time 61.3H, Prothromb Time International Ratio 6.86*H, Anion Gap 6L, Glomerular Filtration Rate > 60.0, Blood Urea Nitrogen 19H, Creatinine 0.52L, Sodium Level 136, Potassium Level 4.3, Chloride Level 97L, Carbon Dioxide Level 33H, Calcium Level 9.1, Magnesium Level 2.1 CBC/BMP Laboratory Tests 08/15/18 05:31 Red Blood Count 5.42 H, Mean Corpuscular Volume 79.7 L, Mean Corpuscular Hemoglobin 23.2 L, Mean Corpuscular Hemoglobin Concent 29.2 L, Red Cell Distribution Width 28.2 H, Calcium Level 9.1 Microbiology Microbiology 08/07/18 Blood Culture - Final, Complete NO GROWTH AFTER 5 DAYS 08/07/18 Blood Culture - Final, Complete NO GROWTH AFTER 5 DAYS 08/07/18 Respiratory Virus Panel (PCR) ([facility]) - Final, Complete Human Metapneumovirus JN RIDER MD Aug 15, 2018 14:57
[2018-08-15 16:00] VITALS: BP 127/60
[2018-08-15 18:00] VITALS: BP 137/70
[2018-08-15] MEDS: SERTRALINE HCL 50 MG TAB PO SCH (19:59)
[2018-08-15] MEDS: traZODone 50 MG TAB PO PRN (19:59)
[2018-08-15] MEDS: SIMVASTATIN 10 MG TAB PO SCH (19:59)
[2018-08-15] MEDS: RAMELTEON 8 MG TAB (ROZEREM) PO SCH (19:59)
[2018-08-15 22:00] VITALS: BP 125/58
[2018-08-16 06:00] VITALS: BP 125/59
[2018-08-16 06:49] LABS: PROTHROMBIN TIME 58.6 SECONDS (12.1-14.4)
[2018-08-16 07:24] LABS: INR 6.48
[2018-08-16] MEDS: ALBUTEROL SULFATE 2.5 MG/0.5 ML INH NEB SOLN INH SCH ×3 (08:00→19:46)
[2018-08-16 08:32] LABS: BLOOD UREA NITROGEN 19 MG/DL (7-18); CALCIUM LEVEL 9.1 MG/DL (8.8-10.2); CARBON DIOXIDE LEVEL 33 MEQ/L (21-32); CHLORIDE LEVEL 96 MEQ/L (98-107); CREATININE FOR GFR 0.63 MG/DL (0.55-1.30); GLOMERULAR FILTRATION RATE > 60.0 (>32); GLUCOSE, FASTING 115 MG/DL (70-100); POTASSIUM SERUM 4.3 MEQ/L (3.5-5.1); SODIUM LEVEL 137 MEQ/L (136-145)
[2018-08-16 08:35] LABS: HEMATOCRIT 43.7 % (36.0-47.0); HEMOGLOBIN 12.7 g/dl (12.0-15.5); MEAN CORPUSCULAR HEMOGLOBIN 23.3 pg (27.0-33.0); MEAN CORPUSCULAR HGB CONC 29.1 g/dl (32.0-36.5); PLATELET COUNT, AUTOMATED 270 10^3/uL (150-450); RED BLOOD COUNT 5.46 10^6/uL (4.00-5.40); WHITE BLOOD COUNT 11.8 10^3/uL (4.0-10.0)
[2018-08-16] MEDS: ADVAIR HFA 115/21MCG INHALER INH SCH ×2 (08:48→19:46)
[2018-08-16] MEDS: FUROSEMIDE 20 MG TAB PO SCH (10:08)
[2018-08-16] MEDS: predniSONE 10 MG TAB PO SCH ×2 (10:08→20:18)
[2018-08-16] MEDS: ISOSORBIDE MON. (IMDUR) 30 MG XR TAB PO SCH (10:09)
[2018-08-16] MEDS: PANTOPRAZOLE 40MG TAB (PROTONIX) PO SCH ×2 (10:09→20:18)
[2018-08-16] MEDS: LETROZOLE 2.5 MG TAB PO SCH (10:09)
[2018-08-16] MEDS: DIGOXIN 0.125 MG TAB PO SCH (10:09)
[2018-08-16] MEDS: RAMIPRIL 1.25 MG CAP PO SCH (10:09)
[2018-08-16] MEDS: VITAMIN D 1,000 INTERNATIONAL UNITS TABLET PO SCH (10:09)
[2018-08-16] MEDS: ASPIRIN 81 MG ENTERIC TAB PO SCH (10:09)
[2018-08-16] MEDS: FERROUS SULFATE 325MG TAB PO SCH (10:10)
[2018-08-16] MEDS: METOCLOPRAMIDE 5 MG TAB PO SCH ×4 (10:10→20:18)
[2018-08-16] MEDS: ACETAMINOPHEN TAB 650MG DOSE (2X325MG) PO PRN (11:30)
[2018-08-16 14:00] VITALS: BP 115/64
[2018-08-16] MEDS: IPRATROPIUM 0.5MG/ALBUTEROL 2.5MG INH SOL UD 3ML (DUONEB)(J7620) INH PRN (15:15)
--- NOTE | 2018-08-16 15:57 | IPNPDOC ---
Subjective Date Seen The patient was seen on 08/16/18. Subjective Chief Complaint/HPI Patient seen and examined at the bedside. No acute overnight events noted. Objective Physical Examination General Exam: Positive: Alert, Cooperative, No Acute Distress ENT Exam: Positive: Atraumatic, Mucous membr. moist/pink Chest Exam: Positive: Diminished Heart Exam: Positive: Rate Normal, Normal S1, Normal S2 Abdomen Exam: Positive: Soft; Negative: Tenderness Extremity Exam: Negative: Tenderness Psych Exam: Positive: Oriented x 3 Assessment /Plan Plan/VTE VTE Prophylaxis Ordered?: Yes Plan SOB 2/2 Multifactorial Etiology; Bilateral pulmonary embolism. Diagnostic imaging performed in [facility] revealed B/L PE Previously on Xarelto for Atrial fibrillation. Transitioned to Coumadin due to failure of NOAC--We will cont to adjust dosing based on INR Decompensated Diastolic Congestive Heart Failure 2D ECHO from 08/08/2018 notable for severe tricuspid regurgitation, moderate pulm htn, and dilated right heart chambers--likely 2/2 underlying PE, Hx of COPD, and possible CHARLIE Daily Weights Monitor I/O's Fluid Restriction We will cont to maintain negative fluid balances We will cont PO Lasix 20mg daily Respiratory Panel + Human Metapneumovirus Continue supportive management. Left lower lobe pneumonia s/p completion Zosyn for 7 days Elevated Troponin Markers likely 2/2 All Above, Hx of CAD EKG with no acute ST changes, Peak Troponin 0.45, and has normalized Denies any chest pain, palpitations Cardiology input noted--no need for acute intervention, as this is likely 2/2 demand ischemia Cont ASA, Statin, Ramipril, Imdur (Not on BB 2/2 Hx of Severe COPD) Hx of Severe COPD. At baseline patient using 2 liters oxygen at rest, 5 liters during exertion. Cont chronic PO Prednisone Continue nebulizer treatment as needed. Hx of Atrial fibrillation Cont on digoxin, heparin drip bridge to warfarin for failure of NOAC (B/L PE) Dyslipidemia Cont Statin Insomnia Cont Trazodone prn HTN Cont current regimen GERD Cont PPI Anxiety/Depression Cont Zoloft DVT prophylaxis On Warfarin. Disposition--pending continued clinical improvement. Stabilization of INR. VS, I&O, 24H, Fishbone Vital Signs/I&O Vital Signs Date Time Temp Pulse Resp B/P (MAP) Pulse Ox O2 Delivery O2 Flow Rate FiO2 08/16/18 14:00 97.3 72 18 115/64 (81) 89 3.0 08/11/18 20:28 Nasal Cannula I&O- Last 24 Hours up to 6 AM 08/16/18 06:00 Intake Total 930 ml Output Total 1800 ml Balance -870 ml Laboratory Data 24H LABS Laboratory Tests 2 08/16/18 06:13: Nucleated Red Blood Cells % (auto) 0.0, Anion Gap 8, Glomerular Filtration Rate > 60.0, Blood Urea Nitrogen 19H, Creatinine 0.63, Sodium Level 137, Potassium Level 4.3, Chloride Level 96L, Carbon Dioxide Level 33H, Calcium Level 9.1 08/16/18 06:15: Prothrombin Time 58.6H, Prothromb Time International Ratio 6.48*H CBC/BMP Laboratory Tests 08/16/18 06:13 Red Blood Count 5.46 H, Mean Corpuscular Volume 80.0, Mean Corpuscular Hemoglobin 23.3 L, Mean Corpuscular Hemoglobin Concent 29.1 L, Red Cell Distribution Width 28.5 H, Calcium Level 9.1 Microbiology Microbiology 08/07/18 Blood Culture - Final, Complete NO GROWTH AFTER 5 DAYS 08/07/18 Blood Culture - Final, Complete NO GROWTH AFTER 5 DAYS 08/07/18 Respiratory Virus Panel (PCR) ([facility]) - Final, Complete Human Metapneumovirus JN RIDER MD Aug 16, 2018 15:57
[2018-08-16] MEDS: traZODone 50 MG TAB PO PRN (20:18)
[2018-08-16] MEDS: SERTRALINE HCL 50 MG TAB PO SCH (20:18)
[2018-08-16] MEDS: SIMVASTATIN 10 MG TAB PO SCH (20:18)
[2018-08-16] MEDS: RAMELTEON 8 MG TAB (ROZEREM) PO SCH (20:18)
[2018-08-16 22:00] VITALS: BP 119/59
[2018-08-17 06:00] VITALS: BP 114/62
[2018-08-17 06:48] LABS: HEMATOCRIT 41.5 % (36.0-47.0); HEMOGLOBIN 12.3 g/dl (12.0-15.5); MEAN CORPUSCULAR HEMOGLOBIN 23.3 pg (27.0-33.0); MEAN CORPUSCULAR HGB CONC 29.6 g/dl (32.0-36.5); MEAN CORPUSCULAR VOLUME 78.7 fl (80.0-96.0); PLATELET COUNT, AUTOMATED 275 10^3/uL (150-450); RED BLOOD COUNT 5.27 10^6/uL (4.00-5.40)
[2018-08-17 06:53] LABS: BLOOD UREA NITROGEN 17 MG/DL (7-18); CARBON DIOXIDE LEVEL 32 MEQ/L (21-32); CHLORIDE LEVEL 97 MEQ/L (98-107); CREATININE FOR GFR 0.68 MG/DL (0.55-1.30); GLOMERULAR FILTRATION RATE > 60.0 (>32); GLUCOSE, FASTING 125 MG/DL (70-100); POTASSIUM SERUM 4.5 MEQ/L (3.5-5.1); SODIUM LEVEL 135 MEQ/L (136-145)
[2018-08-17 06:59] LABS: PROTHROMBIN TIME 53.2 SECONDS (12.1-14.4)
[2018-08-17 07:26] LABS: INR 5.74
[2018-08-17] MEDS: ALBUTEROL SULFATE 2.5 MG/0.5 ML INH NEB SOLN INH SCH ×2 (08:06→19:59)
[2018-08-17] MEDS: ADVAIR HFA 115/21MCG INHALER INH SCH ×2 (08:06→19:59)
[2018-08-17] MEDS: PANTOPRAZOLE 40MG TAB (PROTONIX) PO SCH ×2 (08:13→20:05)
[2018-08-17] MEDS: DIGOXIN 0.125 MG TAB PO SCH (08:13)
[2018-08-17] MEDS: LETROZOLE 2.5 MG TAB PO SCH (08:13)
[2018-08-17] MEDS: VITAMIN D 1,000 INTERNATIONAL UNITS TABLET PO SCH (08:13)
[2018-08-17] MEDS: ASPIRIN 81 MG ENTERIC TAB PO SCH (08:14)
[2018-08-17] MEDS: ISOSORBIDE MON. (IMDUR) 30 MG XR TAB PO SCH (08:14)
[2018-08-17] MEDS: predniSONE 10 MG TAB PO SCH ×2 (08:14→20:05)
[2018-08-17] MEDS: RAMIPRIL 1.25 MG CAP PO SCH (08:14)
[2018-08-17] MEDS: METOCLOPRAMIDE 5 MG TAB PO SCH ×4 (08:14→20:05)
[2018-08-17] MEDS: FERROUS SULFATE 325MG TAB PO SCH (08:14)
[2018-08-17] MEDS: FUROSEMIDE 20 MG TAB PO SCH (08:15)
[2018-08-17 14:00] VITALS: BP 138/77
--- NOTE | 2018-08-17 15:26 | IPNPDOC ---
Subjective Date Seen The patient was seen on 08/17/18. Subjective Chief Complaint/HPI Patient seen and examined at the bedside. Did not offer any acute complaints. No acute overnight events noted. Objective Physical Examination General Exam: Positive: Alert, Cooperative, No Acute Distress ENT Exam: Positive: Atraumatic, Mucous membr. moist/pink Chest Exam: Positive: Diminished Heart Exam: Positive: Rate Normal, Normal S1, Normal S2 Abdomen Exam: Positive: Soft; Negative: Tenderness Extremity Exam: Negative: Tenderness Psych Exam: Positive: Oriented x 3 Assessment /Plan Plan/VTE VTE Prophylaxis Ordered?: Yes Plan SOB 2/2 Multifactorial Etiology; Bilateral pulmonary embolism. Diagnostic imaging performed in [facility] revealed B/L PE Previously on Xarelto for Atrial fibrillation. Transitioned to Coumadin due to failure of NOAC--We will cont to adjust dosing based on INR Decompensated Diastolic Congestive Heart Failure 2D ECHO from 08/08/2018 notable for severe tricuspid regurgitation, moderate pulm htn, and dilated right heart chambers--likely 2/2 underlying PE, Hx of COPD, and possible CHARLIE Daily Weights Monitor I/O's Fluid Restriction We will cont to maintain negative fluid balances We will cont PO Lasix 20mg daily Respiratory Panel + Human Metapneumovirus Continue supportive management. Left lower lobe pneumonia s/p completion Zosyn for 7 days Elevated Troponin Markers likely 2/2 All Above, Hx of CAD EKG with no acute ST changes, Peak Troponin 0.45, and has normalized Denies any chest pain, palpitations Cardiology input noted--no need for acute intervention, as this is likely 2/2 demand ischemia Cont ASA, Statin, Ramipril, Imdur (Not on BB 2/2 Hx of Severe COPD) Hx of Severe COPD. At baseline patient using 2 liters oxygen at rest, 5 liters during exertion. Cont chronic PO Prednisone Continue nebulizer treatment as needed. Hx of Atrial fibrillation Cont on digoxin, heparin drip bridge to warfarin for failure of NOAC (B/L PE) Dyslipidemia Cont Statin Insomnia Cont Trazodone prn HTN Cont current regimen GERD Cont PPI Anxiety/Depression Cont Zoloft DVT prophylaxis On Warfarin. Disposition--pending continued clinical improvement. Stabilization of INR. VS, I&O, 24H, Fishbone Vital Signs/I&O Vital Signs Date Time Temp Pulse Resp B/P (MAP) Pulse Ox O2 Delivery O2 Flow Rate FiO2 08/17/18 08:14 114/62 08/17/18 08:13 62 08/17/18 07:30 3.0 08/17/18 06:00 97.4 17 95 08/11/18 20:28 Nasal Cannula I&O- Last 24 Hours up to 6 AM 08/17/18 06:00 Intake Total 930 ml Output Total 625 ml Balance 305 ml Laboratory Data 24H LABS Laboratory Tests 2 08/17/18 05:57: Nucleated Red Blood Cells % (auto) 0.0, Prothrombin Time 53.2H, Prothromb Time International Ratio 5.74*H, Anion Gap 6L, Glomerular Filtration Rate > 60.0, Blood Urea Nitrogen 17, Creatinine 0.68, Sodium Level 135L, Potassium Level 4.5, Chloride Level 97L, Carbon Dioxide Level 32, Calcium Level 9.0 CBC/BMP Laboratory Tests 08/17/18 05:57 Red Blood Count 5.27, Mean Corpuscular Volume 78.7 L, Mean Corpuscular Hemoglobin 23.3 L, Mean Corpuscular Hemoglobin Concent 29.6 L, Red Cell Distribution Width 28.0 H, Calcium Level 9.0 Microbiology Microbiology 08/07/18 Blood Culture - Final, Complete NO GROWTH AFTER 5 DAYS 08/07/18 Blood Culture - Final, Complete NO GROWTH AFTER 5 DAYS 08/07/18 Respiratory Virus Panel (PCR) ([facility]) - Final, Complete Human Metapneumovirus JN RIDER MD Aug 17, 2018 15:26
[2018-08-17] MEDS: SERTRALINE HCL 50 MG TAB PO SCH (20:05)
[2018-08-17] MEDS: SIMVASTATIN 10 MG TAB PO SCH (20:05)
[2018-08-17] MEDS: RAMELTEON 8 MG TAB (ROZEREM) PO SCH (20:05)
[2018-08-17] MEDS: ACETAMINOPHEN TAB 650MG DOSE (2X325MG) PO PRN (21:26)
[2018-08-17] MEDS: traZODone 50 MG TAB PO PRN (21:26)
[2018-08-17 22:00] VITALS: BP 115/69
[2018-08-18 06:00] VITALS: BP 140/66
[2018-08-18 07:19] LABS: HEMATOCRIT 42.2 % (36.0-47.0); HEMOGLOBIN 12.4 g/dl (12.0-15.5); MEAN CORPUSCULAR HEMOGLOBIN 23.2 pg (27.0-33.0); MEAN CORPUSCULAR HGB CONC 29.4 g/dl (32.0-36.5); MEAN CORPUSCULAR VOLUME 78.9 fl (80.0-96.0); PLATELET COUNT, AUTOMATED 285 10^3/uL (150-450); RED BLOOD COUNT 5.35 10^6/uL (4.00-5.40); WHITE BLOOD COUNT 12.8 10^3/uL (4.0-10.0)
[2018-08-18 07:35] LABS: INR 5.17
[2018-08-18 07:45] LABS: BLOOD UREA NITROGEN 14 MG/DL (7-18); CARBON DIOXIDE LEVEL 34 MEQ/L (21-32); CHLORIDE LEVEL 96 MEQ/L (98-107); CREATININE FOR GFR 0.76 MG/DL (0.55-1.30); GLOMERULAR FILTRATION RATE > 60.0 (>32); GLUCOSE, FASTING 116 MG/DL (70-100); POTASSIUM SERUM 4.3 MEQ/L (3.5-5.1); SODIUM LEVEL 135 MEQ/L (136-145)
[2018-08-18] MEDS: ALBUTEROL SULFATE 2.5 MG/0.5 ML INH NEB SOLN INH SCH ×2 (08:00→20:00)
[2018-08-18] MEDS: PANTOPRAZOLE 40MG TAB (PROTONIX) PO SCH ×2 (08:37→20:19)
[2018-08-18] MEDS: FERROUS SULFATE 325MG TAB PO SCH (08:38)
[2018-08-18] MEDS: ASPIRIN 81 MG ENTERIC TAB PO SCH (08:38)
[2018-08-18] MEDS: RAMIPRIL 1.25 MG CAP PO SCH (08:38)
[2018-08-18] MEDS: LETROZOLE 2.5 MG TAB PO SCH (08:38)
[2018-08-18] MEDS: FUROSEMIDE 20 MG TAB PO SCH (08:39)
[2018-08-18] MEDS: ISOSORBIDE MON. (IMDUR) 30 MG XR TAB PO SCH (08:39)
[2018-08-18] MEDS: DIGOXIN 0.125 MG TAB PO SCH (08:39)
[2018-08-18] MEDS: VITAMIN D 1,000 INTERNATIONAL UNITS TABLET PO SCH (08:40)
[2018-08-18] MEDS: METOCLOPRAMIDE 5 MG TAB PO SCH ×4 (08:40→20:19)
[2018-08-18] MEDS: predniSONE 10 MG TAB PO SCH ×2 (08:40→20:19)
[2018-08-18] MEDS: ADVAIR HFA 115/21MCG INHALER INH SCH ×2 (10:31→21:04)
[2018-08-18 14:00] VITALS: BP 109/53
--- NOTE | 2018-08-18 15:10 | IPNPDOC ---
Subjective Date Seen The patient was seen on 08/18/18. Subjective Chief Complaint/HPI Patient seen and examined at the bedside. No acute overnight events noted. Objective Physical Examination General Exam: Positive: Alert, Cooperative, No Acute Distress ENT Exam: Positive: Atraumatic, Mucous membr. moist/pink Chest Exam: Positive: Diminished Heart Exam: Positive: Rate Normal, Normal S1, Normal S2 Abdomen Exam: Positive: Soft; Negative: Tenderness Extremity Exam: Negative: Tenderness Psych Exam: Positive: Oriented x 3 Assessment /Plan Plan/VTE VTE Prophylaxis Ordered?: Yes Plan SOB 2/2 Multifactorial Etiology; Bilateral pulmonary embolism. Diagnostic imaging performed in [facility] revealed B/L PE Previously on Xarelto for Atrial fibrillation. Transitioned to Coumadin due to failure of NOAC--We will cont to adjust dosing based on INR Decompensated Diastolic Congestive Heart Failure 2D ECHO from 08/08/2018 notable for severe tricuspid regurgitation, moderate pulm htn, and dilated right heart chambers--likely 2/2 underlying PE, Hx of COPD, and possible CHARLIE Daily Weights Monitor I/O's Fluid Restriction We will cont to maintain negative fluid balances We will cont PO Lasix 20mg daily Respiratory Panel + Human Metapneumovirus Continue supportive management. Left lower lobe pneumonia s/p completion Zosyn for 7 days Elevated Troponin Markers likely 2/2 All Above, Hx of CAD EKG with no acute ST changes, Peak Troponin 0.45, and has normalized Denies any chest pain, palpitations Cardiology input noted--no need for acute intervention, as this is likely 2/2 demand ischemia Cont ASA, Statin, Ramipril, Imdur (Not on BB 2/2 Hx of Severe COPD) Hx of Severe COPD. At baseline patient using 2 liters oxygen at rest, 5 liters during exertion. Cont chronic PO Prednisone Continue nebulizer treatment as needed. Hx of Atrial fibrillation Cont on digoxin, heparin drip bridge to warfarin for failure of NOAC (B/L PE) Dyslipidemia Cont Statin Insomnia Cont Trazodone prn HTN Cont current regimen GERD Cont PPI Anxiety/Depression Cont Zoloft DVT prophylaxis On Warfarin. Disposition--pending continued clinical improvement. Stabilization of INR. VS, I&O, 24H, Fishbone Vital Signs/I&O Vital Signs Date Time Temp Pulse Resp B/P (MAP) Pulse Ox O2 Delivery O2 Flow Rate FiO2 08/18/18 08:39 72 08/18/18 08:39 138/68 08/18/18 07:30 3.0 08/18/18 06:00 97.6 22 92 l I&O- Last 24 Hours up to 6 AM 08/18/18 06:00 Intake Total 360 ml Output Total 900 ml Balance -540 ml Laboratory Data 24H LABS Laboratory Tests 2 08/18/18 06:40: Nucleated Red Blood Cells % (auto) 0.0 08/18/18 06:41: Prothrombin Time 49.0H, Prothromb Time International Ratio 5.17*H, Anion Gap 5L, Glomerular Filtration Rate > 60.0, Blood Urea Nitrogen 14, Creatinine 0.76, Sodium Level 135L, Potassium Level 4.3, Chloride Level 96L, Carbon Dioxide Level 34H, Calcium Level 9.0 CBC/BMP Laboratory Tests 08/18/18 06:40 Red Blood Count 5.35, Mean Corpuscular Volume 78.9 L, Mean Corpuscular Hemoglobin 23.2 L, Mean Corpuscular Hemoglobin Concent 29.4 L, Red Cell Distri bution Width 28.0 H 08/18/18 06:41 Calcium Level 9.0 JN RIDER MD Aug 18, 2018 15:10
[2018-08-18] MEDS: RAMELTEON 8 MG TAB (ROZEREM) PO SCH (20:18)
[2018-08-18] MEDS: traZODone 50 MG TAB PO PRN (20:18)
[2018-08-18] MEDS: SERTRALINE HCL 50 MG TAB PO SCH (20:18)
[2018-08-18] MEDS: SIMVASTATIN 10 MG TAB PO SCH (20:19)
[2018-08-18] MEDS: ACETAMINOPHEN TAB 650MG DOSE (2X325MG) PO PRN (20:19)
[2018-08-18 22:00] VITALS: BP 128/70
[2018-08-19 06:00] VITALS: BP 126/57
[2018-08-19 06:08] LABS: HEMATOCRIT 43.5 % (36.0-47.0); HEMOGLOBIN 12.6 g/dl (12.0-15.5); MEAN CORPUSCULAR HEMOGLOBIN 23.3 pg (27.0-33.0); MEAN CORPUSCULAR VOLUME 80.4 fl (80.0-96.0); PLATELET COUNT, AUTOMATED 292 10^3/uL (150-450); RED BLOOD COUNT 5.41 10^6/uL (4.00-5.40); WHITE BLOOD COUNT 15.4 10^3/uL (4.0-10.0)
[2018-08-19 06:29] LABS: PROTHROMBIN TIME 48.9 SECONDS (12.1-14.4)
[2018-08-19 06:30] LABS: INR 5.16
[2018-08-19 06:35] LABS: BLOOD UREA NITROGEN 14 MG/DL (7-18); CALCIUM LEVEL 9.2 MG/DL (8.8-10.2); CARBON DIOXIDE LEVEL 36 MEQ/L (21-32); CHLORIDE LEVEL 95 MEQ/L (98-107); CREATININE FOR GFR 0.78 MG/DL (0.55-1.30); GLOMERULAR FILTRATION RATE > 60.0 (>32); GLUCOSE, FASTING 117 MG/DL (70-100); SODIUM LEVEL 135 MEQ/L (136-145)
[2018-08-19] MEDS: ALBUTEROL SULFATE 2.5 MG/0.5 ML INH NEB SOLN INH SCH ×2 (08:00→20:00)
[2018-08-19] MEDS: VITAMIN D 1,000 INTERNATIONAL UNITS TABLET PO SCH (09:05)
[2018-08-19] MEDS: METOCLOPRAMIDE 5 MG TAB PO SCH ×4 (09:06→20:19)
[2018-08-19] MEDS: FUROSEMIDE 20 MG TAB PO SCH (09:07)
[2018-08-19] MEDS: predniSONE 10 MG TAB PO SCH ×2 (09:07→20:19)
[2018-08-19] MEDS: ISOSORBIDE MON. (IMDUR) 30 MG XR TAB PO SCH (09:07)
[2018-08-19] MEDS: ASPIRIN 81 MG ENTERIC TAB PO SCH (09:07)
[2018-08-19] MEDS: LETROZOLE 2.5 MG TAB PO SCH (09:07)
[2018-08-19] MEDS: RAMIPRIL 1.25 MG CAP PO SCH (09:07)
[2018-08-19] MEDS: DIGOXIN 0.125 MG TAB PO SCH (09:09)
[2018-08-19] MEDS: FERROUS SULFATE 325MG TAB PO SCH (09:10)
[2018-08-19] MEDS: PANTOPRAZOLE 40MG TAB (PROTONIX) PO SCH ×2 (09:10→20:19)
--- NOTE | 2018-08-19 13:46 | IPNPDOC ---
Subjective Date Seen The patient was seen on 08/19/18. Subjective Chief Complaint/HPI Patient seen and examined at bedside. No acute overnight events noted. The patient's INR remained elevated, however no bleeding has been noted. Objective Physical Examination General Exam: Positive: Alert, Cooperative, No Acute Distress ENT Exam: Positive: Atraumatic, Mucous membr. moist/pink Chest Exam: Positive: Diminished Heart Exam: Positive: Rate Normal, Normal S1, Normal S2 Abdomen Exam: Positive: Soft; Negative: Tenderness Extremity Exam: Negative: Tenderness Psych Exam: Positive: Oriented x 3 Assessment /Plan Plan/VTE VTE Prophylaxis Ordered?: Yes Plan SOB 2/2 Multifactorial Etiology; Bilateral pulmonary embolism. Diagnostic imaging performed in [facility] revealed B/L PE Previously on Xarelto for Atrial fibrillation. Transitioned to Coumadin due to failure of NOAC--We will cont to adjust dosing based on INR Decompensated Diastolic Congestive Heart Failure 2D ECHO from 08/08/2018 notable for severe tricuspid regurgitation, moderate pulm htn, and dilated right heart chambers--likely 2/2 underlying PE, Hx of COPD, and possible CHARLIE Daily Weights Monitor I/O's Fluid Restriction We will cont to maintain negative fluid balances We will cont PO Lasix 20mg daily Respiratory Panel + Human Metapneumovirus Continue supportive management. Left lower lobe pneumonia s/p completion Zosyn for 7 days Elevated Troponin Markers likely 2/2 All Above, Hx of CAD EKG with no acute ST changes, Peak Troponin 0.45, and has normalized Denies any chest pain, palpitations Cardiology input noted--no need for acute intervention, as this is likely 2/2 demand ischemia Cont ASA, Statin, Ramipril, Imdur (Not on BB 2/2 Hx of Severe COPD) Hx of Severe COPD. At baseline patient using 2 liters oxygen at rest, 5 liters during exertion. Cont chronic PO Prednisone Continue nebulizer treatment as needed. Hx of Atrial fibrillation Cont on digoxin, warfarin for failure of NOAC (B/L PE) Dyslipidemia Cont Statin Insomnia Cont Trazodone prn HTN Cont current regimen GERD Cont PPI Anxiety/Depression Cont Zoloft DVT prophylaxis On Warfarin. Disposition--pending continued clinical improvement. Stabilization of INR. VS, I&O, 24H, Fishbone Vital Signs/I&O Vital Signs Date Time Temp Pulse Resp B/P (MAP) Pulse Ox O2 Delivery O2 Flow Rate FiO2 08/19/18 09:09 68 08/19/18 09:07 126/57 08/19/18 06:00 97.6 20 96 3.0 I&O- Last 24 Hours up to 6 AM 08/19/18 06:00 Intake Total 1320 ml Output Total 700 ml Balance 620 ml Laboratory Data 24H LABS Laboratory Tests 2 08/19/18 05:35: Nucleated Red Blood Cells % (auto) 0.0, Prothrombin Time 48.9H, Prothromb Time International Ratio 5.16*H, Anion Gap 4L, Glomerular Filtration Rate > 60.0, Blood Urea Nitrogen 14, Creatinine 0.78, Sodium Level 135L, Potassium Level 5.0, Chloride Level 95L, Carbon Dioxide Level 36H, Calcium Level 9.2 CBC/BMP Laboratory Tests 08/19/18 05:35 Red Blood Count 5.41 H, Mean Corpuscular Volume 80.4, Mean Corpuscular Hemoglobin 23.3 L, Mean Corpuscular Hemoglobin Concent 29.0 L, Red Cell Distribution Width 27.9 H, Calcium Level 9.2 JN RIDER MD Aug 19, 2018 13:46
[2018-08-19 14:00] VITALS: BP 98/54
[2018-08-19] MEDS: ADVAIR HFA 115/21MCG INHALER INH SCH ×2 (14:12→21:12)
[2018-08-19 15:30] VITALS: BP 97/54
[2018-08-19] MEDS ORDERED: NS 500 ML IV ONE (17:45)
[2018-08-19 18:32] LABS: HEMATOCRIT 42.8 % (36.0-47.0); HEMOGLOBIN 12.7 g/dl (12.0-15.5)
[2018-08-19] MEDS: RAMELTEON 8 MG TAB (ROZEREM) PO SCH (20:18)
[2018-08-19] MEDS: SERTRALINE HCL 50 MG TAB PO SCH (20:18)
[2018-08-19] MEDS: SIMVASTATIN 10 MG TAB PO SCH (20:19)
[2018-08-19] MEDS: ACETAMINOPHEN TAB 650MG DOSE (2X325MG) PO PRN (20:19)
[2018-08-19] MEDS: traZODone 50 MG TAB PO PRN (20:19)
[2018-08-19 22:00] VITALS: BP 105/60
[2018-08-19 23:08] LABS: APPEARANCE, URINE CLOUDY (CLEAR); BACTERIA, URINE AUTO 3+ (NEGATIVE); BILIRUBIN, URINE AUTO NEGATIVE (NEGATIVE); BLOOD, URINE BLOOD 3+ (NEGATIVE); GLUCOSE, URINE (UA) AUTO NEGATIVE (NEGATIVE); KETONE, URINE AUTO NEGATIVE (NEGATIVE); LEUKOCYTE ESTERASE, URINE AUTO 3+ (NEGATIVE); MUCUS, URINE SMALL (NEGATIVE); NITRITE, URINE AUTO NEGATIVE (NEGATIVE); PROTEIN, URINE AUTO 2+ mg/dL (NEGATIVE); RBC, URINE AUTO 26 /HPF (0-3); SPECIFIC GRAVITY URINE AUTO 1.013 (1.002-1.035); SQUAMOUS EPITHELIAL CELL UR AU 4 /HPF (0-6); UROBILINOGEN, URINE AUTO 0.2 mg/dL (0.0-2.0); WBC, URINE AUTO 163 /HPF (0-3)
[2018-08-19 23:10] LABS: COLOR, URINE AMBER (YELLOW)
[2018-08-20 05:55] LABS: HEMATOCRIT 42.5 % (36.0-47.0); HEMOGLOBIN 12.5 g/dl (12.0-15.5); MEAN CORPUSCULAR HEMOGLOBIN 23.6 pg (27.0-33.0); MEAN CORPUSCULAR HGB CONC 29.4 g/dl (32.0-36.5); MEAN CORPUSCULAR VOLUME 80.3 fl (80.0-96.0); PLATELET COUNT, AUTOMATED 282 10^3/uL (150-450); RED BLOOD COUNT 5.29 10^6/uL (4.00-5.40)
[2018-08-20 06:00] VITALS: BP 122/56
[2018-08-20 06:05] LABS: INR 4.58; PROTHROMBIN TIME 44.5 SECONDS (12.1-14.4)
[2018-08-20 06:18] LABS: BLOOD UREA NITROGEN 16 MG/DL (7-18); CALCIUM LEVEL 9.1 MG/DL (8.8-10.2); CARBON DIOXIDE LEVEL 34 MEQ/L (21-32); CHLORIDE LEVEL 96 MEQ/L (98-107); CREATININE FOR GFR 0.77 MG/DL (0.55-1.30); GLOMERULAR FILTRATION RATE > 60.0 (>32); GLUCOSE, FASTING 125 MG/DL (70-100); POTASSIUM SERUM 4.7 MEQ/L (3.5-5.1); SODIUM LEVEL 136 MEQ/L (136-145)
[2018-08-20] MEDS: ADVAIR HFA 115/21MCG INHALER INH SCH ×2 (09:41→20:29)
[2018-08-20] MEDS: ALBUTEROL SULFATE 2.5 MG/0.5 ML INH NEB SOLN INH SCH ×2 (09:42→20:00)
[2018-08-20] MEDS: LETROZOLE 2.5 MG TAB PO SCH (09:50)
[2018-08-20] MEDS: VITAMIN D 1,000 INTERNATIONAL UNITS TABLET PO SCH (09:50)
[2018-08-20] MEDS: FERROUS SULFATE 325MG TAB PO SCH (09:51)
[2018-08-20] MEDS: DIGOXIN 0.125 MG TAB PO SCH (09:51)
[2018-08-20] MEDS: FUROSEMIDE 20 MG TAB PO SCH (09:51)
[2018-08-20] MEDS: ASPIRIN 81 MG ENTERIC TAB PO SCH (09:52)
[2018-08-20] MEDS: ISOSORBIDE MON. (IMDUR) 30 MG XR TAB PO SCH (09:52)
[2018-08-20] MEDS: RAMIPRIL 1.25 MG CAP PO SCH (09:52)
[2018-08-20] MEDS: PANTOPRAZOLE 40MG TAB (PROTONIX) PO SCH ×2 (09:53→20:17)
[2018-08-20] MEDS: predniSONE 10 MG TAB PO SCH ×2 (09:53→20:17)
[2018-08-20] MEDS: METOCLOPRAMIDE 5 MG TAB PO SCH ×4 (10:03→20:17)
--- NOTE | 2018-08-20 11:27 | REP ---
CT ABDOMEN PELVIS WITHOUT CONTRAST: 08/20/2018 COMPARISON: 08/19/2016. CLINICAL HISTORY: Hematuria. FINDINGS: CT ABDOMEN: Lung bases show compressive atelectatic or consolidated changes medial basal segment left lower lobe with some underlying fibrosis. There is cardiomegaly with left atrial and ventricular enlargement as well as right heart enlargement. Calcifications at the aortic and mitral valve plane noted. No pericardial thickening or effusion. Small hiatal hernia suggested. I do not see hepatosplenomegaly or focal hepatic mass. There is a very subtle lobular contour to the liver which may reflect some chronic liver disease. No biliary dilatation, mass or adjacent ascites. There is no splenomegaly or focal lesion. Adrenal glands are normal. Gallbladder shows no calcified stone or mass. Pancreas without mass, ductal dilatation, stone, peripancreatic adenopathy or fluid collection. Adrenal glands symmetric and grossly intact. The aorta is calcified but without aneurysm. There is no periaortic or retroperitoneal pathologic sized lymphadenopathy. Small bowel loops are without abnormal dilatation nor adjacent mesenteric edema. Stool and gas are seen in the colon with scattered diverticula without signs of diverticulitis. No inflammatory changes about the cecum. Lung window review of all CT slices shows no perforation or free air in the abdomen or pelvis. Kidneys show some calcifications in renal fossa related to renal arteries and branches. I cannot see definite collecting system calcifications. There is no hydronephrosis, hydroureter or ureteral stone. Bone windows show diffuse degenerative disc changes with vacuum phenomenon and minor retrolisthesis of L2 on 3, vacuum phenomenon and anterolisthesis of L4 on L5 and vacuum phenomenon narrowing L5-S1. No compression deformities. Marginal osteophytes throughout and facet arthropathy without spondylolysis. Visualized ribs are intact. CT PELVIS: Sacrum and SI joints grossly intact. Right and left iliac bones without acute finding. There is osteoarthritic change at the left hip. There is a right total hip arthroplasty with spray artifact limiting evaluation of the deep pelvis. Bladder is partially filled but without gross evidence of mass or stone. That portion of distal ureter on the right which is visible despite the spray artifact shows no definite stone or mass. The left distal ureters without dilatation or stone. No pelvic free fluid. Distal left colon, sigmoid and rectum are without signs of colitis or diverticulitis. Small bowel loops in the pelvis intact. IMPRESSION: 1. There is no renal, ureteral or bladder stone evident. Multiple calcifications in the renal fossae bilaterally are felt related to renal artery calcifications. No hydronephrosis or hydroureter or stone in the collecting system, ureter on either side on this study. 2. Bladder without wall thickening, stone or mass. 3. Very subtle lobulations of contour of the liver which may reflect some chronic liver disease. No hepatomegaly or focal lesion. No biliary dilatation. The spleen, gallbladder, pancreas and adrenal glands are normal. Electronically Signed by Adilson Wade MD 08/20/2018 09:49 P
[2018-08-20 14:00] VITALS: BP 120/59
[2018-08-20 14:04] LABS: HEMATOCRIT 41.6 % (36.0-47.0); HEMOGLOBIN 12.2 g/dl (12.0-15.5)
--- NOTE | 2018-08-20 15:19 | IPNPDOC ---
Subjective Date Seen The patient was seen on 08/20/18. Subjective Chief Complaint/HPI Patient seen and examined the bedside. The patient was noted to have a slightly red tinged urine color by the bedside nursing staff. A urinalysis was notable for blood. Patient denies any complaints of abdominal pain or dysuria. Her hemoglobin count has remained stable. A CT scan of the abdomen/pelvis has been ordered. Objective Physical Examination General Exam: Positive: Alert, Cooperative, No Acute Distress ENT Exam: Positive: Atraumatic, Mucous membr. moist/pink Chest Exam: Positive: Diminished Heart Exam: Positive: Rate Normal, Normal S1, Normal S2 Abdomen Exam: Positive: Soft; Negative: Tenderness Extremity Exam: Negative: Tenderness Psych Exam: Positive: Oriented x 3 Assessment /Plan Plan/VTE VTE Prophylaxis Ordered?: Yes Plan Hematuria likely 2/2 Supratherapeutic INR UA notable to be Blood+ Hgb stable, Blood pressure stable Patient w/o any acute complaints CT Abd/Pel with no stones or masses noted We will let the patient's INR continue to drift downward at this point and not administer vitamin k given the patients recent diagnosis of bilateral PE, and clinically insignificant hematuria. Cont to monitor SOB 2/2 Multifactorial Etiology; Bilateral pulmonary embolism. Diagnostic imaging performed in [facility] revealed B/L PE Previously on Xarelto for Atrial fibrillation. Transitioned to Coumadin due to failure of NOAC--We will cont to adjust dosing based on INR Decompensated Diastolic Congestive Heart Failure 2D ECHO from 08/08/2018 notable for severe tricuspid regurgitation, moderate pulm htn, and dilated right heart chambers--likely 2/2 underlying PE, Hx of COPD, and possible CHARLIE Daily Weights Monitor I/O's Fluid Restriction We will cont to maintain negative fluid balances We will cont PO Lasix 20mg daily Respiratory Panel + Human Metapneumovirus Continue supportive management. Left lower lobe pneumonia s/p completion Zosyn for 7 days Elevated Troponin Markers likely 2/2 All Above, Hx of CAD EKG with no acute ST changes, Peak Troponin 0.45, and has normalized Denies any chest pain, palpitations Cardiology input noted--no need for acute intervention, as this is likely 2/2 demand ischemia Cont ASA, Statin, Ramipril, Imdur (Not on BB 2/2 Hx of Severe COPD) Hx of Severe COPD. At baseline patient using 2 liters oxygen at rest, 5 liters during exertion. Cont chronic PO Prednisone Continue nebulizer treatment as needed. Hx of Atrial fibrillation Cont on digoxin, warfarin for failure of NOAC (B/L PE) Dyslipidemia Cont Statin Insomnia Cont Trazodone prn HTN Cont current regimen GERD Cont PPI Anxiety/Depression Cont Zoloft DVT prophylaxis On Warfarin. Disposition--pending continued clinical improvement. Stabilization of INR, and resolution of hematuria. VS, I&O, 24H, Fishbone Vital Signs/I&O Vital Signs Date Time Temp Pulse Resp B/P (MAP) Pulse Ox O2 Delivery O2 Flow Rate FiO2 08/20/18 10:30 3.0 08/20/18 09:52 122/56 08/20/18 09:51 76 08/20/18 06:00 98.0 18 99 I&O- Last 24 Hours up to 6 AM 08/20/18 06:00 Intake Total 1260 ml Output Total 2300 ml Balance -1040 ml Laboratory Data 24H LABS Laboratory Tests 2 08/19/18 22:55: Urine Appearance CLOUDYH, Urine Color ARVIND, Urine pH 5.0, Urine Specific [place] 1.013, Urine Protein 2+H, Urine Glucose (UA) NEGATIVE, Urine Ketones NEGATIVE, Urine Urobilinogen 0.2, Urine Bilirubin NEGATIVE, Urine Leukocyte Esterase 3+H, Urine Blood 3+H, Urine Nitrite NEGATIVE, Urine WBC (Auto) 163H, Ur ine RBC (Auto) 26H, Urine Hyaline Casts (Auto) 0, Urine Bacteria (Auto) 3+H, Urine Squamous Epithelial Cells 4, Urine Mucus (Auto) SMALL, Urine Sperm (Auto) 08/20/18 05:37: Nucleated Red Blood Cells % (auto) 0.0, Prothrombin Time 44.5H, Prothromb Time International Ratio 4.58, Anion Gap 6L, Glomerular Filtration Rate > 60.0, Blood Urea Nitrogen 16, Creatinine 0.77, Sodium Level 136, Potassium Level 4.7, Chloride Level 96L, Carbon Dioxide Level 34H, Calcium Level 9.1 CBC/BMP Laboratory Tests 08/19/18 17:58 08/20/18 05:37 Red Blood Count 5.29, Mean Corpuscular Volume 80.3, Mean Corpuscular Hemoglobin 23.6 L, Mean Corpuscular Hemoglobin Concent 29.4 L, Red Cell Distribution Width 27.7 H, Calcium Level 9.1 08/20/18 13:50 JN RIDER MD Aug 20, 2018 15:19
[2018-08-20] MEDS: RAMELTEON 8 MG TAB (ROZEREM) PO SCH (20:17)
[2018-08-20] MEDS: traZODone 50 MG TAB PO PRN (20:17)
[2018-08-20] MEDS: SERTRALINE HCL 50 MG TAB PO SCH (20:17)
[2018-08-20] MEDS: SIMVASTATIN 10 MG TAB PO SCH (20:17)
[2018-08-20 22:00] VITALS: BP 99/52
[2018-08-21 06:00] VITALS: BP 136/76
[2018-08-21 07:15] LABS: HEMATOCRIT 41.8 % (36.0-47.0); HEMOGLOBIN 12.2 g/dl (12.0-15.5); MEAN CORPUSCULAR HEMOGLOBIN 23.7 pg (27.0-33.0); MEAN CORPUSCULAR HGB CONC 29.2 g/dl (32.0-36.5); MEAN CORPUSCULAR VOLUME 81.2 fl (80.0-96.0); PLATELET COUNT, AUTOMATED 291 10^3/uL (150-450); RED BLOOD COUNT 5.15 10^6/uL (4.00-5.40); WHITE BLOOD COUNT 15.8 10^3/uL (4.0-10.0)
[2018-08-21 07:20] LABS: INR 4.54; PROTHROMBIN TIME 44.2 SECONDS (12.1-14.4)
[2018-08-21 07:37] LABS: BLOOD UREA NITROGEN 16 MG/DL (7-18); CARBON DIOXIDE LEVEL 33 MEQ/L (21-32); CHLORIDE LEVEL 95 MEQ/L (98-107); CREATININE FOR GFR 0.67 MG/DL (0.55-1.30); GLOMERULAR FILTRATION RATE > 60.0 (>32); GLUCOSE, FASTING 111 MG/DL (70-100); POTASSIUM SERUM 4.3 MEQ/L (3.5-5.1); SODIUM LEVEL 135 MEQ/L (136-145)
[2018-08-21] MEDS: ALBUTEROL SULFATE 2.5 MG/0.5 ML INH NEB SOLN INH SCH (08:00)
[2018-08-21] MEDS: ADVAIR HFA 115/21MCG INHALER INH SCH (08:49)
[2018-08-21] MEDS: VITAMIN D 1,000 INTERNATIONAL UNITS TABLET PO SCH (09:31)
[2018-08-21] MEDS: ASPIRIN 81 MG ENTERIC TAB PO SCH (09:31)
[2018-08-21] MEDS: RAMIPRIL 1.25 MG CAP PO SCH (09:31)
[2018-08-21 09:32] VITALS: BP 136/76
[2018-08-21] MEDS: FUROSEMIDE 20 MG TAB PO SCH (09:32)
[2018-08-21] MEDS: DIGOXIN 0.125 MG TAB PO SCH (09:32)
[2018-08-21] MEDS: METOCLOPRAMIDE 5 MG TAB PO SCH ×2 (09:32→12:00)
[2018-08-21] MEDS: PANTOPRAZOLE 40MG TAB (PROTONIX) PO SCH (09:32)
[2018-08-21] MEDS: ISOSORBIDE MON. (IMDUR) 30 MG XR TAB PO SCH (09:32)
[2018-08-21] MEDS: LETROZOLE 2.5 MG TAB PO SCH (09:32)
[2018-08-21] MEDS: FERROUS SULFATE 325MG TAB PO SCH (09:32)
[2018-08-21] MEDS: predniSONE 10 MG TAB PO SCH (09:32)
[2018-08-21] MEDS ORDERED: FURO20TA2 PO (12:08)
[2018-08-21] MEDS ORDERED: ALTA1CAP PO (12:08)
[2018-08-21] MEDS ORDERED: ASPI81TAEC PO (12:08)
== END 2018-08-21 15:34 | DRG 175 ==
LOC: EDBD 16:59 → M ED 16:59 → M ED INP 19:57 → M ICU 23:03 → M PCU 08-08 04:19 → M MS5PR 08-15 18:03
PROVIDERS: ADMIT Internal Medicine; ATTEND Internal Medicine Nephrology
DX: I26.99 Other pulmonary embolism without acute cor pulmonale (principal); I50.33 Acute on chronic diastolic (congestive) heart failure; J96.91 Respiratory failure, unspecified with hypoxia; J18.1 Lobar pneumonia, unspecified organism; I48.1 Persistent atrial fibrillation; J44.0 Chronic obstructive pulmonary disease with (acute) lower respiratory infection; I48.2 Chronic atrial fibrillation; I11.0 Hypertensive heart disease with heart failure; B97.81 Human metapneumovirus as the cause of diseases classified elsewhere; I27.20 Pulmonary hypertension, unspecified; R31.9 Hematuria, unspecified; I49.5 Sick sinus syndrome; G47.00 Insomnia, unspecified; F03.90 Unspecified dementia, unspecified severity, without behavioral disturbance, psychotic disturbance, mood disturbance, and anxiety; F32.9 Major depressive disorder, single episode, unspecified; R07.89 Other chest pain; F41.9 Anxiety disorder, unspecified; Z99.81 Dependence on supplemental oxygen; E78.5 Hyperlipidemia, unspecified; I25.10 Atherosclerotic heart disease of native coronary artery without angina pectoris; Z87.891 Personal history of nicotine dependence; Z79.52 Long term (current) use of systemic steroids; Z79.01 Long term (current) use of anticoagulants; Z79.899 Other long term (current) drug therapy

== ENCOUNTER 2018-10-21 08:55 | Observation (INO) | payer MEDICARE, MEDICAID ==
[~2018-10-21 08:55] MED LIST changes: -/ADVA50050; -/ADVA50050 IN; -/WARF25TA OR; +ACET1TAB55 PO; +ADVA1AER2; +ADVA1AER2 IN; +ALTA1CAP PO; +ASPI81TAEC PO; +BISA10SU4 PR; +COUM1TAB18 OR; -DILT240C14 PO; +DILT240C82 PO; +ENEM1ENE4 PR; +FERR1TAB8 PO; +IPRA0.00 INH; +MILKSUS5 PO; +PRAD150C6 PO; +PRED-351 PO; -PRED10TA PO; +SERT-141 PO; -SERT25TA PO; +SERT25TA85 PO
[2018-10-21 10:54] VITALS: BP 90/50
[2018-10-21] MEDS ORDERED: NALOXONE INJ 0.4 MG/1 ML VIAL (J2310) As Ordered ONE (10:59)
[2018-10-21 11:03] LABS: ABG HCO3 31.6 MEQ/L (22.0-26.0); ABG O2 SATURATION 25.7 % (95.0-99.0); ABG STANDARD HCO3 23.7 MEQ/L (22.0-26.0); ABG TOTAL CO2 34.2 MEQ/L (23.0-31.0); ABG pH (ARTERIAL) 7.194 UNITS (7.350-7.450)
[2018-10-21 11:08] LABS: ABG PARTIAL PRESSURE CO2 83.9 mmHg (35.0-45.0); ABG PARTIAL PRESSURE O2 23.2 mmHg (75.0-100.0)
--- NOTE | 2018-10-21 12:15 | HPE ---
DATE OF ADMISSION: 10/21/2018 DATE OF : 10/21/2018 Please note that this is an admission history and physical as well as summary. The patient presented from the intermediate to [facility] earlier today with complaints of hip pain after a fall. At [facility] she was found to have a left comminuted hip fracture. She was noted to be on Xarelto for atrial fibrillation. She was also found to be hypoxic. However, they maintained her on room air. CT scan of her chest did reveal bilateral lower lobe infiltrates versus edema. Otherwise, workup there revealed leukocytosis and fairly unremarkable. The patient's granddaughter, who works here at [facility] had been called and informed about potential transfer to [place]. She requested a transfer to [facility] instead where she could be closer to family. I was personally called regarding this patient by nursing supervisor livestock yard and did accept the patient as a transfer to our medical intensive care unit (ICU). The patient did arrive earlier this morning. I was notified of the patient's arrival in our facility at 10:45 by the nursing supervisor livestock yard. I was called at 10:48 to urgently present to the bedside as the patient was completely unresponsive. As per nursing staff, the patient was breathing agonally on the stretcher as they rolled her into the unit and called me. I did present immediately to the bedside where the patient was found to be unresponsive and breathing agonally with saturations less than 10 with an appropriate waveform. She was bradycardic. We did review her chart and advanced directives and she was noted to be a DO NOT RESUSCITATE, DO NOT INTUBATE. She has baseline chronic obstructive pulmonary disease (COPD) with oxygen requirement of 6 liters. She was on a nonrebreather. I did request for a stat chest x-ray and arterial blood gas. The patient's heart rate and blood pressure began to deteriorate. On examination, she did have decreased breath sounds on the left side of her chest that did appear to be somewhat caved in on observation. The patient did appear to be in dire straits. I did call her power of attorney general and healthcare proxy, Abbie Broussard, who does work here at [facility] in the operating room and informed her about the patient's status upon arrival. She did confirm the advanced directives that the patient was a DO NOT RESUSCITATE, DO NOT INTUBATE. I did inform her that I did not think that the patient would live long in her current predicament. She did inform me that she would be arriving to the hospital shortly to see her grandmother. Shortly thereafter at 11:07, the patient did lose her pulse and was completely unresponsive. I did call the patient's power of attorney general and healthcare proxy back and inform her of this change in status. The patient will remain in the medical intensive care unit (ICU) until she was able to present bedside. The cause of was acute on chronic hypoxic respiratory failure secondary to decompensated congestive heart failure (CHF).
== END 2018-10-21 11:07 | disposition expired ==
LOC: INTOOBSV 10:41 → M ICU 10:41
PROVIDERS: ADMIT Internal Medicine; ATTEND Internal Medicine
DX: J96.21 Acute and chronic respiratory failure with hypoxia (principal); I50.9 Heart failure, unspecified; D72.829 Elevated white blood cell count, unspecified; R00.1 Bradycardia, unspecified; S72.002A Fracture of unspecified part of neck of left femur, initial encounter for closed fracture; W19.XXXA Unspecified fall, initial encounter; Y92.89 Other specified places as the place of occurrence of the external cause; J44.9 Chronic obstructive pulmonary disease, unspecified; Z99.81 Dependence on supplemental oxygen; I48.91 Unspecified atrial fibrillation; Z79.01 Long term (current) use of anticoagulants